=== PATIENT | female | born 1945 | race Caucasian/White ===

== ENCOUNTER → 2017-06-16 09:58 | Outpatient (CLI) | payer MEDICARE, OTHER, SELFPAY ==
--- NOTE | 2017-06-17 13:47 | PFTCOMP ---
COMPLETE PULMONARY FUNCTION TEST INTERPRETATION Brief HPI: Patient is a 71 year old female, currently under the care of myself, who presents to [facility] for complete pulmonary function tests secondary to diagnosis of COPD. Respiratory therapist reports good effort and reproducible results. Interpretation: Forced expiration spirometry shows a mild large airways obstructive ventilatory defect with an FEV1 of 72 % predicted. There is no significant bronchodilator response by ATS criteria. Spirograms are of good quality and plateau slowly, indicating slowly emptying areas of the lungs. The respiratory flow volume loop shows decreased expiratory flow rates at all lung volumes consistent with airway obstruction. Lung volumes by body plethysmography show a normal total lung capacity at 4.93 L, 112 % predicted. All other lung volumes are within normal limits. There is a trend towards air-trapping, but this does not reach clinical significance by ATS criteria. Diffusion capacity by carbon monoxide is decreased at 53 % predicted. The airway resistance is normal. Compared to previous pulmonary function tests from 07/28/2015, there has been no significant change. Impression: Irreversible mild large airways obstructive ventilatory defect with a symmetric reduction diffusing capacity consistent with patient's diagnosis of COPD. No significant change compared to previous study
--- NOTE | 2017-06-17 13:50 | PFTCOMP_ITS ---
COMPLETE PULMONARY FUNCTION TEST INTERPRETATION Brief HPI: Patient is a 71 year old female, currently under the care of myself, who presents to [facility] for complete pulmonary function tests secondary to diagnosis of COPD. Respiratory therapist reports good effort and reproducible results. Interpretation: Forced expiration spirometry shows a mild large airways obstructive ventilatory defect with an FEV1 of 72 % predicted. There is no significant bronchodilator response by ATS criteria. Spirograms are of good quality and plateau slowly, indicating slowly emptying areas of the lungs. The respiratory flow volume loop shows decreased expiratory flow rates at all lung volumes consistent with airway obstruction. Lung volumes by body plethysmography show a normal total lung capacity at 4.93 L , 112 % predicted. All other lung volumes are within normal limits. There is a trend towards air-trapping, but this does not reach clinical significance by ATS criteria. Diffusion capacity by carbon monoxide is decreased at 53 % predicted. The airway resistance is normal. Compared to previous pulmonary function tests from 07/28/2015, there has been no significant change. Impression: Irreversible mild large airways obstructive ventilatory defect with a symmetric reduction diffusing capacity consistent with patient's diagnosis of COPD. No significant change compared to previous study
== END ==
PROVIDERS: Family Provider Family Medicine; PCP Family Medicine; Visit Provider Internal Medicine Critical Care Medicine
DX: J44.9 Chronic obstructive pulmonary disease, unspecified (principal)
CPT/HCPCS: 94060; 94726; 94729

== ENCOUNTER → 2017-06-21 11:15 | Outpatient (CLI) | payer MEDICARE, OTHER, SELFPAY ==
[2017-06-21 11:25] VITALS: PULSE 101; PULSE 106; PULSE 107; PULSE 113; PULSE 114; PULSE 115; PULSE 89; PULSE 90; O2SAT 90; O2SAT 91; O2SAT 92; O2SAT 97; O2SAT 98
--- NOTE | 2017-06-21 13:48 | PCM.PSN.6M ---
PSN 6 Minute Walk Test - 6 Minute Walk Test 6 Minute Walk Test: 6 Minute Walk Test PSN:6-Minute Walk Test Start: 06/21/17 11:38 Freq: Status: Active Protocol: RESP.6MINW Document 06/21/17 11:25 [facility] (Rec: 06/21/17 11:40 [facility] [id number]) 6 Minute Walk Test Date Performed 06/21/17 Time Performed 11:25 Height 5 ft 2.5 in Weight: 240 lb Weight in Pounds 240.[address]: Matthew Haley Assistive device used: Cane Pre-test Oxygen Delivery Method Room Air Pulse Ox (%) 97 Pulse Rate (60-100 beats/min) 90 Dyspnea Cj Scale (0-10) 0.5 Exertion Cj Scale (6-20) 6 1st minute Oxygen Delivery Method Room Air Pulse Ox (%) 98 Pulse Rate (60-100 beats/min) 101 H Number of Rests Taken 0 2nd minute Oxygen Delivery Method Room Air Pulse Ox (%) 92 Pulse Rate (60-100 beats/min) 106 H Number of Rests Taken 0 3rd minute Oxygen Delivery Method Room Air Pulse Ox (%) 90 Pulse Rate (60-100 beats/min) 107 H Number of Rests Taken 0 4th minute Oxygen Delivery Method Room Air Pulse Ox (%) 91 Pulse Rate (60-100 beats/min) 113 H Number of Rests Taken 0 5th minute Oxygen Delivery Method Room Air Pulse Ox (%) 90 Pulse Rate (60-100 beats/min) 115 H Number of Rests Taken 0 6th minute Oxygen Delivery Method Room Air Pulse Ox (%) 91 Pulse Rate (60-100 beats/min) 114 H Number of Rests Taken 0 Post-test Oxygen Delivery Method Room Air Pulse Ox (%) 98 Pulse Rate (60-100 beats/min) 89 Dyspnea Cj Scale (0-10) 1 Exertion Cj Scale (6-20) 12 Number of Rests Taken 0 Full Laps Walked 10 Partial Lap, Number of Tiles Walked 34 Total Distance Walked (ft) 624 - Interpretation Interpretation: The patient ambulated 624 feet over the course of 6 minutes beginning on room air with use of a cane. Pretesting oxygen saturation was noted to be 97% on room air. With ambulation, the yelena oxygen saturation was 90%. The patient did develop physiologic tachycardia with exertion. There was evidence of both impaired walk distance and exertional oxygen desaturation. - Recommendations Recommendations: There is no indication for the use of supplemental oxygen at this time. However, close interval follow-up is recommended given the degree of oxygen desaturation noted during this study.
== END ==
PROVIDERS: Family Provider Family Medicine; PCP Family Medicine; Visit Provider Internal Medicine Critical Care Medicine
DX: J44.9 Chronic obstructive pulmonary disease, unspecified (principal); R91.1 Solitary pulmonary nodule
CPT/HCPCS: 94618

== ENCOUNTER → 2017-08-02 09:43 | Outpatient (CLI) | payer MEDICARE, OTHER, SELFPAY ==
--- NOTE | 2017-08-02 09:44 | ECHOCS_ITS ---
Reason For Study: PHTN Procedure This was a 2D Doppler, Color Flow transthoracic echocardiogram. The exam was of poor technical quality due to body habitus. The study was technically difficult. Exam performed in department. Left Ventricle Normal LV size. Left ventricular systolic function is normal. The estimated ejection fraction is 60 %. No regional wall motion abnormalities noted. Right Ventricle Mildly dilated right ventricle. Normal systolic function. Atria Normal left atrium. The right atrium is mildly enlarged. No doppler evidence for ASD. Mitral Valve There is no mitral annular calcification. Normal mitral valve. Trivial mitral valve insufficiency. Tricuspid Valve Normal tricuspid valve. Mild tricuspid valve insufficiency. Right ventricular systolic pressure estimated to be 31 mmHg. Aortic Valve Trisinus/trileaflet aortic valve. Normal aortic valve. Pulmonic Valve The pulmonic valve is not well visualized. Trivial pulmonic valve insufficiency. Great Vessels Normal sized aortic root. Pericardium/Pleural No pericardial effusion. MMode/2D Measurements & Calculations LVIDd: 5.1 cm IVSd: 1.2 cm Ao root diam: 3.2 cm LVIDs: 3.5 cm LVPWd: 1.2 cm LA dimension: 4.0 cm RVDd: 3.5 cm FS: 31.8 % LAV(MOD-bp): 67.1 ml LA A4 area: 20.5 cm2 RA A4 area: 15.8 cm2 LAV(MOD-bp) Indexed: 32.3 ml/m2 LAV(MOD-sp2): 66.7 ml LAV(MOD-sp4): 63.3 ml Doppler Measurements & Calculations MV E max smith: 84.9 cm/sec Lat Peak E' Smith: 9.2 cm/sec Med Peak E' Smith: 7.5 cm/sec MV A max smith: 101.9 cm/sec E/E' lat: 9.2 E/E' med: 11.3 MV E/A: 0.83 Ao V2 max: 124.0 cm/sec LV V1 max: 113.2 cm/sec PA V2 max: 96.9 cm/sec Ao max P.2 mmHg LV V1 max P.1 mmHg TR max smith: 264.5 cm/sec TR max P.0 mmHg Interpretation Summary The study was technically difficult. Left ventricular systolic function is normal. The estimated ejection fraction is 60 %. Mildly dilated right ventricle. Normal systolic function. The right atrium is mildly enlarged. Trivial mitral valve insufficiency. Mild tricuspid valve insufficiency. Trivial pulmonic valve insufficiency. Right ventricular systolic pressure estimated to be 31 mmHg. Transmitral diastolic flow velocities suggest diastolic dysfunction. Ordering Physician: Matthew Haley Referring Physician: Tigist Pelaez Performed By: Romina Yarbrough, MINNIECS, RVT
== END ==
PROVIDERS: Family Provider Family Medicine; PCP Family Medicine; Visit Provider Internal Medicine Critical Care Medicine
DX: I27.20 Pulmonary hypertension, unspecified (principal)
CPT/HCPCS: 93306

== ENCOUNTER → 2018-03-17 10:49 | Outpatient (CLI) | payer MEDICARE, OTHER, SELFPAY ==
[2018-03-17 11:25] VITALS: PULSE 103; PULSE 104; PULSE 106; PULSE 79; PULSE 83; PULSE 94; PULSE 99; O2SAT 91; O2SAT 92; O2SAT 93; O2SAT 94; O2SAT 98
--- NOTE | 2018-03-18 08:38 | PCM.PSN.6M ---
PSN 6 Minute Walk Test - 6 Minute Walk Test 6 Minute Walk Test: 6 Minute Walk Test PSN:6-Minute Walk Test Start: 03/17/18 11:24 Freq: Status: Active Protocol: RESP.6MINW Document 03/17/18 11:25 [facility] (Rec: 03/17/18 11:31 [facility] [id number]) 6 Minute Walk Test Date Performed 03/17/18 Time Performed 11:03 Height 5 ft 3 in Weight: 230 lb Weight in Pounds 230.[address]: Laura Slaughter Assistive device used: Cane Pre-test Oxygen Delivery Method Room Air Pulse Ox (%) 98 Pulse Rate (60-100 beats/min) 79 Dyspnea Cj Scale (0-10) 0 Exertion Cj Scale (6-20) 11 1st minute Oxygen Delivery Method Room Air Pulse Ox (%) 94 Pulse Rate (60-100 beats/min) 94 2nd minute Oxygen Delivery Method Room Air Pulse Ox (%) 91 Pulse Rate (60-100 beats/min) 99 3rd minute Oxygen Delivery Method Room Air Pulse Ox (%) 93 Pulse Rate (60-100 beats/min) 104 H 4th minute Oxygen Delivery Method Room Air Pulse Ox (%) 93 Pulse Rate (60-100 beats/min) 103 H 5th minute Oxygen Delivery Method Room Air Pulse Ox (%) 92 Pulse Rate (60-100 beats/min) 104 H 6th minute Oxygen Delivery Method Room Air Pulse Ox (%) 93 Pulse Rate (60-100 beats/min) 106 H Post-test Oxygen Delivery Method Nasal Cannula Pulse Ox (%) 98 Pulse Rate (60-100 beats/min) 83 Dyspnea Cj Scale (0-10) 0.5 Exertion Cj Scale (6-20) 12 Full Laps Walked 8 Partial Lap, Number of Tiles Walked 18 Total Distance Walked (ft) 490 - Interpretation Interpretation: The patient ambulated 490 feet over the course of 6 minutes beginning on room air with use of a cane. Pretesting oxygen saturation was noted to be 98% on room air. With ambulation, the yelena oxygen saturation was 91%. This testing indicates the presence of impaired walk distance and significant exertional oxygen desaturation, consistent with pulmonary limitation to exercise tolerance. - Recommendations Recommendations: There is no indication for the use of supplemental oxygen at this time. However, close interval follow-up is recommended, given the degree of oxygen desaturation noted during this study.
== END ==
PROVIDERS: Family Provider Family Medicine; PCP Family Medicine; Referring Provider Nurse Practitioner Acute Care; Visit Provider Nurse Practitioner Acute Care
DX: J44.9 Chronic obstructive pulmonary disease, unspecified (principal)
CPT/HCPCS: 94618

== ENCOUNTER → 2018-03-21 09:40 | Outpatient (CLI) | payer MEDICARE, OTHER, SELFPAY ==
[2017-10-04 10:06] VITALS: BMI 42.1
--- NOTE | 2018-03-21 16:20 | PFTCOMP ---
COMPLETE PULMONARY FUNCTION TEST INTERPRETATION Brief HPI: Patient is a 72 year old female, currently under the care of myself, who presents to [facility] for complete pulmonary function tests secondary to diagnosis of COPD. Respiratory therapist reports good effort and reproducible results. Interpretation: Forced expiration spirometry shows a moderate large airways obstructive ventilatory defect with an FEV1 of 68% predicted. There is no significant bronchodilator response by strict ATS criteria. Spirograms are of good quality and plateau slowly, indicating slowly emptying areas of the lungs. The respiratory flow volume loop shows decreased expiratory flow rates at all lung volumes consistent with airway obstruction. Lung volumes by body plethysmography show a normal total lung capacity at 4.72 L, 102% predicted. All other lung volumes are within normal limits. Diffusion capacity by carbon monoxide is at the lower limit of normal at 67% predicted. The airway resistance is elevated. Compared to previous pulmonary function tests from 06/16/2017, there has been a significant improvement in DLCO by 28%. Impression: Irreversible moderate large airways obstructive ventilatory defect with a symmetric reduction diffusing capacity. There has been improvement compared to previous study.
--- OUTSIDE RECORDS SUMMARY | 2018-05-07 09:03 | XMS RPT_ITS ---
:1945 Author Organization OHIP Support Name Relationship Address Phone July Unavailable [address] + [place] [address] R Unavailable Unavailable July Unavailable [address] + [place] [address] R Unavailable Unavailable July Unavailable [address] + [place] [address] R Unavailable Unavailable July Unavailable [address] + [place] [address] R Unavailable Unavailable July Unavailable [address] + [place] [address] R Unavailable Unavailable July Unavailable [address] + [place] [address] R Unavailable Unavailable July Unavailable [address] [phone] [place] [address] R Unavailable Unavailable July Unavailable [address] [phone] [place] [address] R Unavailable Unavailable July Unavailable [address] [phone] [place] [address] R Unavailable Unavailable July Unavailable [address] [phone] [place] [address] R Unavailable Unavailable July Unavailable [address] [phone] [place] [address] R Unavailable Unavailable July Unavailable [address] [phone] [place] [address] R Unavailable Unavailable July Unavailable [address] [phone] [place] [address] R Unavailable Unavailable Unavailable Care Team Providers Name Role Phone Vitor Gillette D.O. Attending Unavailable Slaughter, Laura Referring Unavailable Tera, Matthew Attending Unavailable Malys, Tigist Referring Unavailable Tera, Matthew Attending Unavailable Tera, Matthew Referring Unavailable Malys, Tigist Primary Care Unavailable Tera, Matthew Attending Unavailable Tera, Matthew Referring Unavailable Malys, Tigist Primary Care Unavailable Tera, Matthew Attending Unavailable Tera, Matthew Referring Unavailable Tera, Matthew Attending Unavailable Slaughter, Laura Referring Unavailable Tera, Matthew Attending Unavailable Malys, Tigist Referring Unavailable Vitor Gillette D.O. Attending Unavailable Tera, Matthew Referring Unavailable Tera, Matthew Attending Unavailable Malys, Tigist Primary Care Unavailable Jung Vaughan Attending Unavailable Tera, Matthew Referring Unavailable Slaughter, Laura Attending Unavailable Malys, Tigist Referring Unavailable Slaughter, Laura Attending Unavailable Slaughter, Laura Referring Unavailable Malys, Tigist Primary Care Unavailable Slaughter, Laura Attending Unavailable Slaughter, Laura Referring Unavailable Malys, Tigist Primary Care Unavailable PROBLEMS PROBLEMS DATE TYPE CONDITION / CODE ATTENDING STATUS SOURCE 03/30/2018 Unknown J44.9 - Chronic Tera, Matthew Active [facility] pulmonary Hospital disease, Repository unspecified / J44.9(ICD-10) 07/06/2017 Unknown I27.20 - Tera, Matthew Active [facility] / Rep[facility] I27.20(ICD-10) PROCEDURES PROCEDURES No Procedure Records FoundRESULTS RESULTS PULMONARY VISIT REPORT Observed: 03/30/2018 Status: F Source: [facility] 12:33 PM [facility] REPOSITORY [facility] Pulmonary Medicine [address] [place] [address] OFFICE VISIT Date of Service: 03/30/18 MR#: [id number] Acct: [id number] Name: ISIDRO CRAWFORD Rep #: [id number] : 1945 Provider: Matthew Haley MD Age/Sex: 72/F [facility] Status: Signed Assessment AND Plan Problems 1. Chronic obstructive pulmonary disease with acute lower respiratory infection J44.0 2. History of pulmonary embolism Z86.711 3. Tobacco user Z72.0 4. DION (obstructive sleep apnea) G47.33 5. Pulmonary hypertension I27.20 Plan Patient currently on triple therapy in addition to nocturnal BiPAP. Recent walking oximetry does show significant desaturation, but oxygen is not required at this time. Did stress to the patient that continued smoking could lead to requirement for supplemental oxygen with ambulation. No indication for repeat titration at this time. Did stressed to the patient that continued smoking does increase risk of other complications such as coronary artery disease, IL and stroke. Continue current therapy. Encourage smoking cessation. Medications Changed: Plan Detail Follow Up 6 Months ([facility]) HPI 6 M FU: Chief Complaint: Review test results Details: Patient is a 72-year-old female, currently under the care of Dr. Pelaez, who presents for evaluation secondary to recent test results. Since last visit, patient denies any ER visits, hospitalizations or prednisone burst. Patient feels subjectively unchanged compared to previous visit. Patient reports she is been compliant with her Advair and Spiriva therapy. Patient denies any complications such as thrush, hoarseness or sore throat. Patient continues to have issues with dyspnea on exertion, but feels these are grossly unchanged compared to previous. Patient has not required any rescue inhaler. Patient reports that she has had some nasal drainage and congestion recently. Cough is productive of white sputum. Patient has been compliant with her BiPAP therapy. Patient feels that this is still effective in improving her daytime hypersomnolence. Patient denies any pain at the interface site, dry mouth or epistaxis. Patient does not take naps during the day. Patient states that she will wear her BiPAP or watching TV at night to prevent falling asleep without the mask in place. Unfortunately, patient does report that she is reinitiated smoking. Patient estimates that she smokes approximately 1 pack/day. Patient states that this helps her with her stress and she also enjoys smoking. I discussed with her at length about the dangers of continued smoking, but patient appears to be pre-contemplative at this time. Testing personally reviewed with the patient Complete PFT (03/21/2018): Irreversible moderate large airways obstructive ventilatory defect with a symmetric reduction diffusing capacity. There will has been improvement since June (FVC 81%, FEV1 68%, TLC 102%, DLCO 67%) Walking oximetry (03/17/2018): Ambulated 490 feet over the course of 6 minutes with an oxygen yelena of 91% Compliance report (February 2018): Compliant with BiPAP 100% of the time for an average of 10 hours 59 minutes on BiPAP 23/15 centimeters of water with a residual of 1.7 and very well controlled leak HPI Comments Details: Intake Vital Signs03/30/18 Height 5 ft 3 in 03/30/18 Weight: 109.769 kg Intake Visit Reasons: 6 M FU Accompanied by: Self Allergies Fish Containing Products Allergy (Verified 03/30/18 10:27) Unknown Medications Citalopram [Celexa] 10 mg PO DAILY 06/27/14 [History Confirmed 03/30/18] Omeprazole [Prilosec] 40 mg PO DAILY 06/27/14 [History Confirmed 03/30/18] traZODone [Desyrel] 200 mg PO QHS 06/27/14 [History Confirmed 03/30/18] Fluticasone/Salmeterol [Advair 250/50 Mcg Diskus] 1 puff INHALATION BID #1 inhaler 07/11/14 [Rx Confirmed 03/30/18] Furosemide [Lasix] 20 mg PO DAILY #30 tab 07/11/14 [Rx Confirmed 03/30/18] Gabapentin 300 mg PO DAILY 07/13/16 [History Confirmed 03/30/18] Gabapentin [Neurontin] 600 mg PO QHS 07/13/16 [History Confirmed 03/30/18] albuterol sulfate HFA 90 mcg/actuation aerosol inhaler 2 puff INHALATION Q4H #1 inh 03/29/17 [Rx Confirmed 03/30/18] tiotropium bromide 18 mcg capsule with inhalation device 1 cap INHALATION DAILY #90 inh 03/30/18 [Rx Confirmed 03/30/18] PFSH Medical History Benign essential hypertension (Chronic) Chronic obstructive lung disease (Chronic) History of DVT of lower extremity (Chronic) GERD (gastroesophageal reflux disease) (Chronic) Hyperlipidemia (Chronic) History of pulmonary embolism (Chronic) Tobacco user (Chronic) Acute respiratory failure with hypoxia and hypercarbia (Acute) Lung nodule (Acute) Social History Smoking Status: Current every day smoker second hand exposure: Yes alcohol intake: never substance use type: does not use Review of Systems Const CONSTITUTIONAL: Positive fatigue and weight gain; negative anorexia, body ache, chills, daytime sleepiness, fever(s), night sweats, oral thrush, stops breathing during sleep, weight loss, sleeping in chair, weight loss, frequent colds, seasonal allergies, other, headache(s) or orthopnea EETM Ear Nose Throat Mouth: Positive hearing normal, nasal congestion and nasal discharge; negative hard of hearing, hoarseness, dry mouth in morning, change in vision, itchy eyes, eye pain, swallowing Difficulty, ear pain, nose bleed, headache(s), mouth pain, post nasal drip, sinus pain, sinus pressure, sore throat or other Cardio Cardiovascular: Negative chest pain, chest pain at rest, chest pain with activity, irregular heart rhythm, edema, shortness of breath when lying down, palpitations, murmur or other Resp Respiratory: Positive as per HPI, shortness of breath shortness of breath: Positive with activity and cough cough: Positive productive color: Positive thick and white; negative pain with cough, wheezing, chest congestion, chest tightness, pain on inspiration, inhalers, increase use of rescue inhalers, snoring, apnea or other Gastro Gastrointestional: Negative bloody stools, change in appetite, difficulty swallowing, reflux, hematemesis, melena stool, loose stool, constipation or other Genitourinary: Negative blood in urine, nocturia, pain with urination or other Musc Musculoskeletal: Negative body pain, back pain, neck pain or other Skin/Breast Skin/Breast: Negative dry skin, itching, rash, unusual bruising, breast lump or other Neuro Neurological: Negative restless legs, confusion, weakness or other Psych Psychocological: Negative abnormal sleep pattern, anxiety, thoughts of hurting self/others, hopelessness or other Lymph Lymphatic: Negative easy bleeding, easy bruising, swollen lymph nodes or other Exam Const Constitutional: Positive conversant, cooperative, in no acute respiratory distress, well developed, appears older than stated age and obese; negative wearing supplemental oxygen or ill appearing Head Head: Positive normocephalic and atraumatic; negative cyanosis of lips/distal nose, frontal sinus tenderness or maxillary sinus tenderness Eyes Eye: Positive clear conjunctiva; negative nystagmus, scleral abnormality or cataract present Ears Ear: Positive hearing normal and external ears normal; negative hard of hearing Nose Nose: Positive external nose normal, septum normal and no nasal discharge; negative epistaxis or nasal polyp Mouth Mouth: Positive oral mucosae normal, no lesions, dentures and crowded posterior oropharynx; negative post nasal drip, malodorous breath or oral thrush present Mallampati Score: IV: Mallampati Score Neck Neck: Positive normal visual inspection, full ROM, trachea midline, thick neck and female neck greater than 37 cm (15 in); negative lymphadenopathy or JVD Chest Wall Chest: Positive symmetric chest movement and increased A/P diameter; negative crepitus or tenderness Resp lung sounds: Positive diminished and prolonged expiratory time; negative wheezes, rhonchi, rales, use of accessory muscles, wheeze present on forced exhalation or dullness to percussion Cardio Cardiac: Positive regular rate, regular rhythm, S1 normal and S2 normal; negative murmur, rub or gallop GI GI: Positive normal to inspection, normal bowel sounds and obese; negative distended, ascites or epigastric tenderness Genitourinary: Positive deferred Musc Musculoskeletal: Positive steady gait; negative using an assistive device for ambulation, kyphosis or scoliosis Skin Pulmonary Skin Exam: Positive intact; negative rash, lesion, ulcers, erythema or dermal atrophy Pulses Pulse: Yes radial pulses present Extremities Extremities: Yes capillary refill normal, No clubbing, No cyanosis, Yes edema (2+) Location: lower extremity Neuro Neurologic: Yes conversant, Yes no focal neuro deficits, Yes normal concentration, Yes understands questions, Yes cooperative, Yes normal cognition, Yes normal coordination Lymph Lymphatic: No lymphadenopathy Psych Appearance: Positive grossly normal Mental Status: Positive mental status grossly normal Mood: Positive congruent mood Affect: Positive normal affect Pulmonary Procedure Smoking Cessation Education: Yes education provided, 3-10 minutes, expresses understanding, continue to encourage smoking cessation and needs reinforcement Coding Level of Care Code Off vis,est,level 4 Diagnoses Chronic obstructive pulmonary disease with acute lower respiratory infection J44.0 COPD type: COPD with acute lower respiratory infection History of pulmonary embolism Z86.711 Tobacco user Z72.0 DION (obstructive sleep apnea) G47.33 Pulmonary hypertension I27.20 03/30/18 1233 <Electronically signed by Matthew Haley MD> Date Matthew Haley MD Cosigner Signature: Date (if applicable) CC: Tigist Pelaez DO PULMONARY FUNCTION Observed: 03/22/2018 Status: F Source: [facility] REPORT COMP 5:52 AM [facility] REPOSITORY [facility] Pulmonary Services/Neurology [address] [place] [address] MR#: [id number] Acct: [id number] Name: ISIDRO CRAWFORD Rep #: [id number] : 1945 72 From: Matthew Haley MD Referring Dr: Laura Slaughter NP Status: REG CLI Ordering Dr: Date: Location: Sex: F C COMPLETE PULMONARY FUNCTION TEST INTERPRETATION Brief HPI: Patient is a 72 year old female, currently under the care of myself, who presents to [facility] for complete pulmonary function tests secondary to diagnosis of COPD. Respiratory therapist reports good effort and reproducible results. Interpretation: Forced expiration spirometry shows a moderate large airways obstructive ventilatory defect with an FEV1 of 68% predicted. There is no significant bronchodilator response by strict ATS criteria. Spirograms are of good quality and plateau slowly, indicating slowly emptying areas of the lungs. The respiratory flow volume loop shows decreased expiratory flow rates at all lung volumes consistent with airway obstruction. Lung volumes by body plethysmography show a normal total lung capacity at 4.72 L, 102% predicted. All other lung volumes are within normal limits. Diffusion capacity by carbon monoxide is at the lower limit of normal at 67% predicted. The airway resistance is elevated. Compared to previous pulmonary function tests from 06/16/2017, there has been a significant improvement in DLCO by 28%. Impression: Irreversible moderate large airways obstructive ventilatory defect with a symmetric reduction diffusing capacity. There has been improvement compared to previous study. 03/22/18 0552 <Electronically signed by Matthew Haley MD> Date Matthew Haley MD CC: Matthew Haley MD; Laura Pelaez DO Date Dictated: 03/21/18 1620 Date Transcribed: 03/21/181619 Vp Software Support: MARSHA Signed 6 MINUTE WALK TEST Observed: 03/18/2018 Status: F Source: [facility] 8:39 AM [facility] REPOSITORY [facility] Pulmonary Services/Neurology [address] [place] [address] MR#: [id number] Acct: [id number] Name: ISIDRO CRAWFORD Rep #: [id number] : 1945 72 From: Vitor Gillette DO Referring Dr: Laura Slaughter MANAGER PLANNING Date: Ordering Dr: Sex: F C Location: PSN PSN 6 Minute Walk Test - 6 Minute Walk Test 6 Minute Walk Test: 6 Minute Walk Test PSN:6-Minute Walk Test Start: 03/17/18 11:24 Freq: Status: Active Protocol: [id number] Document 03/17/18 11:25 SMB (Rec: 03/17/18 11:31 SMB [id number]) 6 Minute Walk Test Date Performed 03/17/18 Time Performed 11:03 Height 5 ft 3 in Weight: 230 lb Weight in Pounds 230.[address]: Laura Slaughter Assistive device used: Cane Pre-test Oxygen Delivery Method Room Air Pulse Ox (%) 98 Pulse Rate (60-100 beats/min) 79 Dyspnea Cj Scale (0-10) 0 Exertion Cj Scale (6-20) 11 1st minute Oxygen Delivery Method Room Air Pulse Ox (%) 94 Pulse Rate (60-100 beats/min) 94 2nd minute Oxygen Delivery Method Room Air Pulse Ox (%) 91 Pulse Rate (60-100 beats/min) 99 3rd minute Oxygen Delivery Method Room Air Pulse Ox (%) 93 Pulse Rate (60-100 beats/min) 104 H 4th minute Oxygen Delivery Method Room Air Pulse Ox (%) 93 Pulse Rate (60-100 beats/min) 103 H 5th minute Oxygen Delivery Method Room Air Pulse Ox (%) 92 Pulse Rate (60-100 beats/min) 104 H 6th minute Oxygen Delivery Method Room Air Pulse Ox (%) 93 Pulse Rate (60-100 beats/min) 106 H Post-test Oxygen Delivery Method Nasal Cannula Pulse Ox (%) 98 Pulse Rate (60-100 beats/min) 83 Dyspnea Cj Scale (0-10) 0.5 Exertion Cj Scale (6-20) 12 Full Laps Walked 8 Partial Lap, Number of Tiles Walked 18 Total Distance Walked (ft) 490 - Interpretation Interpretation: The patient ambulated 490 feet over the course of 6 minutes beginning on room air with use of a cane. Pretesting oxygen saturation was noted to be 98% on room air. With ambulation, the yelena oxygen saturation was 91%. This testing indicates the presence of impaired walk distance and significant exertional oxygen desaturation, consistent with pulmonary limitation to exercise tolerance. - Recommendations Recommendations: There is no indication for the use of supplemental oxygen at this time. However, close interval follow-up is recommended, given the degree of oxygen desaturation noted during this study. 03/18/18838 <Electronically signed by Vitor Gillette DO> Date Vitor Gillette DO CC: Date Dictated: 03/18/18837 Date Transcribed: 03/18/18837 Vp Software Support: Vitor Gillette DO Signed PULMONARY VISIT REPORT Observed: 10/04/2017 Status: F Source: [facility] 4:59 PM [facility] REPOSITORY Pulmonary Medicine of [address] [place] [address] OFFICE VISIT Date of Service: 10/04/17 MR#: [id number] Acct: [id number] Name: ISIDRO CRAWFORD Rep #: [id number] : 1945 Provider: Laura Slaughter Age/Sex: 71/F [facility] Status: Signed Assessment AND Plan 1. Chronic obstructive pulmonary disease with acute lower respiratory infection J44.0 Status Chronic FEV1 71% of predicted Plan Stable. No indication to change medications, continue triple therapy inhaler. Repeat pulmonary function tests and a walking test in 6 months prior to follow-up with Dr. Haley. Patient has been encouraged to contact the office with any signs or symptoms of exacerbation, which have been reviewed. The patient conveys understanding and is agreeable to this plan. Orders Orders: 2. Pulmonary hypertension I27.20 Status Chronic RVSP 31 mmHg Plan Continue supportive measures. Shortness of breath has not worsened. The patient has been encouraged to contact the office if the shortness of breath worsens at which time a pulmonary stress test will be ordered. The patient is agreeable. 3. DION (obstructive sleep apnea) G47.33 Status Chronic BiPAP 21/15 cm of water Plan Stable. The patient is using and benefiting from BiPAP. No indication for titration study at this time. Follow-up with Dr. Haley in 6 months. 4. Tobacco user Z72.0 Status Chronic Plan Deteriorated. The patient would like to try 21 mg nicotine patches. She reports that previously she was successful at quitting for 3 days while wearing a 21 mg patch. 5 minute conversation about smoking cessation. Follow-up with Dr. Haley in 6 months. Plan Detail Other Orders Orders: Other Medications New: Follow Up 6 Months ([facility]) HPI 3 M FU: Chief Complaint: Shortness of breath on exertion HPI Comments Details: This patient reports to the office today to follow- up on her COPD and obstructive sleep apnea. She is ambulatory and currently on room air. She reports that she has not had any exacerbations in the past 6 months. She has not been to the ED/urgent care for any breathing problems. She has not required antibiotics or prednisone. She is compliant with Advair twice daily. She reports rinsing her mouth out after each use. She denies any medication side effects such as sore throat or thrush. She is also compliant with Spiriva daily. She reports that she has not needed to use her rescue inhaler at all. She continues to feel short of breath on exertion only. This has not worsened. She denies any shortness of breath during conversation or at rest. She denies cough, sputum production or hemoptysis. She denies any wheezing, chest tightness or chest pain. She has not experienced any palpitations. She also denies fever, chills or body aches. She reports good compliance with her BiPAP. Current settings are 25/15 cm of water. Compliance report shows 100% compliance with an average use of 8 hours and 47 minutes. AHI is controlled at 2.2 events per hour and leaks are very low. She does report feeling rested in the morning. She has approximately one episode of nocturia nightly. She is not sure if she snores through the mask. She denies any naps or falling asleep easily while watching TV. Echocardiogram completed on August 02, 2013 shows an EF of 60% with an RVSP of 31 mmHg. Also notes a mildly dilated right ventricle. Intake Vital Signs10/04/17 Height 5 ft 3 in 10/04/17 Weight: 238 lb Intake Visit Reasons: 3 M [place] [facility] [place]: [facility]ECH Accompanied by: Self Allergies Fish Containing Products Allergy (Verified 10/04/17 10:07) Unknown Medications Citalopram [Celexa] 10 mg PO DAILY 06/27/14 [History Confirmed 10/04/17] Omeprazole [Prilosec] 40 mg PO DAILY 06/27/14 [History Confirmed 10/04/17] Tiotropium [place] [Spiriva 18 MCG] 1 puff INHALATION DAILY 06/27/14 [History Confirmed 10/04/17] traZODone [Desyrel] 200 mg PO QHS 06/27/14 [History Confirmed 10/04/17] Fluticasone/Salmeterol [Advair 250/50 Mcg Diskus] 1 puff INHALATION BID #1 inhaler 07/11/14 [Rx Confirmed 10/04/17] Furosemide [Lasix] 20 mg PO DAILY #30 tab 07/11/14 [Rx Confirmed 10/04/17] Gabapentin 300 mg PO DAILY 07/13/16 [History Confirmed 10/04/17] Gabapentin [Neurontin] 600 mg PO QHS 07/13/16 [History Confirmed 10/04/17] albuterol sulfate HFA 90 mcg/actuation aerosol inhaler 2 puff INHALATION Q4H #1 inh 03/29/17 [Rx Confirmed 10/04/17] nicotine 14 mg/24 hr daily transdermal patch 14 mg TRANSDERMAL ONCE #20 patch 07/06/17 [Rx Confirmed 10/04/17] nicotine 21 mg/24 hr daily transdermal patch 1 patch TRANSDERMAL Q24H #28 ea 10/04/17 [Rx Confirmed 10/04/17] [facility] Medical History Benign essential hypertension (Chronic) Chronic obstructive lung disease (Chronic) History of DVT of lower extremity (Chronic) GERD (gastroesophageal reflux disease) (Chronic) Hyperlipidemia (Chronic) History of pulmonary embolism (Chronic) Tobacco user (Chronic) Acute respiratory failure with hypoxia and hypercarbia (Acute) Lung nodule (Acute) Social History Smoking Status: Current every day smoker second hand exposure: Yes alcohol intake: never substance use type: does not use FEV1% FEV1%: 71 Review of Systems Const CONSTITUTIONAL: Negative anorexia, body ache, chills, daytime sleepiness, fever(s), night sweats, oral thrush, stops breathing during sleep, weight loss, sleeping in chair, fatigue, weight loss, weight gain, frequent colds, seasonal allergies, other, headache(s) or orthopnea EETM Ear Nose Throat Mouth: Positive hearing normal; negative hard of hearing, hoarseness, dry mouth in morning, change in vision, itchy eyes, eye pain, swallowing Difficulty, ear pain, nose bleed, headache(s), mouth pain, nasal congestion, nasal discharge, post nasal drip, sinus pain, sinus pressure, sore throat or other Cardio Cardiovascular: Negative chest pain, chest pain at rest, chest pain with activity, irregular heart rhythm, edema, shortness of breath when lying down, palpitations, murmur or other Resp Respiratory: Positive as per HPI, shortness of breath shortness of breath: Positive with activity and inhalers; negative pain with cough, wheezing, chest congestion, cough, chest tightness, pain on inspiration, increase use of rescue inhalers, snoring, apnea or other Gastro Gastrointestional: Negative bloody stools, change in appetite, difficulty swallowing, reflux, hematemesis, melena stool, loose stool, constipation or other Genitourinary: Negative blood in urine, nocturia, pain with urination or other Musc Musculoskeletal: Negative body pain, back pain, neck pain or other Skin/Breast Skin/Breast: Negative dry skin, itching, rash, unusual bruising, breast lump or other Neuro Neurological: Negative restless legs, confusion, weakness or other Psych Psychocological: Negative abnormal sleep pattern, anxiety, thoughts of hurting self/others, hopelessness or other Lymph Lymphatic: Negative easy bleeding, easy bruising, swollen lymph nodes or other Exam Const Constitutional: Positive conversant, cooperative, in no acute respiratory distress, healthy appearing, well developed, well nourished, good hygiene, obese and smells of smoke Head Head: Positive normocephalic and atraumatic; negative cyanosis of lips/distal nose Eyes Eye: Positive clear conjunctiva and nystagmus; negative scleral abnormality Ears Ear: Positive hearing normal and external ears normal; negative hard of hearing Nose Nose: Positive external nose normal and no nasal discharge; negative epistaxis Mouth Mouth: Positive crowded posterior oropharynx, dentures, oral mucosae normal and no lesions; negative post nasal drip, oral thrush present or malodorous breath Mallampati Score: III: Mallampati Score Neck Neck: Positive normal visual inspection, full ROM, trachea midline and thick neck; negative lymphadenopathy, JVD or tender Chest Wall Chest: Positive normal inspection of the chest and symmetric chest movement; negative increased A/P diameter Resp lung sounds: Positive clear to auscultation, diminished, normal expiratory time and normal respiratory effort; negative wheezes, rhonchi, rales, dullness to percussion or wheeze present on forced exhalation Cardio Cardiac: Positive regular rate, regular rhythm, S1 normal and S2 normal; negative murmur GI GI: Positive normal to inspection, normal bowel sounds and obese; negative distended Genitourinary: Positive deferred Musc Musculoskeletal: Positive steady gait, ROM normal and using an assistive device for ambulation; negative kyphosis or scoliosis Skin Pulmonary Skin Exam: Positive intact; negative rash, lesion, ulcers, erythema, scaly or dermal atrophy Pulses Pulse: Yes pulses normal x4 extremities Extremities Extremities: No edema, Yes clubbing, Yes capillary refill normal, No cyanosis, No stasis dermatitis Neuro Neurologic: Yes conversant, Yes no focal neuro deficits, Yes cooperative, Yes normal cognition, Yes normal coordination, Yes normal concentration, Yes understands questions, No tremor Lymph Lymphatic: No lymphadenopathy, No tenderness, No cervical adenopathy, No axillary adenopathy Psych Appearance: Positive grossly normal, eye contact and well kempt Mental Status: Positive mental status grossly normal Mood: Positive congruent mood Affect: Positive normal affect Office Procedures Smoking Cessation Time Spent 3-10 minutes: Yes Coding Level of Care Code Off vis,est,level 4 Diagnoses Chronic obstructive pulmonary disease with acute lower respiratory infection J44.0 COPD type: COPD with acute lower respiratory infection Pulmonary hypertension I27.20 DION (obstructive sleep apnea) G47.33 Tobacco user Z72.0 Additional Codes Time Spent - 3-10 minutes: Yes ([id number]) 10/04/17 4353 <Electronically signed by Laura MALONEY> Date Laura Slaughter MANAGER PLANNING-C Cosigner Signature: Date (if applicable) CC: Tigist Pelaez DO ECHO, COMPLETE W/ Observed: 08/02/2017 Status: F Source: [facility] CONTRAST 5:56 PM [facility] REPOSITORY [facility] Cardiovascular Services [address] [place] [address] Echo Complete 08/02/17 1004 MR#: [id number] Acct: [id number] Name: ISIDRO CRAWFORD Rep #: [id number] : 1945 71 From: Jung Vaughan MD Attending Dr: Matthew Haley MD Status: REG CLI Ordering Dr: Matthew Haley MD Date: 08/02/17 Location: [facility] Sex: F C Admitted: Reason For Study: PHTN Procedure This was a 2D Doppler, Color Flow transthoracic echocardiogram. The exam was of poor technical quality due to body habitus. The study was technically difficult. Exam performed in department. Left Ventricle Normal LV size. Left ventricular systolic function is normal. The estimated ejection fraction is 60 %. No regional wall motion abnormalities noted. Right Ventricle Mildly dilated right ventricle. Normal systolic function. Atria Normal left atrium. The right atrium is mildly enlarged. No doppler evidence for ASD. Mitral Valve There is no mitral annular calcification. Normal mitral valve. Trivial mitral valve insufficiency. Tricuspid Valve Normal tricuspid valve. Mild tricuspid valve insufficiency. Right ventricular systolic pressure estimated to be 31 mmHg. Aortic Valve Trisinus/trileaflet aortic valve. Normal aortic valve. Pulmonic Valve The pulmonic valve is not well visualized. Trivial pulmonic valve insufficiency. Great Vessels Normal sized aortic root. Pericardium/Pleural No pericardial effusion. MMode/2D Measurements AND Calculations LVIDd: 5.1 cm IVSd: 1.2 cm Ao root diam: 3.2 cm LVIDs: 3.5 cm LVPWd: 1.2 cm LA dimension: 4.0 cm RVDd: 3.5 cm FS: 31.8 % LAV(MOD-bp): 67.1 ml LA A4 area: 20.5 cm2 RA A4 area: 15.8 cm2 LAV(MOD-bp) Indexed: 32.3 ml/m2 LAV(MOD-sp2): 66.7 ml LAV(MOD-sp4): 63.3 ml Doppler Measurements AND Calculations MV E max smith: 84.9 cm/sec Lat Peak E' Smith: 9.2 cm/sec Med Peak E' Smith: 7.5 cm/sec MV A max smith: 101.9 cm/sec E/E' lat: 9.2 E/E' med: 11.3 MV E/A: 0.83 Ao V2 max: 124.0 cm/sec LV V1 max: 113.2 cm/sec PA V2 max: 96.9 cm/sec Ao max P.2 mmHg LV V1 max P.1 mmHg TR max smith: 264.5 cm/sec TR max P.0 mmHg Interpretation Summary The study was technically difficult. Left ventricular systolic function is normal. The estimated ejection fraction is 60 %. Mildly dilated right ventricle. Normal systolic function. The right atrium is mildly enlarged. Trivial mitral valve insufficiency. Mild tricuspid valve insufficiency. Trivial pulmonic valve insufficiency. Right ventricular systolic pressure estimated to be 31 mmHg. Transmitral diastolic flow velocities suggest diastolic dysfunction. Ordering Physician: Matthew Haley Referring Physician: Tigist Pelaez Performed By: Romina Yarbrough RDCS, RVT 08/02/17 1755 Date Jung Vaughan MD CC: Matthew Haley MD; Tigist Pelaez DO Date Dictated: 08/02/17 1004 Date Transcribed: 08/02/171754 Vp Software Support: Signed PULMONARY VISIT REPORT Observed: 07/06/2017 Status: F Source: [facility] 3:49 PM [facility] REPOSITORY [facility] of [address] [place] [address] OFFICE VISIT Date of Service: 07/06/17 MR#: [id number] Acct: [id number] Name: ISIDRO CRAWFORD Rep #: [id number] : 1945 Provider: Matthew Haley MD Age/Sex: 71/F Location: [facility] [place] Status: Signed Assessment AND Plan 1. Chronic obstructive pulmonary disease with acute lower respiratory infection J44.0 Plan Patient with minimal obstructive lung disease by spirometry standards. However, DLCO is significantly decreased by comparison. This is likely why patient desaturates significantly with ambulation. Patient also likely has an element of pulmonary hypertension secondary to obesity, lung disease and cardiac difficulties. Patient is on appropriate therapy at this time. Stressed to the patient that continued smoking could lead to need for supplemental oxygen on exertion. Continue current therapy. Encourage smoking cessation. 2. DION (obstructive sleep apnea) G47.33 Plan Patient is doing very well on current settings. No signs or symptoms of complications. No indication for repeat titration at this time. Stressed the patient the role of weight loss and the overall disease plan of care. Patient voiced understanding. Encourage weight loss. Continue current settings. 3. Pulmonary hypertension I27.20 Plan Patient with elevated pulmonary artery pressure in the past noted on echocardiogram. Patient has had significant desaturation on walking oximetry. Will obtain a repeat echocardiogram for quantification of right sided pressures. Patient may require a right heart catheterization for quantification and clarification of pulmonary artery pressures. Patient is aware that continued smoking could lead to worsening of disease and need for supplemental oxygen on exertion. Obtain echocardiogram Orders Orders: 4. Tobacco user Z72.0 Plan Bossman discussion with patient for 5 minutes on the importance of complete smoking cessation. Patient appear to be open to the discussion today. After review of the implications, patient has agreed to nicotine patches. Nicotine patch prescription sent. Plan Detail Other Medications New: Follow Up 3 Months ([facility]) HPI 3 M FU: Chief Complaint: Shortness of breath on exertion Details: Patient is a 71-year-old female, currently in the care of Dr. Pelaez, who presents for follow-up secondary shortness of breath on exertion. Since last visit, patient denies any ER visits, hospitalizations or prednisone burst. Patient states she has been compliant with Advair and Spiriva therapy and denies any complications such as thrush, hoarseness or sore throat. Patient denies any need for albuterol rescue. Patient continues to be somewhat limited by shortness of breath on exertion. Patient also reports pain in her hips and knees that she attributes to being overweight. Patient does use a cane to help with her ambulation. Patient continues to smoke approximately 1 pack per day. Patient does state that this can lead to a cough. The cough is productive of clear sputum and is minimal, typically in the morning. Patient reports that she has been compliant with her BiPAP therapy. Patient denies any complications such as pain at the interface site, thrush, dry mouth or hoarseness. Patient states that she wakes rested and does not take naps during the day. Testing personally reviewed with the patient Walking oximetry (06/21/2017): Ambulated only 624 feet over the course of 6 minutes on room air with significant desaturation as low as 90% Complete PFT (06/16/2017): Reversible mild large airways obstructive ventilatory defect with reduction diffusing capacity out of proportion and no significant change compared to previous testing 07/2015. (FVC 87%, FEV1 71%, TLC 112%, RV 141%, DLCO 53%) Compliance report (June 2017): 100% compliance on BiPAP 23/15 cm of water for an average of almost 10 hours per night and a residual AHI of 1.4 Intake Vital Signs07/06/17 Height 5 ft 3 in 07/06/17 Weight: 110.677 kg Intake Visit Reasons: 3 M [place] [facility] [place]endor: [employer] Accompanied by: Self Allergies Fish Containing Products Allergy (Verified 07/06/17 10:58) Unknown Medications Citalopram [Celexa] 10 mg PO DAILY 06/27/14 [History Confirmed 07/06/17] Omeprazole [Prilosec] 40 mg PO DAILY 06/27/14 [History Confirmed 07/06/17] Tiotropium Tryon [Spiriva 18 MCG] 1 puff INHALATION DAILY 06/27/14 [History Confirmed 07/06/17] traZODone [Desyrel] 200 mg PO QHS 06/27/14 [History Confirmed 07/06/17] Fluticasone/Salmeterol [Advair 250/50 Mcg Diskus] 1 puff INHALATION BID #1 inhaler 07/11/14 [Rx Confirmed 07/06/17] Furosemide [Lasix] 20 mg PO DAILY #30 tab 07/11/14 [Rx Confirmed 07/06/17] Gabapentin 300 mg PO DAILY 07/13/16 [History Confirmed 07/06/17] Gabapentin [Neurontin] 600 mg PO QHS 07/13/16 [History Confirmed 07/06/17] albuterol sulfate HFA 90 mcg/actuation aerosol inhaler 2 puff INHALATION Q4H #1 inh 03/29/17 [Rx Confirmed 07/06/17] nicotine 14 mg/24 hr daily transdermal patch 14 mg TRANSDERMAL ONCE #20 patch 07/06/17 [Rx Confirmed 07/06/17] [facility] Medical History Benign essential hypertension (Chronic) Chronic obstructive lung disease (Chronic) History of DVT of lower extremity (Chronic) GERD (gastroesophageal reflux disease) (Chronic) Hyperlipidemia (Chronic) History of pulmonary embolism (Chronic) Tobacco user (Chronic) Acute respiratory failure with hypoxia and hypercarbia (Acute) Lung nodule (Acute) Social History Smoking Status: Current every day smoker second hand exposure: Yes alcohol intake: never substance use type: does not use Review of Systems Const CONSTITUTIONAL: Negative anorexia, body ache, chills, daytime sleepiness, fever(s), night sweats, oral thrush, stops breathing during sleep, weight loss, sleeping in chair, fatigue, weight loss, weight gain, frequent colds, seasonal allergies, other, headache(s) or orthopnea EETM Ear Nose Throat Mouth: Positive dry mouth in morning; negative hard of hearing, hearing normal, hoarseness, change in vision, itchy eyes, eye pain, swallowing Difficulty, ear pain, nose bleed, headache(s), mouth pain, nasal congestion, nasal discharge, post nasal drip, sinus pain, sinus pressure, sore throat or other Cardio Cardiovascular: Negative chest pain, chest pain at rest, chest pain with activity, irregular heart rhythm, edema, shortness of breath when lying down, palpitations, murmur or other Resp Respiratory: Positive as per HPI; negative shortness of breath, pain with cough, wheezing, chest congestion, cough, chest tightness, pain on inspiration, inhalers, increase use of rescue inhalers, snoring, apnea or other Gastro Gastrointestional: Negative bloody stools, change in appetite, difficulty swallowing, reflux, hematemesis, melena stool, loose stool, constipation or other Genitourinary: Negative blood in urine, nocturia, pain with urination or other Musc Musculoskeletal: Negative body pain, back pain, neck pain or other Skin/Breast Skin/Breast: Negative dry skin, itching, rash, unusual bruising, breast lump or other Neuro Neurological: Negative restless legs, confusion, weakness or other Psych Psychocological: Negative abnormal sleep pattern, anxiety, thoughts of hurting self/others, hopelessness or other Lymph Lymphatic: Negative easy bleeding, easy bruising, swollen lymph nodes or other Exam Const Constitutional: Positive conversant, cooperative, in no acute respiratory distress, healthy appearing, well developed, well nourished, good hygiene and obese; negative wearing supplemental oxygen Head Head: Positive normocephalic and atraumatic; negative cyanosis of lips/distal nose, microcephalic or macrocephalic Eyes Eye: Positive clear conjunctiva; negative nystagmus or scleral abnormality Ears Ear: Positive external ears normal; negative hard of hearing or hearing normal Nose Nose: Positive external nose normal, septum normal and no nasal discharge; negative epistaxis or nasal polyp Mouth Mouth: Positive oral mucosae normal, no lesions, dentures and crowded posterior oropharynx; negative post nasal drip or oral thrush present Mallampati Score: III: Mallampati Score Neck Neck: Positive normal visual inspection, thick neck, full ROM, trachea midline and female neck greater than 37 cm (15 in); negative lymphadenopathy or JVD Chest Wall Chest: Positive normal inspection of the chest; negative increased A/P diameter, symmetric chest movement, crepitus or tenderness Resp lung sounds: Positive clear to auscultation, diminished, normal expiratory time, increased work of breathing (Especially with exertion) and dullness to percussion; negative wheezes, rhonchi, rales or use of accessory muscles Cardio Cardiac: Positive regular rate, S1 normal, S2 normal and regular rhythm; negative murmur, rub or gallop GI GI: Positive obese, normal to inspection and normal bowel sounds; negative distended or ascites Genitourinary: Positive deferred Musc Musculoskeletal: Positive using an assistive device for ambulation and ROM normal; negative kyphosis or scoliosis Skin Pulmonary Skin Exam: Positive intact and dermal atrophy; negative rash, lesion, ulcers or erythema Pulses Pulse: Yes radial pulses present Extremities Extremities: Yes capillary refill normal, No clubbing, No cyanosis, Yes edema (2+ lower extremity bilateral) Neuro Neurologic: Yes conversant, Yes no focal neuro deficits, Yes cooperative, Yes normal cognition, Yes normal coordination, Yes normal concentration, Yes understands questions Lymph Lymphatic: No lymphadenopathy, No tenderness Psych Appearance: Positive grossly normal Mental Status: Positive mental status grossly normal Mood: Positive congruent mood Affect: Positive normal affect Pulmonary Procedure Smoking Cessation Education: Yes education provided, 3-10 minutes, continue to encourage smoking cessation, expresses understanding and other (Accepted nicotine patches) Coding Level of Care Code Off vis,est,level 4 Diagnoses Chronic obstructive pulmonary disease with acute lower respiratory infection J44.0 COPD type: COPD with acute lower respiratory infection DION (obstructive sleep apnea) G47.33 Pulmonary hypertension I27.20 Tobacco user Z72.0 07/06/17 1309 <Electronically signed by Matthew Haley MD> Date Matthew Haley MD [facility] Signature: Date (if applicable) CC: Tigist Pelaez DO 6 MINUTE WALK TEST Observed: 06/21/2017 Status: F Source: [facility]IAN[facility] 1:49 PM [facility] REPOSITORY [facility] Pulmonary Services/Neurology [address] [place] [address] MR#: [id number] Acct: [id number] Name: ISIDRO CRAWFORD Rep #: [id number] : 1945 71 From: Vitor Gillette DO Referring Dr: Matthew Haley MD Date: Ordering Dr: Sex: F C Location: PSN PSN 6 Minute Walk Test - 6 Minute Walk Test 6 Minute Walk Test: 6 Minute Walk Test PSN:6-Minute Walk Test Start: 06/21/17 11:38 Freq: Status: Active Protocol: RESP.6MINW Document 06/21/17 11:[address] [facility] (Rec: 06/21/17 11:[address] [facility] [id number]) 6 Minute Walk Test Date Performed 06/21/17 Time Performed 11:25 Height 5 ft 2.5 in Weight: 240 lb Weight in Pounds 240.[address]: Matthew Haley Assistive device used: Cane Pre-test Oxygen Delivery Method Room Air Pulse Ox (%) 97 Pulse Rate (60-100 beats/min) 90 Dyspnea Cj Scale (0-10) 0.5 Exertion Cj Scale (6-20) 6 1st minute Oxygen Delivery Method Room Air Pulse Ox (%) 98 Pulse Rate (60-100 beats/min) 101 H Number of Rests Taken 0 2nd minute Oxygen Delivery Method Room Air Pulse Ox (%) 92 Pulse Rate (60-100 beats/min) 106 H Number of Rests Taken 0 3rd minute Oxygen Delivery Method Room Air Pulse Ox (%) 90 Pulse Rate (60-100 beats/min) 107 H Number of Rests Taken 0 4th minute Oxygen Delivery Method Room Air Pulse Ox (%) 91 Pulse Rate (60-100 beats/min) 113 H Number of Rests Taken 0 5th minute Oxygen Delivery Method Room Air Pulse Ox (%) 90 Pulse Rate (60-100 beats/min) 115 H Number of Rests Taken 0 6th minute Oxygen Delivery Method Room Air Pulse Ox (%) 91 Pulse Rate (60-100 beats/min) 114 H Number of Rests Taken 0 Post-test Oxygen Delivery Method Room Air Pulse Ox (%) 98 Pulse Rate (60-100 beats/min) 89 Dyspnea Cj Scale (0-10) 1 Exertion Cj Scale (6-20) 12 Number of Rests Taken 0 Full Laps Walked 10 Partial Lap, Number of Tiles Walked 34 Total Distance Walked (ft) 624 - Interpretation Interpretation: The patient ambulated 624 feet over the course of 6 minutes beginning on room air with use of a cane. Pretesting oxygen saturation was noted to be 97% on room air. With ambulation, the yelena oxygen saturation was 90%. The patient did develop physiologic tachycardia with exertion. There was evidence of both impaired walk distance and exertional oxygen desaturation. - Recommendations Recommendations: There is no indication for the use of supplemental oxygen at this time. However, close interval follow-up is recommended given the degree of oxygen desaturation noted during this study. 06/21/17 1349 <Electronically signed by Vitor Gillette DO> Date Vitor Gillette DO CC: Date Dictated: 06/21/178 Date Transcribed: 06/21/171347 Vp Software Support: Vitor Gillette DO Signed PULMONARY FUNCTION Observed: 06/17/2017 Status: F Source: [facility] REPORT COMP 1:50 PM [facility] REPOSITORY [facility] Pulmonary Services/Neurology [address] [place] [address] MR#: [id number] Acct: [id number] Name: ISIDRO CRAWFORD Rep #: [id number] : 1945 71 From: Matthew Haley MD Referring Dr: Matthew Haley MD Status: REG CLI Ordering Dr: Date: Location: [facility] Sex: F C COMPLETE PULMONARY FUNCTION TEST INTERPRETATION Brief HPI: Patient is a 71 year old female, currently under the care of [facility], who presents to [facility] for complete pulmonary function tests secondary to diagnosis of COPD. Respiratory therapist reports good effort and reproducible results. Interpretation: Forced expiration spirometry shows a mild large airways obstructive ventilatory defect with an FEV1 of 72 % predicted. There is no significant bronchodilator response by ATS criteria. Spirograms are of good quality and plateau slowly, indicating slowly emptying areas of the lungs. The respiratory flow volume loop shows decreased expiratory flow rates at all lung volumes consistent with airway obstruction. Lung volumes by body plethysmography show a normal total lung capacity at 4.93 L, 112 % predicted. All other lung volumes are within normal limits. There is a trend towards air-trapping, but this does not reach clinical significance by ATS criteria. Diffusion capacity by carbon monoxide is decreased at 53 % predicted. The airway resistance is normal. Compared to previous pulmonary function tests from 07/28/2015, there has been no significant change. Impression: Irreversible mild large airways obstructive ventilatory defect with a symmetric reduction diffusing capacity consistent with patient's diagnosis of COPD. No significant change compared to previous study 06/17/17 1350 <Electronically signed by Matthew Haley MD> Date Matthew Haley MD CC: Matthew Haley MD; Tigist Pelaez DO Date Dictated: 06/17/17 1347 Date Transcribed: 06/17/17 1347 Vp Software Support: MARSHA Signed ALLERGIES ALLERGIES DATE TYPE / CODE NAME / CODE REACTION SEVERITY SOURCE 03/30/2018 Drug Fish Containing Unknown Unknown [place] Allergy/416 Products/[id number] [facility] [id number]([facility] 25(RXNORM) [facility]) Repository ENCOUNTERS ENCOUNTERS ADMIT/DISCHARGE ACCOUNT ADMITTING ENCOUNTER LOCATION SOURCE NUMBER CLASS 03/30/2018/ [id number] Ambulatory BMSBuilding:B Viviane 8 0 MS.PMW [facility] Repository 03/21/2018 [id number] Ambulatory BMSBuilding:W Viviane 8 [facility] Repository 03/21/2018 [id number] Ambulatory [facility] 4 [facility] ing:SL Repository 03/18/2018 [id number] Ambulatory BMSBuilding:W Viviane 9 [facility] Repository 03/17/2018 [id number] Ambulatory Viviane Morrison 5 [facility] ing:PSN Repository 10/04/2017/ [id number] Ambulatory BMSBuilding:B Morrison 8 4 [place].[facility] Repository 08/02/2017 [id number] Ambulatory Morrison Morrison 2 [facility] Hospital ing:[facility] Repository 08/02/2017 [id number] Ambulatory BMSBuilding:W Morrison 4 [facility] Repository 07/06/2017/ [id number] Ambulatory BMSBuilding:B Viviane 8 7 [place] Repository 06/21/2017 [id number] Ambulatory Viviane Morrison 7 [facility] ing:PSN Repository 06/21/2017 [id number] Ambulatory BMSBuilding:W Morrison 2 [facility] Repository 06/17/2017 [id number] Ambulatory BMSBuilding:W Morrison 2 [facility] Repository 06/16/2017 [id number] Ambulatory Viviane Viviane 6 [facility] Hospital ing:PSN Repository PAYERS PAYERS ENCOUNTER GUARANTOR PAYER SUBSCRIBER SOURCE 03/30/2018 ISIDRO [id number] Primary ISIDRO Perez N [place] Insurance:MEDICARE HUFFMANDOB: [id number] [address]jl: Number: Repository [id number] (HP) Date:2017-10-04 03/30/2018 Secondary ISIDRO F Morrison Insurance:AARPPolicy MARTHAFFMANDOB: [facility] Number: [id number] Hospital [id number] Repository Date:[id number], [place] [address]AR: 03/30/2018 Tertiary NOT GIVENUNK Morrison Insurance:SELF PAY [facility] Number: Effective Repository Date:2018-03-23 03/21/2018 ISIDRO [id number] Primary ISIDRO [address] [place] Insurance:MEDICARE HUFFMANDOB: [facility] PART [facility] [id number]-Northern Navajo [facility] Centerb [address]Hln: Number: Repository [id number] (HP) Date:2017-10-04 03/21/2018 Secondary ISIDRO F Viviane Insurance:AARPPolicy MARTHAFFMANDOB: Community Number: [id number] [facility] [id number] Repository Date:9946-89-79GD [address], [place] [address]DD: 03/21/2018 Tertiary NOT GIVENUNK Viviane Insurance:SELF PAY [facility] Number: Effective Repository Date:2018-03-21 03/21/2018 ISIDRO F [id number] Primary ISIDRO F Morrison N [place] Insurance:MEDICARE HUFFMANDOB: [facility], PART A [facility] [id number]-Northern Navajo Medical Centerb [address]Vho: Number: Repository [id number] (HP) Date:2017-10-04 03/21/2018 Secondary ISIDRO F Viviane Insurance:AARPPolicy MARTHAFFMANDOB: Community Number: [id number] Hospital [id number] Repository Date:1938-69-42IY [address], [place] [address]GC: 03/21/2018 Tertiary NOT GIVENUNK Morrison Insurance:SELF PAY [facility] Number: Effective Repository Date:2017-10-04 03/18/2018 ISIDRO F [id number] Primary ISIDRO F Viviane N [place] Insurance:MEDICARE HUFFMANDOB: [facility], PART A [facility] [id number]-Northern Navajo Medical Centerb [address]Rii: Number: Repository [id number] (HP) Date:2017-10-04 03/18/2018 Secondary ISIDRO F Morrison Insurance:AARPPolicy HUFFMANDOB: Community Number: [id number] Hospital [id number] Repository Date:3737-53-14RQ [address], [place] [address]ID: 03/18/2018 Tertiary NOT GIVENUNK Viviane Insurance:SELF PAY [facility] Number: Effective Repository Date:2018-03-18 03/17/2018 ISIDRO CORDOBA1 Primary ISIDRO F Morrison [place] Insurance:MEDICARE HUFFMANDOB: [facility], PART A [facility] [id number]-Northern Navajo Medical Centerb [address]Oav: Number: Repository [id number] (HP) Date:2017-10-04 03/17/2018 Secondary ISIDRO F Morrison Insurance:AARPPolicy HUFFMANDOB: Community Number: [id number] Hospital [id number] Repository Date:5568-06-63QD [facility] [address], [place] [address]TV: 03/17/2018 Tertiary NOT GIVENUNK Morrison Insurance:SELF PAY [facility] Number: Effective Repository Date:2017-10-04 10/04/2017 ISIDRO CORDOBA1 Primary ISIDRO Yamil Morrison [place] Insurance:MEDICARE HUFFMANDOB: [facility], PART A [facility] [id number]-Northern Navajo Medical Centerb [address]Uqs: Number: Repository [id number] (HP) Date:2017-07-06 10/04/2017 Secondary ISIDRO F Morrison Insurance:AARPPolicy HUFFMANDOB: Community Number: [id number] Hospital [id number] Repository Date:0982-12-04DP [facility] [address], [place] [address]AB: 10/04/2017 Tertiary NOT GIVENUNK Viviane Insurance:SELF PAY [facility] Number: Effective Repository Date:2017-09-30 08/02/2017 ISIDRO CORDOBA1 Primary ISIDRO F Viviane N [place] Insurance:MEDICARE HUFFMANDOB: [facility], PART A [facility] [id number]-Northern Navajo Medical Centerb [address]Nqe: Number: Repository [id number] (HP) Date:2017-07-06 08/02/2017 Secondary ISIDRO F Viviane Insurance:AARPPolicy HUFFMANDOB: Community Number: [id number] Hospital [id number] Repository Date:4093-22-57WX [address]QS, [place] [address]DH: 08/02/2017 Tertiary NOT GIVENUNK Morrison Insurance:SELF PAY [facility] Number: Effective Repository Date:2017-07-06 08/02/2017 ISIDRO CORDOBA1 Primary ISIDRO F Viviane N [place] Insurance:MEDICARE HUFFMANDOB: [facility], PART A [facility] [id number]-Northern Navajo Medical Centerb [address]Lqt: Number: Repository [id number] () Date:2017-07-06 08/02/2017 Secondary ISIDRO F Viviane Insurance:AARPPolicy HUFFMANDOB: Community Number: [id number] Hospital [id number] Repository Date:9890-40-23ZY [address], [place] [address]BO: 08/02/2017 Tertiary NOT GIVENUNK Viviane Insurance:SELF PAY [facility] Number: Effective Repository Date:2017-08-02 07/06/2017 ISIDRO [id number] Primary ISIDRO F Viviane N [place] Insurance:MEDICARE HUFFMANDOB: [facility], PART A [facility] [id number]-Northern Navajo Medical Centerb [address]Kgg: Number: Repository [id number] (HP) Date:2017-03-29 07/06/2017 Secondary ISIDRO F Viviane Insurance:AARPPolicy HUFFMANDOB: Community Number: [id number] Hospital [id number] Repository Date:6451-12-48MF [address], [place] [address]YF: 07/06/2017 Tertiary NOT GIVENUNK Viviane Insurance[facility] Number: Effective Repository Date:2017-06-29 06/21/2017 ISIDRO CORDOBA1 Primary ISIDRO F Viviane N [place] Insurance:MEDICARE HUFFMANDOB: [place] [facility] [id number]-Northern Navajo Medical Centerb [address]Qgt: Number: Repository [id number] (HP) Date:2017-03-29 06/21/2017 Secondary ISIDRO F Viviane Insurance:AARPPolicy HUFFMANDOB: Community Number: [id number] Hospital [id number] Repository Date:3904-22-67FI [address]YQX[place], [place] [address]SP: 06/21/2017 Tertiary NOT GIVENUNK Viviane Insurance:SELF PAY [facility] Number: Effective Repository Date:2017-03-29 06/21/2017 ISIDRO [id number] Primary ISIDRO F Morrison [place] Insurance:MEDICARE HUFFMANDOB: [facility], PART A [facility] [id number]-Northern Navajo Medical Centerb [address]Dcw: Number: Repository [id number] (HP) Date:2017-03-29 06/21/2017 Secondary ISIDRO F Viviane Insurance:AARPPolicy HUFFMANDOB: Community Number: [id number] Hospital [id number] Repository Date:6105-20-75CF [address]L, [place] [address]ND: 06/21/2017 Tertiary NOT GIVENUNK Morrison Insurance:SELF PAY [facility] Number: Effective Repository Date:2017-06-21 06/17/2017 ISIDRO [id number] Primary ISIDRO F Viviane N [place] Insurance:MEDICARE HUFFMANDOB: [facility], PART A [facility] [id number]-Northern Navajo Medical Centerb [address]Qxg: Number: Repository [id number] (HP) Date:2017-03-29 06/17/2017 Secondary ISIDRO F Viviane Insurance:AARPPolicy HUFFMANDOB: Community Number: [id number] Hospital [id number] Repository Date:6145-21-09VW [address], [place] [address]BI: 06/17/2017 Tertiary NOT GIVENUNK Morrison Insurance:SELF PAY [facility] Number: Effective Repository Date:2017-06-17 06/16/2017 ISIDRO [id number] Primary ISIDRO Perez N [place] Insurance:MEDICARE HUFFMANDOB: [facility] [id number] [address]Kza: Number: Repository [id number] (HP) Date:2017-03-29 06/16/2017 Secondary ISIDRO Perez Insurance:AARPPolicy [facility] Number: [id number] Hospital [id number] Repository Date:6895-58-83ZV [address]XYTXD, [place] [address]BI: 06/16/2017 Tertiary NOT GIVENUNK Viviane Insurance:SELF PAY [facility] Number: Effective Repository Date:2017-03-29
== END ==
PROVIDERS: Family Provider Family Medicine; PCP Family Medicine; Referring Provider Nurse Practitioner Acute Care; Visit Provider Nurse Practitioner Acute Care
DX: J44.9 Chronic obstructive pulmonary disease, unspecified (principal)
CPT/HCPCS: 94060; 94726; 94729

== ENCOUNTER → 2018-12-12 13:39 | Outpatient (CLI) | payer MEDICARE, OTHER, SELFPAY ==
[2018-09-18 08:15] VITALS: BMI 43.0
--- NOTE | 2018-12-13 10:33 | PFTCOMP ---
COMPLETE PULMONARY FUNCTION TEST INTERPRETATION Brief HPI: Patient is a 73 year old female, currently under the care of myself, who presents to [facility] for complete pulmonary function tests secondary to diagnosis of COPD. Respiratory therapist reports good effort and reproducible results. Interpretation: Forced expiration spirometry shows a moderate large airways obstructive ventilatory defect with an FEV1 of 60% predicted. There is no significant bronchodilator response by strict ATS criteria. Spirograms are of good quality and plateau slowly, indicating slowly emptying areas of the lungs. The respiratory flow volume loop shows decreased expiratory flow rates at all lung volumes consistent with airway obstruction. Lung volumes by body plethysmography show an elevated total lung capacity at 5.34 L, 121% predicted. FRC and RV are elevated out of proportion. Lung volume measurements are consistent with hyperinflation and air-trapping. Diffusion capacity by carbon monoxide is decreased at 51% predicted. The airway resistance is elevated. Compared to previous pulmonary function tests from 03/21/2018, there is been a significant decrease in FVC, FEV1 and DLCO by 16%, 21% and 28% respectively. Impression: Irreversible moderate large airways obstructive ventilatory defect with a symmetric reduction diffusing capacity, resulting in air trapping with hyperinflation. There has been significant decline compared to previous study.
== END ==
PROVIDERS: Family Provider Family Medicine; PCP Family Medicine; Referring Provider Nurse Practitioner Acute Care; Visit Provider Nurse Practitioner Acute Care
DX: J44.9 Chronic obstructive pulmonary disease, unspecified (principal)
CPT/HCPCS: 94060; 94726; 94729

== ENCOUNTER → 2019-02-08 11:05 | Outpatient (CLI) | payer MEDICARE, OTHER, SELFPAY ==
[2018-12-20 06:20] VITALS: BMI 43.0
[2019-02-08 15:38] LABS: Absolute Neutrophil Count 4.6 X10^3/uL (2.0-7.7); Basophil# 0.09 X10^3/uL; Basophil% 1.3 % (0-1); Eosinophil# 0.14 X10^3/uL; Hematocrit 46.5 % (37-47); Hemoglobin 14.7 g/dL (12.0-15.0); Lymphocyte % 24.1 % (19-41); Mean Corp Hgb Conc 31.6 g/dL (32-36); Mean Corpuscular Hgb 31.4 pg (27.0-32.0); Mean Corpuscular Volume 99.4 fL (81-99); Mean Platelet Vol. 11.8 fl (6.2-12.0); Monocyte# 0.53 X10^3/uL; Monocyte% 7.5 % (0-10); NRBC Flagged by Analyzer 0 % (0-5); Neutrophil # 4.56 X10^3/uL (2.7-7.7); Neutrophil % 64.8 % (47-70); Platelet Count 304 K/mm3 (150-450); RBC Distribution Width CV 13.1 % (11.6-14.6); RBC Distribution Width SD 47.8 fl (35.1-43.9); Red Blood Count 4.68 M/mm3 (4.2-5.4)
[2019-02-08 15:54] LABS: AST(SGOT) 13 U/L (15-37); Alanine Aminotransfer ALT/SGPT 20 U/L (13-56); Albumin, Serum 3.7 g/dL (3.2-5.0); Alkaline Phosphatase 70 U/L (45-117); Anion Gap 5 (5-15); BUN 14 mg/dL (7-18); BUN/Creat Ratio 15.7 RATIO (10-20); Calcium,Total 8.9 mg/dL (8.5-10.1); Chloride 103 mmol/L (98-107); Cholesterol 229 mg/dL (200); Creatinine, Serum 0.89 mg/dL (0.55-1.02); EST Glomerular Filtration Rate 66 mL/min (>60); Est Glom Filt Rate - Afr Amer 80 mL/min (>60); Globulin 3.8 g/dL (2.2-4.2); Glucose 111 mg/dL (74-106); High Density Lipoprotein 59 mg/dL; Protein, Total 7.5 g/dL (6.4-8.2); Sodium Level 141 mmol/L (136-145); Triglycerides 105 mg/dL; Very Low Density Lipoprotein 21 mg/dL (5-40)
== END ==
PROVIDERS: Family Provider Family Medicine; PCP Family Medicine; Visit Provider Family Medicine
DX: Z51.81 Encounter for therapeutic drug level monitoring (principal); E78.5 Hyperlipidemia, unspecified; R53.83 Other fatigue
CPT/HCPCS: 36415; 80053; 80061; 85025

== ENCOUNTER → 2019-02-26 15:17 | Outpatient (CLI) | payer MEDICARE, OTHER, SELFPAY ==
[2018-12-20 06:20] VITALS: BMI 43.0
--- NOTE | 2019-02-26 15:21 | BI_ITS ---
MAMMOGRAPHY - BILATERAL SCREENING REASON FOR EXAM: Female, 73 years old. Routine annual screening examination. PERTINENT HISTORY: Sisters with breast cancer. TECHNIQUE: Digital bilateral breast thea (3D mammographic acquisition) in the CC and MLO projections. 2-D mediolateral oblique (MLO) and craniocaudad (CC) views of both breasts were obtained. CAD: Full Field Digital Mammography with Computer Added Detection was performed. COMPARISON: Comparison is made with prior mammogram dated February 24, 2017 and August 13, 2014. FINDINGS: Breast Composition: The breasts are heterogeneously dense, which may obscure small masses. There is a 2.1 cm x 2.9 cm well-defined nodule in the slightly upper lateral portion of the left breast. This has increased in size as compared to prior study. Prior sonogram demonstrated this to be a cyst. Is also evidence of a 2.4 cm x 2.5 cm well-defined nodule in the upper central portion of the right breast. This is new as compared to prior study. Correlation with ultrasound is recommended. No other significant abnormalities are identified. BI/SCREEN MAMM (CAD) W/THEA BILAT IMPRESSION: Increased size in the left breast nodule which was demonstrated to be a cyst on prior sonogram. 2.4 cm x 2.5 cm well-defined nodule in the upper central portion of the right breast. Correlation with ultrasound is recommended. ASSESSMENT CATEGORY: BIRADS Category 0: Incomplete. Need additional imaging evaluation. A letter regarding these results will be sent to the patient by the facility within 30 days. Approximately 10% of breast cancers are not detected by mammography. A normal mammogram should not delay biopsy of a clinically suspicious abnormality. [id number] Electronically Signed: Juanjo Nieves, at 8:16 EST , Service support ,
== END ==
PROVIDERS: Family Provider Family Medicine; PCP Family Medicine; Referring Provider Family Medicine; Visit Provider Family Medicine
DX: Z12.31 Encounter for screening mammogram for malignant neoplasm of breast (principal); N63.10 Unspecified lump in the right breast, unspecified quadrant; N63.20 Unspecified lump in the left breast, unspecified quadrant; Z80.3 Family history of malignant neoplasm of breast
CPT/HCPCS: 77063; 77067

== ENCOUNTER → 2019-03-01 13:52 | Outpatient (CLI) | payer MEDICARE, OTHER, SELFPAY ==
[2018-12-20 06:20] VITALS: BMI 43.0
--- NOTE | 2019-03-01 13:54 | US_ITS ---
STUDY: ULTRASOUND BREAST - RIGHT REASON FOR EXAM: Female, 73 years old. TECHNIQUE: Axial and longitudinal images of the RIGHT breast were performed with a high resolution ultrasound transducer. # OF IMAGES: 43 COMPARISON: None. FINDINGS: RIGHT Breast: There is dumbbell-shaped cyst involving the right breast around 12:00 the total measurement of 2.9 x 1.5 cm. . No evidence of filling defect or debris within the cyst. There are 2 other tiny cysts present on the right side. No obvious masses seen. IMPRESSION Evidence of fibrocystic disease manifested by dumbbell-shaped cyst around 12:00 on the right side with the measurements above. Electronically Signed: Domenic Smith, at 11:22 EST Tel , Service support , STUDY: ULTRASOUND BREAST - LEFT REASON FOR EXAM: Female, 73 years old. TECHNIQUE: Axial and longitudinal images of the LEFT breast were performed with a high resolution ultrasound transducer. # OF IMAGES: 43 COMPARISON: None. FINDINGS: LEFT Breast: There is 2.1 x 1 cm cyst involving the left breast at 3:00 near the nipple there are smaller cysts also seen adjacent to this cyst. No masses identified. US/Breast Limited Unilateral IMPRESSION: Fibrocystic disease Electronically Signed: Domenic Smith, at 11:27 EST Tel , Service support ,
== END ==
PROVIDERS: Family Provider Family Medicine; PCP Family Medicine; Referring Provider Family Medicine; Visit Provider Family Medicine
DX: N60.02 Solitary cyst of left breast (principal); N60.01 Solitary cyst of right breast; N60.12 Diffuse cystic mastopathy of left breast; N60.11 Diffuse cystic mastopathy of right breast
CPT/HCPCS: 76642

== ENCOUNTER → 2019-06-23 10:47 | Outpatient (CLI) | payer MEDICARE, OTHER, SELFPAY ==
[2019-06-20 10:13] VITALS: BMI 40.1
--- NOTE | 2019-06-23 10:48 | CT_ITS ---
ACR Level 3 findings have been noted. An addendum which confirms receipt of the report will follow. STUDY: LOW DOSE CT LUNG CANCER SCREENING REASON FOR EXAM: Female, 73 years old. CURRENT SMOKER, 52 YR SMOKER X 1 PPD, OD=892 RADIATION DOSAGE (If Supplied By Facility): CTDIvol = ( 4.02 ) mGy, DLP = ( 132.9 ) mGycm TECHNIQUE: No contrast was administered. Low dose technique was utilized (average mAS-38 and kVp 120). 1.25 mm axial source images with a slice interval of 1.25-mm were reconstructed in lung windows. 2.5 mm axial source images with a slice interval of 2.5-mm were reconstructed in lung windows. 5.0 mm axial source images with a slice interval of 5.0-mm were reconstructed in soft tissue windows. Nodule measured using lung windows on PACS and/or independent workstation with automated measurement of minimum and maximum diameter. Nodule measurement reported as average diameter rounded to the nearest whole number. Growth is defined as an increase ins size of greater than 1.5 mm. COMPARISON: 08/11/2016 NODULES: Nodule #: 1 Density: Solid Lung location: Right lower lobe: Abutting pleura Location in series: Series Number: 2 Image: 178 Size - D1 x D2 mm: 4 x 5 mm: 5 millimeters average diameter Margin: Smooth Shape: Oval Calcification: None Fat: None Temporal comparison: Stable Nodule #: 2 Density: Solid Lung location: Left lower lobe: Abutting pleura Location in series: Series Number: 2 Image: 157 Size - D1 x D2 mm: 5 x 6 mm: 6 millimeters average diameter Margin: Smooth Shape: Oval Calcification: None Fat: None Temporal comparison: Stable Nodule #: 3 Density: Solid Lung location: Left lower lobe: Abutting pleura Location in series: Series Number: 2 Image: 149 Size - D1 x D2 mm: 3 x 3 mm: 4 mm average diameter Margin: Smooth Shape: Oval Calcification: None Fat: None Temporal comparison: Stable Total lung nodules (excluding granulomas): 3 Emphysema: Not present Endobronchial lesion: None Aorta: Mild scattered atherosclerosis. Coronary arteries: Mild atherosclerosis Heart: Normal size Pulmonary artery: Unremarkable for unenhanced technique Mediastinal nodes: None Other chest and abdominal findings: Small hiatal hernia. There is localized patchy consolidation of the subpleural bilateral upper lobes as seen on image 102 of series 2 in the right upper lobe and images 85, 95 in the left upper lobe. There is adenopathy of the right axilla measuring 2.8 x 4.3 cm is new since 2017. There appears to be asymmetric rounded oval-shaped mass in the superior right breast measuring 1.8 x 2.4 cm (image 51). There is also a nodule in the left breast measuring 1.6 x 1.9 cm (image 83), mildly increased in size since the prior study (image 54 the prior study). CT/Low Dose CT Lung Screening IMPRESSION: 1. RIGHT AXILLARY ADENOPATHY WITH SUSPECTED RIGHT BREAST MASS STRONGLY SUGGESTIVE OF NEOPLASM. DIAGNOSTIC MAMMOGRAPHY/ULTRASOUND RECOMMENDED. 2. Lung-RADS category 2- bilateral lower lobe pulmonary nodules, noncalcified (stable). Continue annual screening with LDCT in 12 months. 3. Localized parenchymal consolidation of the medial bilateral upper lobes, new since 2017. Infectious and inflammatory causes are considered most likely. Nodule of the left breast measuring 1.3 x 1.6 cm is grossly stable. IMPORTANT NOTES FOR USE: ACR Lung-RADS Version 1.0 Assessment Categories Release Date: August 06, 2013 Category: Coded 0-4 bases on nodule(s) with highest degree of suspicion. Negative screen is defined as categories 1 and 2; a positive screen is defined as categories 3 and 4. Category 3 and 4A nodules that are unchanged on interval CT should be coded as category 2, and individuals returned to screening in 12 months. Category 4X: Category 3 or 4 nodules with additional imaging findings that increase the suspicion of lung cancer, such as spiculation, GGN that doubles in size in 1 year, enlarged lymph notes, etc. Category Modifiers: S (significant finding unrelated to lung cancer) and C (prior history of treated lung cancer) may be added to the 0-4 Lung-RADS Electronically Signed: Lobo Granados MD (Brooks) at 16:13 EDT , Service support ,
== END ==
PROVIDERS: PCP Family Medicine; Referring Provider Nurse Practitioner Acute Care; Visit Provider Nurse Practitioner Acute Care
DX: F17.210 Nicotine dependence, cigarettes, uncomplicated (principal)
CPT/HCPCS: G0297

== ENCOUNTER → 2019-06-28 09:17 | Outpatient (CLI) | payer MEDICARE, OTHER, SELFPAY ==
[2019-06-20 10:13] VITALS: BMI 40.1
--- NOTE | 2019-06-28 09:36 | BI_ITS ---
MAMMOGRAPHY - BILATERAL DIAGNOSTIC REASON FOR EXAM: Female, 73 years old. Bilateral breast nodules. Right axillary lymph nodes. PERTINENT HISTORY: Sisters with breast cancer. TECHNIQUE: Digital bilateral breast deni (3D mammographic acquisition) in the CC and MLO projections. 2-D mediolateral oblique (MLO) and craniocaudad (CC) views of both breasts were obtained. CAD: Full Field Digital Mammography with Computer Added Detection was performed. COMPARISON: Comparison is made with prior mammogram dated February 26, 2019. FINDINGS: Breast Composition: The breasts are heterogeneously dense, which may obscure small masses. There is a stable 2.1 cm x 2.8 cm well-defined nodule in the slightly upper lateral portion of the left breast. Prior sonogram demonstrated this to be a cyst. There is a 2.5 cm x 2.5 cm well-defined nodule in the upper the central portion of the right breast. This is unchanged as well. There now is evidence of a 4.2 cm x 3.1 cm lymph node in the right axillary region. Stable appearance of the right axillary lymph nodes as seen on prior study. No other significant abnormalities are identified. BI/DIAG MAMM W/CAD, BILAT IMPRESSION: Stable bilateral breast nodules. Dominant right axillary lymph node. Correlation with ultrasound of both breasts and right axillary region is recommended for further evaluation. ASSESSMENT CATEGORY: BIRADS Category 0: Incomplete. Need additional imaging evaluation. A letter regarding these results will be sent to the patient by the facility within 30 days. Approximately 10% of breast cancers are not detected by mammography. A normal mammogram should not delay biopsy of a clinically suspicious abnormality. Pending Final Proof Editing
--- NOTE | 2019-06-28 10:29 | US_ITS ---
STUDY: ULTRASOUND BREAST - RIGHT REASON FOR EXAM: Female, 73 years old. Right axillary mass. TECHNIQUE: Axial and longitudinal images of the RIGHT breast were performed with a high resolution ultrasound transducer. # OF IMAGES: 74 COMPARISON: Comparison is made with prior mammogram done earlier in the day. FINDINGS: RIGHT Breast: There is a 2.7 cm x 3.2 cm x 2 cm irregular hypoechoic mass in the right axilla. This most likely represents a pathological lymph node. Adjacent to this, there is a similar appearing solid mass measuring 1.8 cm x 1.9 cm x 1.9 cm. Increased vascular flow is seen. There is also evidence of a 1.2 cm x 2.4 cm x 1.3 cm solid hypoechoic nodule at the 12:00 position of the breast at 2 cm from the nipple. Adjacent to this, there is a complex cystic lesion measuring 2.7 cm x 2.8 cm x 1.9 cm. A biopsy of the right axillary lymph nodes as well as the 2 suspicious nodules at the 12:00 position of the breast at 2 cm from nipple is recommended. IMPRESSION: Enlarged right axillary lymph nodes as well as 2 irregular solid nodules at the 12:00 position in the breast at 2 cm from nipple. Biopsy recommended. ASSESSMENT CATEGORY: BIRADS Category 5: Highly Suggestive of Malignancy - Appropriate Action Should Be Taken. A letter regarding these results will be sent to the patient by the facility within 30 days. Electronically Signed: Juanjo Nieves, at 15:21 EDT , Service support , STUDY: ULTRASOUND BREAST - LEFT REASON FOR EXAM: Female, 73 years old. Pain in the left breast. TECHNIQUE: Axial and longitudinal images of the LEFT breast were performed with a high resolution ultrasound transducer. # OF IMAGES: 74 COMPARISON: Comparison is made with prior mammogram and the remaining today as well as prior ultrasound of the left breast dated March 01, 2017. FINDINGS: LEFT Breast: There is a 2.3 cm x 2.7 cm x 1.3 cm cyst at 3:00 position of the breast at 3 cm from the nipple. There is also evidence of a 6 mm x 5 mm x 5 mm well-defined hypoechoic lesion at the 3:00 position breast at 2 cm from the nipple. US/Breast Limited Unilateral IMPRESSION: 2.3 cm x 2.7 cm x 1.3 cm cyst at the 3:00 position of the breast at cm from nipple. There is also evidence of a 6 mm x 5 mm x 5 mm well-defined hypoechoic nodule at the 3:00 position of the breast at 2 cm from nipple. ASSESSMENT CATEGORY: BIRADS Category 2: Benign. A letter regarding these results will be sent to the patient by the facility within 30 days. Electronically Signed: Juanjo Nieves, at 15:31 EDT , Service support ,
== END ==
PROVIDERS: PCP Family Medicine; Referring Provider Family Medicine; Visit Provider Family Medicine
DX: N63.15 Unspecified lump in the right breast, overlapping quadrants (principal); N63.25 Unspecified lump in the left breast, overlapping quadrants; R59.0 Localized enlarged lymph nodes
CPT/HCPCS: 76642; 77062; 77066; G0279

== ENCOUNTER → 2019-07-02 09:45 | Outpatient (CLI) | payer MEDICARE, OTHER, SELFPAY ==
--- NOTE | 2019-07-02 | IMM_PTH ---
PATIENT: ISIDRO CRAWFORD LOC: [facility] U#:[id number] AGE/SX: 79/F ROOM: RE07/02/[address]: Dr. Chioma Vega MD : 1945 BED: DIS: SPEC #: [id number] RECD: 07/03/19 10:23 STATUS: BERNARD REQ #: [id number] YOSELIN: 07/02/19 00:[address]: Chioma Vega DEPT: IMMUNOHISTOCHEMISTRY RECD BY: Mylene Tyson ENTERED: 07/03/19 10:27 SP TYPE: IMMUNO OTHR DR: Dr. Tigist Pelaez DO Tissues: B - Right breast, NOS A - Right breast, NOS C - Axillary lymph node, NOS D - Axillary lymph node, NOS Procedures: CALPONIN-1 (add) CK5-6 (add) CK7 (add) CK8 (add) E-CAD (add) HER2 JC (add) KI-67 (add) P53 (add) TN (add) Pankeratin (initial) P40 (add) ER (initial) PHYSICIAN & [address] [address] SPECIMEN INFORMATION: Tissue Source: A - Right breast cyst at 12 o'clock, 3 cm from nipple, B - Right breast mass at 12 o'clock, 2 cm from nipple, C - Right inferior axilla lymph node, D - Right superior axilla lymph node Clinical Info: Abnormal right breast ultrasound Specimen Number: [id number] A-D CPT code: 38040 x4, 72432 x12, 74227 x3 METHODOLOGY: Deparaffinized sections of prefer/formalin-fixed tissue or PAP/DQ stained slides are incubated with monoclonal/polyclonal antibodies/oligonucleotide probes. Localization is made via biotin free immunoperoxidase method. Appropriate controls are performed and reacted as expected. Results on target cell population are indicated in the following table: RESULTS: ANTIBODY / CLONE RESULT Block A AE1-3 (AE1/AE3/PCK26) positive CK7 (OV-TL12/30) positive CK8 (59kacxM90) positive Block B E-Cad (ECH-6) positive CK8 (53iusmI86) positive, weak Calponin-1 (YB533J) negative CK5-6 (D5 & 1684) positive, focal P40 (BC28) negative P53 (DO-7) positive, high Ki-67 (30-9) positive, high MORPHOMETRIC ANALYSIS ER (clone 6F11) 0% TN (clone 16/1E2) 0% Her-2Neu (clone CB11) 0 Block C AE1-3 (AE1/AE3/PCK26) positive CK7 (OV-TL12/30) positive CK8 (75ldhuP09) positive Block D AE1-3 (AE1/AE3/PCK26) positive CK7 (OV-TL12/30) positive CK8 (67gkswV40) positive The prognostic test for HER2 is performed on formalin-fixed paraffin embedded tissue. A 3+ (positive) staining pattern is defined as intense, homogeneous, complete, circumferential membranous staining in >10% of contiguous tumor cells. A similar weak (2+) staining pattern is interpreted as equivocal. MIRANDA follow-up testing is recommended for all equivocal cases. Positivity/negativity for ER/TN is reported if > or < 1% of the tumor cells are immuno- reactive, respectively. The ASCO/CAP criteria is used for scoring. Reference: Journal of Clinical Oncology, 2013; 31:0814-5353 & 2010; 16:6667-3906. Duration of fixation: 9.5 Hrs; Sample Adequate: Yes. These assays have not been validated on decalcified tissues. Results should be interpreted with caution given the likelihood of false negativity on decalcified specimens. These tests were developed and their performance characteristics determined by [facility]. They may not have been cleared or approved by the U.S. Food and Drug Administration. The FDA has determined that such clearance or approval is not necessary. The above immunohistochemical/dualISH markers are ordered and reviewed by the Pathologist. INTERPRETATION: A. Right breast at 12 o'clock, 3 cm from nipple, ultrasound-guided core biopsy: A few atypical cells suspicious for carcinoma in the background of marked lymphoplasmacytic infiltrates. B. Right breast mass at 12 o'clock, 2 cm from nipple, ultrasound-guided core biopsy: Invasive ductal carcinoma, nuclear grade 3. Negative for estrogen receptors (unfavorable prognostic indicator). Negative for progesterone receptors (unfavorable prognostic indicator). Negative for overexpression of RGS1jgl. C. Right axilla lymph node (inferior/larger), ultrasound-guided core biopsy: Consistent with involvement by metastatic carcinoma. D. Right axilla lymph node (smaller/superior), ultrasound-guided core biopsy: Consistent with involvement by metastatic carcinoma. SJ:shaheed 07/03/19
[2019-07-02 09:20] VITALS: BMI 39.3
--- NOTE | 2019-07-02 09:45 | BRBX_PTH ---
PATIENT: ISIDRO CRAWFORD LOC: [facility] U#:[id number] AGE/SX: 79/F ROOM: RE07/02/[address]: Dr. Chioma Vega MD : 1945 BED: DIS: SPEC #: [id number] RECD: 07/02/19 11:28 STATUS: BERNARD ROMIE #: [id number] YOSELIN: 07/02/19 09:[address]: Chioma Vega DEPT: SURGICAL PATHOLOGY RECD BY: Donovan Gaston ENTERED: 07/02/19 13:36 SP TYPE: BREAST BX OTHR DR: Dr. Tigist Pelaez DO Tissues: A - Right breast, NOS B - Right breast, NOS C - Axillary lymph node, NOS D - Axillary lymph node, NOS Procedures: Surgery Specimen Level IV HEADER OPERATION: Ultrasound-guided needle core biopsy of right breast x2, right axilla x2 PRE-OP DIAGNOSIS: Abnormal right breast ultrasound TISSUE SUBMITTED: A - Right breast cyst at 12 o'clock, 3 cm from nipple, B - Right breast mass at 12 o'clock, 2 cm from nipple, C - Right axilla lymph node (inferior/larger), D - Right axilla lymph node (smaller/superior) ISCHEMIC TIME: 1 minute FIXATION TIME: 9.5 hours MICROSCOPIC DIAGNOSIS A. Right breast at 12 o'clock, 3 cm from nipple, ultrasound-guided core biopsy: A few atypical cells suspicious for carcinoma in the background of marked lymphoplasmacytic infiltrates. See comment. B. Right breast mass at 12 o'clock, 2 cm from nipple, ultrasound-guided core biopsy: Invasive ductal carcinoma, nuclear grade 3 with focal necrosis and marked lymphoplasmacytic infiltrates (largest measuring 0.8 cm in greatest length). See comment. C. Right axilla lymph node (inferior/larger), ultrasound-guided core biopsy: Consistent with involvement by metastatic carcinoma. See comment. D. Right axilla lymph node (smaller/superior), ultrasound-guided core biopsy: Consistent with involvement by metastatic carcinoma. See comment. SJ:shaheed 07/03/19 COMMENT A. Immunohistochemistry ([id number]) supports the above diagnosis. B. Immunohistochemistry ([id number]) supports the above diagnosis. Focal metaplastic changes are also noted. ER/MO/Qoq3kkc studies are being performed on sections of tumor and the results from this study will be reported separately ([id number]). C. About 70% of the specimen is involved by metastatic carcinoma. The tumor measures 0.4 cm in greatest dimension. Immunohistochemistry ([id number]) supports the above diagnosis. D. About 60% of the specimen is involved by metastatic carcinoma. The tumor measures 0.9 cm in greatest dimension. Immunohistochemistry ([id number]) supports the above diagnosis. Tumor in all four specimens shows similar morphologic features. Case has been reviewed in consultation with Dr. Lord who concurs with the above diagnosis. IDC:AM MICROSCOPIC DESCRIPTION Slides are reviewed. GROSS DESCRIPTION A - Received in fixative is one container labeled with the patient's name and designated right breast cyst at 12 o'clock, 3 cm from nipple. The specimen consists of an elongated fragment of pagan soft tissue measuring 1.5 cm in length and 0.1 cm in diameter. The specimen is totally submitted in one cassette. B - Received in fixative is one container labeled with the patient's name and designated right breast biopsy at 12 o'clock, 2 cm from nipple. The specimen consists of multiple irregular fragments of pagan soft tissue that in aggregate measure 1.5 x 0.5 x 0.1 cm. The specimen is totally submitted in one cassette. C - Received in fixative is one container labeled with the patient's name and designated right axilla inferior lymph node. The specimen consists of multiple elongated fragments of pagan-yellow adipose tissue that in aggregate measure 2 x 0.5 x 0.1 cm. The entire specimen is submitted in one cassette. D - Received in fixative is one container labeled with the patient's name and designated right axilla superior lymph node. The specimen consists of two elongated fragments of pagan soft tissue that in aggregate measure 1 x 0.3 x 0.1 cm. The entire specimen is submitted in one cassette. / SJ:rg 07/02/19 TC:0 CPT: 57977 x4
== END ==
PROVIDERS: PCP Family Medicine; Referring Provider Surgery; Visit Provider Surgery
DX: R92.8 Other abnormal and inconclusive findings on diagnostic imaging of breast (principal)
CPT/HCPCS: 88305; 88341; 88342

== ENCOUNTER → 2019-07-05 12:02 | Outpatient (CLI) | payer MEDICARE, OTHER, SELFPAY ==
[2019-07-02 09:20] VITALS: BMI 39.3
--- NOTE | 2019-07-05 12:03 | MRI_ITS ---
STUDY: BILATERAL BREAST MR WITHOUT AND WITH CONTRAST REASON FOR EXAM: Female, 73 years old. R axillary lump, BILAT ABNORMALITIES, BIOPSY RT AXILLA 06/29/19, ABNORMALITY SEEN ON CT CHEST TECHNIQUE: Multi-sequence multi-echo imaging of both breasts was performed with a dedicated breast coil. T1-weighted and T2-weighted images were performed before the administration of contrast. T1-weighted images were also performed after the administration of IV DOTAREM 20ML without complications. COMPARISON: Mammogram dated 06/28/2019 and on 02/26/2019. A breast ultrasound dated 06/28/2019 was also reviewed. FINDINGS: RIGHT BREAST: The breast tissue is scattered fibroglandular densities with minimal background enhancement. There is a lobulated 4.7 cm mass in the superior aspect of the right breast at the 12:00 position located approximately 7 cm from the nipple. This was biopsied and shown to represent a malignancy. It is difficult to determine if this is one lobulated mass or 2 separate masses. There are multiple abnormal lymph nodes. One was biopsied and shown to represent metastatic disease within the lymph node. This lymph node measures approximately 3.5 cm. LEFT BREAST: The breast tissue is scattered fibroglandular densities with minimal background enhancement. There are no abnormal enhancing masses or areas of non-mass enhancement in the left breast. There is a benign-appearing cyst identified in the lateral aspect, near the 3:00 position, measuring approximately 2.7 cm. There are no enlarged or abnormal lymph nodes seen in the left axillary region. There is no abnormality in the visualized regions of the chest or liver. MRI/Breast Bilateral W/O and W IMPRESSION: There is a malignant-appearing lobulated mass in the right breast or 2 separate masses superimposed on one another as described above. The larger mass was biopsied and shown to represent malignancy. The largest lymph node was also biopsied and shown to represent metastatic disease. Surgical consultation is recommended as well as radiation oncology and medical oncology consultation. CATEGORY: BIRADS Category 6: Known Biopsy-Proven Malignancy - Appropriate Action Should Be Taken. A letter regarding these results will be sent to the patient by the facility within 30 days. Electronically Signed: Najma Li DO at 17:04 EDT Tel , Service support ,
[2019-07-05 14:01] LABS: CREATININE FINGERSTICK 0.7 mg/dL (0.55-1.02); EGFR FINGERSTICK > 60.0000 mL/min (>60)
== END ==
PROVIDERS: PCP Family Medicine; Referring Provider Surgery; Visit Provider Surgery
DX: R92.8 Other abnormal and inconclusive findings on diagnostic imaging of breast (principal); R93.89 Abnormal findings on diagnostic imaging of other specified body structures
CPT/HCPCS: 77049; A9575; A4216; C8908

== ENCOUNTER → 2019-07-06 08:58 | Outpatient (CLI) | payer MEDICARE, OTHER, SELFPAY ==
[2019-07-05 14:17] VITALS: BMI 39.6
--- NOTE | 2019-07-06 08:59 | NM_ITS ---
CLINICAL: 73-year-old female with reported history of carcinoma of the breast. WHOLE BODY 99m Tc MDP RADIONUCLIDE BONE SCINTIGRAPHY COMPARISON: None available FINDINGS: Following the intravenous administration of approximately 25.0 mCi of 99m Tc MDP, whole body bone images reveal: 1. Increased radiopharmaceutical concentration is identified in the acromioclavicular compartment of the left shoulder, glenohumeral and sternoclavicular compartments of both shoulders, lower cervical spine posteriorly on the left, bilateral elbow and wrist articulations, third-sixth, eighth thoracic vertebra, fifth lumbar vertebra posteriorly on the right, bilateral ankles, the right forefoot. 2. The remaining skeletal structures are scintigraphically unremarkable with normal-appearing renal images and urinary bladder activity identified. Facilitated tracer distribution is defined in the femoral and tibial components of the presumably asymptomatic bilateral knee prostheses most consistent with normal postsurgical change. NM/Bone Scan Whole Body IMPRESSION: 1. The increased in radiopharmaceutical concentration observed in the bilateral shoulders, cervical, thoracic and lumbar spine, right and left elbows, wrists bilaterally, both ankles and right forefoot is most consistent with degenerative arthritis. 2. There is no definitive typical scintigraphic evidence of skeletal metastatic disease on the current examination. Electronically Signed: Stas Hdz DO at 9:41 EDT Tel , Service support ,
--- NOTE | 2019-07-06 09:18 | ECHODONC_ITS ---
Reason For Study: Pre-chemo Procedure This was a 2D Doppler, Color Flow transthoracic echocardiogram. Myocardial strain analysis was performed in this exam to aid in the assessment of cardiac function. Exam performed in department. Left Ventricle Normal size and thickness. The estimated ejection fraction is 65 %. Stage 1 diastolic dysfunction. No regional wall motion abnormalities noted. Right Ventricle Normal size and thickness. Normal systolic function. Atria Normal left atrium. Normal right atrium. Normal atrial septum. Mitral Valve The mitral valve is structurally normal. No prolapse or stenosis seen. Tricuspid Valve Normal tricuspid valve. Trivial tricuspid valve insufficiency. Right ventricular systolic pressure estimated to be 54 mmHg. Moderate pulmonary hypertension. Aortic Valve Trisinus/trileaflet aortic valve. Mild diffuse aortic valve thickening. Pulmonic Valve Normal pulmonic valve. Great Vessels Normal aortic root. Normal arch. Normal inferior vena cava. Inferior vena cava collapse with sniff. Pericardium/Pleural No pericardial effusion. MMode/2D Measurements & Calculations LVIDd: 4.7 cm IVSd: 0.93 cm Ao root diam: 3.3 cm LVIDs: 2.7 cm LVPWd: 0.98 cm RVDd: 3.2 cm FS: 42.2 % LAV(MOD-bp): 51.8 ml EDV(MOD-sp4): 77.2 ml EDV(MOD-sp2): 83.9 ml LAV(MOD-bp) Indexed: 25.6 ml/m2 ESV(MOD-sp4): 28.4 ml EF(MOD-sp2): 66.6 % LAV(MOD-sp2): 42.6 ml EF(MOD-sp4): 63.2 % LAV(MOD-sp4): 60.8 ml SV(MOD-sp4): 48.8 ml SV(MOD-sp2): 55.9 ml LA A4 area: 20.2 cm2 LA dimension(2D): 3.5 cm RA A4 area: 14.8 cm2 Doppler Measurements & Calculations MV A max smith: 89.9 cm/sec Lat Peak E' Smith: 7.4 cm/sec Med Peak E' Smith: 6.7 cm/sec Ao V2 max: 159.9 cm/sec LV V1 max: 124.0 cm/sec PA V2 max: 122.1 cm/sec Ao max P.2 mmHg LV V1 max P.1 mmHg TR max smith: 345.2 cm/sec TR max P.7 mmHg Interpretation Summary The estimated ejection fraction is 65 %. Stage 1 diastolic dysfunction. Trivial tricuspid valve insufficiency. Right ventricular systolic pressure estimated to be 54 mmHg. Moderate pulmonary hypertension. Compared to echo report dated 08/02/17,LV function has remained the same, and RVSP has increased from 31 to 54mm Hg. Ordering Physician: Tigist Pelaez Referring Physician: Js Pitts Performed By: Terri Blackburn RDCS
== END ==
PROVIDERS: PCP Family Medicine; Referring Provider Internal Medicine Medical Oncology; Visit Provider Internal Medicine Medical Oncology
DX: Z01.818 Encounter for other preprocedural examination (principal); C50.811 Malignant neoplasm of overlapping sites of right female breast; Z79.899 Other long term (current) drug therapy
CPT/HCPCS: 78306; 93306; 93356

== ENCOUNTER → 2019-07-10 09:17 | Outpatient (CLI) | payer MEDICARE, OTHER, SELFPAY ==
[2019-07-05 14:17] VITALS: BMI 39.6
--- NOTE | 2019-07-10 09:18 | MRI_ITS ---
STUDY: MRI BRAIN WITH AND WITHOUT CONTRAST REASON FOR EXAM: Female, 73 years old. New breast CA TECHNIQUE: Standardized multiplanar fat and water weighted pulse sequences were obtained. IV Dotarem 20ml was administered for the contrast portion of the examination. COMPARISON: None. FINDINGS: Normal size of the ventricles and extra-axial spaces for the patient''s age. Normal white matter tracts of the supratentorial brain. There is no evidence for recent intracranial ischemia or other cause of cytotoxic edema on diffusion weighted imaging (DWI). Normal T2* images of the brain without demonstrated susceptibility artifact. There is no demonstrated hemosiderin stain. Normal bilateral basal ganglia. Normal thalami. There is no extra-axial fluid accumulation. Normal flow voids within the major intracranial circulation suggesting patency by spin echo criteria. Normal venous enhancement. There is no enhancing intra-axial or extra-axial abnormality. Normal sella turcica, pituitary gland, infundibular stalk, optic chiasm and hypothalamus. Normal tectal plate and pineal gland. Normal midbrain, rima and medulla. Normal cerebellum. Normal basal cisterns. There is mild chronic otomastoiditis of the bilateral temporal bones. Normal bilateral internal auditory canals. No demonstrated orbital abnormality, within the constraints of a routine brain study. Normal visualized paranasal sinuses. Normal calvarium and skull base. Normal visualized soft tissue structures. Normal visualized upper cervical spine. MRI/Brain W/WO Contrast IMPRESSION: Normal unenhanced and enhanced MRI of the brain. No MR evidence of metastatic disease. Electronically Signed: Stas Garza MD at 13:17 EDT Tel , Service support ,
== END ==
PROVIDERS: PCP Family Medicine; Referring Provider Internal Medicine Medical Oncology; Visit Provider Internal Medicine Medical Oncology
DX: C50.811 Malignant neoplasm of overlapping sites of right female breast (principal)
CPT/HCPCS: 70553; A9575

== ENCOUNTER 2019-07-18 05:46 | Day surgery (SDC) | payer MEDICARE, OTHER, SELFPAY ==
[2019-07-12 10:36] VITALS: BMI 39.6
[2019-07-17 13:28] VITALS: BMI 39.6
[2019-07-18 06:24] VITALS: BP 140/59; PULSE 66; RESP 16; TEMP 36.7; O2SAT 93; BMI 39.8
[2019-07-18] MEDS: Lactated Ringers 1,000 ML 100 ML IV ×2 (06:37→08:30)
--- NOTE | 2019-07-18 07:11 | HP.PCM_ITS ---
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 Past Medical History Past Medical History (Chronic Problems): Chronic Problems COPD with asthma (Chronic) Pulmonary hypertension (Chronic) RVSP 31 mmHg DION (obstructive sleep apnea) (Chronic) BiPAP 21/15 cm of water Benign essential hypertension (Chronic) Chronic obstructive lung disease (Chronic) FEV1 68% of predicted History of DVT of lower extremity (Chronic) GERD (gastroesophageal reflux disease) (Chronic) Hyperlipidemia (Chronic) History of pulmonary embolism (Chronic) Tobacco user (Chronic) Medical History: Medical History (Last Reviewed 07/17/19 @ 16:49 by HAIDER Pearce) Smoking greater than 40 pack years (Acute) F17.210 COPD with asthma (Chronic) J44.9 Candidiasis of mouth (Acute) B37.0 History of pulmonary embolism (Resolved) Z86.711 Pulmonary hypertension (Chronic) I27.20 RVSP 31 mmHg DION (obstructive sleep apnea) (Chronic) G47.33 BiPAP 21/15 cm of water Benign essential hypertension (Chronic) I10 Chronic obstructive lung disease (Chronic) J44.9 FEV1 68% of predicted History of DVT of lower extremity (Chronic) Z86.718 GERD (gastroesophageal reflux disease) (Chronic) K21.9 Hyperlipidemia (Chronic) E78.5 History of pulmonary embolism (Chronic) Z86.711 Tobacco user (Chronic) Z72.0 Acute respiratory failure with hypoxia and hypercarbia (Acute) J96.01, J96.02 Lung nodule (Acute) R91.1 Stroke behind eye 1999 Allergies Fish Containing Products Allergy (Verified 07/18/19 06:18) Abd cramps/diarrhea nausea Home Medications: Ambulatory Orders Medication Instructions Recorded Citalopram [Celexa] 10 mg PO DAILY 06/27/14 Omeprazole [Prilosec] 40 mg PO DAILY 06/27/14 traZODone [Desyrel] 200 mg PO QHS 06/27/14 Furosemide [Lasix] 20 mg PO DAILY #30 tab 07/11/14 Gabapentin 300 mg PO DAILY 07/13/16 Gabapentin [Neurontin] 600 mg PO QHS 07/13/16 tiotropium bromide 18 mcg capsule 1 cap INHALATION DAILY #90 inh 06/20/19 with inhalation device Albuterol Sulfate [Albuterol 2 puff INHALATION Q4H PRN 07/05/19 Sulfate Hfa] Fluticasone Furoate [Flonase 2 spray INTRANASAL DAILY PRN 07/05/19 Sensimist] fluticasone 500 mcg-salmeterol 50 1 inh INHALATION BID #3 ea 07/17/19 mcg/dose blistr powdr for inhalation Fluticasone Propion/Salmeterol 1 ea IH DAILY 07/18/19 [Wixela 500-50 Inhub] Surgical History: Surgical History (Last Reviewed 07/17/19 @ 16:49 by Laura Slaughter NP-Michela) Hx of colonoscopy (Acute) Z98.890 2017 History of bilateral knee replacement (Acute) Z96.653 1995 History of breast biopsy Z98.890 Surgical History: - - bilateral knee Psychiatric History: No pertinent psych hx Smoking Status: Current every day smoker Tobacco Use: Cigarettes - *Family History Maternal Family History: Family History (Last Reviewed 07/17/19 @ 16:49 by Laura Slaughter NP-Michela) Sister Skin cancer Diabetes Breast cancer Lung cancer Mother Diabetes CVA (cerebral vascular accident) Father Heart disease CVA (cerebral vascular accident) Brother Diabetes Sister Breast cancer History Items: No pertinent history VTE Information - Inpt Only VTE Present on Admission: Yes VTE Mechan Device Prophylaxis: SCD's Patient Problems: Active and Suspected Problems (Last Reviewed 07/17/19 @ 16:49 by Laura Slaughter NP-C) Breast cancer, right (Acute) - Physical Exam Vitals/I&O's: Vital Signs Temp Pulse Resp BP Pulse Ox 98.0 F 66 16 140/59 H 93 07/18/19 06:24 07/18/19 06:24 07/18/19 06:24 07/18/19 06:24 07/18/19 06:24 Oxygen Delivery Method Room Air Weight: 224 lb 12.8 oz Body Mass Index (BMI) 39.8 General: Alert, Oriented x3, Cooperative, No apparent distress HEENT: Atraumatic Neck: Supple Lungs: Normal air movement Cardiovascular: Regular rate Abdomen: Soft, Non Tender, Non-Distended Neurological: Cranial nerves II-XII grossly intact Psych/Mental Status: Normal Affect Current Medications Cefazolin Sodium 2 gm/ Sodium (Chloride) 110 mls @ 150 mls/hr IV PREOP ONE Stop: 04/08/20 07:43 Lactated Ringer's () 1,000 mls @ 100 mls/hr IV .Q10H TANIA Last Admin: 07/18/19 06:37 Dose: 100 mls/hr Documented by: Assessment/Plan All Active Problems (Last Reviewed 07/17/19 @ 16:49 by Laura Slaughter NP-C) Breast cancer, right (Acute) Hx of colonoscopy (Acute) History of bilateral knee replacement (Acute) Smoking greater than 40 pack years (Acute) Candidiasis of mouth (Acute) History of pulmonary embolism (Resolved) Acute respiratory failure with hypoxia and hypercarbia (Acute) Lung nodule (Acute) 73-year-old female Z45.2, right triple negative breast cancer with regional node metastasis I have discussed above with the patient- Port-a-Cath placement. Patient has been counseled as to the risks/benefits of the procedure. I have explained the risks of the surgery, including but not limited to: infection, bleeding, injury to any blood vessels/nerves, injury to lungs (such as pneumothorax or hemothorax and need for chest tube), not having any access, nonfunctioning of port due to thrombosis, infection of port, etc. the patient understands and agrees to proceed. I have answered all the patient's questions to the patient?s satisfaction and the patient has no further questions. Chioma Vega M.D. Pager: [phone] [facility] [address] [place] [address], [address] [place] [address] Office: [phone] Essential Procedure Criteria Procedure Essential: Yes Criteria Note: Due to increased risk of metastasis/increased aging for right breast cancer Risk to Patient if Procedure Delayed: Risk of metastasis or progression of staging
[2019-07-18] MEDS: Cefazolin 2 GM in 0.9% Normal Saline 100 ML IV (07:34)
[2019-07-18] MEDS: Bupivacaine Mpf 0.5% 30 ML VIAL (08:20)
--- NOTE | 2019-07-18 08:34 | OP.PCM_ITS ---
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 Placement of left IJ port. 2. Use of fluoroscopy. 3. Use of ultrasound Type of Anesthesia:: Local MAC Anesthesiologist: Myles Redman Special Medications: Ancef 2 g IV x1 Specimen's removed: None Estimated Blood Loss (mL): 10 cc Fluids Replaced: 1200 cc Description of Procedure: After informed consent was given, the patient was brought to the operating room and placed in the supine position. Appropriate time out protocol was followed. He was then given IV conscious sedation for anesthesia. The patient's left upper chest and neck were then prepped with a surgical skin preparation and sterile surgical drapes were placed. After proper landmarks were ascertained, the skin at the upper left chest area was then infiltrated with 1:1 mixture of 1% lidocaine with epinephrine and 0.5% marcaine. A needle trocar was then inserted into the left internal jugular vein with ultrasound guidance-multiple vessels were viewed with u/s and the left IJ was chosen-- and there was good aspiration of venous blood. A wire was then threaded into the needle trocar and this was visualized under fluoroscopy to ensure that the wire was in the superior vena cava. Once this was done, then the needle trocar was removed. A small skin sae was made with an 11 blade knife at the wire entrance site. The dilator with the introducer sheath attached was then placed over the wire into the left internal jugular vein via the Seldinger technique and this was visualized under fluoroscopy. The dilator and sheath were in proper position as visualized by fluoroscopy. A subcutaneous pocket was then created caudad to the catheter insertion site. A transverse skin incision was made after the skin and subcutaneous tissues were infiltrated with local anesthetic. Blunt dissection was then used to create a space large enough for placement of the subcutaneous port. The catheter was then tunneled into the subcutaneous pocket. The wire and dilator were then removed. The catheter was then threaded into the introducer sheath and was positioned with its tip at the junction of the superio r vena cava and the right atrium as visualized under fluoroscopy. The excess catheter was transected. The catheter was then attached to the subcutaneous port using manufacturers guidelines. The catheter was flushed with a heparin saline mixture prior to placement. Hemostasis was carefully controlled with electrocautery. The port was sutured to the subcutaneous fascia using 2-0 Vicryl suture at two sites. The port was then placed in the subcutaneous pocket. The incision were reapproximated with interrupted subdermal 3-0 vicryl sutures. The skin was reapproximated with 3-0 nylon suture in a interrupted fashion. Steristrips were used for reinforcement of the skin closure at IJ insertion site and a sterile opsite dressings were applied. The patient tolerated the procedure well. Implants Used: Bard PowerPort isp M.R.I. 6Fr Lot [id number] ref [id number] Grafts/Implants Used: [employer] PowerPort isp M.R.I. 6Fr Lot [id number] ref [id number] - Complications none
[2019-07-18 08:39] VITALS: BP 123/80; BP 140/59; PULSE 110; RESP 17; TEMP 36.6; O2SAT 95
--- NOTE | 2019-07-18 08:41 | DCINST_ITS ---
Discharge Diet: Light diet - advance as tolerated May shower in (days): 1 - Keep port site dry for 5 days okay to taper off with Ziploc bag and shower or lower shower and upper sponge bath Lifting Restrictions: No lifting greater than 10 pounds with the left arm x1 week Call your doctor if your incision/area has: Continuous Slow Oozing, Sudden Increased Bleeding, Increased Pain/ Swelling, Increased Redness, Foul Smelling Discharge, Swelling at the incision site Call your doctor if you observe: Fever of 101 or Higher Remove Dressing in (days):: 1 - Okay to remove the neck OpSite tomorrow but keep Steri-Strips on for 7 to 10 days, okay to leave the port OpSite on for 2 days Allergies/Adverse Reactions: Allergies Fish Containing Products Allergy (Verified 07/18/19 06:18) Abd cramps/diarrhea nausea Medications to take at Discharge Citalopram [Celexa] 10 mg PO DAILY 06/27/14 Omeprazole [Prilosec] 40 mg PO DAILY 06/27/14 traZODone [Desyrel] 200 mg PO QHS 06/27/14 Furosemide [Lasix] 20 mg PO DAILY #30 tab 07/11/14 Gabapentin 300 mg PO DAILY 07/13/16 Gabapentin [Neurontin] 600 mg PO QHS 07/13/16 tiotropium bromide 18 mcg capsule with inhalation device 1 cap INHALATION DAILY #90 inh 06/20/19 Albuterol Sulfate [Albuterol Sulfate Hfa] 2 puff INHALATION Q4H PRN 07/05/19 Fluticasone Furoate [Flonase Sensimist] 2 spray INTRANASAL DAILY PRN 07/05/19 fluticasone 500 mcg-salmeterol 50 mcg/dose blistr powdr for inhalation 1 inh INHALATION BID #3 ea 07/17/19 Fluticasone Propion/Salmeterol [Wixela 500-50 Inhub] 1 ea IH DAILY 07/18/19 Primary Care Physician: Tigist Pelaez DO [Primary Care Provider] - Test Results: Test results from this visit will be discussed in further detail at your follow- up appointment, if applicable. Please Follow Up With: Chioma Vega MD - After 5-on the weekends call [phone] with any concerns When: Suture removal in 10 days, call office to let us know how you are doing Proposed Discharge Date: 07/18/19
--- NOTE | 2019-07-18 08:44 | RAD_ITS ---
STUDY: X-RAY CHEST REASON FOR EXAM: Female, 73 years old. POST PORT PLACEMENT TECHNIQUE: Single AP portable view of the chest. COMPARISON: Comparison is made with prior study dated July 13, 2016. FINDINGS: A left-sided portacatheter is in place. The tip is in the midportion of the superior vena cava. Hyperinflation. Scattered calcified granulomas. There is no demonstrated pleural abnormality. Normal size heart. Normal mediastinum and angie. Normal visualized pulmonary arteries. Normal visualized aortic arch and descending thoracic aorta. There are diffuse degenerative changes of the visualized thoracic spine. Normal visualized ribs, clavicles, and shoulders. There is no demonstrated abnormality of the visualized soft tissue structures of the upper abdomen. RAD/CXR for Line Placement IMPRESSION: The tip of the left portacatheter is in the midportion of the superior vena cava. Electronically Signed: Juanjo Nieves, at 9:20 EDT , Service support ,
[2019-07-18 08:45] VITALS: BP 140/59; BP 144/58; PULSE 105; RESP 18; O2SAT 99
[2019-07-18 08:50] VITALS: BP 140/59; BP 143/64; PULSE 104; RESP 18; O2SAT 99
[2019-07-18 08:56] VITALS: BP 140/59; BP 152/68; PULSE 99; RESP 17; TEMP 36.6; O2SAT 98
[2019-07-18 09:20] VITALS: BP 140/59
== END 2019-07-18 09:31 | disposition home or self-care (01) ==
LOC: SDC 05:48 → AC 05:49
PROVIDERS: PCP Family Medicine; Referring Provider Surgery; Visit Provider Surgery
PROC: (CPT 36561; principal; 2019-07-18 07:15)
DX: Z45.2 Encounter for adjustment and management of vascular access device (principal); C50.911 Malignant neoplasm of unspecified site of right female breast; Z17.1 Estrogen receptor negative status [ER-]; C77.9 Secondary and unspecified malignant neoplasm of lymph node, unspecified; J44.9 Chronic obstructive pulmonary disease, unspecified; G47.33 Obstructive sleep apnea (adult) (pediatric); K21.9 Gastro-esophageal reflux disease without esophagitis; E78.5 Hyperlipidemia, unspecified; I27.20 Pulmonary hypertension, unspecified; I10 Essential (primary) hypertension; F17.210 Nicotine dependence, cigarettes, uncomplicated; R91.1 Solitary pulmonary nodule; G25.81 Restless legs syndrome; F41.9 Anxiety disorder, unspecified; F32.9 Major depressive disorder, single episode, unspecified; Z79.899 Other long term (current) drug therapy; Z86.718 Personal history of other venous thrombosis and embolism; Z86.711 Personal history of pulmonary embolism; Z79.51 Long term (current) use of inhaled steroids
CPT/HCPCS: 00532; 36561; 71045; 77001; J7120; C1769

== ENCOUNTER → 2019-10-18 12:28 | Outpatient (CLI) | payer MEDICARE, OTHER, SELFPAY ==
[2019-10-11 11:02] VITALS: BMI 40.5
--- NOTE | 2019-10-18 12:28 | MRI_ITS ---
STUDY: BILATERAL BREAST MR WITHOUT AND WITH CONTRAST REASON FOR EXAM: Female, 74 years old. f/u breast ca. Patient had chemotherapy which finished up on 09/27/2019. TECHNIQUE: Multi-sequence multi-echo imaging of both breasts was performed with a dedicated breast coil. T1-weighted and T2-weighted images were performed before the administration of contrast. T1-weighted images were also performed after the administration of IV Yes without complications. COMPARISON: Breast MRI dated 07/05/2019. No additional imaging studies are available for review. FINDINGS: RIGHT BREAST: The breast tissue is scattered fibroglandular densities with minimal background enhancement. The area biopsied in the right breast that was shown to represent a malignancy is significantly smaller on today''s study. The abnormal appearing enhancing right axillary lymph nodes appear smaller on today''s study. There are no other abnormal enhancing masses or areas of non-mass enhancement in the right breast. LEFT BREAST: The breast tissue is scattered fibroglandular densities with minimal background enhancement. There are no abnormal enhancing masses or areas of non-mass enhancement in the left breast. There is a benign-appearing cystic mass seen laterally within the breast near the 3:00 position measuring 2.8 cm. There are no enlarged or abnormal lymph nodes. There is no abnormality in the visualized regions of the chest or liver. MRI/Breast Bilateral W/O and W IMPRESSION: The known malignancy in the right breast and the abnormal lymph nodes appear smaller on today''s study. No new masses are seen. CATEGORY: BIRADS Category 6: Known Biopsy-Proven Malignancy - Appropriate Action Should Be Taken. A letter regarding these results will be sent to the patient by the facility within 30 days. Electronically Signed: Najma Li DO at 9:41 EDT Tel , Service support ,
[2019-10-18] MEDS: 0.9% Saline Lock 10 ML Syringe IV (14:00)
== END ==
PROVIDERS: PCP Family Medicine; Referring Provider Nurse Practitioner Family; Visit Provider Nurse Practitioner Family
DX: C50.911 Malignant neoplasm of unspecified site of right female breast (principal)
CPT/HCPCS: 77049; A9575; A4216; C8908

== ENCOUNTER 2019-10-29 13:08 | Observation (INO) | payer MEDICARE, OTHER, SELFPAY ==
[2019-10-11 11:02] VITALS: BMI 40.5
--- NOTE | 2019-10-22 03:33 | HP_ITS ---
Intake Intake Visit Reasons: F/U MRI 10/17 [facility] Chief Complaint: discuss MRI Systems Manager Required: No Is patient in pain?: No Allergies Fish Containing Products Adverse Reaction (Mild, Verified 10/22/19 14:09) Abd cramps/diarrhea Medications Citalopram [Celexa] 10 mg PO DAILY 06/27/14 [History Confirmed 10/22/19] Omeprazole [Prilosec] 40 mg PO DAILY 06/27/14 [History Confirmed 10/22/19] traZODone [Desyrel] 200 mg PO QHS 06/27/14 [History Confirmed 10/22/19] Furosemide [Lasix] 20 mg PO DAILY #30 tab 07/11/14 [Rx Confirmed 10/22/19] Gabapentin 300 mg PO DAILY 07/13/16 [History Confirmed 10/22/19] Gabapentin [Neurontin] 600 mg PO QHS 07/13/16 [History Confirmed 10/22/19] tiotropium bromide 18 mcg capsule with inhalation device 1 cap INHALATION DAILY #90 inh 06/20/19 [Rx Confirmed 10/22/19] Albuterol Sulfate [Albuterol Sulfate Hfa] 2 puff INHALATION Q4H PRN 07/05/19 [History Confirmed 10/22/19] Fluticasone Furoate [Flonase Sensimist] 2 spray INTRANASAL DAILY PRN 07/05/19 [History Confirmed 10/22/19] fluticasone 500 mcg-salmeterol 50 mcg/dose blistr powdr for inhalation 1 inh INHALATION BID #3 ea 07/17/19 [Rx Confirmed 10/22/19] Fluticasone Propion/Salmeterol [Wixela 500-50 Inhub] 1 ea IH DAILY 07/18/19 [History Confirmed 10/22/19] Dexamethasone [Decadron] 8 mg PO BID 21 Days #12 tab 07/23/19 [Rx Confirmed 10/22/19] Lidocaine/Prilocaine [Lidocaine-Prilocaine Cream] 1 applicatio TP DAILY PRN PRN 30 Days #1 tube 07/23/19 [Rx Confirmed 10/22/19] Ondansetron [Zofran] 8 mg PO Q8H PRN PRN 10 Days #30 tab 07/23/19 [Rx Confirmed 10/22/19] Prochlorperazine Maleate 10 mg PO Q6H PRN PRN 10 Days #30 tab 07/23/19 [Rx Confirmed 10/22/19] Is last menstrual period known: No Post menopausal: Yes Patient : No PFSH Medical History Smoking greater than 40 pack years (Acute) COPD with asthma (Chronic) Candidiasis of mouth (Acute) History of pulmonary embolism (Resolved) Pulmonary hypertension (Chronic) DION (obstructive sleep apnea) (Chronic) Benign essential hypertension (Chronic) Chronic obstructive lung disease (Chronic) History of DVT of lower extremity (Chronic) GERD (gastroesophageal reflux disease) (Chronic) Hyperlipidemia (Chronic) History of pulmonary embolism (Chronic) Tobacco user (Chronic) Acute respiratory failure with hypoxia and hypercarbia (Acute) Lung nodule (Acute) Stroke behind eye (Acute) Surgical History Hx of colonoscopy (Acute) History of bilateral knee replacement (Acute) History of breast biopsy (Acute) Family History Sister Skin cancer Diabetes Breast cancer Lung cancer Mother Diabetes CVA (cerebral vascular accident) Father Heart disease CVA (cerebral vascular accident) Brother Diabetes Sister Breast cancer Social History (Updated 10/22/19 @ 15:[address] Chioma Vega MD) Smoking Status: Current every day smoker tobacco type: cigarettes second hand exposure: Yes alcohol intake: current alcohol intake frequency: holidays/special occasions only substance use type: does not use caffeine: Yes what type of physical activity do you participate in: none frequency: does not exercise HPI HPI HPI: ISIDRO CRAWFORD, is a 74 F who presents to the office today for HPI HPI Surgical H&P: Yes HPI: ISIDRO CRAWFORD, is a 74 F who presents to the office today for follow-up status post neoadjuvant chemotherapy for right breast cancer with regional axillary lymph node metastasis. Patient's follow-up MRI does still show a lesion in the breast and in the axillas with some residual tissue they do appear smaller in size. Patient states her previous pain from underneath her arm has resolved. Patient states she tolerated chemotherapy fairly well. ROS Breast Breast: No nipple discharge Exam Const General: cooperative, comfortable, no acute distress, well developed Chest Breast inspection: normal inspection of the breasts Breast Palpation: Yes abnormal palpation of the breast (2 to 3 cm breast mass appreciated at 12:00 about 3 cm from the nipple, mobile, nontender, no changes to the overlying skin no other masses appreciated in the right breast., No masses appreciated in the left breast.), Yes axillary lymphadenopathy (Right axilla smaller in size than previous., No lymphadenopathy in the right axilla), No nipple discharge, No supraclavicular, No change in skin Assessment & Plan Problems 1. 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 Malignant neoplasm of overlapping sites of right breast in female, estrogen receptor negative C50.811 3. Status post chemotherapy Z92.21 Plan I have given the patient options for initial surgical treatment. Options are the following: lumpectomy followed by radiation therapy vs. mastectomy vs. mastectomy followed by immediate reconstruction. I have described the procedures to the patient. I have described the advantages and disadvantages of the options, but I have told the patient that among the options, the survival rate for breast cancer is the same. I have told the patient that due to residual disease seen on MRI after neoadjuvant chemotherapy she would require a a full axillary lymph node dissection. I have told the patient that adjuvant chemotherapy will be required if there is any residual disease which appears there would be some per MRI. Also discussed full lymph node dissection will increase the risk for lymphedema, with any residual disease in the axilla radiation to the axilla is also required. I have told the patient the risks of surgery, including but not limited to: infection, bleeding, scar tissue, seroma and persistent seroma, lymph leak, injury to any blood vessels, injury to any nerves (particularly the long thoracic, the thoracodorsal, and the second intercostal brachial and the resultant sequelae), lymphedema, cosmetic deformity, dysesthesias, wound infections, further surgery (especially if margins are not clear), complications of anesthesia, etc. the patient understands. The patient has talked with her family decided to go with a right mastectomy, right axillary lymph node dissection. I have answered all the patient?s questions at this point to her satisfaction and she has no further questions. Greater than 50% of direct patient contact was spent in counseling or coordination of care. I spent 25 minutes counseling the patient about options for breast surgery and additional treatment options that will be recommended after surgery And coordinating care. Chioma Vega M.D. Pager: [phone] [facility] [address] [place] [address], [address] [place] [id number] Office: 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 delaying the surgery/procedure. It is not possible to know either the risk of delaying the surgery or procedure or chance of getting an infection with perfect accuracy, but a joint decision was made between the patient and the surgeon/proceduralist ?to proceed at this time with the scheduled surgery/procedure as indicated on the consent form. 10/22/19 1533 <Electronically signed by Chioma Chatterjee am, MD> Date _ Chioma Vega MD I have examined the patient the following changes are noted: Patient did change her mind and did want a lumpectomy instead of mastectomy. Patient is agreeable to radiation. We will proceed with a right ultrasound-guided needle localization lumpectomy, right x-ray lymph node dissection
[2019-10-29] VITALS (15 sets, daily range): BP systolic 112–163; BP diastolic 48–87; PULSE 73–89; RESP 16–82; TEMP 36–37.1; O2SAT 83–100; BMI 40.3; BMI 41.0
--- NOTE | 2019-10-29 | BRBX_PTH ---
PATIENT: ISIDRO CRAWFORD LOC: [facility] U#:[id number] AGE/SX: 74/F ROOM: [facility]313 RE10/29/[address]: Dr. Chioma Vega MD : 1945 BED: 1 DIS: 10/30/2019 SPEC #: [id number] RECD: 10/29/19 08:38 STATUS: BERNARD RELucius #: [id number] YOSELIN: 10/29/19 00:[address]: Chioma Vega DEPT: SURGICAL PATHOLOGY RECD BY: Mylene Tyson ENTERED: 10/29/19 09:37 SP TYPE: BREAST BX OTHR DR: Dr. Tigist Pelaez DO Tissues: A - Right breast, NOS B - Axillary lymph node, NOS C - Axillary lymph node, NOS Procedures: Surgery Specimen Level V HEADER OPERATION: Ultrasound-guided needle localization lumpectomy, axillary lymph node PRE-OP DIAGNOSIS: CA of right breast metastatic to axillary lymph node TISSUE SUBMITTED: A - Right breast mass, short stitch - superior, long stitch - lateral, B - Right axillary lymph nodes, C - Additional right axillary lymph nodes MICROSCOPIC DIAGNOSIS A. Right breast mass, lumpectomy with needle localization: Invasive ductal carcinoma, four foci (<0.1 to 1 cm in greatest dimension). See cancer summary in the comment section. B. Right axillary lymph nodes: Two out of eight lymph nodes positive for metastatic carcinoma. C. Additional right axillary lymph nodes: Three out of three lymph nodes negative for metastatic carcinoma. SJ:shaheed 11/01/19 COMMENT INVASIVE BREAST CANCER SUMMARY Procedure - excision Specimen laterality - right Invasive tumor: Tumor site - 12 o'clock as per clinical information Tumor size - size of largest invasive focal - 1 x 0.4 cm (measured microscopically) Histologic type - invasive ductal carcinoma Histologic grade (Zo grade): Glandular/acinar tubular differentiation score - 3 Nuclear pleomorphism score - 3 Mitotic count score - 2 Overall grade - grade 3 (score of 8) Tumor focality - multifocal Number of foci - four Size of individual foci - <0.1 to 1.0 cm in greatest dimension) Ductal Carcinoma In Situ - not identified Tumor extension: Skin - not present Nipple - not applicable Skeletal muscle - no skeletal muscle present Margins - invasive carcinoma is 0.4 cm away from the closest inferior margin. Regional Lymph Nodes ( specimen B & C): Total number of lymph nodes examined - 11 Number of lymph nodes with macrometastases - 2 Size of largest metastatic deposits - at least 1.5 cm Extranodal extension - not identified Treatment effect: Treatment effect in the breast - probable response to presurgical therapy in the invasive carcinoma. Treatment effect in lymph node - probable response to presurgical therapy in metastatic carcinoma. Lymphvascular invasion - not identified Dermal lymphvascular invasion - not applicable Additional Pathologic Findings - changes consistent with previous biopsy site. - Fibrocystic changes and intraductal hyperplasia without atypia. - Hyalinized fibroadenoma (0.8 x 0.4 cm), measured microscopically. Ancillary Studies: Previously performed on same tumor ([id number] / [id number]) ER: negative (0%) OK: negative (0%) [id number]: negative (0) Microcalcifications - present in non-neoplastic tissue Clinical History - Please make reference to previous specimen ([id number]) right breast at 12 o'clock, 3 cm from nipple, ultrasound-guided core biopsy with diagnosis of a few atypical cells suspicious for carcinoma in the background of marked lymphoplasmacytic infiltrate, right breast at 12 o'clock, 2 cm from nipple, ultrasound-guided core biopsy with diagnosis of invasive ductal carcinoma and right axillary lymph node (inferior/large), ultrasound-guided core biopsy with diagnosis of consistent with involvement by metastatic carcinoma and right axillary lymph node (smaller/superior), ultrasound-guided core biopsy with diagnosis of consistent with involvement by metastatic carcinoma. - Prior presurgical (neoadjuvant) therapy for this diagnosis of invasive carcinoma. Radiologic finding - abnormal right breast ultrasound PATHOLOGIC STAGE: pT1b y,m pN1a pMx The above summary is in compliance with [employer] [place] [employer] (CAP) Cancer Protocols Checklist and [place] [employer] Committee on Cancer (AJCC), Staging Manual, 8th Ed. All four tumor foci show similar morphologic features. Two lymph nodes involved by metastatic carcinoma shows extensive involvement by metastatic carcinoma. The largest lymph node measuring 3.5 cm in greatest dimension and appears to be 90% involved by the metastatic tumor, so focus on metastasis may be larger than measured microscopically. Case has been reviewed in consultation with Dr. Lord who concurs with the above diagnosis. IDC:AM MICROSCOPIC DESCRIPTION Slides are reviewed. GROSS DESCRIPTION A - Received fresh for intraoperative consultation labeled with the patient's name is a specimen designated right breast mass. The specimen consists of a piece of fibroadipose tissue with needle localization measuring 8 x 5.5 x 3 cm. The specimen is oriented as follows: short stitch - superior, long stitch - lateral. The specimen is inked as follows: anterior - yellow, posterior - black, superior - blue, inferior - green, medial - red and lateral - orange. Serial sections reveal a biopsy cavity measuring 2 x 1.5 cm. No mass lesion is identified. The biopsy cavity is 0.2 cm from inferior and posterior margins. This information is conveyed to the surgeon intraoperatively. Sections of the rest of the specimen reveal pagan-yellow fibroadipose cut surfaces mixed with pagan-white fibrous area. Cleaning Porter sections are submitted in 12 cassettes as follows: 1 - perpendicular medial, lateral, inferior and superior margins, 2?&?3 - biopsy cavity with closest inferior and posterior margin, 4-12 - business services representative sections adjacent to and away and from the biopsy cavity. Sections are submitted after additional fixation. / SJ: 10/30/19 B - Received in fixative is one container labeled with the patient's name and designated axillary mass right. The specimen consists of a fragment of yellow adipose tissue measuring 8 x 7 x 3 cm. Sections reveal multiple nodules consistent with lymph nodes. The largest lymph node measures 3.5 cm in greatest dimension. A second largest lymph node measures 2.5 cm in greatest dimension. Sectioning of the larger lymph nodes reveal possible involvement by the metastatic tumor. The lymph nodes are submitted in entirety. Cleaning Porter sections are submitted in 14 cassettes as follows: 1-6 - largest lymph node, 7 & 8 - one lymph node serially sectioned, 9 - two lymph nodes bisected, one lymph node inked black, 10 - three lymph nodes, 11-14 - one lymph node serially sectioned. / SJ: 10/29/19 C - Received in fixative is one container labeled with the patient's name and designated additional right axillary nodes. The specimen consists of two pieces of yellow adipose tissue containing nodule consistent with lymph node measuring in aggregate 4 x 3.5 x 1 cm. Three nodules consistent with lymph nodes are identified each measuring 1 cm in greatest dimension. Each lymph node is bisected. The lymph nodes are submitted entirely in three cassettes with each cassette containing one bisected lymph node. / MELISSA:shaheed 10/30/19 TC:0 CPT: 91499 x3, 50018
--- NOTE | 2019-10-29 06:12 | EKG12_ITS ---
Test Reason : PRE-OP Blood Pressure : / mmHG Vent. Rate : 083 BPM Atrial Rate : 083 BPM P-R Int : 132 ms QRS Dur : 084 ms QT Int : 392 ms P-R-T Axes : 068 049 070 degrees QTc Int : 460 ms Normal sinus rhythm Normal ECG Confirmed by MERLE PATTON, KEVYN ([id number]), book editor TELMA FOLEY ([id number]) on 10/31/2019 8:52:21 AM Referred By: Chioma Vega Confirmed By:KEVYN BLOOM MD
[2019-10-29] MEDS: Lactated Ringers 1,000 ML 100 ML IV ×2 (06:48→17:21)
[2019-10-29] MEDS: Cefazolin 2 GM in 0.9% Normal Saline 100 ML IV (07:29)
--- NOTE | 2019-10-29 08:32 | BI_ITS ---
SURGICAL BREAST SPECIMEN RADIOGRAPH CLINICAL: Document presence of tissue clip marker in biopsy specimen. FINDINGS: Specimen shows presence of tissue clip marker. Pathology is pending and an addendum to the biopsy report will be performed after the final pathologic diagnosis is rendered. Electronically Signed: Ramiro Buckner MD at 8:43 EDT , Service support , BI/Breast Biopsy Specimen
--- NOTE | 2019-10-29 10:44 | PCM.OPRPT ---
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 Right lumpectomy, 2. Right axillary lymph node dissection, 3. Additional right axillary lymph nodes Estimated Blood Loss (mL): 20 cc Fluids Replaced: 1100 cc Description of Procedure: 74-year-old female with right breast cancer triple negative, metastatic to axillary nodes, status post neoadjuvant chemotherapy. Repeat MRI still showed enlarged axillary node and some enhancement at the breast lesion. Right lumpectomy ultrasound-guided needle localization, right axillary lymph node dissection was elected and patient agreed to proceed. Description of procedure:Patient was placed supine on the operating room table the right arm extended on an armboard. A timeout was completed verifying correct patient, procedure, site, positioning, special, prior to beginning procedure. General anesthesia was induced. The right breast and axilla were prepped and draped in usual sterile fashion. Ultrasound-guided for needle localization was done placed in the wire for the posterior aspect of the lesion. Flaps were raised in the location of the wire confirmed. The wire was delivered into the wound. 2 silk oljnug-te-kivlw stay suture was placed around the wire and used for traction. Dissection was then taken down circumferentially, taking care to include the entire localization needle and wide margin of grossly normal tissue. The specimen and entire localizing wire were removed. The specimen was oriented and sent to radiology with the localization studies. Confirmation was received that the entire target lesion had been resected. The wound was irrigated with sterile water. Hemostasis was checked. Next proceed with the right axillary lymph node dissection. Curvilinear incision was made with 15 blade scalpel at the lower hairline of the axilla. This was deepened to the axillary fat plane. The pectoralis muscle was identified, next the axillary vein was identified. There was noted to be enlarge lymph nodes on exam. The long thoracic and thoracodorsal and intercostobrachial nerves were identified and protected throughout the case. The axillary fat/ level I & II axillary lymph nodes were removed From the borders of the axillary vein, latissimus dorsi, serratus anterior and sent to pathology. Specimen was also sent for x-ray , X-ray did show that the clip nodes were removed. Hemostasis was achieved. Wound was irrigated with sterile water. 15 Wallisian PREMA drain was placed in the right axilla. The breast and axillary wounds were closed with interrupted sutures of 3-0 Vicryl and subcuticular sutures of 4-0 Monocryl. space was closed with interrupted 3-0 Vicryl sutures. A dressing of fluff gauze and supportive bra placed. The patient was extubated. She tolerated procedure well was taken to the postanesthesia care in stable condition. - Complications None
[2019-10-29] MEDS: Bupiv/Epi 0.25% 30 ML Vial (10:48)
--- NOTE | 2019-10-29 12:00 | CPS ---
Pt. placed on sleep lab PAP machine. Settings set per home regimen. BiPAP 23/15 with 2L O2 Bled in.
--- NOTE | 2019-10-29 14:23 | NURSING ---
pt ambulatory to br for void, then returned to chair with right arm up on pillow
[2019-10-29] MEDS: Ibuprofen 400 MG Tablet PO (17:21)
[2019-10-29] MEDS: Ipratropium/Albuterol Sulfate 3 ML AMPUL.NEB INHALATION (19:13)
[2019-10-29] MEDS: Budesonide Respules 0.5 MG/2 ML AMPUL.NEB. INHALATION (19:13)
[2019-10-29] MEDS: traZODone 100 MG Tablet 200 MG PO (21:12)
[2019-10-29] MEDS: Gabapentin 600 MG Tablet PO (21:12)
[2019-10-30] VITALS (7 sets, daily range): BP systolic 113–129; BP diastolic 46–63; PULSE 73–83; RESP 16–20; TEMP 36.3–36.8; O2SAT 86–99; BMI 41.0
[2019-10-30] MEDS: Lactated Ringers 1,000 ML 100 ML IV (02:54)
[2019-10-30] MEDS: Ibuprofen 400 MG Tablet PO (05:11)
[2019-10-30 06:07] LABS: Absolute Lymphocyte Count 1.23 X10^3/uL (0.83-4.51); Absolute Neutrophil Count 5.1 X10^3/uL (2.0-7.7); Basophil# 0.07 X10^3/uL; Basophil% 0.9 % (0-1); Eosinophils% 6.6 % (0-5); Hematocrit 35.8 % (37-47); Hemoglobin 11.5 g/dL (12.0-15.0); Lymphocyte # 1.23 X10^3/ul (4.0); Lymphocyte % 16.2 % (19-41); Mean Corp Hgb Conc 32.1 g/dL (32-36); Mean Corpuscular Hgb 33.3 pg (27.0-32.0); Mean Corpuscular Volume 103.8 fL (81-99); Mean Platelet Vol. 10.2 fl (6.2-12.0); Monocyte# 0.72 X10^3/uL; Monocyte% 9.5 % (0-10); NRBC Flagged by Analyzer 0 % (0-5); Neutrophil # 5.07 X10^3/uL (2.7-7.7); Neutrophil % 66.5 % (47-70); Platelet Count 287 K/mm3 (150-450); RBC Distribution Width CV 15.7 % (11.6-14.6); RBC Distribution Width SD 59.3 fl (35.1-43.9); Red Blood Count 3.45 M/mm3 (4.2-5.4); White Blood Count 7.6 K/mm3 (4.4-11.0)
--- NOTE | 2019-10-30 06:29 | CPS ---
home settings with 2lpm
[2019-10-30] MEDS: Ipratropium/Albuterol Sulfate 3 ML AMPUL.NEB INHALATION ×2 (06:59→12:48)
[2019-10-30] MEDS: Budesonide Respules 0.5 MG/2 ML AMPUL.NEB. INHALATION (06:59)
[2019-10-30] MEDS: Gabapentin 300 MG Capsule PO (08:35)
[2019-10-30] MEDS: Pantoprazole Sodium 40 MG Tablet PO (08:35)
[2019-10-30] MEDS: Citalopram 10 MG Tablet PO (08:35)
[2019-10-30] MEDS: Furosemide 20 MG Tablet PO (08:35)
--- NOTE | 2019-10-30 10:03 | PCM.PN.SRG ---
Subjective: Patient is doing well tolerating diet, pain controlled with Motrin, PREMA serosanguineous - Physical Exam Vitals/I&O's: Vital Signs Temp Pulse Resp BP Pulse Ox 98.3 F 74 16 113/46 L 99 10/30/19 08:50 10/30/19 08:50 10/30/19 08:50 10/30/19 08:50 10/30/19 08:50 Oxygen Flow Rate (L/min) 1 Oxygen Delivery Method Nasal Cannula Weight: 231 lb 7.766 oz Body Mass Index (BMI) 41.0 Intake and Output for Last 24 Hours 10/28/19 10/29/19 10/30/19 23:59 23:59 23:59 Intake Total 1410 / 1610 1825 / 1825 Output Total 95 / 110 50 / 50 Balance 1315 / 1500 1775 / 1775 General: Alert, Oriented x3, Cooperative, No apparent distress HEENT: Atraumatic Lungs: Normal air movement Cardiovascular: Regular rate Abdomen: Soft, Non Tender, Non-Distended Skin: - - Breast incision clean dry and intact with OpSite, axillary incision clean dry and intact with Dermabond, PREMA in place serosanguineous Laboratory Results 10/30/19 05:56: WBC 7.6, RBC 3.45 L, Hgb 11.5 L, Hct 35.8 L, MCV 103.8 H, MCH 33.3 H, MCHC 32.1, RDW Std Deviation 59.3 H, RDW Coeff of Jasmin 15.7 H, Plt Count 287, MPV 10.2, Immature Gran % (Auto) 0.300, Neut % (Auto) 66.5, Lymph % (Auto) 16.2 L, [place] % (Auto) 9.5, Eos % (Auto) 6.6 H, Baso % (Auto) 0.9, Absolute Neuts (auto) 5.1, Absolute Lymphs (auto) 1.23, Nucleated RBC % 0 Current Medications Acetaminophen (Tylenol) 650 mg PO Q6H PRN PRN PRN Reason: Pain Score 1-10/10 Albuterol Sulfate (Ventolin Aerosols) 2.5 mg INHALATION Q4H PRN PRN Reason: SOB &/OR WHEEZING Albuterol/Ipratropium (Duoneb) 3 ml INHALATION Q6HWA.RT TANIA Last Admin: 10/30/19 06:59 Dose: 3 ml Documented by: Budesonide (Pulmicort Aerosol) 0.5 mg INHALATION Q12H.RT [facility] Last Admin: 10/30/19 06:59 Dose: 0.5 mg Documented by: Citalopram Hydrobromide (Celexa) 10 mg PO DAILY [facility] Last Admin: 10/30/19 08:35 Dose: 10 mg Documented by: Fluticasone Propionate (Flonase Nasal [place]) 2 spray NASAL DAILY PRN PRN PRN Reason: NASAL CONGESTION Furosemide (Lasix) 20 mg PO DAILY [facility] Last Admin: 10/30/19 08:35 Dose: 20 mg Documented by: Gabapentin (Neurontin) 300 mg PO DAILY [facility] Last Admin: 10/30/19 08:35 Dose: 300 mg Documented by: Gabapentin (Neurontin) 600 mg PO QHS [facility] Last Admin: 10/29/19 21:12 Dose: 600 mg Documented by: Heparin Sodium (Beef Lung) () 50 units IV UD PRN PRN Reason: Port-a-Cath (VAD)Heparin Flush Ibuprofen (Motrin) 400 mg PO Q6H PRN PRN PRN Reason: Pain Score 1-10/10 Last Admin: 10/30/19 05:11 Dose: 400 mg Documented by: Morphine Sulfate () 2 - 4 mg IV Q2H PRN PRN PRN Reason: Pain Score 1-10/10 Ondansetron HCl (Zofran) 4 mg IV Q8H PRN PRN PRN Reason: NAUSEA Oxycodone HCl (Oxyir) 5 - 10 mg PO Q4H PRN PRN PRN Reason: Pain Score 6-10/10 Pantoprazole Sodium (Protonix) 40 mg PO DAILY [facility] Last Admin: 10/30/19 08:35 Dose: 40 mg Documented by: Sodium Chloride () 10 - 40 ml IV UD PRN PRN Reason: Port-a-Cath (VAD) Flush Sodium Chloride (0.9% Nacl (Sterile) Posiflush) 10 - 40 ml IV UD PRN PRN Reason: Port access or dressing change Trazodone HCl (Desyrel) 200 mg PO QHS [facility] Last Admin: 10/29/19 21:12 Dose: 200 mg Documented by: Medical Necessity - Tobacco Use Smoking Status: Current every day smoker Tobacco Use: Cigarettes Assessment/Plan All Active Problems (Last Reviewed 10/22/19 @ 14:09 by Deena Abbasi) Breast cancer, right (Acute) Encounter for education (Acute) Chemotherapy management, encounter for (Acute) Diarrhea due to drug (Acute) CINV (chemotherapy-induced nausea and vomiting) (Acute) Hx of colonoscopy (Acute) History of bilateral knee replacement (Acute) Smoking greater than 40 pack years (Acute) Candidiasis of mouth (Acute) History of pulmonary embolism (Resolved) Acute respiratory failure with hypoxia and hypercarbia (Acute) Lung nodule (Acute) 74-year-old female postop day 1 status post right lumpectomy, right axillary lymph node dissection due to breast cancer 1. Patient is doing well tolerating diet plan to DC home lungs patient is able to remain on room air due to her COPD. Patient will go home with a drain follow-up in the office in about 1 week. Chioma Vega M.D. Pager: [phone] [facility] [address] [place] [address], [facility], [address] [place] [id number] Office: [phone]
--- NOTE | 2019-10-30 10:15 | PCM.DC.GS ---
Discharge Diet: No Restrictions Discharge Activity: May Shower - 24 hours from surgery Lifting Restrictions: No lifting greater than 15 pounds with the right arm Additional Activity Instructions:: No blood pressures or blood draws from the careful with any scratches to this arm as well Call your doctor if your incision/area has: Continuous Slow Oozing, Sudden Increased Bleeding, Increased Pain/ Swelling, Increased Redness, Foul Smelling Discharge, Swelling at the incision site Call your doctor if you observe: Fever of 101 or Higher Remove Dressing in (days):: 1 - Okay to remove breast OpSite tomorrow, Steri-Strips were sent for 7 to 10 days if needed up all off and this time okay to remove Additional Instructions: Plan to remove the PREMA drain when 25 cc a day or less for couple of days-- okay to change f/u appointment to fit this time. Whether that is earlier than a week or little later than a week. Please bring PREMA log to appointment Allergies/Adverse Reactions: Allergies Fish Containing Products Adverse Reaction (Mild, Verified 10/23/19 15:24) Abd cramps/diarrhea nausea Medications to take at Discharge Citalopram [Celexa] 10 mg PO DAILY 06/27/14 Omeprazole [Prilosec] 40 mg PO DAILY 06/27/14 traZODone [Desyrel] 200 mg PO QHS 06/27/14 Furosemide [Lasix] 20 mg PO DAILY #30 tab 07/11/14 Gabapentin 300 mg PO DAILY 07/13/16 Gabapentin [Neurontin] 600 mg PO QHS 07/13/16 tiotropium bromide 18 mcg capsule with inhalation device 1 cap INHALATION DAILY #90 inh 06/20/19 Albuterol Sulfate [Albuterol Sulfate Hfa] 2 puff INHALATION Q4H PRN 07/05/19 Fluticasone Furoate [Flonase Sensimist] 2 spray INTRANASAL DAILY PRN 07/05/19 Fluticasone Propion/Salmeterol [Wixela 500-50 Inhub] 1 ea IH DAILY 07/18/19 Dexamethasone [Decadron] 8 mg PO BID 21 Days #12 tab 07/23/19 Lidocaine/Prilocaine [Lidocaine-Prilocaine Cream] 1 applicatio TP DAILY PRN PRN 30 Days #1 tube 07/23/19 Ondansetron [Zofran] 8 mg PO Q8H PRN PRN 10 Days #30 tab 07/23/19 Prochlorperazine Maleate 10 mg PO Q6H PRN PRN 10 Days #30 tab 07/23/19 Oxycodone HCl/Acetaminophen [Percocet 5/325] 1 tablet PO Q6H PRN PRN 3 Days #7 tablet 10/30/19 The following prescriptions were given: Oxycodone HCl/Acetaminophen [Percocet 5/325] 1 tablet PO Q6H PRN PRN 3 Days #7 tablet PRN Reason: Pain Transmission Status: Sent to [facility] Primary Care Physician: Tigist Pelaez DO [Primary Care Provider] - Test Results: Test results from this visit will be discussed in further detail at your follow-up appointment, if applicable. Please Follow Up With: Chioma Vega MD - After 5 PM and on the weekends call [phone] with any concerns, Or Paige can text me When: Follow-up in about 1 week for drain removal Proposed Discharge Date: 10/30/19
--- NOTE | 2019-10-30 11:06 | CASEMGMT ---
Social Work Note UNIQUE reviewed chart. 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 SW completed Palliative screening tool, pt scored 3, observe, reconsider consult if condition deteriorates. UNIQUE met with pt and introduced self and role at [facility]. Pt is alert and orientated x3. Pt states that she was diagnosed in June 2019 with breast cancer. Pt states she was getting treatment, had this surgery and now will need treatment again. Pt states that she has good family and friend support, states she is doing ok. UNIQUE explained Palliative Care to pt and provided referral. Pt denied referral at this time. SW informed pt she can talk to her oncologist or PCP about Palliative Care at any time to get more information or can call [facility] herself. Pt states understanding, denied additional needs or concerns at this time. Leena Ames CYBER INTELLIGENCE ANALYST, DBA DEVELOPER
--- NOTE | 2019-10-30 11:25 | CASEMGMT ---
RN JUANIS GLASS PROCESSING WORKER CM to room to meet with patient for initial transition planning/care coordination assessment. EDGARD OLIVAREZ introduced self and role at [facility]. Pt voices understanding and consents to assessment at this time. Pt resting in bed in no distress at this time. Pt is A/O at this time and answers all questions appropriately. Care providers, pharmacy, and demographics verified/updated at this time. PCP: Dr Pelaez Specialists: Dr Haley--pulmonology, Dr Pitts--oncology, Dr Vega Preferred Pharmacy: [facility] Retail Insurance: MCR, MMO Prescription Benefit: Yes. [place] LNOK: 2 sons. DIL, July, listed on demographics as NOK/person to notify. Living Arrangements: Lives alone in 2-story home w/3-4 steps to enter. States able to navigate the stays well. Independent w/ADL's and IADL's. Paige has been doing her grocery shopping since COVID pandemic. Transportation: Pt states drives self and states no transportation concerns at this time. Paige will take her home @ d/c. DME: States has the following DME: high-rise toilet seat, quad cane, nebulizer. CPAP w/O2 @ 2 L/M bleed-in thru [employer]. Pt states no need for further DME at this time. HHC/SNF: No history of either. Denies need for HHC or OP therapy. Pt wishes to return home and states has no concerns with going home at time of discharge. CM to follow for home oxygen needs and any further discharge planning/needs. Pt voices no further concerns/needs at this time. Advised pt to ask for CM if any further questions/concerns/needs arise. Voices understanding. PLAN: Home w/family support and discharge plans in place. Stef ZUNIGA RN, CM
--- NOTE | 2019-10-30 13:56 | CASEMGMT ---
EDGARD OLIVAREZ NOTE: Amb pulse ox completed and pt requiring O2 @ 2l/m w/exertion. Pt currently has O2 @ home @ HS only, CPAP bleed-in, through [facility] [place]. Updated script for O2 @ 2 l/m w/exertion signed by Dr Vega and faxed to [facility] [place] at this time. Call placed to Nicol @ [facility] [place] and she was made aware of updated order for O2. She states pt has a portable concentrator. EDGARD OLIVAREZ to room and spoke w/pt. She was made aware she is requiring O2 @ 2l/m w/exertion and that [facility] [place] has been notified of the increase in O2 needs. She confirms she has a concentrator @ home and portability but that her DIL, who will be taking her home today, is unable to brink in the portable tank. Pt made aware that [facility] [place] can deliver a portable tank to her room to go home on, pt pt states she does not need/want it to go home on. Stef ZUNIGA RN CM
== END 2019-10-30 14:40 | disposition home or self-care (01) ==
LOC: SDC 10-30 08:42 → MS3 10-30 08:43
PROVIDERS: Anesthesiology; Admitting Provider Surgery; PCP Family Medicine; Referring Provider Surgery; Visit Provider Surgery
PROC: 0HBV0ZZ Excision of Bilateral Breast, Open Approach (ICD-10-PCS; CPT 19302; principal; 2019-10-29 07:15)
DX: C50.811 Malignant neoplasm of overlapping sites of right female breast (principal); C77.3 Secondary and unspecified malignant neoplasm of axilla and upper limb lymph nodes; Z17.1 Estrogen receptor negative status [ER-]; J44.9 Chronic obstructive pulmonary disease, unspecified; G47.33 Obstructive sleep apnea (adult) (pediatric); K21.9 Gastro-esophageal reflux disease without esophagitis; E78.5 Hyperlipidemia, unspecified; Z86.711 Personal history of pulmonary embolism; I10 Essential (primary) hypertension; I27.20 Pulmonary hypertension, unspecified; Z79.899 Other long term (current) drug therapy; Z79.51 Long term (current) use of inhaled steroids; Z86.718 Personal history of other venous thrombosis and embolism; F17.210 Nicotine dependence, cigarettes, uncomplicated; Z11.59 Encounter for screening for other viral diseases; F41.9 Anxiety disorder, unspecified; K44.9 Diaphragmatic hernia without obstruction or gangrene
CPT/HCPCS: 01610; 19302; 36415; 76098; 85025; 87635; 88305; 88307; 93005; 94002; 94003; 94640; 94799; 96360; 96361; 99218; 99251; 99406; G2023; J7120; A4216; G0378; G0379; G0463; J2405; U0003

== ENCOUNTER 2019-11-01 18:43 | Inpatient (IN) | payer MEDICARE, OTHER, SELFPAY ==
[2019-10-29 12:53] VITALS: BMI 41.0
[2019-11-01 18:45] VITALS: BP 147/56; PULSE 87; RESP 16; TEMP 35.9; O2SAT 92; BMI 40.1
--- NOTE | 2019-11-01 19:51 | ED.DCSUM_ITS ---
- ER Visit Summary Date of Service: 11/01/19 Chief Complaint: Right leg swelling History of Present Illness: The patient is a 74 F presenting with right leg swelling. She states this started after having surgery on Tuesday. She had a lumpectomy and lymph node dissection for breast cancer. She does have a history of previous DVT. She is not on anticoagulants. Her last chemo was September 26. She denies fever. She has a chronic cough which is no worse than usual. She has chronic shortness of breath which is also no worse than usual. She is on home O2 intermittently. She is a smoker. Physical Examination: Vitals are stable. Patient is afebrile. Alert no acute distress. HEENT exam is unremarkable. Neck is supple. Lungs are clear and equal bilaterally. Chest wall incision is clean dry and intact. Heart is regular rate and rhythm. Abdomen is soft nontender nondistended. Extremities right lower extremity swelling. Erythema and warmth right lower extremity. Normal distal pulses Skin is warm and dry. No focal neurologic deficit. Remainder of exam is unremarkable. Emergency Department Course and Treatment: Right lower extremity venous Doppler shows normal venous Doppler ultrasound of the lower extremity. CBC normal except hemoglobin 11.8. Chemistries normal except glucose 108, BUN 22. Blood cultures were sent. She was given Ancef IV. Discussed with the hospitalist for admission. Disposition: Admission Impression: Right lower extremity cellulitis This note was generated with [employer] dictation software. It may contain incorrect words, spelling, and punctuation that were not noted in review of the chart prior to signing ED Disposition - Plan for ED Patient: Referrals: Tigist Pelaez DO [Primary Care Provider] -
--- NOTE | 2019-11-01 19:55 | US_ITS ---
STUDY: VENOUS DOPPLER ULTRASOUND - RIGHT LOWER EXTREMITY REASON FOR EXAM: Female, 74 years old. RT LEG SWELLING ENTIRE LEG- SINCE SURGERY TUESDAY TECHNIQUE: Ultrasound evaluation of the deep vein system to include rangel-scale imaging and compression was performed. Rangel-scale imaging and Doppler sonographic evaluation, including duplex spectral analysis and qualitative color flow sonography, was performed. COMPARISON: None. FINDINGS: Common Femoral Vein: Normal compression, spontaneity and augmentation. Normal color Doppler. Common Femoral Vein/Greater Saphenous Junction: Normal compression Femoral Proximal: Normal compression Femoral Middle: Normal compression, spontaneity and augmentation. Normal color Doppler. Femoral Distal: Normal compression Popliteal Vein: Normal compression, spontaneity and augmentation. Normal color Doppler. Posterior Tibial Vein: Normal compression Peroneal Vein: Normal compression US/Venous Duplex Imag/Limited/Uni IMPRESSION: Normal venous Doppler ultrasound of the lower extremity. Electronically Signed: Haleigh Davis MD at 20:51 EDT , Service support ,
[2019-11-01 21:13] LABS: Absolute Lymphocyte Count 1.44 X10^3/uL (0.83-4.51); Absolute Neutrophil Count 5.7 X10^3/uL (2.0-7.7); Basophil# 0.08 X10^3/uL; Basophil% 0.9 % (0-1); Eosinophils% 9.1 % (0-5); Hematocrit 35.9 % (37-47); Hemoglobin 11.8 g/dL (12.0-15.0); Lymphocyte # 1.44 X10^3/ul (4.0); Lymphocyte % 16.3 % (19-41); Mean Corp Hgb Conc 32.9 g/dL (32-36); Mean Corpuscular Hgb 33.2 pg (27.0-32.0); Mean Corpuscular Volume 101.1 fL (81-99); Mean Platelet Vol. 10.8 fl (6.2-12.0); Monocyte# 0.76 X10^3/uL; Monocyte% 8.6 % (0-10); NRBC Flagged by Analyzer 0 % (0-5); Neutrophil # 5.72 X10^3/uL (2.7-7.7); Platelet Count 318 K/mm3 (150-450); RBC Distribution Width CV 14.8 % (11.6-14.6); RBC Distribution Width SD 56.4 fl (35.1-43.9); Red Blood Count 3.55 M/mm3 (4.2-5.4); White Blood Count 8.8 K/mm3 (4.4-11.0)
[2019-11-01 21:31] LABS: Anion Gap 1 (5-15); BUN 22 mg/dL (7-18); BUN/Creat Ratio 28.2 RATIO (10-20); Calcium,Total 8.4 mg/dL (8.5-10.1); Chloride 107 mmol/L (98-107); Creatinine, Serum 0.78 mg/dL (0.55-1.02); EST Glomerular Filtration Rate 77 mL/min (>60); Est Glom Filt Rate - Afr Amer 93 mL/min (>60); Estimated Creatinine Clearance 42.07 ml/min; Glucose 108 mg/dL (74-106); Sodium Level 142 mmol/L (136-145)
--- NOTE | 2019-11-01 21:47 | PCM.HP.STD ---
Problem List (1) Cellulitis Status: Acute (2) Breast cancer, right Status: Chronic Qualifiers: Breast location: overlapping sites of breast Estrogen receptor status: negative Patient sex: female Qualified Code(s): C50.811 - Malignant neoplasm of overlapping sites of right female breast; Z17.1 - Estrogen receptor negative status [ER-] (3) Hx of colonoscopy Status: Chronic Comment: 2018 (4) History of bilateral knee replacement Status: Chronic Comment: 1995 (5) Smoking greater than 40 pack years Status: Chronic (6) COPD with asthma Status: Chronic (7) Pulmonary hypertension Status: Chronic Comment: RVSP 31 mmHg (8) DION (obstructive sleep apnea) Status: Chronic Comment: BiPAP 21/15 cm of water (9) Benign essential hypertension Status: Chronic (10) Chronic obstructive lung disease Status: Chronic Qualifiers: COPD type: COPD with acute lower respiratory infection Qualified Code(s): J44.0 - Chronic obstructive pulmonary disease with (acute) lower respiratory infection Comment: FEV1 68% of predicted (11) History of DVT of lower extremity Status: Chronic (12) GERD (gastroesophageal reflux disease) Status: Chronic Qualifiers: Esophagitis presence: esophagitis presence not specified Qualified Code(s): K21.9 - Gastro-esophageal reflux disease without esophagitis (13) Hyperlipidemia Status: Chronic Qualifiers: Hyperlipidemia type: pure hypercholesterolemia Qualified Code(s): E78.00 - Pure hypercholesterolemia, unspecified; E78.0 - Pure hypercholesterolemia (14) History of pulmonary embolism Status: Chronic (15) Tobacco user Status: Chronic (16) Lung nodule Status: Chronic History of Present Illness Date of Admission: 11/01/19 Chief Complaint: Redness of right leg. The patient is a 74 year old F with a significant history of obstructive sleep apnea on home BiPAP; breast cancer status post chemotherapy, lumpectomy with axillary lymph node dissection; COPD with asthma; DVT and pulmonary embolism who presents to the emergency department with redness of her right lower leg. Her symptoms started a day before presentation. Although she has chronic swelling of her bilateral lower extremities she now has increased swelling in her right leg above her baseline. She has history of DVT in the same right leg. At emergency department ultrasound was unremarkable for blood clots. Associated with her symptoms is soreness in her right leg. Three-day before presentation patient had lumpectomy with axillary lymph node dissection and has a PREMA drain in place. Emergent department doctor discussed patient's current presentation with Dr. Vega who did the surgery. Per emergency department doctor Dr. Vega will be following patient while inpatient. Past Medical History Past Medical History (Chronic Problems): Chronic Problems (Last Reviewed 10/22/19 @ 14:09 by Deena Abbasi) Breast cancer, right (Chronic) Hx of colonoscopy (Chronic) 2018 History of bilateral knee replacement (Chronic) 1995 Smoking greater than 40 pack years (Chronic) COPD with asthma (Chronic) Pulmonary hypertension (Chronic) RVSP 31 mmHg DION (obstructive sleep apnea) (Chronic) BiPAP 21/15 cm of water Benign essential hypertension (Chronic) Chronic obstructive lung disease (Chronic) FEV1 68% of predicted History of DVT of lower extremity (Chronic) GERD (gastroesophageal reflux disease) (Chronic) Hyperlipidemia (Chronic) History of pulmonary embolism (Chronic) Tobacco user (Chronic) Lung nodule (Chronic) Medical History: Medical History (Last Reviewed 11/02/19 @ 01:[address] Js Shelton MD) Smoking greater than 40 pack years (Chronic) F17.210 COPD with asthma (Chronic) J44.9 Candidiasis of mouth (Inactive) B37.0 History of pulmonary embolism (Resolved) Z86.711 Pulmonary hypertension (Chronic) I27.20 RVSP 31 mmHg DION (obstructive sleep apnea) (Chronic) G47.33 BiPAP 21/15 cm of water Benign essential hypertension (Chronic) I10 Chronic obstructive lung disease (Chronic) J44.9 FEV1 68% of predicted History of DVT of lower extremity (Chronic) Z86.718 GERD (gastroesophageal reflux disease) (Chronic) K21.9 Hyperlipidemia (Chronic) E78.5 History of pulmonary embolism (Chronic) Z86.711 Tobacco user (Chronic) Z72.0 Acute respiratory failure with hypoxia and hypercarbia (Inactive) J96.01, J96.02 Lung nodule (Chronic) R91.1 Stroke behind eye 2000 Allergies Fish Containing Products Adverse Reaction (Mild, Verified 11/01/19 18:45) Abd cramps/diarrhea nausea Home Medications: Ambulatory Orders Medication Instructions Recorded Citalopram [Celexa] 10 mg PO DAILY 06/27/14 Omeprazole [Prilosec] 40 mg PO DAILY 06/27/14 traZODone [Desyrel] 200 mg PO QHS 06/27/14 Furosemide [Lasix] 20 mg PO DAILY #30 tab 07/11/14 Gabapentin 300 mg PO DAILY 07/13/16 Gabapentin [Neurontin] 600 mg PO QHS 07/13/16 tiotropium bromide 18 mcg capsule 1 cap INHALATION DAILY #90 inh 06/20/19 with inhalation device Albuterol Sulfate [Albuterol 2 puff INHALATION Q4H PRN 07/05/19 Sulfate Hfa] Fluticasone Furoate [Flonase 2 spray INTRANASAL DAILY PRN 07/05/19 Sensimist] Fluticasone Propion/Salmeterol 1 ea IH DAILY 07/18/19 [Wixela 500-50 Inhub] Dexamethasone [Decadron] 8 mg PO BID 21 Days #12 tab 07/23/19 Lidocaine/Prilocaine 1 applicatio TP DAILY PRN PRN 30 07/23/19 [Lidocaine-Prilocaine Cream] Days #1 tube Ondansetron [Zofran] 8 mg PO Q8H PRN PRN 10 Days #30 tab 07/23/19 Prochlorperazine Maleate 10 mg PO Q6H PRN PRN 10 Days #30 07/23/19 tab Oxycodone HCl/Acetaminophen 1 tab PO Q6H PRN PRN 3 Days #7 tab 10/30/19 [Percocet 5/325] Surgical History: Surgical History (Last Reviewed 10/22/19 @ 14:09 by Deena Abbasi) Hx of colonoscopy (Chronic) Z98.890 2018 History of bilateral knee replacement (Chronic) Z96.653 1995 History of breast biopsy Z98.890 Surgical History: - - bilateral knee Psychiatric History: No pertinent psych hx Smoking Status: Current every day smoker - *Family History Maternal Family History: Family History (Last Reviewed 11/02/19 @ 01:[address] Js Shelton MD) Sister Skin cancer Diabetes Breast cancer Lung cancer Mother Diabetes CVA (cerebral vascular accident) Father Heart disease CVA (cerebral vascular accident) Brother Diabetes Sister Breast cancer History Items: No pertinent history Review of Systems Constitutional: Denies: Chills, Fever, Weight Change HEENT: Denies: Head Aches, Sinus Congestion, Sinus Drainage Cardiovascular: Reports: Edema. Denies: Chest Pain, Palpitations Respiratory: Denies: Cough, Shortness of breath at rest, Sputum production Gastrointestinal: Denies: Abdominal Pain, Nausea, Vomiting Genitourinary: Denies: Dysuria Musculoskeletal: Denies: Joint Pain, Joint Tenderness Skin: Reports: Skin Changes - Right leg. Denies: Rash, Wounds Neurological: Denies: Numbness, Tingling, Focal weakness Psychiatric: Denies: Anxiety, Depression, Homicidal Ideations, Suicidal Ideations Hematologic/ Lymphatic: Denies: Easy Bruising, Easy Bleeding VTE Information - Inpt Only VTE Present on Admission: No VTE Mechan Device Prophylaxis: None VTE Pharm Prophylaxis ordered?: Yes Patient Problems: Active and Suspected Problems (Last Reviewed 10/22/19 @ 14:09 by Deena Abbasi) Cellulitis (Acute) - Physical Exam Vitals/I&O's: Vital Signs Temp Pulse Resp BP Pulse Ox 96.7 F L 87 16 147/56 H 92 11/01/19 18:45 11/01/19 18:45 11/01/19 18:45 11/01/19 18:45 11/01/19 18:45 Weight: 102.965 kg Body Mass Index (BMI) 40.1 General: Alert, Oriented x3, Cooperative HEENT: Atraumatic, PERRLA, EOMI, Normocephalic Neck: Supple, No JVD, Negative Carotid Bruits Lungs: Clear to auscultation, Normal air movement, No rhonchi, No rales, Wheezes Cardiovascular: Regular rate, Regular Rhythm, Normal S1, Normal S2, No murmurs Abdomen: Bowel Sounds Present, Soft, Non Tender Extremities: Capillary Refill Less than 3 Seconds, Edema - Bilateral legs; right worse than left. Skin: No breakdown, - - Erythema of right lower leg. Musculoskeletal: No Muscle Wasting, Tenderness - Mild tenderness of right lower leg. Neurological: Cranial nerves II-XII grossly intact Psych/Mental Status: Normal Affect, Appropriate Laboratory Results 11/01/19 21:00: WBC 8.8, RBC 3.55 L, Hgb 11.8 L, Hct 35.9 L, MCV 101.1 H, MCH 33.2 H, MCHC 32.9, RDW Std Deviation 56.4 H, RDW Coeff of Jasmin 14.8 H, Plt Count 318, MPV 10.8, Immature Gran % (Auto) 0.100, Neut % (Auto) 65.0, Lymph % (Auto) 16.3 L, [place] % (Auto) 8.6, Eos % (Auto) 9.1 H, Baso % (Auto) 0.9, Absolute Neuts (auto) 5.7, Absolute Lymphs (auto) 1.44, Nucleated RBC % 0 11/01/19 21:00: Sodium 142, Potassium 4.0, Chloride 107, Carbon Dioxide 34.0 H, Anion Gap 1 L, BUN 22 H, Creatinine 0.78, Estim Creat Clear Calc 42.07, Est GFR (MDRD) Af Amer 93, Est GFR (MDRD) Non-Af 77, BUN/Creatinine Ratio 28.2 H, Glucose 108 H, Calcium 8.4 L Assessment/Plan All Active Problems (Last Reviewed 10/22/19 @ 14:09 by Deena Abbasi) Cellulitis (Acute) History of pulmonary embolism (Resolved) The patient is a 74 year old F with a significant history of obstructive sleep apnea on home BiPAP with oxygen bled in; breast cancer status post chemotherapy, lumpectomy with axillary lymph node dissection; COPD with asthma; DVT and pulmonary embolism who presents emergency department with redness of her right lower leg. Cellulitis of right leg Redness and increased swelling of right leg. Normal ultrasound of right leg. Discussed with emergent department doctor to give patient cefazolin. Cefazolin ordered inpatient CBC and BMP. Right breast cancer status post lumpectomy with axillary node dissection. Reportedly he has completed a course of chemotherapy. She follows up with Dr. Pitts, oncologist Patient with PREMA drain from lumpectomy and axillary lymph node dissection. Dr. Vega General Surgery will be following patient. Obstructive sleep apnea On home BiPAP with oxygen bled in. BiPAP with oxygen nightly. COPD Home inhalers continued Tobacco abuse Counseled Nicotine patch prescribed. Bilateral leg edema Lasix continued DVT prophylaxis Subcutaneous Lovenox ordered. Inpatient E&M: 27472 Init Hosp L3
[2019-11-01 22:18] VITALS: BP 123/83; PULSE 99; RESP 16; TEMP 36.3; O2SAT 98
[2019-11-01] MEDS: Cefazolin 1 GM/50 ML BAG IV (22:41)
[2019-11-01 23:20] VITALS: BMI 41.2
[2019-11-01 23:26] VITALS: BMI 41.2
[2019-11-01 23:30] VITALS: BP 113/54; PULSE 66; RESP 16; TEMP 36.4; O2SAT 96
[2019-11-02] VITALS (13 sets, daily range): BP systolic 104–135; BP diastolic 56–75; PULSE 60–80; RESP 16–20; TEMP 36.4–37.2; O2SAT 2–97
[2019-11-02] MEDS: Gabapentin 600 MG Tablet PO ×2 (00:28→22:34)
[2019-11-02] MEDS: traZODone 100 MG Tablet 200 MG PO ×2 (00:28→22:33)
--- NOTE | 2019-11-02 00:37 | CPS ---
Sleep Lab BiPAP machine setup for patient. Settings with 2L O2 Bled in per patient's home routine. Mask placed on with comfort. Call light within reach if patient has any problems with machine. LEARNING COORDINATOR will monitor.
--- NOTE | 2019-11-02 02:06 | NURSING ---
Pt has L chest port that they couldn't access in the ED.
[2019-11-02 05:37] LABS: Absolute Lymphocyte Count 1.44 X10^3/uL (0.83-4.51); Absolute Neutrophil Count 3.7 X10^3/uL (2.0-7.7); Basophil# 0.07 X10^3/uL; Basophil% 1.1 % (0-1); Eosinophils% 13.5 % (0-5); Hemoglobin 11.2 g/dL (12.0-15.0); Lymphocyte # 1.44 X10^3/ul (4.0); Lymphocyte % 21.6 % (19-41); Mean Corpuscular Hgb 32.5 pg (27.0-32.0); Mean Corpuscular Volume 101.4 fL (81-99); Mean Platelet Vol. 10.7 fl (6.2-12.0); Monocyte# 0.58 X10^3/uL; Monocyte% 8.7 % (0-10); NRBC Flagged by Analyzer 0 % (0-5); Neutrophil # 3.65 X10^3/uL (2.7-7.7); Neutrophil % 54.8 % (47-70); Platelet Count 301 K/mm3 (150-450); RBC Distribution Width CV 14.9 % (11.6-14.6); RBC Distribution Width SD 56.4 fl (35.1-43.9); Red Blood Count 3.45 M/mm3 (4.2-5.4); White Blood Count 6.7 K/mm3 (4.4-11.0)
[2019-11-02] MEDS: Cefazolin 1 GM/50 ML BAG IV ×3 (05:48→22:28)
[2019-11-02 05:57] LABS: Anion Gap 1 (5-15); BUN 17 mg/dL (7-18); BUN/Creat Ratio 30.2 RATIO (10-20); Calcium,Total 8.2 mg/dL (8.5-10.1); Chloride 107 mmol/L (98-107); Creatinine, Serum 0.56 mg/dL (0.55-1.02); EST Glomerular Filtration Rate 112 mL/min (>60); Est Glom Filt Rate - Afr Amer 136 mL/min (>60); Estimated Creatinine Clearance 42.07 ml/min; Glucose 97 mg/dL (74-106); Potassium 3.4 mmol/L (3.5-5.1); Sodium Level 142 mmol/L (136-145)
[2019-11-02] MEDS: Ipratropium/Albuterol Sulfate 3 ML AMPUL.NEB INHALATION ×3 (07:03→19:05)
[2019-11-02] MEDS: Budesonide Respules 0.5 MG/2 ML AMPUL.NEB. INHALATION ×2 (07:04→19:05)
--- NOTE | 2019-11-02 07:34 | PCM.PN.HOSP ---
Patient Problems: Active and Suspected Problems (Last Reviewed 11/02/19 @ 01:[address] Js Shelton MD) Cellulitis (Acute) Vitals/I&O's: Vital Signs Temp Pulse Resp BP Pulse Ox 97.6 F L 60 18 128/75 H 2 11/02/19 05:50 11/02/19 05:50 11/02/19 06:00 11/02/19 05:50 11/02/19 06:00 Oxygen Flow Rate (L/min) 97 Oxygen Delivery Method Bi-pap Weight: 105.5 kg Body Mass Index (BMI) 41.2 Intake and Output for Last 24 Hours 10/31/19 11/01/19 11/02/19 23:59 23:59 23:59 Intake Total 50 / 50 250 / 250 Output Total 50 / 50 Balance 50 / 50 200 / 200 Laboratory Results 11/01/19 21:00: WBC 8.8, RBC 3.55 L, Hgb 11.8 L, Hct 35.9 L, MCV 101.1 H, MCH 33.2 H, MCHC 32.9, RDW Std Deviation 56.4 H, RDW Coeff of Jasmin 14.8 H, Plt Count 318, MPV 10.8, Immature Gran % (Auto) 0.100, Neut % (Auto) 65.0, Lymph % (Auto) 16.3 L, [place] % (Auto) 8.6, Eos % (Auto) 9.1 H, Baso % (Auto) 0.9, Absolute Neuts (auto) 5.7, Absolute Lymphs (auto) 1.44, Nucleated RBC % 0 11/01/19 21:00: Sodium 142, Potassium 4.0, Chloride 107, Carbon Dioxide 34.0 H, Anion Gap 1 L, BUN 22 H, Creatinine 0.78, Estim Creat Clear Calc 42.07, Est GFR (MDRD) Af Amer 93, Est GFR (MDRD) Non-Af 77, BUN/Creatinine Ratio 28.2 H, Glucose 108 H, Calcium 8.4 L 11/02/19 05:05: WBC 6.7, RBC 3.45 L, Hgb 11.2 L, Hct 35.0 L, MCV 101.4 H, MCH 32.5 H, MCHC 32.0, RDW Std Deviation 56.4 H, RDW Coeff of Jasmin 14.9 H, Plt Count 301, MPV 10.7, Immature Gran % (Auto) 0.300, Neut % (Auto) 54.8, Lymph % (Auto) 21.6, [place] % (Auto) 8.7, Eos % (Auto) 13.5 H, Baso % (Auto) 1.1 H, Absolute Neuts (auto) 3.7, Absolute Lymphs (auto) 1.44, Nucleated RBC % 0 11/02/19 05:05: Sodium 142, Potassium 3.4 L, Chloride 107, Carbon Dioxide 34.0 H, Anion Gap 1 L, BUN 17, Creatinine 0.56, Estim Creat Clear Calc 42.07, Est GFR (MDRD) Af Amer 136, Est GFR (MDRD) Non-Af 112, BUN/Creatinine Ratio 30.2 H, Glucose 97, Calcium 8.2 L Current Medications Acetaminophen (Tylenol) 650 mg PO Q6H PRN PRN PRN Reason: Pain Score 1-10/Temp > 100.7 F Al Hydroxide/Mg Hydroxide (Mylanta Ii) 30 ml PO Q6H PRN PRN PRN Reason: Gastric Burning Albuterol Sulfate (Ventolin Aerosols) 2.5 mg INHALATION Q2H PRN PRN PRN Reason: Shortness of Breath/Wheezing Albuterol/Ipratropium (Duoneb) 3 ml INHALATION Q6HWA.RT [facility] Last Admin: 11/02/19 07:03 Dose: 3 ml Documented by: Budesonide (Pulmicort Aerosol) 0.5 mg INHALATION Q12H.RT [facility] Last Admin: 11/02/19 07:04 Dose: 0.5 mg Documented by: Citalopram Hydrobromide (Celexa) 10 mg PO DAILY [facility] Dextrose (D50w Syringe) 0 gm IV X1 PRN; Protocol PRN Reason: Hypoglycemia Enoxaparin Sodium (Lovenox) 40 mg SC DAILY [facility] Fluticasone Propionate (Flonase Nasal [place]) 2 spray NASAL DAILY PRN PRN PRN Reason: NASAL CONGESTION Furosemide (Lasix) 20 mg PO DAILY [facility] Gabapentin (Neurontin) 300 mg PO DAILY [facility] Gabapentin (Neurontin) 600 mg PO QHS [facility] Last Admin: 11/02/19 00:28 Dose: 600 mg Documented by: Glucagon () 1 mg IM .X1 PRN PRN Reason: Hypoglycemia Cefazolin Sodium () 1 gm in 50 mls @ 100 mls/hr IV X1 ONE Stop: 11/02/19 22:23 Last Infusion: 11/01/19 23:11 Dose: Infused Documented by: Sodium Chloride () 250 mls @ 15 mls/hr IV .[id number] PRN PRN Reason: Saline Flush Cefazolin Sodium () 1 gm in 50 mls @ 100 mls/hr IV Q8 [facility] Last Infusion: 11/02/19 06:18 Dose: Infused Documented by: Lidocaine/Prilocaine (Emla Cream W/Tegaderm) 1 gm TOPICAL DAILY PRN PRN; Protocol PRN Reason: with port access procedure Nicotine (Nicoderm Cq (Pbkc)) 21 mg TRANSDERM. DAILY [facility] Last Admin: 11/02/19 02:11 Dose: 21 mg Documented by: Ondansetron HCl (Zofran) 4 mg IV Q8H PRN PRN PRN Reason: NAUSEA/VOMITING Oxycodone HCl (Oxyir) 5 mg PO Q6H PRN PRN PRN Reason: PAIN 1-10/10 Pantoprazole Sodium (Protonix) 40 mg PO DAILY [facility] Potassium Chloride (K-Dur) 40 meq PO X1 ONE Stop: 11/02/19 07:26 Prochlorperazine Maleate (Compazine Tablet) 10 mg PO Q6H PRN PRN PRN Reason: NAUSEA Sodium Chloride () 10 - 40 ml IV UD PRN PRN Reason: SALINE FLUSH Trazodone HCl (Desyrel) 200 mg PO QHS [facility] Last Admin: 11/02/19 00:28 Dose: 200 mg Documented by: STROKE Vital Signs/Narrative: Vital Signs Temp Pulse Resp BP Pulse Ox 11/02/19 06:00 18 2 11/02/19 05:50 97.6 F L 60 18 128/75 H 97 Medical Necessity - Tobacco Use Smoking Status: Current every day smoker Tobacco Use: Cigarettes Assessment/Plan All Active Problems (Last Reviewed 11/02/19 @ 01:[address] Js Shelton MD) Cellulitis (Acute) History of pulmonary embolism (Resolved) Inpatient E&M: 16821 Subs Hosp L2
[2019-11-02 08:15] LABS: AST(SGOT) 10 U/L (15-37); Alanine Aminotransfer ALT/SGPT 13 U/L (13-56); Albumin, Serum 2.9 g/dL (3.2-5.0); Alkaline Phosphatase 48 U/L (45-117); Bilirubin, Direct 0.14 mg/dL (0.00-0.30); Globulin 2.9 g/dL (2.2-4.2); Protein, Total 5.8 g/dL (6.4-8.2)
[2019-11-02] MEDS: Citalopram 10 MG Tablet PO (09:11)
[2019-11-02] MEDS: Furosemide 20 MG Tablet PO (09:11)
[2019-11-02] MEDS: Gabapentin 300 MG Capsule PO (09:11)
[2019-11-02] MEDS: Enoxaparin 40 MG/0.4 ML Syringe SC (09:11)
[2019-11-02] MEDS: Pantoprazole Sodium 40 MG Tablet PO (09:12)
--- NOTE | 2019-11-02 09:18 | PCM.PN.SRG ---
Patient Problems: Active and Suspected Problems (Last Reviewed 11/02/19 @ 01:[address] Js Shelton MD) Cellulitis (Acute) Subjective: Patient admitted due to Right lower extremity cellulitis, ultrasound negative for DVT, patient status post lumpectomy and axillary lymph node dissection on Tuesday for right breast cancer.PREMA is serous - Physical Exam Vitals/I&O's: Vital Signs Temp Pulse Resp BP Pulse Ox 97.6 F L 64 16 128/75 H 94 11/02/19 05:50 11/02/19 07:03 11/02/19 07:03 11/02/19 05:50 11/02/19 07:03 Oxygen Flow Rate (L/min) 2 Oxygen Delivery Method Nasal Cannula Weight: 232 lb 9.403 oz Body Mass Index (BMI) 41.2 Intake and Output for Last 24 Hours 10/31/19 11/01/19 11/02/19 23:59 23:59 23:59 Intake Total 50 / 50 250 / 250 Output Total 50 / 50 Balance 50 / 50 200 / 200 General: Alert, Oriented x3, Cooperative, No apparent distress HEENT: Atraumatic Lungs: Normal air movement Extremities: - - Decreased erythema in the left lower extremity still some swellingBut improved Skin: - - Right breast incision clean dry intact with Steri's, right axillary incision clean dry and intact with Dermabond, PREMA serous Laboratory Results 11/01/19 21:00: WBC 8.8, RBC 3.55 L, Hgb 11.8 L, Hct 35.9 L, MCV 101.1 H, MCH 33.2 H, MCHC 32.9, RDW Std Deviation 56.4 H, RDW Coeff of Jasmin 14.8 H, Plt Count 318, MPV 10.8, Immature Gran % (Auto) 0.100, Neut % (Auto) 65.0, Lymph % (Auto) 16.3 L, [place] % (Auto) 8.6, Eos % (Auto) 9.1 H, Baso % (Auto) 0.9, Absolute Neuts (auto) 5.7, Absolute Lymphs (auto) 1.44, Nucleated RBC % 0 11/01/19 21:00: Sodium 142, Potassium 4.0, Chloride 107, Carbon Dioxide 34.0 H, Anion Gap 1 L, BUN 22 H, Creatinine 0.78, Estim Creat Clear Calc 42.07, Est GFR (MDRD) Af Amer 93, Est GFR (MDRD) Non-Af 77, BUN/Creatinine Ratio 28.2 H, Glucose 108 H, Calcium 8.4 L 11/02/19 05:05: WBC 6.7, RBC 3.45 L, Hgb 11.2 L, Hct 35.0 L, MCV 101.4 H, MCH 32.5 H, MCHC 32.0, RDW Std Deviation 56.4 H, RDW Coeff of Jasmin 14.9 H, Plt Count 301, MPV 10.7, Immature Gran % (Auto) 0.300, Neut % (Auto) 54.8, Lymph % (Auto) 21.6, [place] % (Auto) 8.7, Eos % (Auto) 13.5 H, Baso % (Auto) 1.1 H, Absolute Neuts (auto) 3.7, Absolute Lymphs (auto) 1.44, Nucleated RBC % 0 11/02/19 05:05: Sodium 142, Potassium 3.4 L, Chloride 107, Carbon Dioxide 34.0 H, Anion Gap 1 L, BUN 17, Creatinine 0.56, Estim Creat Clear Calc 42.07, Est GFR (MDRD) Af Amer 136, Est GFR (MDRD) Non-Af 112, BUN/Creatinine Ratio 30.2 H, Glucose 97, Calcium 8.2 L 11/02/19 05:05: Total Bilirubin 0.30, Direct Bilirubin 0.14, AST 10 L, ALT 13, Alkaline Phosphatase 48, Total Protein 5.8 L, Albumin 2.9 L, Globulin 2.9 Current Medications Acetaminophen (Tylenol) 650 mg PO Q6H PRN PRN PRN Reason: Pain Score 1-10/Temp > 100.7 F Al Hydroxide/Mg Hydroxide (Mylanta Ii) 30 ml PO Q6H PRN PRN PRN Reason: Gastric Burning Albuterol Sulfate (Ventolin Aerosols) 2.5 mg INHALATION Q2H PRN PRN PRN Reason: Shortness of Breath/Wheezing Albuterol/Ipratropium (Duoneb) 3 ml INHALATION Q6HWA.RT [facility] Last Admin: 11/02/19 07:03 Dose: 3 ml Documented by: Budesonide (Pulmicort Aerosol) 0.5 mg INHALATION Q12H.RT [facility] Last Admin: 11/02/19 07:04 Dose: 0.5 mg Documented by: Citalopram Hydrobromide (Celexa) 10 mg PO DAILY [facility] Last Admin: 11/02/19 09:11 Dose: 10 mg Documented by: Dextrose (D50w Syringe) 0 gm IV X1 PRN; Protocol PRN Reason: Hypoglycemia Enoxaparin Sodium (Lovenox) 40 mg SC DAILY [facility] Last Admin: 11/02/19 09:11 Dose: 40 mg Documented by: Fluticasone Propionate (Flonase Nasal [place]) 2 spray NASAL DAILY PRN PRN PRN Reason: NASAL CONGESTION Furosemide (Lasix) 20 mg PO DAILY [facility] Last Admin: 11/02/19 09:11 Dose: 20 mg Documented by: Gabapentin (Neurontin) 300 mg PO DAILY [facility] Last Admin: 11/02/19 09:11 Dose: 300 mg Documented by: Gabapentin (Neurontin) 600 mg PO QHS [facility] Last Admin: 11/02/19 00:28 Dose: 600 mg Documented by: Glucagon () 1 mg IM .X1 PRN PRN Reason: Hypoglycemia Cefazolin Sodium () 1 gm in 50 mls @ 100 mls/hr IV X1 ONE Stop: 11/02/19 22:23 Last Infusion: 11/01/19 23:11 Dose: Infused Documented by: Sodium Chloride () 250 mls @ 15 mls/hr IV .[id number] PRN PRN Reason: Saline Flush Cefazolin Sodium () 1 gm in 50 mls @ 100 mls/hr IV Q8 [facility] Last Infusion: 11/02/19 06:18 Dose: Infused Documented by: Lidocaine/Prilocaine (Emla Cream W/Tegaderm) 1 gm TOPICAL DAILY PRN PRN; Protocol PRN Reason: with port access procedure Nicotine (Nicoderm Cq (Pbkc)) 21 mg TRANSDERM. DAILY [facility] Last Admin: 11/02/19 02:11 Dose: 21 mg Documented by: Ondansetron HCl (Zofran) 4 mg IV Q8H PRN PRN PRN Reason: NAUSEA/VOMITING Oxycodone HCl (Oxyir) 5 mg PO Q6H PRN PRN PRN Reason: PAIN 1-10/10 Pantoprazole Sodium (Protonix) 40 mg PO DAILY [facility] Last Admin: 11/02/19 09:12 Dose: 40 mg Documented by: Prochlorperazine Maleate (Compazine Tablet) 10 mg PO Q6H PRN PRN PRN Reason: NAUSEA Sodium Chloride () 10 - 40 ml IV UD PRN PRN Reason: SALINE FLUSH Trazodone HCl (Desyrel) 200 mg PO QHS [facility] Last Admin: 11/02/19 00:28 Dose: 200 mg Documented by: Medical Necessity - Tobacco Use Smoking Status: Current every day smoker Tobacco Use: Cigarettes Assessment/Plan All Active Problems (Last Reviewed 11/02/19 @ 01:[address] Js Shelton MD) Cellulitis (Acute) History of pulmonary embolism (Resolved) 74-year-old female status post right lumpectomy/right axillary lymph node dissection with PREMA drain, admitted for cellulitis of Right lower extremity 1. Continue to monitor drain output, breast and axillary incisions healing well no further intervention per surgery.Patient will follow-up in the office as previously scheduled for drain removal once is less than 25 cc for a few days 2. Cellulitis antibiotics per primary. Chioma Vega M.D. Pager: [phone] [facility] [address] [place] [address], [facility], [address] [place] [address] Office: [phone]
--- NOTE | 2019-11-02 11:25 | CASEMGMT ---
RN CM Face to Face with patient for initial transition planning/care coordination assessment. RN CM introduced self and role at [facility]. Patient lying in bed, alert and oriented. Patient willing to participate in assessment and is able to answer all questions appropriately. Care providers, pharmacy, and demographics verified. Patient wishes to discharge home, denies need for home health at this time. Patient states she has no further needs or concerns at this time. CM to follow for discharge planning needs that may arise. PCP: Benigno Specialists: Gary, surgeon; Tera, pulmonology; Pramendy, oncology Preferred Pharmacy: [facility] retail Insurance: [employer] Prescription Benefit: yes Living Will/HPOA: none LNOK: DIL Living Arrangements: Patient lives only in 1 story home with 3 steps and railing to enter the home. Patient states she is independent at home. Transportation: self/DIL DME/HHC: Patient states she has cane, nebulizer, bipap, and oxygen at home at . Patient denies previous HHC. Disposition Plan: Patient to discharge home with family support and follow-up plans in place. Leena ZUNIGA, RN, CM
--- NOTE | 2019-11-02 13:24 | PCM.PN.HOSP ---
<Lanre Castorena - Last Filed: 11/02/19 13:24> Patient Problems: Active and Suspected Problems (Last Reviewed 11/02/19 @ 01:[address] Js Shelton MD) Cellulitis (Acute) Cellulitis of right leg (Acute) Tinea unguium (Suspected) Xerosis cutis (Suspected) Reason for Visit: RLE cellulitis Subjective: No acute issues. No fever/chills. No nausea/vomiting/diarrhea. No SOB/cough. Pt has been on o2 since surgery but no SOB. Pt has improvement in LE edema. Still very hot but erythema also improved. No open wounds, sores, drainage. Pt with fungal changes in feet no prior podiatry. Vitals/I&O's: Vital Signs Temp Pulse Resp BP Pulse Ox 97.6 F L 72 18 128/75 H 95 11/02/19 05:50 11/02/19 09:24 11/02/19 09:24 11/02/19 05:50 11/02/19 09:24 Oxygen Flow Rate (L/min) 2 Oxygen Delivery Method Nasal Cannula Weight: 232 lb 9.403 oz Body Mass Index (BMI) 41.2 Intake and Output for Last 24 Hours 10/31/19 11/01/19 11/02/19 23:59 23:59 23:59 Intake Total 50 / 50 250 / 250 Output Total 50 / 50 Balance 50 / 50 200 / 200 General: Alert, Oriented x3, Cooperative HEENT: Atraumatic, PERRLA, EOMI, Normocephalic Neck: Supple, No JVD, Negative Carotid Bruits Lungs: Clear to auscultation, Normal air movement Cardiovascular: Regular rate, No murmurs Abdomen: Bowel Sounds Present, Soft, Non Tender Extremities: No edema, Capillary Refill Less than 3 Seconds Skin: - - RLE cellulitis improved swelling, improved erythema. Still hot to touch. No open wounds. Evidence of tinea pedis and onychomycosis BL feet Musculoskeletal: No Tenderness to Palpation of Joints or Extremities Neurological: Cranial nerves II-XII grossly intact Psych/Mental Status: Normal Affect, Appropriate, Alert and oriented to time, place, person, mood and affect Laboratory Results 11/01/19 21:00: WBC 8.8, RBC 3.55 L, Hgb 11.8 L, Hct 35.9 L, MCV 101.1 H, MCH 33.2 H, MCHC 32.9, RDW Std Deviation 56.4 H, RDW Coeff of Jasmin 14.8 H, Plt Count 318, MPV 10.8, Immature Gran % (Auto) 0.100, Neut % (Auto) 65.0, Lymph % (Auto) 16.3 L, [place] % (Auto) 8.6, Eos % (Auto) 9.1 H, Baso % (Auto) 0.9, Absolute Neuts (auto) 5.7, Absolute Lymphs (auto) 1.44, Nucleated RBC % 0 11/01/19 21:00: Sodium 142, Potassium 4.0, Chloride 107, Carbon Dioxide 34.0 H, Anion Gap 1 L, BUN 22 H, Creatinine 0.78, Estim Creat Clear Calc 42.07, Est GFR (MDRD) Af Amer 93, Est GFR (MDRD) Non-Af 77, BUN/Creatinine Ratio 28.2 H, Glucose 108 H, Calcium 8.4 L 11/02/19 05:05: WBC 6.7, RBC 3.45 L, Hgb 11.2 L, Hct 35.0 L, MCV 101.4 H, MCH 32.5 H, MCHC 32.0, RDW Std Deviation 56.4 H, RDW Coeff of Jasmin 14.9 H, Plt Count 301, MPV 10.7, Immature Gran % (Auto) 0.300, Neut % (Auto) 54.8, Lymph % (Auto) 21.6, [place] % (Auto) 8.7, Eos % (Auto) 13.5 H, Baso % (Auto) 1.1 H, Absolute Neuts (auto) 3.7, Absolute Lymphs (auto) 1.44, Nucleated RBC % 0 11/02/19 05:05: Sodium 142, Potassium 3.4 L, Chloride 107, Carbon Dioxide 34.0 H, Anion Gap 1 L, BUN 17, Creatinine 0.56, Estim Creat Clear Calc 42.07, Est GFR (MDRD) Af Amer 136, Est GFR (MDRD) Non-Af 112, BUN/Creatinine Ratio 30.2 H, Glucose 97, Calcium 8.2 L 11/02/19 05:05: Total Bilirubin 0.30, Direct Bilirubin 0.14, AST 10 L, ALT 13, Alkaline Phosphatase 48, Total Protein 5.8 L, Albumin 2.9 L, Globulin 2.9 Current Medications Acetaminophen (Tylenol) 650 mg PO Q6H PRN PRN PRN Reason: Pain Score 1-10/Temp > 100.7 F Al Hydroxide/Mg Hydroxide (Mylanta Ii) 30 ml PO Q6H PRN PRN PRN Reason: Gastric Burning Albuterol Sulfate (Ventolin Aerosols) 2.5 mg INHALATION Q2H PRN PRN PRN Reason: Shortness of Breath/Wheezing Albuterol/Ipratropium (Duoneb) 3 ml INHALATION Q6HWA.RT [facility] Last Admin: 11/02/19 13:22 Dose: 3 ml Documented by: Budesonide (Pulmicort Aerosol) 0.5 mg INHALATION Q12H.RT [facility] Last Admin: 11/02/19 07:04 Dose: 0.5 mg Documented by: Citalopram Hydrobromide (Celexa) 10 mg PO DAILY [facility] Last Admin: 11/02/19 09:11 Dose: 10 mg Documented by: Dextrose (D50w Syringe) 0 gm IV X1 PRN; Protocol PRN Reason: Hypoglycemia Enoxaparin Sodium (Lovenox) 40 mg SC DAILY [facility] Last Admin: 11/02/19 09:11 Dose: 40 mg Documented by: Fluticasone Propionate (Flonase Nasal [place]) 2 spray NASAL DAILY PRN PRN PRN Reason: NASAL CONGESTION Furosemide (Lasix) 20 mg PO DAILY [facility] Last Admin: 11/02/19 09:11 Dose: 20 mg Documented by: Gabapentin (Neurontin) 300 mg PO DAILY [facility] Last Admin: 11/02/19 09:11 Dose: 300 mg Documented by: Gabapentin (Neurontin) 600 mg PO QHS [facility] Last Admin: 11/02/19 00:28 Dose: 600 mg Documented by: Glucagon () 1 mg IM .X1 PRN PRN Reason: Hypoglycemia Cefazolin Sodium () 1 gm in 50 mls @ 100 mls/hr IV X1 ONE Stop: 11/02/19 22:23 Last Infusion: 11/01/19 23:11 Dose: Infused Documented by: Sodium Chloride () 250 mls @ 15 mls/hr IV .[id number] PRN PRN Reason: Saline Flush Cefazolin Sodium () 1 gm in 50 mls @ 100 mls/hr IV Q8 [facility] Last Infusion: 11/02/19 06:18 Dose: Infused Documented by: Lidocaine/Prilocaine (Emla Cream W/Tegaderm) 1 gm TOPICAL DAILY PRN PRN; Protocol PRN Reason: with port access procedure Nicotine (Nicoderm Cq (Pbkc)) 21 mg TRANSDERM. DAILY [facility] Last Admin: 11/02/19 02:11 Dose: 21 mg Documented by: Ondansetron HCl (Zofran) 4 mg IV Q8H PRN PRN PRN Reason: NAUSEA/VOMITING Oxycodone HCl (Oxyir) 5 mg PO Q6H PRN PRN PRN Reason: PAIN 1-01/18 Pantoprazole Sodium (Protonix) 40 mg PO DAILY [facility] Last Admin: 11/02/19 09:12 Dose: 40 mg Documented by: Prochlorperazine Maleate (Compazine Tablet) 10 mg PO Q6H PRN PRN PRN Reason: NAUSEA Sodium Chloride () 10 - 40 ml IV UD PRN PRN Reason: SALINE FLUSH Trazodone HCl (Desyrel) 200 mg PO QHS [facility] Last Admin: 11/02/19 00:28 Dose: 200 mg Documented by: Medical Necessity - Tobacco Use Smoking Status: Current every day smoker Tobacco Use: Cigarettes Assessment/Plan All Active Problems (Last Reviewed 11/02/19 @ 01:[address] Js Shelton MD) Cellulitis (Acute) Cellulitis of right leg (Acute) History of pulmonary embolism (Resolved) 1. Acute cellulitis RLE - continue ancef. no fever/leukoctyosis. improved. podiatry consult as i am concerned fungal feet changes are point of bacterial ingress. Negative venous duplex. CTA chest pending. Pt immunocompromised 2/2 chemo, decadron use 2. Breast cancer in remission s/p chemo and lumpectomy per Dr. Vega with PREMA drain placement. Dr. Vega following, maintain drain until <25 cc drainage per day. 3. COPD, asthma, pulmonary htn - no exacerbation. prn aerosols, incentive spirometer 4. Hx DVT/PE - again, venous US neg. Not on oral anticoag 5. DION - compliant with CPAP qhs 6. Anx/Dep - trazodone, citalopram 7. Nicotine abuse - patch DVT ppx: lovenox This patient was seen by Lanre Castorena PA-C under the supervision of Doctor Kamila. <Donna Treviño - Last Filed: 11/02/19 15:37> Vitals/I&O's: Vital Signs Temp Pulse Resp BP Pulse Ox 97.6 F L 72 16 128/75 H 95 11/02/19 05:50 11/02/19 13:22 11/02/19 13:22 11/02/19 05:50 11/02/19 09:24 Oxygen Flow Rate (L/min) 2 Oxygen Delivery Method Nasal Cannula Weight: 105.5 kg Body Mass Index (BMI) 41.2 Intake and Output for Last 24 Hours 10/31/19 11/01/19 11/02/19 23:59 23:59 23:59 Intake Total 50 / 50 250 / 250 Output Total 50 / 50 Balance 50 / 50 200 / 200 Laboratory Results 11/01/19 21:00: WBC 8.8, RBC 3.55 L, Hgb 11.8 L, Hct 35.9 L, MCV 101.1 H, MCH 33.2 H, MCHC 32.9, RDW Std Deviation 56.4 H, RDW Coeff of Jasmin 14.8 H, Plt Count 318, MPV 10.8, Immature Gran % (Auto) 0.100, Neut % (Auto) 65.0, Lymph % (Auto) 16.3 L, [place] % (Auto) 8.6, Eos % (Auto) 9.1 H, Baso % (Auto) 0.9, Absolute Neuts (auto) 5.7, Absolute Lymphs (auto) 1.44, Nucleated RBC % 0 11/01/19 21:00: Sodium 142, Potassium 4.0, Chloride 107, Carbon Dioxide 34.0 H, Anion Gap 1 L, BUN 22 H, Creatinine 0.78, Estim Creat Clear Calc 42.07, Est GFR (MDRD) Af Amer 93, Est GFR (MDRD) Non-Af 77, BUN/Creatinine Ratio 28.2 H, Glucose 108 H, Calcium 8.4 L 11/02/19 05:05: WBC 6.7, RBC 3.45 L, Hgb 11.2 L, Hct 35.0 L, MCV 101.4 H, MCH 32.5 H, MCHC 32.0, RDW Std Deviation 56.4 H, RDW Coeff of Jasmin 14.9 H, Plt Count 301, MPV 10.7, Immature Gran % (Auto) 0.300, Neut % (Auto) 54.8, Lymph % (Auto) 21.6, [place] % (Auto) 8.7, Eos % (Auto) 13.5 H, Baso % (Auto) 1.1 H, Absolute Neuts (auto) 3.7, Absolute Lymphs (auto) 1.44, Nucleated RBC % 0 11/02/19 05:05: Sodium 142, Potassium 3.4 L, Chloride 107, Carbon Dioxide 34.0 H, Anion Gap 1 L, BUN 17, Creatinine 0.56, Estim Creat Clear Calc 42.07, Est GFR (MDRD) Af Amer 136, Est GFR (MDRD) Non-Af 112, BUN/Creatinine Ratio 30.2 H, Glucose 97, Calcium 8.2 L 11/02/19 05:05: Total Bilirubin 0.30, Direct Bilirubin 0.14, AST 10 L, ALT 13, Alkaline Phosphatase 48, Total Protein 5.8 L, Albumin 2.9 L, Globulin 2.9 Current Medications Acetaminophen (Tylenol) 650 mg PO Q6H PRN PRN PRN Reason: Pain Score 1-10/Temp > 100.7 F Al Hydroxide/Mg Hydroxide (Mylanta Ii) 30 ml PO Q6H PRN PRN PRN Reason: Gastric Burning Albuterol Sulfate (Ventolin Aerosols) 2.5 mg INHALATION Q2H PRN PRN PRN Reason: Shortness of Breath/Wheezing Albuterol/Ipratropium (Duoneb) 3 ml INHALATION Q6HWA.RT [facility] Last Admin: 11/02/19 13:22 Dose: 3 ml Documented by: Budesonide (Pulmicort Aerosol) 0.5 mg INHALATION Q12H.RT [facility] Last Admin: 11/02/19 07:04 Dose: 0.5 mg Documented by: Citalopram Hydrobromide (Celexa) 10 mg PO DAILY [facility] Last Admin: 11/02/19 09:11 Dose: 10 mg Documented by: Dextrose (D50w Syringe) 0 gm IV X1 PRN; Protocol PRN Reason: Hypoglycemia Enoxaparin Sodium (Lovenox) 100 mg SC Q12 [facility] Fluticasone Propionate (Flonase Nasal [place]) 2 spray NASAL DAILY PRN PRN PRN Reason: NASAL CONGESTION Furosemide (Lasix) 20 mg PO DAILY [facility] Last Admin: 11/02/19 09:11 Dose: 20 mg Documented by: Gabapentin (Neurontin) 300 mg PO DAILY [facility] Last Admin: 11/02/19 09:11 Dose: 300 mg Documented by: Gabapentin (Neurontin) 600 mg PO QHS [facility] Last Admin: 11/02/19 00:28 Dose: 600 mg Documented by: Glucagon () 1 mg IM .X1 PRN PRN Reason: Hypoglycemia Heparin Sodium (Beef Lung) () 50 units IV UD PRN PRN Reason: Port-a-Cath (VAD)Heparin Flush Cefazolin Sodium () 1 gm in 50 mls @ 100 mls/hr IV X1 ONE Stop: 11/02/19 22:23 Last Infusion: 11/01/19 23:11 Dose: Infused Documented by: Sodium Chloride () 250 mls @ 15 mls/hr IV .[id number] PRN PRN Reason: Saline Flush Cefazolin Sodium () 1 gm in 50 mls @ 100 mls/hr IV Q8 [facility] Last Admin: 11/02/19 15:17 Dose: 100 mls/hr Documented by: Lactic Acid (Lac-Hydrin, Amlactin) 1 applic TOPICAL BID TANIA; Protocol Lidocaine/Prilocaine (Emla Cream W/Tegaderm) 1 gm TOPICAL DAILY PRN PRN; Protocol PRN Reason: with port access procedure Nicotine (Nicoderm Cq (Pbkc)) 21 mg TRANSDERM. DAILY [facility] Last Admin: 11/02/19 02:11 Dose: 21 mg Documented by: Ondansetron HCl (Zofran) 4 mg IV Q8H PRN PRN PRN Reason: NAUSEA/VOMITING Oxycodone HCl (Oxyir) 5 mg PO Q6H PRN PRN PRN Reason: PAIN 1-10 Pantoprazole Sodium (Protonix) 40 mg PO DAILY [facility] Last Admin: 11/02/19 09:12 Dose: 40 mg Documented by: Prochlorperazine Maleate (Compazine Tablet) 10 mg PO Q6H PRN PRN PRN Reason: NAUSEA Sodium Chloride () 10 - 40 ml IV UD PRN PRN Reason: SALINE FLUSH Sodium Chloride () 10 - 40 ml IV UD PRN PRN Reason: Port-a-Cath (VAD) Flush Sodium Chloride (0.9% Nacl (Sterile) Posiflush) 10 - 40 ml IV UD PRN PRN Reason: Port access or dressing change Trazodone HCl (Desyrel) 200 mg PO QHS [facility] Last Admin: 11/02/19 00:28 Dose: 200 mg Documented by: STROKE Vital Signs/Narrative: Vital Signs Pulse Resp 11/02/19 13:22 72 16 Assessment/Plan This patient was seen in conjunction with NAOMI Melton. I have independently interviewed and examined the patient and reviewed pertinent historical, laboratory, and other data. Please refer to NAOMI Melton note for his patient's presentation, findings, and recommendations. I have reviewed and his note and concur with his documentation Patient was seen and examined. Denied any new complaint. Leg swellings are better. Discussed patient's care with Dr. Jackson who had gotten more history from the daughter, there is concern for possible PE. Physical Exam: Gen: Comfortable, obese, not pale, not jaundiced CVS:HS I +II, regular, no murmurs RESP: Diminished at lung bases GI: BS present and normal, soft, nontender, no palpable organs EXT: Pedal edema +2, erythema of the right lower extremity, proving ASSESSMENT: 1. Acute cellulitis of the right lower extremity 2. Acute left lower lobe PE 3. Breast cancer, status post chemotherapy and lumpectomy 4. COPD/asthma/pulmonary hypertension 5. DION on CPAP 6. Anxiety/depression 7. Nicotine Dependence 8. Onychomycosis Plan: We will start patient on Lovenox 1 mg/kg twice daily Podiatry consult for onychomycosis Continue with nicotine patch Continue with rest of her medications Leave PREMA drain in. Outpatient surgery follow-up plan Inpatient E&M: [id number] [facility] Hosp L2
--- NOTE | 2019-11-02 13:43 | CT_ITS ---
STUDY: CTA CHEST REASON FOR EXAM: Female, 74 years old. CHRONIC COUGH AND SOB, LEG REDNESS AND SWELLING, RECENT SX RADIATION DOSAGE (If Supplied By Facility): CTDIvol = ( 11.21 ) mGy, DLP = ( 546.96 ) mGycm TECHNIQUE: The examination was performed with the intravenous administration of IV 100mL [id number]. Post-processing of the angiographic images was performed, with multiplanar reformation and 3D reconstruction. Individualized dose optimization techniques were used for this CT. COMPARISON: 2017 FINDINGS: Evidence of low-density thrombus within branches leading to left lower lobe consistent with PE. There is limited enhancement of the bilateral peripheral pulmonary arteries. Normal thoracic aorta and visualized great vessels. There is no demonstrated aortic dissection. Normal heart and pericardium. There are calcifications of the coronary arteries. Normal mediastinum. Normal hilar regions. There is peribronchial thickening. The lungs are well expanded. Chronic interstitial changes noted in both lung astorga without a superimposed infiltrate, or groundglass opacifications. There is a 5 mm noncalcified pleural-based nodule in the right lower lobe unchanged from 2017. Normal pleura. Normal chest wall structures. There are degenerative changes of thoracic spine. Limited cuts through the upper abdomen show a retrocardiac hiatal hernia. CT/CTA Chest W/WO Contrast IMPRESSION: Evidence of low-density filling defect within branches leading to the left lower lobe consistent with PE. Findings called to patient''s nurse. No superimposed infiltrate or effusion, chronic interstitial changes noted in both lung astorga with evidence of chronic bronchitis and dependent atelectasis. 5 mm noncalcified pleural-based nodule in the right lower lobe unchanged from 2017. No specific follow-up needed Degenerative bony changes Calcified coronary vessels Hiatal hernia Electronically Signed: Ramiro Buckner MD at 14:53 EDT , Service support ,
--- NOTE | 2019-11-02 13:43 | CON.PCM_ITS ---
Problem List (1) Cellulitis of right leg Status: Acute (2) Tinea unguium Status: Suspected (3) Xerosis cutis Status: Suspected Reason for Consult Date of Consultation: 11/02/19 Reason for Consultation: Right leg cellulitis with concern of toenail or skin infection History of Present Illness: The patient is a 74 year old F status post lumpectomy and axillary lymph node dissection performed on 10-29-2019. Since that time she has developed right leg redness and swelling with an onset of 2 days ago. She was admitted for management of cellulitis including IV antibiotics. Her ultrasound was negative for DVT. She reports he does have a history of deep venous thrombosis of the leg. I have been asked to review other potential lower extremity sources of infection. She denies injury. Lower extremity swelling that is new. She denies lower extremity drainage. She relates she has a history of athlete's foot many years ago however she denies blister formation. She denies itching. Past Medical History Past Medical History (Chronic Problems): Chronic Problems (Last Reviewed 11/02/19 @ 01:[address] Js Shelton MD) Breast cancer, right (Chronic) Hx of colonoscopy (Chronic) 2018 History of bilateral knee replacement (Chronic) 1995 Smoking greater than 40 pack years (Chronic) COPD with asthma (Chronic) Pulmonary hypertension (Chronic) RVSP 31 mmHg DION (obstructive sleep apnea) (Chronic) BiPAP 21/15 cm of water Benign essential hypertension (Chronic) Chronic obstructive lung disease (Chronic) FEV1 68% of predicted History of DVT of lower extremity (Chronic) GERD (gastroesophageal reflux disease) (Chronic) Hyperlipidemia (Chronic) History of pulmonary embolism (Chronic) Tobacco user (Chronic) Lung nodule (Chronic) Medical History: Medical History (Last Reviewed 11/02/19 @ 01:[address] Js Shelton MD) Smoking greater than 40 pack years (Chronic) F17.210 COPD with asthma (Chronic) J44.9 Candidiasis of mouth (Inactive) B37.0 History of pulmonary embolism (Resolved) Z86.711 Pulmonary hypertension (Chronic) I27.20 RVSP 31 mmHg DION (obstructive sleep apnea) (Chronic) G47.33 BiPAP 21/15 cm of water Benign essential hypertension (Chronic) I10 Chronic obstructive lung disease (Chronic) J44.9 FEV1 68% of predicted History of DVT of lower extremity (Chronic) Z86.718 GERD (gastroesophageal reflux disease) (Chronic) K21.9 Hyperlipidemia (Chronic) E78.5 History of pulmonary embolism (Chronic) Z86.711 Tobacco user (Chronic) Z72.0 Acute respiratory failure with hypoxia and hypercarbia (Inactive) J96.01, J96.02 Lung nodule (Chronic) R91.1 Stroke behind eye 2000 Allergies Fish Containing Products Adverse Reaction (Mild, Verified 11/01/19 18:45) Abd cramps/diarrhea nausea Home Medications: Ambulatory Orders Medication Instructions Recorded Citalopram [Celexa] 10 mg PO DAILY 06/27/14 Omeprazole [Prilosec] 40 mg PO DAILY 06/27/14 traZODone [Desyrel] 200 mg PO QHS 06/27/14 Furosemide [Lasix] 20 mg PO DAILY #30 tab 07/11/14 Gabapentin 300 mg PO DAILY 07/13/16 Gabapentin [Neurontin] 600 mg PO QHS 07/13/16 tiotropium bromide 18 mcg capsule 1 cap INHALATION DAILY #90 inh 06/20/19 with inhalation device Albuterol Sulfate [Albuterol 2 puff INHALATION Q4H PRN 07/05/19 Sulfate Hfa] Fluticasone Furoate [Flonase 2 spray INTRANASAL DAILY PRN 07/05/19 Sensimist] Fluticasone Propion/Salmeterol 1 ea IH DAILY 07/18/19 [Wixela 500-50 Inhub] Dexamethasone [Decadron] 8 mg PO BID 21 Days #12 tab 07/23/19 Lidocaine/Prilocaine 1 applicatio TP DAILY PRN PRN 30 07/23/19 [Lidocaine-Prilocaine Cream] Days #1 tube Ondansetron [Zofran] 8 mg PO Q8H PRN PRN 10 Days #30 tab 07/23/19 Prochlorperazine Maleate 10 mg PO Q6H PRN PRN 10 Days #30 07/23/19 tab Oxycodone HCl/Acetaminophen 1 tab PO Q6H PRN PRN 3 Days #7 tab 10/30/19 [Percocet 5/325] Surgical History: Surgical History (Last Reviewed 10/22/19 @ 14:09 by Deena Abbasi) Hx of colonoscopy (Chronic) Z98.890 2018 History of bilateral knee replacement (Chronic) Z96.653 1995 History of breast biopsy Z98.890 Surgical History: - - bilateral knee Psychiatric History: No pertinent psych hx Smoking Status: Current every day smoker Tobacco Use: Cigarettes - *Family History Maternal Family History: Family History (Last Reviewed 11/02/19 @ 01:[address] Js Shelton MD) Sister Skin cancer Diabetes Breast cancer Lung cancer Mother Diabetes CVA (cerebral vascular accident) Father Heart disease CVA (cerebral vascular accident) Brother Diabetes Sister Breast cancer History Items: No pertinent history Review of Systems Constitutional: Denies: Chills, Fever, Fatigue Cardiovascular: Denies: Chest Pain, Claudication, Orthopnea Respiratory: Denies: Shortness of Breath Gastrointestinal: Denies: Nausea, Vomiting Musculoskeletal: Reports: Leg Pain. Denies: Foot Pain Skin: Reports: Dryness, Skin Changes. Denies: Pruritis, Wounds Neurological: Denies: Incoordination, Numbness, Tingling Hematologic/ Lymphatic: Reports: Hx of blood clot Patient Problems: Active and Suspected Problems (Last Reviewed 11/02/19 @ 01:[address] Js Shelton MD) Cellulitis (Acute) Cellulitis of right leg (Acute) Tinea unguium (Suspected) Xerosis cutis (Suspected) - Physical Exam Vitals/I&O's: Vital Signs Temp Pulse Resp BP Pulse Ox 97.6 F L 72 18 128/75 H 95 11/02/19 05:50 11/02/19 09:24 11/02/19 09:24 11/02/19 05:50 11/02/19 09:24 Oxygen Flow Rate (L/min) 2 Oxygen Delivery Method Nasal Cannula Weight: 105.5 kg Body Mass Index (BMI) 41.2 Intake and Output for Last 24 Hours 10/31/19 11/01/19 11/02/19 23:59 23:59 23:59 Intake Total 50 / 50 250 / 250 Output Total 50 / 50 Balance 50 / 50 200 / 200 General: Alert, Oriented x3, Cooperative HEENT: Atraumatic Extremities: No cyanosis, Capillary Refill Less than 3 Seconds - All digits bilateral, No Calf Tenderness - Negative Geena strength times left. Positive right lower extremity. Compartments remain soft to palpate bilateral lower extremities, Edema - Right hand and left lower extremity, Peripheral Pulses Normal - 2/4 PT DP pulses bilateral Skin: - - There is, drainage, odor, necrosis maceration. Skin has lack of hair and is fairly atrophic. Her skin is also dry plantar flaking. There is no blisters. There is no streaking. She does have some erythema to the right lower extremity that is marked the proximal leg with a pen. The toenails are long, thick, dystrophic with subungual debris right 1, 2, 3, 4, 5 and left 1, 2, 3, 4. Musculoskeletal: - - Active range of motion digits and ankles bilateral. Neurological: Sensory exam intact to light touch and pain Psych/Mental Status: Normal Affect, Appropriate Laboratory Results 11/01/19 21:00: WBC 8.8, RBC 3.55 L, Hgb 11.8 L, Hct 35.9 L, MCV 101.1 H, MCH 33.2 H, MCHC 32.9, RDW Std Deviation 56.4 H, RDW Coeff of Jasmin 14.8 H, Plt Count 318, MPV 10.8, Immature Gran % (Auto) 0.100, Neut % (Auto) 65.0, Lymph % (Auto) 16.3 L, Rich % (Auto) 8.6, Eos % (Auto) 9.1 H, Baso % (Auto) 0.9, Absolute Neuts (auto) 5.7, Absolute Lymphs (auto) 1.44, Nucleated RBC % 0 11/01/19 21:00: Sodium 142, Potassium 4.0, Chloride 107, Carbon Dioxide 34.0 H, Anion Gap 1 L, BUN 22 H, Creatinine 0.78, Estim Creat Clear Calc 42.07, Est GFR (MDRD) Af Amer 93, Est GFR (MDRD) Non-Af 77, BUN/Creatinine Ratio 28.2 H, Glucose 108 H, Calcium 8.4 L 11/02/19 05:05: WBC 6.7, RBC 3.45 L, Hgb 11.2 L, Hct 35.0 L, MCV 101.4 H, MCH 32.5 H, MCHC 32.0, RDW Std Deviation 56.4 H, RDW Coeff of Jasmin 14.9 H, Plt Count 301, MPV 10.7, Immature Gran % (Auto) 0.300, Neut % (Auto) 54.8, Lymph % (Auto) 21.6, Rich % (Auto) 8.7, Eos % (Auto) 13.5 H, Baso % (Auto) 1.1 H, Absolute Neuts (auto) 3.7, Absolute Lymphs (auto) 1.44, Nucleated RBC % 0 11/02/19 05:05: Sodium 142, Potassium 3.4 L, Chloride 107, Carbon Dioxide 34.0 H , Anion Gap 1 L, BUN 17, Creatinine 0.56, Estim Creat Clear Calc 42.07, Est GFR (MDRD) Af Amer 136, Est GFR (MDRD) Non-Af 112, BUN/Creatinine Ratio 30.2 H, Glucose 97, Calcium 8.2 L 11/02/19 05:05: Total Bilirubin 0.30, Direct Bilirubin 0.14, AST 10 L, ALT 13, Alkaline Phosphatase 48, Total Protein 5.8 L, Albumin 2.9 L, Globulin 2.9 Current Medications Acetaminophen (Tylenol) 650 mg PO Q6H PRN PRN PRN Reason: Pain Score 1-10/Temp > 100.7 F Al Hydroxide/Mg Hydroxide (Mylanta Ii) 30 ml PO Q6H PRN PRN PRN Reason: Gastric Burning Albuterol Sulfate (Ventolin Aerosols) 2.5 mg INHALATION Q2H PRN PRN PRN Reason: Shortness of Breath/Wheezing Albuterol/Ipratropium (Duoneb) 3 ml INHALATION Q6HWA.RT [facility] Last Admin: 11/02/19 13:22 Dose: 3 ml Documented by: Budesonide (Pulmicort Aerosol) 0.5 mg INHALATION Q12H.RT [facility] Last Admin: 11/02/19 07:04 Dose: 0.5 mg Documented by: Citalopram Hydrobromide (Celexa) 10 mg PO DAILY [facility] Last Admin: 11/02/19 09:11 Dose: 10 mg Documented by: Dextrose (D50w Syringe) 0 gm IV X1 PRN; Protocol PRN Reason: Hypoglycemia Enoxaparin Sodium (Lovenox) 40 mg SC DAILY [facility] Last Admin: 11/02/19 09:11 Dose: 40 mg Documented by: Fluticasone Propionate (Flonase Nasal [place]) 2 spray NASAL DAILY PRN PRN PRN Reason: NASAL CONGESTION Furosemide (Lasix) 20 mg PO DAILY [facility] Last Admin: 11/02/19 09:11 Dose: 20 mg Documented by: Gabapentin (Neurontin) 300 mg PO DAILY [facility] Last Admin: 11/02/19 09:11 Dose: 300 mg Documented by: Gabapentin (Neurontin) 600 mg PO QHS [facility] Last Admin: 11/02/19 00:28 Dose: 600 mg Documented by: Glucagon () 1 mg IM .X1 PRN PRN Reason: Hypoglycemia Cefazolin Sodium () 1 gm in 50 mls @ 100 mls/hr IV X1 ONE Stop: 11/02/19 22:23 Last Infusion: 11/01/19 23:11 Dose: Infused Documented by: Sodium Chloride () 250 mls @ 15 mls/hr IV .[id number] PRN PRN Reason: Saline Flush Cefazolin Sodium () 1 gm in 50 mls @ 100 mls/hr IV Q8 [facility] Last Infusion: 11/02/19 06:18 Dose: Infused Documented by: Lidocaine/Prilocaine (Emla Cream W/Tegaderm) 1 gm TOPICAL DAILY PRN PRN; Protocol PRN Reason: with port access procedure Nicotine (Nicoderm Cq (Pbkc)) 21 mg TRANSDERM. DAILY [facility] Last Admin: 11/02/19 02:11 Dose: 21 mg Documented by: Ondansetron HCl (Zofran) 4 mg IV Q8H PRN PRN PRN Reason: NAUSEA/VOMITING Oxycodone HCl (Oxyir) 5 mg PO Q6H PRN PRN PRN Reason: PAIN 1-10/10 Pantoprazole Sodium (Protonix) 40 mg PO DAILY [facility] Last Admin: 11/02/19 09:12 Dose: 40 mg Documented by: Prochlorperazine Maleate (Compazine Tablet) 10 mg PO Q6H PRN PRN PRN Reason: NAUSEA Sodium Chloride () 10 - 40 ml IV UD PRN PRN Reason: SALINE FLUSH Trazodone HCl (Desyrel) 200 mg PO QHS [facility] Last Admin: 11/02/19 00:28 Dose: 200 mg Documented by: Assessment/Plan All Active Problems (Last Reviewed 11/02/19 @ 01:[address] Js Shelton MD) Cellulitis (Acute) Cellulitis of right leg (Acute) History of pulmonary embolism (Resolved) Cellulitis right leg DVT is been ruled out right leg Right lower extremity edema Xerosis bilateral foot (differential diagnosis include tenia pedis) Tinea unguium I reviewed and discussed her case. She is afebrile and her vital signs are stable. She does not have leukocytosis. She continues on IV cefazolin and reports she is starting to feel a little better. I recommend additional management for her lower extremity edema. Orders will be placed for elevation and compression wrap (Rehan wrap). She was reassured that she does not have any lower extremity ulcers, bogginess, fluctuance suggesting an abscess. This will be monitored this weekend for formation. I recommend Lac-Hydrin for dry skin. She relates she has not been moisturizing. Differential diagnosis for her xerosis includes tinea pedis. If the topical moisturization does not improve her skin integrity, topical antifungal or punch biopsy will be considered. We discussed causes of thick dystrophic nails including nail fungus versus repetitive microtrauma. Her nails were debrided after verbal consent and thickness and length of the nail nipper (bilateral 1, 2, 3, 4, and right 5). She was reassured that there is no skin discontinuity, maceration, or infection to the toes after the nail debridement was performed. She tolerated this very well. She would like to proceed forward with palliative care of the nails at this time. Thank you for the consultation. I will continue to follow her close while in house. Please call if you have any questions. Ruby De Jesus DPM, [facility] [phone]
[2019-11-02] MEDS: Enoxaparin 100 MG/ML Syringe SC ×2 (17:36→22:34)
[2019-11-02] MEDS: Ammonium Lactate 225 gm Bottle 1 APPLIC TOPICAL (22:35)
[2019-11-03 02:33] VITALS: BP 108/62; PULSE 64; RESP 20; TEMP 36.6; O2SAT 95
[2019-11-03 04:28] VITALS: RESP 18
[2019-11-03] MEDS: Cefazolin 1 GM/50 ML BAG IV (06:18)
[2019-11-03] MEDS: Budesonide Respules 0.5 MG/2 ML AMPUL.NEB. INHALATION (07:20)
[2019-11-03] MEDS: Ipratropium/Albuterol Sulfate 3 ML AMPUL.NEB INHALATION (07:20)
[2019-11-03 07:21] VITALS: PULSE 61; RESP 16; O2SAT 95
[2019-11-03 07:29] LABS: AST(SGOT) 8 U/L (15-37); Alanine Aminotransfer ALT/SGPT 13 U/L (13-56); Alkaline Phosphatase 52 U/L (45-117); Anion Gap 3 (5-15); BUN 14 mg/dL (7-18); BUN/Creat Ratio 24.6 RATIO (10-20); Calcium,Total 8.3 mg/dL (8.5-10.1); Chloride 108 mmol/L (98-107); Creatinine, Serum 0.57 mg/dL (0.55-1.02); EST Glomerular Filtration Rate 111 mL/min (>60); Est Glom Filt Rate - Afr Amer 135 mL/min (>60); Estimated Creatinine Clearance 42.07 ml/min; Glucose 85 mg/dL (74-106); Potassium 3.5 mmol/L (3.5-5.1); Sodium Level 141 mmol/L (136-145)
--- NOTE | 2019-11-03 07:57 | PCM.PROGNOTE ---
Patient Problems: Active and Suspected Problems (Last Reviewed 11/02/19 @ 01:[address] Js Shelton MD) Cellulitis (Acute) Cellulitis of right leg (Acute) Tinea unguium (Suspected) Xerosis cutis (Suspected) Subjective: This 74-year-old female was seen bedside this morning for follow-up of right lower extremity cellulitis. She relates improvement and rates her discomfort as a 1 out of 10. She denies deep calf pain, fever, chills, nausea, vomiting. - Physical Exam Vitals/I&O's: Vital Signs Temp Pulse Resp BP Pulse Ox 97.9 F 64 18 108/62 95 11/03/19 02:33 11/03/19 02:33 11/03/19 04:28 11/03/19 02:33 11/03/19 02:33 Oxygen Flow Rate (L/min) 2 Oxygen Delivery Method CPAP Weight: 105.5 kg Body Mass Index (BMI) 41.2 Intake and Output for Last 24 Hours 11/01/19 11/02/19 11/03/19 23:59 23:59 23:59 Intake Total 50 / 50 1400 / 1400 450 / 450 Output Total 72 / 72 40 / 40 Balance 50 / 50 1328 / 1328 410 / 410 General: Alert, Oriented x3, Cooperative HEENT: Atraumatic Extremities: No cyanosis, Capillary Refill Less than 3 Seconds, No Calf Tenderness - Negative Geena and Michele sign bilateral, Edema - Decreased right lower extremity, Peripheral Pulses Normal Skin: - - No wound, streaking, odor, maceration, necrosis. She has dry skin in general bilateral lower extremities. The previously marked erythema has completely resolved. There is no bogginess or fluctuance on palpation to bilateral lower extremity. Musculoskeletal: Muscle Wasting, - - Decreased tenderness to palpate the right leg and foot. There is a remaining central tender area to the posterior myotendinous junction of the Achilles. No pain to medial or lateral malleoli, fifth metatarsal base, navicular tuberosity or heel. No pain on palpation of the peroneal, distal Achilles, posterior tibialis tendon or extensor tendons. No pain with passive manipulation of the ankle, subtalar joint, or foot joints. Compartments are soft to palpate bilateral lower extremities Neurological: Sensory exam intact to light touch and pain Psych/Mental Status: Normal Affect, Appropriate Laboratory Results 11/02/19 05:05: Total Bilirubin 0.30, Direct Bilirubin 0.14, AST 10 L, ALT 13, Alkaline Phosphatase 48, Total Protein 5.8 L, Albumin 2.9 L, Globulin 2.9 11/03/19 06:22: Sodium 141, Potassium 3.5, Chloride 108 H, Carbon Dioxide 30.0, Anion Gap 3 L, BUN 14, Creatinine 0.57, Estim Creat Clear Calc 42.07, Est GFR (MDRD) Af Amer 135, Est GFR (MDRD) Non-Af 111, BUN/Creatinine Ratio 24.6 H, Glucose 85, Calcium 8.3 L, Total Bilirubin 0.40, AST 8 L, ALT 13, Alkaline Phosphatase 52, Total Protein 6.0 L, Albumin 3.0 L, Globulin 3.0, Albumin/Globulin Ratio 1.0 Current Medications Acetaminophen (Tylenol) 650 mg PO Q6H PRN PRN PRN Reason: Pain Score 1-10/Temp > 100.7 F Al Hydroxide/Mg Hydroxide (Mylanta Ii) 30 ml PO Q6H PRN PRN PRN Reason: Gastric Burning Albuterol Sulfate (Ventolin Aerosols) 2.5 mg INHALATION Q2H PRN PRN PRN Reason: Shortness of Breath/Wheezing Albuterol/Ipratropium (Duoneb) 3 ml INHALATION Q6HWA.RT [facility] Last Admin: 11/03/19 07:20 Dose: 3 ml Documented by: Budesonide (Pulmicort Aerosol) 0.5 mg INHALATION Q12H.RT [facility] Last Admin: 11/03/19 07:20 Dose: 0.5 mg Documented by: Citalopram Hydrobromide (Celexa) 10 mg PO DAILY [facility] Last Admin: 11/02/19 09:11 Dose: 10 mg Documented by: Dextrose (D50w Syringe) 0 gm IV X1 PRN; Protocol PRN Reason: Hypoglycemia Enoxaparin Sodium (Lovenox) 100 mg SC Q12 [facility] Last Admin: 11/02/19 22:34 Dose: 100 mg Documented by: Fluticasone Propionate (Flonase Nasal [place]) 2 spray NASAL DAILY PRN PRN PRN Reason: NASAL CONGESTION Furosemide (Lasix) 20 mg PO DAILY [facility] Last Admin: 11/02/19 09:11 Dose: 20 mg Documented by: Gabapentin (Neurontin) 300 mg PO DAILY [facility] Last Admin: 11/02/19 09:11 Dose: 300 mg Documented by: Gabapentin (Neurontin) 600 mg PO QHS [facility] Last Admin: 11/02/19 22:34 Dose: 600 mg Documented by: Glucagon () 1 mg IM .X1 PRN PRN Reason: Hypoglycemia Heparin Sodium (Beef Lung) () 50 units IV UD PRN PRN Reason: Port-a-Cath (VAD)Heparin Flush Sodium Chloride () 250 mls @ 15 mls/hr IV .[id number] PRN PRN Reason: Saline Flush Cefazolin Sodium () 1 gm in 50 mls @ 100 mls/hr IV Q8 [facility] Last Admin: 11/03/19 06:18 Dose: 100 mls/hr Documented by: Lactic Acid (Lac-Hydrin, Amlactin) 1 applic TOPICAL BID [facility]; Protocol Last Admin: 11/02/19 22:35 Dose: 1 applicatio Documented by: Lidocaine/Prilocaine (Emla Cream W/Tegaderm) 1 gm TOPICAL DAILY PRN PRN; Protocol PRN Reason: with port access procedure Nicotine (Nicoderm Cq (Pbkc)) 21 mg TRANSDERM. DAILY [facility] Last Admin: 11/02/19 02:11 Dose: 21 mg Documented by: Ondansetron HCl (Zofran) 4 mg IV Q8H PRN PRN PRN Reason: NAUSEA/VOMITING Oxycodone HCl (Oxyir) 5 mg PO Q6H PRN PRN PRN Reason: PAIN 1-1010 Pantoprazole Sodium (Protonix) 40 mg PO DAILY [facility] Last Admin: 11/02/19 09:12 Dose: 40 mg Documented by: Prochlorperazine Maleate (Compazine Tablet) 10 mg PO Q6H PRN PRN PRN Reason: NAUSEA Sodium Chloride () 10 - 40 ml IV UD PRN PRN Reason: SALINE FLUSH Sodium Chloride () 10 - 40 ml IV UD PRN PRN Reason: Port-a-Cath (VAD) Flush Sodium Chloride (0.9% Nacl (Sterile) Posiflush) 10 - 40 ml IV UD PRN PRN Reason: Port access or dressing change Trazodone HCl (Desyrel) 200 mg PO QHS [facility] Last Admin: 07/24/20 22:33 Dose: 200 mg Documented by: Medical Necessity - Tobacco Use Smoking Status: Current every day smoker Tobacco Use: Cigarettes Assessment/Plan All Active Problems (Last Reviewed 11/02/19 @ 01:[address] Js Shelton MD) Cellulitis (Acute) Cellulitis of right leg (Acute) History of pulmonary embolism (Resolved) Cellulitis right leg with significant improvement DVT is been ruled out right leg Right lower extremity edema I reviewed and discussed her case. She is afebrile and her vital signs are stable. She does not have leukocytosis. She continues on IV cefazolin and reports she is doing much better. Clinically she demonstrates improvement. To continue Lac-Hydrin for dry skin daily. She has not started compression therapy yet and I recommend starting this. A multilayer compression dressing including an outer Rehan wrap was applied. She was advised to elevate her limb a little bit each hour and to avoid idle standing or sitting. It is okay to discharge from a podiatry standpoint due to her improvement. Continued course of oral antibiotics may be considered. To follow-up with the [facility] as needed. Please call if you have any questions. Ruby De Jesus DPM, [facility] [phone]
--- NOTE | 2019-11-03 08:20 | DCINST_ITS ---
Weight Bearing Status: Full weight bearing Keep extremity elevated above heart level: Right Leg Call your doctor if your incision/area has: Increased Pain/ Swelling, Increased Redness, Foul Smelling Discharge Call your doctor if you observe: Fever of 101 or Higher, Calf discomfort, Unco ntrolled pain Cleanse incision/area with: - - reapply compression ryan wrap daily Allergies/Adverse Reactions: Allergies Fish Containing Products Adverse Reaction (Mild, Verified 11/01/19 18:45) Abd cramps/diarrhea nausea Medications to take at Discharge Citalopram [Celexa] 10 mg PO DAILY 06/27/14 Omeprazole [Prilosec] 40 mg PO DAILY 06/27/14 traZODone [Desyrel] 200 mg PO QHS 06/27/14 Furosemide [Lasix] 20 mg PO DAILY #30 tab 07/11/14 Gabapentin 300 mg PO DAILY 07/13/16 Gabapentin [Neurontin] 600 mg PO QHS 07/13/16 tiotropium bromide 18 mcg capsule with inhalation device 1 cap INHALATION DAILY #90 inh 06/20/19 Albuterol Sulfate [Albuterol Sulfate Hfa] 2 puff INHALATION Q4H PRN 07/05/19 Fluticasone Furoate [Flonase Sensimist] 2 spray INTRANASAL DAILY PRN 07/05/19 Fluticasone Propion/Salmeterol [Wixela 500-50 Inhub] 1 ea IH DAILY 07/18/19 Dexamethasone [Decadron] 8 mg PO BID 21 Days #12 tab 07/23/19 Lidocaine/Prilocaine [Lidocaine-Prilocaine Cream] 1 applicatio TP DAILY PRN PRN 30 Days #1 tube 07/23/19 Ondansetron [Zofran] 8 mg PO Q8H PRN PRN 10 Days #30 tab 07/23/19 Prochlorperazine Maleate 10 mg PO Q6H PRN PRN 10 Days #30 tab 07/23/19 Oxycodone HCl/Acetaminophen [Percocet 5/325] 1 tab PO Q6H PRN PRN 3 Days #7 tab 10/30/19 Enoxaparin [Lovenox] 150 mg SUBCUT DAILY 30 Days #30 syringe 11/02/19 The following prescriptions were given: Enoxaparin [Lovenox] 150 mg SUBCUT DAILY 30 Days #30 syringe Transmission Status: Received by [facility]mobile Primary Care Physician: Tigist Pelaez DO [Primary Care Provider] - Test Results: Test results from this visit will be discussed in further detail at your follow-up appointment, if applicable. Please Follow Up With: Ruby De Jesus DPM When: [facility] w/in 2 weeks. Call [phone]. Proposed Discharge Date: 11/03/19
[2019-11-03 10:07] VITALS: BP 130/52; PULSE 73; RESP 18; TEMP 37; O2SAT 96
[2019-11-03] MEDS: Pantoprazole Sodium 40 MG Tablet PO (10:11)
[2019-11-03] MEDS: Citalopram 10 MG Tablet PO (10:12)
[2019-11-03] MEDS: Furosemide 20 MG Tablet PO (10:12)
[2019-11-03] MEDS: Gabapentin 300 MG Capsule PO (10:12)
[2019-11-03] MEDS: Ammonium Lactate 225 gm Bottle 1 APPLIC TOPICAL (10:12)
[2019-11-03] MEDS: Enoxaparin 100 MG/ML Syringe SC (10:13)
--- NOTE | 2019-11-03 10:33 | PCM.DC ---
- Discharge Diagnoses Current Active Problems: Current Active and Chronic Problems (Last Reviewed 11/02/19 @ 01:[address] Js Shelton MD) Cellulitis (Acute) Cellulitis of right leg (Acute) You will use the following diet at home:: Cardiac Your food should be the consistency of: Regular Your liquids should be the consistency of: Regular/Thin Discharge Activity: Return to Normal Activity Weight Bearing Status: Full weight bearing Keep extremity elevated above heart level: Right Leg Call your doctor if your incision/area has: Increased Pain/ Swelling, Increased Redness, Foul Smelling Discharge Call your doctor if you observe: Fever of 101 or Higher, Calf discomfort, Uncontrolled pain Cleanse incision/area with: - - reapply compression ryan wrap daily Allergies/Adverse Reactions: Allergies Fish Containing Products Adverse Reaction (Mild, Verified 11/01/19 18:45) Abd cramps/diarrhea nausea Medications to take at Discharge Citalopram [Celexa] 10 mg PO DAILY 06/27/14 Omeprazole [Prilosec] 40 mg PO DAILY 06/27/14 traZODone [Desyrel] 200 mg PO QHS 06/27/14 Furosemide [Lasix] 20 mg PO DAILY #30 tab 07/11/14 Gabapentin 300 mg PO DAILY 07/13/16 Gabapentin [Neurontin] 600 mg PO QHS 07/13/16 tiotropium bromide 18 mcg capsule with inhalation device 1 cap INHALATION DAILY #90 inh 06/20/19 Albuterol Sulfate [Albuterol Sulfate Hfa] 2 puff INHALATION Q4H PRN 07/05/19 Fluticasone Furoate [Flonase Sensimist] 2 spray INTRANASAL DAILY PRN 07/05/19 Fluticasone Propion/Salmeterol [Wixela 500-50 Inhub] 1 ea IH DAILY 07/18/19 Dexamethasone [Decadron] 8 mg PO BID 21 Days #12 tab 07/23/19 Lidocaine/Prilocaine [Lidocaine-Prilocaine Cream] 1 applicatio TP DAILY PRN PRN 30 Days #1 tube 07/23/19 Ondansetron [Zofran] 8 mg PO Q8H PRN PRN 10 Days #30 tab 07/23/19 Prochlorperazine Maleate 10 mg PO Q6H PRN PRN 10 Days #30 tab 07/23/19 Oxycodone HCl/Acetaminophen [Percocet 5-325] 1 tab PO Q6H PRN PRN 3 Days #7 tab 10/30/19 Enoxaparin [Lovenox] 150 mg SUBCUT DAILY 30 Days #30 syringe 11/02/19 Acetaminophen [Tylenol Tablet] 650 mg PO Q6H PRN PRN tab 11/03/19 Cephalexin [Keflex] 500 mg PO TID #17 cap 11/03/19 The following prescriptions were given: Cephalexin [Keflex] 500 mg PO TID #17 cap Transmission Status: Pending to [facility] Enoxaparin [Lovenox] 150 mg SUBCUT DAILY 30 Days #30 syringe Transmission Status: Received by [facility] [employer] Primary Care Physician: Tigist Pelaez DO [Primary Care Provider] - Please follow up with your Primary Care Physician in: 1-2 weeks Test Results: Test results from this visit will be discussed in further detail at your follow-up appointment, if applicable. Please Follow Up With: Ruby De Jesus DPM When: [facility] w/in 2 weeks. Call [phone]. Please Follow Up With: Chioma Vega MD When: as directed Please Follow Up With: Js Pitts MD When: as directed Proposed Discharge Date: 11/03/19
[2019-11-03] MEDS: 0.9% Saline Lock 10 ML Syringe IV (11:24)
[2019-11-03 12:41] VITALS: BP 139/64; PULSE 70; RESP 18; TEMP 36.7; O2SAT 96
--- NOTE | 2019-11-03 12:48 | DS.PCM_ITS ---
<Lanre Castorena - Last Filed: 11/03/19 12:48> Discharge Date and Diagnosis Date of Admission: 11/01/19 Date of Discharge: 11/03/19 - Primary Discharge Diagnosis Acute Problems: Active Problems (Last Reviewed 11/02/19 @ 01:[address] Js Shelton MD) Acute RLE cellulitis Acute PE Breast cancer recent lumpectomy COPD, asthma, pulmonary HTN DION Ongoing nicotine abuse Suspected Problems: Suspected Problems (Last Reviewed 11/02/19 @ 01:[address] Js Shelton MD) Tinea unguium (Suspected) Xerosis cutis (Suspected) - Secondary Discharge Diagnosis Chronic Problems: Chronic Problems (Last Reviewed 11/02/19 @ 01:[address] Js Shelton MD) Breast cancer, right (Chronic) Hx of colonoscopy (Chronic) 2018 History of bilateral knee replacement (Chronic) 1995 Smoking greater than 40 pack years (Chronic) COPD with asthma (Chronic) Pulmonary hypertension (Chronic) RVSP 31 mmHg DION (obstructive sleep apnea) (Chronic) BiPAP 21/15 cm of water Benign essential hypertension (Chronic) Chronic obstructive lung disease (Chronic) FEV1 68% of predicted History of DVT of lower extremity (Chronic) GERD (gastroesophageal reflux disease) (Chronic) Hyperlipidemia (Chronic) History of pulmonary embolism (Chronic) Tobacco user (Chronic) Lung nodule (Chronic) Hospital Course and Treatment Imaging Results: US/Venous Duplex Imag/Limited/Uni IMPRESSION: Normal venous Doppler ultrasound of the lower extremity. CT/CTA Chest W/WO Contrast IMPRESSION: Evidence of low-density filling defect within branches leading to the left lower lobe consistent with PE. Findings called to patient''s nurse. No superimposed infiltrate or effusion, chronic interstitial changes noted in both lung astorga with evidence of chronic bronchitis and dependent atelectasis. 5 mm noncalcified pleural-based nodule in the right lower lobe unchanged from 2017. No specific follow-up needed Degenerative bony changes Calcified coronary vessels Hiatal hernia Consults: Gen Surgery - [facility] - Fascione Operations: None Procedures: None Summary of Care Provided: Hospital course: The patient is a 74 year old F with past medical history notable for history of DVT, history of breast cancer reportedly in remission after undergoing chemotherapy in September of this year, recent lumpectomy with axillary lymph node dissection with Dr. Vega earlier this week, ongoing nicotine abuse, who presented to the emergency room with complaints of redness of the right leg. She had inflammation of the right leg distally not including the foot, marked erythema, marked warmth. She does not have significant fever or leukocytosis. Venous ultrasound was negative for DVT. The patient was felt to have had acute cellulitis and was placed on Ancef intravenous and admitted to the general medical floor. The following day her cellulitis had already started to improve significantly. Her surgeon was consulted to take a look at her PREMA drain from her lumpectomy. The patient had been on oxygen since surgery and there was concern for underlying pulmonary issue. CTA of the chest was obtained and did demonstrate that she had left lower lobe pulmonary embolus. She was started on therapeutic Lovenox. Area of cellulitis resolved. She was transitioned to oral Keflex. Therapeutic Lovenox injections were sent for her, 1.5 mg/kg per day. She has done this before at home when she has had prior clots. She was discharged home in stable condition and will need follow-up with general surgery as directed, her PCP in 1 to 2 weeks, oncology as directed. She had some chronic bilateral feet changes possible fungal changes, possibly contributing to development of cellulitis, so referral was made to podiatry who evaluated the patient while she was here and recommended compression, Lac-Hydrin, and follow- up as an outpatient. This patient was seen by Lanre Castorena PA-C under the supervision of Doctor Treviño. [] - Physical Exam Vitals/I&O's: Vital Signs Temp Pulse Resp BP Pulse Ox 98.0 F 70 18 139/64 H 96 11/03/19 12:41 11/03/19 12:41 11/03/19 12:41 11/03/19 12:41 11/03/19 12:41 Oxygen Flow Rate (L/min) 2 Oxygen Delivery Method Nasal Cannula Weight: 232 lb 9.403 oz Body Mass Index (BMI) 41.2 Intake and Output for Last 24 Hours 11/01/19 11/02/19 11/03/19 23:59 23:59 23:59 Intake Total 50 / 50 1400 / 1400 950 / 950 Output Total 72 / 72 40 / 40 Balance 50 / 50 1328 / 1328 910 / 910 General: Alert, Oriented x3, Cooperative HEENT: Atraumatic, PERRLA, EOMI, Normocephalic Neck: Supple, No JVD, Negative Carotid Bruits Lungs: Clear to auscultation, Normal air movement Cardiovascular: Regular rate, No murmurs Abdomen: Bowel Sounds Present, Soft, Non Tender Extremities: No edema, Capillary Refill Less than 3 Seconds Skin: No rashes, No breakdown Musculoskeletal: No Tenderness to Palpation of Joints or Extremities Neurological: Cranial nerves II-XII grossly intact Psych/Mental Status: Normal Affect, Appropriate, Alert and oriented to time, place, person, mood and affect Laboratory Results 11/03/19 06:22: Sodium 141, Potassium 3.5, Chloride 108 H, Carbon Dioxide 30.0, Anion Gap 3 L, BUN 14, Creatinine 0.57, Estim Creat Clear Calc 42.07, Est GFR (MDRD) Af Amer 135, Est GFR (MDRD) Non-Af 111, BUN/Creatinine Ratio 24.6 H, Glucose 85, Calcium 8.3 L, Total Bilirubin 0.40, AST 8 L, ALT 13, Alkaline Phosphatase 52, Total Protein 6.0 L, Albumin 3.0 L, Globulin 3.0, Albumin/Globulin Ratio 1.0 Current Medications Acetaminophen (Tylenol) 650 mg PO Q6H PRN PRN PRN Reason: Pain Score 1-10/Temp > 100.7 F Al Hydroxide/Mg Hydroxide (Mylanta Ii) 30 ml PO Q6H PRN PRN PRN Reason: Gastric Burning Albuterol Sulfate (Ventolin Aerosols) 2.5 mg INHALATION Q2H PRN PRN PRN Reason: Shortness of Breath/Wheezing Albuterol/Ipratropium (Duoneb) 3 ml INHALATION Q6HWA.RT [facility] Last Admin: 11/03/19 07:20 Dose: 3 ml Documented by: Budesonide (Pulmicort Aerosol) 0.5 mg INHALATION Q12H.RT [facility] Last Admin: 11/03/19 07:20 Dose: 0.5 mg Documented by: Citalopram Hydrobromide (Celexa) 10 mg PO DAILY [facility] Last Admin: 11/03/19 10:12 Dose: 10 mg Documented by: Dextrose (D50w Syringe) 0 gm IV X1 PRN; Protocol PRN Reason: Hypoglycemia Enoxaparin Sodium (Lovenox) 100 mg SC Q12 [facility] Last Admin: 11/03/19 10:13 Dose: 100 mg Documented by: Fluticasone Propionate (Flonase Nasal [place]) 2 spray NASAL DAILY PRN PRN PRN Reason: NASAL CONGESTION Furosemide (Lasix) 20 mg PO DAILY [facility] Last Admin: 11/03/19 10:12 Dose: 20 mg Documented by: Gabapentin (Neurontin) 300 mg PO DAILY [facility] Last Admin: 11/03/19 10:12 Dose: 300 mg Documented by: Gabapentin (Neurontin) 600 mg PO QHS [facility] Last Admin: 11/02/19 22:34 Dose: 600 mg Documented by: Glucagon () 1 mg IM .X1 PRN PRN Reason: Hypoglycemia Heparin Sodium (Beef Lung) () 50 units IV UD PRN PRN Reason: Port-a-Cath (VAD)Heparin Flush Last Admin: 11/03/19 11:23 Dose: 50 units Documented by: Sodium Chloride () 250 mls @ 15 mls/hr IV .[id number] PRN PRN Reason: Saline Flush Cefazolin Sodium () 1 gm in 50 mls @ 100 mls/hr IV Q8 [facility] Last Infusion: 11/03/19 06:48 Dose: Infused Documented by: Lactic Acid (Lac-Hydrin, Amlactin) 1 applic TOPICAL BID [facility]; Protocol Last Admin: 11/03/19 10:12 Dose: 1 applicatio Documented by: Lidocaine/Prilocaine (Emla Cream W/Tegaderm) 1 gm TOPICAL DAILY PRN PRN; Protocol PRN Reason: with port access procedure Nicotine (Nicoderm Cq (Pbkc)) 21 mg TRANSDERM. DAILY [facility] Last Admin: 11/03/19 10:14 Dose: 21 mg Documented by: Ondansetron HCl (Zofran) 4 mg IV Q8H PRN PRN PRN Reason: NAUSEA/VOMITING Oxycodone HCl (Oxyir) 5 mg PO Q6H PRN PRN PRN Reason: PAIN 1-10/10 Pantoprazole Sodium (Protonix) 40 mg PO DAILY [facility] Last Admin: 11/03/19 10:11 Dose: 40 mg Documented by: Prochlorperazine Maleate (Compazine Tablet) 10 mg PO Q6H PRN PRN PRN Reason: NAUSEA Sodium Chloride () 10 - 40 ml IV UD PRN PRN Reason: SALINE FLUSH Sodium Chloride () 10 - 40 ml IV UD PRN PRN Reason: Port-a-Cath (VAD) Flush Last Admin: 11/03/19 11:24 Dose: 10 ml Documented by: Sodium Chloride (0.9% Nacl (Sterile) Posiflush) 10 - 40 ml IV UD PRN PRN Reason: Port access or dressing change Trazodone HCl (Desyrel) 200 mg PO QHS [facility] Last Admin: 11/02/19 22:33 Dose: 200 mg Documented by: Discharge Diet: Low fat/ Low Cholesterol, 2000 mg Sodium Diet Discharge Activity: Return to Normal Activity Weight Bearing Status: Full weight bearing Keep extremity elevated above heart level: Right Leg Call your doctor if your incision/area has: Increased Pain/ Swelling, Increased Redness, Foul Smelling Discharge Call your doctor if you observe: Fever of 101 or Higher, Calf discomfort, Uncontrolled pain Cleanse incision/area with: - - reapply compression ryan wrap daily Home Medications: Medications to take at Discharge Citalopram [Celexa] 10 mg PO DAILY 06/27/14 Omeprazole [Prilosec] 40 mg PO DAILY 06/27/14 traZODone [Desyrel] 200 mg PO QHS 06/27/14 Furosemide [Lasix] 20 mg PO DAILY #30 tab 07/11/14 Gabapentin 300 mg PO DAILY 07/13/16 Gabapentin [Neurontin] 600 mg PO QHS 07/13/16 tiotropium bromide 18 mcg capsule with inhalation device 1 cap INHALATION DAILY #90 inh 06/20/19 Albuterol Sulfate [Albuterol Sulfate Hfa] 2 puff INHALATION Q4H PRN 07/05/19 Fluticasone Furoate [Flonase Sensimist] 2 spray INTRANASAL DAILY PRN 07/05/19 Fluticasone Propion/Salmeterol [Wixela 500-50 Inhub] 1 ea IH DAILY 07/18/19 Dexamethasone [Decadron] 8 mg PO BID 21 Days #12 tab 07/23/19 Lidocaine/Prilocaine [Lidocaine-Prilocaine Cream] 1 applicatio TP DAILY PRN PRN 30 Days #1 tube 07/23/19 Ondansetron [Zofran] 8 mg PO Q8H PRN PRN 10 Days #30 tab 07/23/19 Prochlorperazine Maleate 10 mg PO Q6H PRN PRN 10 Days #30 tab 07/23/19 Oxycodone HCl/Acetaminophen [Percocet 5-325] 1 tab PO Q6H PRN PRN 3 Days #7 tab 10/30/19 Enoxaparin [Lovenox] 150 mg SUBCUT DAILY 30 Days #30 syringe 11/02/19 Acetaminophen [Tylenol Tablet] 650 mg PO Q6H PRN PRN tab 11/03/19 Cephalexin [Keflex] 500 mg PO TID #17 cap 11/03/19 Following Prescrptions Were Given to Patient: Cephalexin [Keflex] 500 mg PO TID #17 cap Transmission Status: Received by [facility] Enoxaparin [Lovenox] 150 mg SUBCUT DAILY 30 Days #30 syringe Transmission Status: Received by [employer] Primary Care Physician: Tigist Pelaez DO [Primary Care Provider] - Please follow up with your Primary Care Physician in: 1-2 weeks Please Follow Up With: Ruby De Jesus DPM When: [facility] w/in 2 weeks. Call [phone]. Please Follow Up With: Chioma Vega MD When: as directed Please Follow Up With: Js Pitts MD When: as directed Disposition: Home Minutes spent on discharge:: 35 Patient Condition:: Stable Medical Necessity - Tobacco Use Smoking Status: Current every day smoker Tobacco Use: Cigarettes Meaningful Use Info Meaningful Use Diagnoses (Choose all that apply): VTE - VTE Anticoag overlap given w/in hospital stay or rx'd at mt?: No Pt receive overlap for 5 days?: No Reason overlap not ordered, prescribed, or given for 5 days: Procedure Not Indicated <[place] - Last Filed: 11/03/19 15:43> Discharge Date and Diagnosis - Secondary Discharge Diagnosis Chronic Problems: Chronic Problems (Last Reviewed 11/02/19 @ 01:[address] Js Shelton MD) Breast cancer, right (Chronic) Hx of colonoscopy (Chronic) 2018 History of bilateral knee replacement (Chronic) 1995 Smoking greater than 40 pack years (Chronic) COPD with asthma (Chronic) Pulmonary hypertension (Chronic) RVSP 31 mmHg DION (obstructive sleep apnea) (Chronic) BiPAP 21/15 cm of water Benign essential hypertension (Chronic) Chronic obstructive lung disease (Chronic) FEV1 68% of predicted History of DVT of lower extremity (Chronic) GERD (gastroesophageal reflux disease) (Chronic) Hyperlipidemia (Chronic) History of pulmonary embolism (Chronic) Tobacco user (Chronic) Lung nodule (Chronic) Hospital Course and Treatment Summary of Care Provided: This patient was seen in conjunction with NAOMI Melton. I have independently interviewed and examined the patient and reviewed pertinent historical, laboratory, and other data. Please refer to NAOMI Melton note for his patient's presentation, findings, and recommendations. I have reviewed and his note and concur with his documentation 74-year-old female with past medical history of DVT/PE, history of breast cancer status post chemotherapy in September this year, status post recent lumpectomy with axillary lymph node dissection, nicotine dependence who presented with redness swelling of her right lower leg. Flow ultrasound of the lower extremity in the ED was negative for acute DVT. Patient was felt to have clinical cellulitis and was started on IV cefazolin. Her cellulitis appears to have improved the next day. Neurosurgery were consulted on her PREMA drain. Extra history from patient's [id number] showed the patient had been on oxygen since surgery and was concerning for possible PE. CT of the chest showed acute PE. Patient was started on therapeutic Lovenox. This was continued. Patient follows up with oncology and would possibly be transitioned to Eliquis by oncology in the outpatient. She was also seen by podiatry for chronic bilateral onychomycosis and c ompression as well as Lac-Hydrin to the skin recommended. She will follow-up with a general surgeon in the outpatient for possible drain removal. On the day of discharge, patient was seen and examined. She denied any pain. She will be followed by the oncology team in the outpatient Physical Exam: Gen: Comfortable, obese, not pale, not jaundiced CVS:HS I +II, regular, no murmurs RESP: Diminished at lung bases, PREMA drain had serous fluid GI: BS present and normal, soft, nontender, no palpable organs EXT: Pedal edema +2, erythema of the right lower extremity, improved - Physical Exam Vitals/I&O's: Vital Signs Temp Pulse Resp BP Pulse Ox 98.0 F 70 18 139/64 H 96 11/03/19 12:41 11/03/19 12:41 11/03/19 12:41 11/03/19 12:41 11/03/19 12:41 Oxygen Flow Rate (L/min) 2 Oxygen Delivery Method Nasal Cannula Weight: 105.5 kg Body Mass Index (BMI) 41.2 Intake and Output for Last 24 Hours 11/01/19 11/02/19 11/03/19 23:59 23:59 23:59 Intake Total 50 / 50 1400 / 1400 950 / 950 Output Total 72 / 72 40 / 40 Balance 50 / 50 1328 / 1328 910 / 910 Laboratory Results 11/03/19 06:22: Sodium 141, Potassium 3.5, Chloride 108 H, Carbon Dioxide 30.0, Anion Gap 3 L, BUN 14, Creatinine 0.57, Estim Creat Clear Calc 42.07, Est GFR (MDRD) Af Amer 135, Est GFR (MDRD) Non-Af 111, BUN/Creatinine Ratio 24.6 H, Glucose 85, Calcium 8.3 L, Total Bilirubin 0.40, AST 8 L, ALT 13, Alkaline Phosphatase 52, Total Protein 6.0 L, Albumin 3.0 L, Globulin 3.0, Albumin/Globulin Ratio 1.0 Inpatient E&M: [id number] Disch Hosp
--- NOTE | 2019-11-05 13:37 | CASEMGMT ---
EDGARD OLIVAREZ DC PHONE CALL DC DATE: 11/03/2019 DC DISPOSITION: Home DC DIAGNOSIS: DVT/PE LACE/STRATA: 01/11 F/U APPTS MADE PRIOR TO DC: no, weekend discharge PRESCRIPTIONS ACQUIRED BY PT: yes Intro role of CM to patient via phone. Patient states she has no questions re: instructions, medications or f/u. Patient will make appointments for f/up. Patient states she was able fill Lovenox prescriptions and no questions. No care improvement suggestions were given. Sydni ZUNIGA RN ACM
== END 2019-11-03 12:30 | disposition home or self-care (01) | DRG 579 ==
LOC: ED 19:20 → MS3 11-02 03:17
PROVIDERS: Admitting Provider Hospitalist; Emergency Provider Emergency Medicine; PCP Family Medicine; Visit Provider Internal Medicine
DX: C50.811 Malignant neoplasm of overlapping sites of right female breast (principal); I26.99 Other pulmonary embolism without acute cor pulmonale; L03.115 Cellulitis of right lower limb; C77.3 Secondary and unspecified malignant neoplasm of axilla and upper limb lymph nodes; G47.33 Obstructive sleep apnea (adult) (pediatric); J44.9 Chronic obstructive pulmonary disease, unspecified; F17.210 Nicotine dependence, cigarettes, uncomplicated; Z99.81 Dependence on supplemental oxygen; Z17.1 Estrogen receptor negative status [ER-]; I27.20 Pulmonary hypertension, unspecified; I10 Essential (primary) hypertension; K21.9 Gastro-esophageal reflux disease without esophagitis; E78.5 Hyperlipidemia, unspecified; Z86.711 Personal history of pulmonary embolism; Z86.718 Personal history of other venous thrombosis and embolism; Z79.51 Long term (current) use of inhaled steroids; Z79.899 Other long term (current) drug therapy; K44.9 Diaphragmatic hernia without obstruction or gangrene; Z11.59 Encounter for screening for other viral diseases; F41.9 Anxiety disorder, unspecified; F32.9 Major depressive disorder, single episode, unspecified; B35.1 Tinea unguium; L85.3 Xerosis cutis
CPT/HCPCS: 36415; 71275; 76098; 80048; 80053; 80076; 85025; 87040; 87635; 88305; 88307; 93005; 93971; 94002; 94003; 94640; 94799; 96360; 96361; 99218; 99251; 99284; 99406; J7040; J7120; Q9967; A4216; G0378; G0379; G0463; U0003

== ENCOUNTER → 2019-11-13 13:03 | Outpatient (CLI) | payer MEDICARE, OTHER, SELFPAY ==
[2019-06-20 10:13] VITALS: BMI 40.1
[2019-11-01 23:20] VITALS: BMI 41.2
--- NOTE | 2019-11-13 14:57 | PFTCOMP ---
COMPLETE PULMONARY FUNCTION TEST INTERPRETATION Brief HPI: Patient is a 74 year old female, currently under the care of myself, who presents to [facility] for complete pulmonary function tests secondary to diagnosis of COPD. Respiratory therapist reports good effort and reproducible results. Interpretation: Forced expiration spirometry shows a severe large airways obstructive ventilatory defect with an FEV1 of 49% predicted. There is no significant bronchodilator response by strict ATS criteria. Spirograms are of good quality and plateau slowly, indicating slowly emptying areas of the lungs. The respiratory flow volume loop shows decreased expiratory flow rates at all lung volumes consistent with airway obstruction. Lung volumes by body plethysmography show an elevated total lung capacity at 5.38 L, 117% predicted. FRC and RV are elevated out of proportion. Lung volume measurements are consistent with hyperinflation and air-trapping. Diffusion capacity by carbon monoxide is decreased at 35% predicted. The airway resistance is elevated. Compared to previous pulmonary function tests from 12/12/2018, there is been a significant reduction in FVC, FEV1 and DLCO by 16%, 17% and 32% respectively. Impression: Irreversible severe large airways obstructive ventilatory defect with a symmetric reduction diffusing capacity, resulting in air trapping with hyperinflation, and worsening compared to 2019.
== END ==
PROVIDERS: PCP Family Medicine; Referring Provider Nurse Practitioner Acute Care; Visit Provider Nurse Practitioner Acute Care
DX: J44.9 Chronic obstructive pulmonary disease, unspecified (principal)
CPT/HCPCS: 94060; 94726; 94729

== ENCOUNTER → 2019-11-19 11:04 | Outpatient (CLI) | payer MEDICARE, OTHER, SELFPAY ==
[2019-06-20 10:13] VITALS: BMI 40.1
[2019-11-01 23:20] VITALS: BMI 41.2
[2019-11-19 11:44] VITALS: PULSE 70; PULSE 75; PULSE 78; PULSE 84; PULSE 85; PULSE 87; PULSE 89; O2SAT 87; O2SAT 93; O2SAT 94; O2SAT 95
--- NOTE | 2019-11-19 11:47 | CPS ---
PATIENT HAS OXYGEN AT HOME THROUGH [facility] ALREADY. SHE WAS ON ROOM AIR 10 MINUTES PRIOR TO ASSESSMENT. AT REST PRIOR TO TESTING, SPO2 87% RA, WALK BEGAN ON 2LPM WITH SPO2 MAINTAINING ABOVE 88% FOR DURATION OF TESTING. PT PUSHED WHEELCHAIR FOR STABILITY SHE USUALLY WALKS WITH A CANE.
--- NOTE | 2019-11-20 14:52 | WT_ITS ---
PSN 6 Minute Walk Test - 6 Minute Walk Test 6 Minute Walk Test: 6 Minute Walk Test PSN:6-Minute Walk Test Start: 11/19/19 11:44 Freq: Status: Active Protocol: [id number].6MINW Document 11/19/19 11:44 [facility] (Rec: 11/19/19 11:51 [facility] [id number]) 6 Minute Walk Test Date Performed 11/19/19 Time Performed 11:00 Height 5 ft 3 in Weight: 224 lb Weight in Pounds 224.[address]: Laura Slaughter Pre-test Oxygen Delivery Method Room Air Pulse Ox (%) 87 Pulse Rate (60-100 beats/min) 70 Dyspnea Cj Scale (0-10) 3 Reported Symptoms Increased Work of Breathing 1st minute Oxygen Flow Rate (L/min) (L/min) 2 Oxygen Delivery Method Nasal Cannula Pulse Ox (%) 94 Pulse Rate (60-100 beats/min) 78 Dyspnea Cj Scale (0-10) 3 Number of Rests Taken 0 Reported Symptoms Increased Work of Breathing 2nd minute Oxygen Flow Rate (L/min) (L/min) 2 Oxygen Delivery Method Nasal Cannula Pulse Ox (%) 93 Pulse Rate (60-100 beats/min) 84 Dyspnea Cj Scale (0-10) 3 Number of Rests Taken 0 Reported Symptoms Increased Work of Breathing 3rd minute Oxygen Flow Rate (L/min) (L/min) 2 Oxygen Delivery Method Nasal Cannula Pulse Ox (%) 94 Pulse Rate (60-100 beats/min) 84 Dyspnea Cj Scale (0-10) 3 Number of Rests Taken 0 Reported Symptoms Increased Work of Breathing 4th minute Oxygen Flow Rate (L/min) (L/min) 2 Oxygen Delivery Method Nasal Cannula Pulse Ox (%) 93 Pulse Rate (60-100 beats/min) 87 Dyspnea Cj Scale (0-10) 3 Number of Rests Taken 0 Reported Symptoms Increased Work of Breathing 5th minute Oxygen Flow Rate (L/min) (L/min) 2 Oxygen Delivery Method Nasal Cannula Pulse Ox (%) 94 Pulse Rate (60-100 beats/min) 85 Dyspnea Cj Scale (0-10) 4 Number of Rests Taken 0 Reported Symptoms Increased Work of Breathing 6th minute Oxygen Flow Rate (L/min) (L/min) 2 Oxygen Delivery Method Nasal Cannula Pulse Ox (%) 94 Pulse Rate (60-100 beats/min) 89 Dyspnea Cj Scale (0-10) 4 Number of Rests Taken 0 Reported Symptoms Increased Work of Breathing Post-test Oxygen Flow Rate (L/min) (L/min) 2 Oxygen Delivery Method Nasal Cannula Pulse Ox (%) 95 Pulse Rate (60-100 beats/min) 75 Dyspnea Cj Scale (0-10) 3 Reported Symptoms Increased Work of Breathing Full Laps Walked 7 Partial Lap, Number of Tiles Walked 35 Total Distance Walked (ft) 448 11/19/19 11:47 Cardiopulmonary Services by Paige Olivas PATIENT HAS OXYGEN AT HOME THROUGH [employer] ALREADY. SHE WAS ON ROOM AIR 10 MINUTES PRIOR TO ASSESSMENT. AT REST PRIOR TO TESTING, SPO2 87% RA, WALK BEGAN ON 2LPM WITH SPO2 MAINTAINING ABOVE 88% FOR DURATION OF TESTING. PT PUSHED WHEELCHAIR FOR STABILITY SHE USUALLY WALKS WITH A CANE. Initialized on 11/19/19 11:47 - END OF NOTE - Interpretation Interpretation: The patient ambulated 448 feet over the course of 6 minutes with the use of a push wheelchair. Pretesting oxygen saturation was noted to be 87% on room air. Therefore, the walk was completed on 2 L/min. With ambulation, the yelena oxygen saturation was 93% with exertion. - Recommendations Recommendations: 2 L/min of supplemental oxygen should be utilized both at rest and with exertion.
== END ==
PROVIDERS: PCP Family Medicine; Referring Provider Nurse Practitioner Acute Care; Visit Provider Nurse Practitioner Acute Care
DX: J44.9 Chronic obstructive pulmonary disease, unspecified (principal)
CPT/HCPCS: 94618

== ENCOUNTER → 2020-07-31 09:25 | Outpatient (CLI) | payer MEDICARE, OTHER, SELFPAY ==
[2020-04-24 11:49] VITALS: BMI 41.2
[2020-07-02 09:48] VITALS: BMI 41.7
--- NOTE | 2020-07-31 09:54 | BI_ITS ---
MAMMOGRAPHY - BILATERAL DIAGNOSTIC REASON FOR EXAM: Female, 74 years old. Prior right lumpectomy with chemotherapy and radiation therapy. PERTINENT HISTORY: Personal history of breast cancer. Sisters with breast cancer. TECHNIQUE: Digital bilateral breast deni (3D mammographic acquisition) in the CC and MLO projections. 2-D mediolateral oblique (MLO) and craniocaudad (CC) views of both breasts were obtained. CAD: Full Field Digital Mammography with Computer Added Detection was performed. COMPARISON: Comparison is made with prior study dated 06/28/2019 and 02/24/2017. FINDINGS: Breast Composition: The breasts are heterogeneously dense, which may obscure small masses. Since prior study, the patient underwent right lumpectomy with resection of the nodular density in the upper central portion of the right breast. Surgical clips are also seen in the right axillary region with resection of the right axillary lymph nodes. The previously seen nodular density in the slightly upper lateral portion of the left breast as decrease in size. It presently measures 1.8 cm x 1.5 cm. This was demonstrated to be a cyst on multiple prior examinations. A port is seen in the left axillary region. No other significant abnormalities are identified. BI/DIAG MAMM W/CAD, BILAT IMPRESSION: Prior right lumpectomy and right axillary node resection. Postoperative changes are seen. Interval decrease in size of the left breast nodule. One year follow-up recommended. (A) ASSESSMENT CATEGORY: BIRADS Category 2: Benign. A letter regarding these results will be sent to the patient by the facility within 30 days. Approximately 10% of breast cancers are not detected by mammography. A normal mammogram should not delay biopsy of a clinically suspicious abnormality. Electronically Signed: Juanjo Nieves MD at 11:03 EDT , Service support ,
== END ==
PROVIDERS: PCP Family Medicine; Referring Provider Student in an Organized Health Care Education/Training Program; Visit Provider Student in an Organized Health Care Education/Training Program
DX: Z85.3 Personal history of malignant neoplasm of breast (principal)
CPT/HCPCS: 77062; 77066; G0279

== ENCOUNTER → 2020-08-27 13:05 | Outpatient (CLI) | payer MEDICARE, OTHER, SELFPAY ==
[2020-08-14 10:20] VITALS: BMI 41.1
== END ==
PROVIDERS: PCP Family Medicine; Visit Provider Nurse Practitioner Acute Care
DX: Z46.89 Encounter for fitting and adjustment of other specified devices (principal)

== ENCOUNTER → 2020-10-01 09:49 | Outpatient (CLI) | payer MEDICARE, OTHER, SELFPAY ==
[2020-10-01 07:35] VITALS: BMI 41.3
[2020-10-01 10:14] LABS: Hemoglobin 14.3 g/dL (12.0-15.0); Mean Corp Hgb Conc 32.5 g/dL (32-36); Mean Corpuscular Hgb 34.3 pg (27.0-32.0); Mean Corpuscular Volume 105.5 fL (81-99); Mean Platelet Vol. 10.7 fl (6.2-12.0); Platelet Count 277 K/mm3 (150-450); RBC Distribution Width CV 12.2 % (11.6-14.6); Red Blood Count 4.17 M/mm3 (4.2-5.4); White Blood Count 6.1 K/mm3 (4.4-11.0)
[2020-10-01 10:31] LABS: Ferritin 45 ng/mL (8-252); Iron 101 ug/dL (50-170); Iron Binding Capacity,Total 338 ug/dL (250-450); PERCENT IRON SATURATION 29.9 % (15.0-55.0)
== END ==
PROVIDERS: PCP Family Medicine; Referring Provider Nurse Practitioner Acute Care; Visit Provider Nurse Practitioner Acute Care
DX: G25.81 Restless legs syndrome (principal); J44.0 Chronic obstructive pulmonary disease with (acute) lower respiratory infection; Z98.890 Other specified postprocedural states
CPT/HCPCS: 36415; 82728; 83540; 83550; 85027

== ENCOUNTER → 2020-12-01 12:39 | Outpatient (CLI) | payer MEDICARE, OTHER, SELFPAY ==
[2020-10-01 07:35] VITALS: BMI 41.3
--- NOTE | 2020-12-02 11:41 | PFT ---
INTRODUCTION: The patient is a 75-year-old female that presents for pulmonary function studies secondary to a diagnosis of COPD. Respiratory therapy reported good patient effort. Bronchodilators were used during testing. INTERPRETATION: Forced expiration spirometry demonstrates the presence of a severe large airways obstructive ventilatory defect. There was no significant response to aerosolized bronchodilators. Spirograms are of good quality but do not plateau indicating slow emptying of the lungs. Body plethysmography was performed and revealed an elevated RV to 172% of predicted, indicative of underlying air trapping. Diffusing capacity by single breath CO is reduced at 42% of predicted. IMPRESSION: Irreversible severe large airways obstructive ventilatory defect with associated air trapping and symmetric reduction in diffusing capacity.
== END ==
PROVIDERS: PCP Family Medicine; Referring Provider Nurse Practitioner Acute Care; Visit Provider Nurse Practitioner Acute Care
DX: J44.0 Chronic obstructive pulmonary disease with (acute) lower respiratory infection (principal)
CPT/HCPCS: 94060; 94726; 94729

== ENCOUNTER 2020-12-07 10:54 | Emergency (ER) | payer MEDICARE, OTHER, SELFPAY ==
[2020-12-07 11:03] VITALS: BP 150/54; PULSE 92; RESP 24; TEMP 37.3; O2SAT 95; BMI 40.6
[2020-12-07 11:07] VITALS: O2SAT 95
--- NOTE | 2020-12-07 11:24 | RAD_ITS ---
STUDY: X-RAY CHEST REASON FOR EXAM: Female, 75 years old. chest pain TECHNIQUE: Single AP portable view of the chest. COMPARISON: CTA chest 11/02/2019 FINDINGS: Cardiac monitoring leads are present. Left-sided Port-A-Cath is present with its tip in the region of the superior aspect of the superior vena cava. The lungs are clear and expanded. There is no demonstrated pleural abnormality. Top normal heart size. Normal mediastinum and angie. Normal visualized pulmonary arteries. Normal visualized aortic arch and descending thoracic aorta. There are diffuse degenerative changes of the visualized thoracic spine. Normal visualized ribs, clavicles, and shoulders. Surgical clips in the right axilla noted. There is no demonstrated abnormality of the visualized soft tissue structures of the upper abdomen. RAD/Chest 1 View (Portable) IMPRESSION: Normal x-ray examination of the chest. Electronically Signed: Lashell Leon MD at 12:07 EDT , Service support ,
--- NOTE | 2020-12-07 11:24 | EKG12_ITS ---
Test Reason : SOB Blood Pressure : / mmHG Vent. Rate : 083 BPM Atrial Rate : 083 BPM P-R Int : 122 ms QRS Dur : 084 ms QT Int : 360 ms P-R-T Axes : 065 050 051 degrees QTc Int : 423 ms Normal sinus rhythm Normal ECG Confirmed by SOULEYMANE PATTON, LYNN ([id number]), publications editor TELMA FOLEY ([id number]) on 12/09/2020 8:34:45 AM Referred By: FIFI Confirmed By:LYNN COMER MD
--- NOTE | 2020-12-07 11:25 | EDS_ITS ---
HPI History of Present Illness Chief Complaint: Shortness of Breath Narrative Narrative: 75-year-old female presenting with worsening dyspnea. She states that she does have some chronic dyspnea that has worsened over the last couple of days. She reports productive cough with sputum. Her highest temperature is 99 at home. She denies any chest pain. Breath even with deep inspiration. She states that she is walking shorter distances and estimates this to be about 5 feet. Patient states she is normally active and able to go outside and walk the dog. She states she wears 2 L of oxygen at night normally and is requiring 4 L currently during the day. Patient does state that she supposed to be on Lasix but forgets to take this. She states she cannot recall when she last took this. Patient also states she has no history of heart failure. Patient does have a history of provoked DVT secondary to knee scope which she states was at 96. She states she also had a repeat DVT and he was most more recently. She denies history of pulmonary embolism started. She is currently not on any anticoagulation. Patient states she has a history of breast cancer which is in remission. She is not currently on chemotherapy or radiation therapy. Carotid patient states about a month ago she was treated for COPD exacerbation with prednisone and she believes doxycycline. She is continued to have a cough throughout the month which again has worsened over the last 2 days. PFSH PFSH Medical History Acute respiratory failure with hypoxia and hypercarbia Benign essential hypertension Candidiasis of mouth Chronic obstructive lung disease COPD with asthma DVT (deep venous thrombosis) GERD (gastroesophageal reflux disease) History of DVT of lower extremity History of pulmonary embolism History of pulmonary embolism Hyperlipidemia Lung nodule DION (obstructive sleep apnea) Pulmonary hypertension Smoking greater than 40 pack years Stroke behind eye Tobacco user Home Medications citalopram 10 mg PO DAILY 06/27/14 [History Last Taken 07/13/16] omeprazole 40 mg PO DAILY 06/27/14 [History Last Taken 10/29/19 04:30] trazodone 200 mg PO QHS 06/27/14 [History Last Taken 07/12/16] furosemide 20 mg PO DAILY #30 tab 07/11/14 [Rx Last Taken 07/13/16] gabapentin 600 mg PO QHS 07/13/16 [History Last Taken 07/12/16] albuterol sulfate 2 puff INHALATION Q4H PRN 07/05/19 [History Last Taken Unknown] fluticasone furoate 2 spray INTRANASAL DAILY PRN 07/05/19 [History Last Taken Unknown] lidocaine-prilocaine 1 applicatio TP DAILY PRN PRN 30 Days #1 tube 07/23/19 [Rx Last Taken Unknown] acetaminophen 650 mg PO Q6H PRN PRN tab 11/03/19 [Rx Last Taken Unknown] gabapentin 300 mg PO DAILY 02/20/20 [History Last Taken Unknown] tiotropium bromide 18 mcg capsule with inhalation device 1 cap INHALATION DAILY #90 inh 07/02/20 [Rx Last Taken Unknown] fluticasone 500 mcg-salmeterol 50 mcg/dose blistr powdr for inhalation 1 inh INHALATION DAILY #60 ea 10/09/20 [Rx Last Taken Unknown] doxycycline hyclate 100 mg tablet 100 mg PO BID #20 tab 10/22/20 [Rx Last Taken Unknown] prednisone 10 mg tablet 10 mg PO QDAY #30 tab 10/22/20 [Rx Last Taken Unknown] Allergy/AdvReac Type Severity Reaction Status Date / Time Fish Containing Products AdvReac Mild Abd Verified 12/07/20 11:11 cramps/diarrhea Family History Sister Skin cancer Diabetes Breast cancer Lung cancer Mother Diabetes CVA (cerebral vascular accident) Father Heart disease CVA (cerebral vascular accident) Brother Diabetes Sister Breast cancer Surgical History History of bilateral knee replacement History of breast biopsy Hx of colonoscopy Status post right breast lumpectomy Social History Smoking Status: Current every day smoker tobacco type: cigarettes second hand exposure: Yes alcohol intake: current alcohol intake frequency: holidays/special occasions only substance use type: does not use caffeine: Yes what type of physical activity do you participate in: none frequency: does not exercise ROS ROS ED Constitutional Constitutional ED: Denies chills, fever(s) or sweats Eyes Eyes: Denies blurry vision or diplopia ENT ENT ED: Denies rhinorrhea or sore throat Cardiovascular Cardiovascular: Denies chest pain or palpitations Respiratory/Chest Respiratory/Chest: Reports cough, dyspnea and dyspnea on exertion Gastrointestinal Gastrointestinal: Denies abdominal pain, nausea or vomiting Genitourinary Genitourinary ED: Denies dysuria or hematuria Musculoskeletal Musculoskeletal: Denies arthralgias or myalgias Integumentary Denies Abrasions or rash Neurologic Neurologic: Denies headache(s) or paresthesias Psychiatric Psychiatric: Denies anxiety or depression EXAM Physical Exam Const Vital Signs: 12/07/20 11:03 12/07/20 11:07 12/07/20 11:27 Temperature 99.2 F H 99.2 F H Temperature Source Oral Oral Pulse Rate 92 92 Respiratory Rate 24 H 24 H Respiratory Effort Short of Breath Blood Pressure 150/54 H 150/54 H Blood Pressure Mean 86 86 Pulse Ox 95 95 95 Oxygen Delivery Method Nasal Cannula Nasal Cannula Nasal Cannula Oxygen Flow Rate (L/min) 3 3 3 12/07/20 12:19 12/07/20 13:00 Temperature 98.9 F 99 F Temperature Source Oral Temporal Pulse Rate 77 77 Respiratory Rate 27 H 20 H Respiratory Effort Blood Pressure 130/63 H 147/47 H Blood Pressure Mean 85 80 Pulse Ox 95 97 Oxygen Delivery Method Room Air Room Air Oxygen Flow Rate (L/min) 3 Positive well nourished General Appearance ED: NAD; Negative for pallor HEENT Reports moist mucous membranes atraumatic Eyes PERRL and EOMs intact bilaterally Resp normal respiratory effort and clear to auscultation bilaterally Cardio regular rate and regular rhythm Extremity normal to inspection General Extremety ED: Negative for edema or tenderness General Extremity: Negative for edema Neuro oriented x3 and CN's II-XII intact bilaterally Sensorium / Orientation: alert Motor Exam: strength 5/5 throughout Psych mental status grossly normal Thought Process: normal thought process Skin General Skin Exam: Negative for jaundice or pallor Lesions: no lesions Rashes: no rashes MDM MDM MDM Narrative Medical decision making narrative: 75-year-old female with history of COPD, DVT/PE, pulmonary hypertension, DION presenting with shortness of breath which has been present for about a month. She states she was recently treated for pneumonia with doxycycline and prednisone and over the last 2 days is felt worse as far as dyspnea. Patient is supposed to wear 2 L of oxygen all the time as well as CPAP at night however she and her family report that she does not wear her oxygen during the day. She also supposed to take Lasix which she is not taking and cannot tell me how long it has not been taken. Patient is currently having to wear 4 L of oxygen but has maintained normal O2 saturations. Patient does currently live with 2 children which are both respiratory therapist and monitor her closely. I did obtain an EKG on arrival which of my interpretation is a sinus rhythm at 83 bpm without signs of ischemic changes. Chest x-ray on my interpretation shows no acute cardiopulmonary process. Patient has no leukocytosis on her lab work. Her H&H are stable. Renal function and electrolytes are normal. BNP is normal at 53.8. Troponin is 8. D-dimer was elevated and I did obtain a CTA of the chest due to her history. There are no identified pulmonary emboli and there is no obvious dissection. The radiologist does mention mucous plugging and possible new infiltrate however the patient has not had a fever, nor does she have a white blood cell count. She is currently stable on 4 L of oxygen. I discussed the case with Dr. Gillette who recommended close follow-up. He stated that she can get in acute care visit tomorrow if she calls the office. Currently did not recommend antibiotics felt this is probably a chronic issue. There is also some issues with noncompliance with medication and patient continues to smoke. I did discuss this at length with her she and her daughter who is respiratory therapist. I did auto club travel counselor them that if anything changes or becomes worse overnight that she should return. Patient's daughter did request a sputum culture which was obtained prior to discharge. Impression: 1. Dyspnea 2. Medical noncompliance Lab Data Attestation: I reviewed the patient's lab results. Labs: Laboratory Results - last 24 hr 12/07/20 12/07/20 12/07/20 11:02 11:02 11:02 WBC 8.8 RBC 3.70 L Hgb 11.9 L Hct 37.0 MCV 100.0 H MCH 32.2 H MCHC 32.2 RDW Std Deviation 45.5 H RDW Coeff of Jasmin 12.3 Plt Count 339 MPV 10.5 Immature Gran % (Auto) 0.900 Neut % (Auto) 79.0 H Lymph % (Auto) 8.1 L Chambers % (Auto) 10.3 H Eos % (Auto) 1.0 Baso % (Auto) 0.7 Absolute Neuts (auto) 7.0 Absolute Lymphs (auto) 0.71 L Nucleated RBC % 0 D-Dimer Quant (PE/DVT) Sodium 140 Potassium 3.6 Chloride 105 Carbon Dioxide 29.0 Anion Gap 6 BUN 8 Creatinine 0.67 Estim Creat Clear Calc 41.45 Est GFR (MDRD) Af Amer 111 Est GFR (MDRD) Non-Af 92 BUN/Creatinine Ratio 11.9 Glucose 110 H Calcium 8.7 Troponin I High Sens 8 B-Natriuretic Peptide 53.8 12/07/20 12/07/20 11:40 12:00 WBC RBC Hgb Hct MCV MCH MCHC RDW Std Deviation RDW Coeff of Jasmin Plt Count MPV Immature Gran % (Auto) Neut % (Auto) Lymph % (Auto) Chambers % (Auto) Eos % (Auto) Baso % (Auto) Absolute Neuts (auto) Absolute Lymphs (auto) Nucleated RBC % D-Dimer Quant (PE/DVT) Cancelled 2.13 H* Sodium Potassium Chloride Carbon Dioxide Anion Gap BUN Creatinine Estim Creat Clear Calc Est GFR (MDRD) Af Amer Est GFR (MDRD) Non-Af BUN/Creatinine Ratio Glucose Calcium Troponin I High Sens B-Natriuretic Peptide Radiography Diagnostic Testing: Radiology Impression Chest X-Ray 12/07/20 11:24 IMPRESSION: Normal x-ray examination of the chest. Electronically Signed: Lashell Leon MD at 12:07 EDT , Service support , Chest CTA 12/07/20 12:33 IMPRESSION: * I do not see evidence of pulmonary embolus on this exam, previous finding is not seen. * There are areas of bronchial mucus plugging and there are new patchy pulmonary parenchymal alveolar areas of infiltration concerning for potential underlying infectious infiltrate * There is skin thickening associated with the right breast presumably associated with therapy for right breast cancer. Electronically Signed: Lashell Leon MD at 13:30 EDT , Service support , Discharge Plan Triage Chief Complaint: Shortness of Breath ED Provider: Jasmeet Cook Dx/Rx/DC Orders Instructions: ED Bronchitis, No Antibiotic (Adult) Prescriptions: No Action tiotropium bromide 18 mcg capsule, w/inhalation device 1 cap INHALATION DAILY Qty: 90 RF: 11 citalopram 10 MG tablet 10 mg PO DAILY RF: 0 omeprazole 40 MG capsule 40 mg PO DAILY RF: 0 trazodone 100 MG tablet 200 mg PO QHS RF: 0 furosemide 20 MG tablet 20 mg PO DAILY Qty: 30 RF: 0 gabapentin 600 MG tablet 600 mg PO QHS RF: 0 albuterol sulfate 8.5 GM HFA aerosol inhaler 2 puff INHALATION Q4H PRN (Reason: Sob &/Or Wheezing) RF: 0 fluticasone furoate 5.9 ML spray,suspension 2 spray INTRANASAL DAILY PRN (Reason: Nasal Congestion) RF: 0 lidocaine-prilocaine 30 GM cream 1 applicatio TP DAILY PRN PRN (Reason: Not Specified) 30 Days Qty: 1 RF: 2 gabapentin 300 MG capsule 300 mg PO DAILY RF: 0 acetaminophen 325 MG tablet 650 mg PO Q6H PRN PRN (Reason: Pain Score 1-10/Temp > 100.7 F) RF: 0 fluticasone propion-salmeterol 500-50 mcg/dose blister with device 1 inh inhalation DAILY Qty: 60 RF: 6 prednisone 10 mg tablet 10 mg PO QDAY Qty: 30 RF: 0 doxycycline hyclate 100 mg tablet 100 mg PO BID Qty: 20 RF: 0 Primary Care Provider: Tigist Pelaez Referrals: Tigist Pelaez DO [Primary Care Provider] - Disposition Disposition: Home, Self Care
[2020-12-07 11:27] VITALS: BP 150/54; PULSE 92; RESP 24; TEMP 37.3; O2SAT 95
[2020-12-07 11:36] LABS: Absolute Lymphocyte Count 0.71 X10^3/uL (0.83-4.51); Basophil# 0.06 X10^3/uL; Basophil% 0.7 % (0-1); Eosinophil# 0.09 X10^3/uL; Hemoglobin 11.9 g/dL (12.0-15.0); Lymphocyte # 0.71 X10^3/ul (0.83-4.51); Lymphocyte % 8.1 % (19-41); Mean Corp Hgb Conc 32.2 g/dL (32-36); Mean Corpuscular Hgb 32.2 pg (27.0-32.0); Mean Platelet Vol. 10.5 fl (6.2-12.0); Monocyte# 0.91 X10^3/uL; Monocyte% 10.3 % (0-10); NRBC Flagged by Analyzer 0 % (0-5); Neutrophil # 6.95 X10^3/uL (2.7-7.7); Platelet Count 339 K/mm3 (150-450); RBC Distribution Width CV 12.3 % (11.6-14.6); RBC Distribution Width SD 45.5 fl (35.1-43.9); White Blood Count 8.8 K/mm3 (4.4-11.0)
[2020-12-07 11:45] LABS: Anion Gap 6 (5-15); BUN 8 mg/dL (7-18); BUN/Creat Ratio 11.9 RATIO (10-20); Calcium,Total 8.7 mg/dL (8.5-10.1); Chloride 105 mmol/L (98-107); Creatinine, Serum 0.67 mg/dL (0.55-1.02); EST Glomerular Filtration Rate 92 mL/min (>60); Est Glom Filt Rate - Afr Amer 111 mL/min (>60); Estimated Creatinine Clearance 41.45 ml/min; Glucose 110 mg/dL (74-106); Potassium 3.6 mmol/L (3.5-5.1); Sodium Level 140 mmol/L (136-145); Troponin-I HS 8 pg/mL (3.0-54.0)
[2020-12-07 11:55] LABS: BNP,B-Type NATRIURETIC PEPTIDE 53.8 pg/mL (0-100)
[2020-12-07 12:19] VITALS: BP 130/63; PULSE 77; RESP 27; TEMP 37.2; O2SAT 95
[2020-12-07 12:33] LABS: D-Dimer Quantitative (DVT/PE) 2.13 FEU/ug/m (0.27-0.49)
--- NOTE | 2020-12-07 12:33 | CT_ITS ---
STUDY: CTA CHEST REASON FOR EXAM: Female, 75 years old. dyspnea RADIATION DOSAGE (If Supplied By Facility): CTDIvol = ( 9.87 ) mGy, DLP = ( 495.52 ) mGycm TECHNIQUE: The examination was performed with the intravenous administration of IV 100mL Isovue-370. Post-processing of the angiographic images was performed, with multiplanar reformation and 3D reconstruction. Individualized dose optimization techniques were used for this CT. COMPARISON: 11/02/2019 FINDINGS: Normal enhancement of the main pulmonary artery and right and left pulmonary arteries. Normal enhancement of the bilateral peripheral pulmonary arteries. There is no demonstrated pulmonary embolism. Previously seen thrombi no longer identified. Normal thoracic aorta and visualized great vessels. There is no demonstrated aortic dissection. Normal heart and pericardium. Normal mediastinum. Normal hilar regions. Normal visualized trachea. There are scattered areas of bronchial mucus plugging most evident in association with the lower lobes posteriorly and inferiorly. For instance refer to image #90 series 2 on the left and image #80 series 2 on the right. This is more evident than can be seen on retrospective review of the prior exam there is a new area of pulmonary parenchymal opacity in association with the right upper lobe posteriorly, for instance image #91 series 602 and also seen in the upper lobes within the periphery of the lungs bilaterally. There is also mild hypoventilatory/atelectatic change in the costophrenic angles. Normal pleura. Normal chest wall structures. There is skin thickening associated with the right breast presumably associated with therapy for right breast cancer. Normal osseous structures. Normal visualized upper abdomen. CT/CTA Chest W/WO Contrast IMPRESSION: * I do not see evidence of pulmonary embolus on this exam, previous finding is not seen. * There are areas of bronchial mucus plugging and there are new patchy pulmonary parenchymal alveolar areas of infiltration concerning for potential underlying infectious infiltrate * There is skin thickening associated with the right breast presumably associated with therapy for right breast cancer. Electronically Signed: Lashell Leon MD at 13:30 EDT , Service support ,
[2020-12-07 13:00] VITALS: BP 147/47; PULSE 77; RESP 20; RESP 22; TEMP 37.2; O2SAT 97
[2020-12-07 15:03] VITALS: BP 114/75; PULSE 76; RESP 20; O2SAT 98
== END 2020-12-07 15:09 | disposition home or self-care (01) ==
PROVIDERS: Emergency Provider Student in an Organized Health Care Education/Training Program; PCP Family Medicine
DX: R06.00 Dyspnea, unspecified (principal); F17.210 Nicotine dependence, cigarettes, uncomplicated; J44.9 Chronic obstructive pulmonary disease, unspecified; I10 Essential (primary) hypertension; K21.9 Gastro-esophageal reflux disease without esophagitis; Z86.73 Personal history of transient ischemic attack (TIA), and cerebral infarction without residual deficits; Z86.718 Personal history of other venous thrombosis and embolism; Z86.711 Personal history of pulmonary embolism; Z85.3 Personal history of malignant neoplasm of breast; Z79.52 Long term (current) use of systemic steroids; Z79.51 Long term (current) use of inhaled steroids; Z91.19 Patient's noncompliance with other medical treatment and regimen; Z91.14 Patient's other noncompliance with medication regimen; Z79.899 Other long term (current) drug therapy
CPT/HCPCS: 36591; 71045; 71275; 80048; 83880; 84484; 85025; 85379; 87070; 87205; 87426; 93005; 99283; Q9967; A4216

== ENCOUNTER → 2020-12-08 12:07 | Outpatient (CLI) | payer MEDICARE, OTHER, SELFPAY | PROVIDERS: PCP Family Medicine; Visit Provider Nurse Practitioner Acute Care | DX: J44.9 Chronic obstructive pulmonary disease, unspecified (principal) | CPT/HCPCS: 87070; 87205 ==

== ENCOUNTER 2020-12-09 08:58 | Outpatient (RCR) | payer MEDICARE, OTHER, SELFPAY ==
--- NOTE | 2020-12-09 12:14 | HP.OTEVAL_ITS ---
Patient's Visit Information ISIDRO CRAWFORD is a 75 year old F, referred to Occupational Therapy by Dr. Donny Burch DO, with a diagnosis of right UE lymphedema. 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 From 12/24/2019 - 01/21/2020 she received 4256 cGy in 16 fractions to the right breast and regional lymph nodes followed by a sequential boost consisting of 1000 cGy in 5 fractions was delivered to the lumpectomy cavity and initially PET avid unresected infraclavicular LN (which was PET negative following neoadjuvant chemotherapy). She completed adjuvant Xeloda in July 2020. pt arrives today with concerns of her right UE edema and what she can do to help mtg her arm swelling. - Lymphedema (Circumferential Measure) MCP: right 19cm left 20cm Wrist: right 16.5cm left 16cm Lower forearm: right 21cm left 18.5cm Largest forearm: right 27cm left 25cm Elbow: right 28cm left 26cm Largest humerus: right 33cm left 33cm Axcillary: right 35cm left 35cm - Quick DASH-Disab of Arm,Shoulder& Hand Quick DASH Score: 0 - Goals Demonstrate adequate knowledge of self-massage by 2nd week: Yes Demonstrate adequate knowledge skin care/prec by 2nd week: Yes Demonstrate adequate knowledge therapeutic exercises by d/c: Yes Select approp compression garment w/donning/care/wear by d/c: Yes Voice need to replace compression garment every 4-6mo by dc: Yes - Rehabilitation General Assessment: Pt demo with stage I right UE lymphedema- pt demo need of skilled OT services 2-3 visits to ed. pt on life long mtg of lymphedema to prevent limb from expanding and risk of infection. Today therapist ed. pt on dx, skin care, lymph stim exercise and self manual lymph drainage. Pt was given handouts and agree to POC. Therapist sent order for compression sleeve 20-30mmHg and glove with finger tips open to for insurance purposes. will fax signed order to [employer] per pts request. Rehabilitation Potential: Good - Anticipated Interventions Education re Diagnosis, Manual Lymph Drainage, Education re Life-long lymphedema Management, Education re Skin Care and Precautions, Education re Self Massage Techniques, Education re Correct Donning Tech,Care&Wearing Sched Comp Garments, Home Program - Visit Plan TEXT: Thank you for the opportunity to evaluate your patient. For Medicare and Medicare HMO plans, please review the plan of care and approve it. It will need to be FAXED BACK to us at [phone] for Medicare purposes. Please let me know if there are questions or concerns regarding this plan of care. Physician Signature: Date:
--- NOTE | 2021-04-21 09:56 | HP.OT.NRP ---
ISIDRO CRAWFORD was seen in my office for initial evaluation on 12/09/20. The following Plan of Care was established for this patient: Anticipated Interventions: Education re Diagnosis, Manual Lymph Drainage, Education re Life-long lymphedema Management, Education re Skin Care and Precautions, Education re Self Massage Techniques, Education re Correct Donning Tech,Care&Wearing Sched Comp Garments, Home Program This patient was last seen in our office 12/09/20. Pertinent comments regarding their Occupational therapy will appear below: pt seen for eval only- due to time lapse in services pt d/c At this point I will be discontinuing this patient from occupational therapy. I would be happy to see this patient again in the future if found appropriate by the physician. Thank you! Sandra Casillas, OTR/L, CHT
== END 2020-12-09 19:00 | disposition home or self-care (01) ==
LOC: OT 08:58
PROVIDERS: PCP Family Medicine; Referring Provider Student in an Organized Health Care Education/Training Program; Visit Provider Student in an Organized Health Care Education/Training Program
DX: I89.0 Lymphedema, not elsewhere classified (principal)
CPT/HCPCS: 97166

== ENCOUNTER 2020-12-10 15:08 | Inpatient (IN) | payer MEDICARE, OTHER, SELFPAY ==
[2020-12-10] VITALS (10 sets, daily range): BP systolic 127–161; BP diastolic 65–89; PULSE 56–84; RESP 20–28; TEMP 36.3–36.9; O2SAT 79–99; BMI 40.5; BMI 39.6
--- NOTE | 2020-12-10 15:56 | RAD_ITS ---
STUDY: X-RAY CHEST REASON FOR EXAM: Female, 75 years old. sob TECHNIQUE: Single AP portable view of the chest. COMPARISON: 12/07/2020 FINDINGS: Left internal jugular chest port which is unchanged. Status post right axillary lymph node dissection The lungs are clear and expanded. There is no demonstrated pleural abnormality. There is moderate cardiac enlargement. Normal mediastinum and angie. Normal visualized pulmonary arteries. Normal visualized aortic arch and descending thoracic aorta. Normal visualized thoracic spine. Normal visualized ribs, clavicles, and shoulders. There is no demonstrated abnormality of the visualized soft tissue structures of the upper abdomen. RAD/Chest 1 View (Portable) IMPRESSION: No active disease. Electronically Signed: Stas Garza MD at 17:03 EDT Tel , Service support ,
--- NOTE | 2020-12-10 15:56 | EKG12_ITS ---
Test Reason : SOB Blood Pressure : / mmHG Vent. Rate : 054 BPM Atrial Rate : 054 BPM P-R Int : 132 ms QRS Dur : 076 ms QT Int : 428 ms P-R-T Axes : 055 040 057 degrees QTc Int : 405 ms Sinus bradycardia Otherwise normal ECG Confirmed by AMADO PATTON, PATSY ([id number]), video tape editor TELMA FOLEY ([id number]) on 12/11/2020 12:54:21 PM Referred By: JANINE Confirmed By:MARA FISCHER MD
--- NOTE | 2020-12-10 15:58 | EDS_ITS ---
HPI History of Present Illness Chief Complaint: Shortness of Breath Informant: patient and family Onset/Context/Timing Onset: Month(s) Current Severity: Moderate Maximum Severity: Severe Narrative Narrative: Patient presents secondary to shortness of breath and cough. She has been fighting the symptoms since mid October. She had previously completed steroids and doxycycline. Patient was seen in the ER 3 days ago secondary to increasing shortness of breath and requiring more oxygen than normal. Work-up was unremarkable and CTA showed evidence of mucous plugging. She was discussed with thread drawer who recommended close outpatient follow-up. Patient was seen in the pulmonary office on Tuesday. At that time she had significant wheezing throughout. She was given a Kenalog injection and discharged with Augmentin and prednisone. Family states last evening she seemed to be doing well but today much more short of breath especially with any exertion. Patient denies chest pain. She has had no fever or chills. PFSH PFSH Medical History Acute respiratory failure with hypoxia and hypercarbia Benign essential hypertension Candidiasis of mouth Chronic obstructive lung disease COPD with asthma DVT (deep venous thrombosis) GERD (gastroesophageal reflux disease) History of DVT of lower extremity History of pulmonary embolism History of pulmonary embolism Hyperlipidemia Lung nodule DION (obstructive sleep apnea) Pulmonary hypertension Smoking greater than 40 pack years Stroke behind eye Tobacco user Home Medications omeprazole 40 mg PO DAILY 06/27/14 [History Last Taken 12/10/20] trazodone 200 mg PO QHS 06/27/14 [History Last Taken 12/09/20] gabapentin 600 mg PO QHS 07/13/16 [History Last Taken 12/09/20] albuterol sulfate 2 puff INHALATION Q4H PRN 07/05/19 [History Last Taken Unknown] lidocaine-prilocaine 1 applicatio TP DAILY PRN PRN 30 Days #1 tube 07/23/19 [Rx Last Taken Unknown] gabapentin 300 mg PO DAILY 02/20/20 [History Last Taken 12/10/20] tiotropium bromide 18 mcg capsule with inhalation device 1 cap INHALATION DAILY #90 inh 07/02/20 [Rx Last Taken 12/10/20] amoxicillin 875 mg-potassium clavulanate 125 mg tablet 1 tab PO BID #20 tab 12/08/20 [Rx Last Taken 12/10/20] fluticasone propion-salmeterol [Wixela Inhub] 1 inh INHALATION DAILY 12/10/20 [History Last Taken 12/10/20] fluticasone propionate [Flonase] 2 spray INTRANASAL DAILY 12/10/20 [History Last Taken 12/10/20] prednisone See Taper PO DAILY 12/10/20 [History Last Taken 12/10/20] Allergy/AdvReac Type Severity Reaction Status Date / Time Fish Containing Products AdvReac Mild Abd Verified 12/10/20 15:12 cramps/diarrhea Family History Sister Skin cancer Diabetes Breast cancer Lung cancer Mother Diabetes CVA (cerebral vascular accident) Father Heart disease CVA (cerebral vascular accident) Brother Diabetes Sister Breast cancer Surgical History History of bilateral knee replacement History of breast biopsy Hx of colonoscopy Status post right breast lumpectomy Social History Smoking Status: Current every day smoker tobacco type: cigarettes second hand exposure: Yes alcohol intake: current alcohol intake frequency: holidays/special occasions only substance use type: does not use caffeine: Yes what type of physical activity do you participate in: none frequency: does not exercise ROS ROS ED Constitutional Constitutional ED: Denies chills or fever(s) Eyes Eyes: Denies change in vision ENT ENT ED: Denies sore throat Cardiovascular Cardiovascular: Denies chest pain Respiratory/Chest Respiratory/Chest: Reports cough, dyspnea and sputum Gastrointestinal Gastrointestinal: Denies abdominal pain, diarrhea, nausea or vomiting Genitourinary Genitourinary ED: Denies dysuria Musculoskeletal Musculoskeletal: Denies back pain Allergic/Immunologic Allergic/Immunologic ED: Denies urticaria EXAM Physical Exam Const Vital Signs: 12/10/20 15:09 12/10/20 15:58 12/10/20 16:55 Temperature 97.4 F L 98.4 F Temperature Source Temporal Oral Pulse Rate 60 58 L 56 L Respiratory Rate 20 H 20 H 24 H Respiratory Effort Short of Breath Labored Respiratory Depth Shallow Respiratory Pattern Tachypnea Tachypnea Blood Pressure 150/65 H 150/65 H Blood Pressure Mean 93 93 Pulse Ox 99 96 Oxygen Delivery Method Nasal Cannula Nasal Cannula Oxygen Flow Rate (L/min) 2 2 Positive well nourished and well developed General Appearance ED: well developed HEENT Reports normocephalic and head/scalp atraumatic Eyes PERRL and EOMs intact bilaterally Neck supple Chest Wall inspection of chest normal and palpation of chest normal Resp Resp Narrative: Diminished lung sounds with tight wheezes. Auscultation: diminished lung sounds Cardio regular rate and regular rhythm GI normal to inspection, nondistended, normoactive bowel sounds Palpation: soft Extremity normal to inspection Neuro oriented x3 and no sensory deficits noted Sensorium / Orientation: alert Motor Exam: strength 5/5 throughout Psych mental status grossly normal Skin no rashes or lesions noted MDM MDM MDM Narrative Medical decision making narrative: Patient is already on steroids and Augmentin. EKG, chest x-ray, lab work obtained. I do suspect she will require admission as this is her third medical visit this week with no significant improvement in her symptoms. In light of this Covid test is obtained again. Lab Data Attestation: I reviewed the patient's lab results. Labs: Laboratory Results - last 24 hr 12/10/20 12/10/20 16:06 16:06 WBC 10.7 RBC 4.14 L Hgb 13.1 Hct 40.8 MCV 98.6 MCH 31.6 MCHC 32.1 RDW Std Deviation 43.6 RDW Coeff of Jasmin 11.9 Plt Count 455 H MPV 10.2 Immature Gran % (Auto) 0.700 Neut % (Auto) 93.1 H Lymph % (Auto) 4.9 L Elliott % (Auto) 1.1 Eos % (Auto) 0.0 Baso % (Auto) 0.2 Absolute Neuts (auto) 10.0 H Absolute Lymphs (auto) 0.52 L Nucleated RBC % 0 Differential Comment SCANNED Sodium 139 Potassium 4.0 Chloride 104 Carbon Dioxide 32.0 Anion Gap 3 L BUN 14 Creatinine 0.67 Estim Creat Clear Calc 41.45 Est GFR (MDRD) Af Amer 112 Est GFR (MDRD) Non-Af 92 BUN/Creatinine Ratio 21.0 H Glucose 125 H Calcium 9.1 Radiography Chest X-Ray - ED: 1 View, Read by ED Physician and Chronic Changes Diagnostic Testing: Radiology Impression Chest X-Ray 12/10/20 15:56 IMPRESSION: No active disease. Electronically Signed: Stas Garza MD at 17:03 EDT Tel , Service support , EKG Initial EKG: Attestation: I personally reviewed and interpreted this EKG as follows: Interpretation: Sinus Bradycardia (Sinus bradycardia 54 bpm. No acute ischemia.) Treatment and Re-Evaluation Comments:: On repeat evaluation patient still with diminished lung sounds and wheezes posteriorly. This is her third visit to medical professional this week with no significant improvement in her symptoms. I do feel she will require admission. I spoke with the hospitalist who will see the patient. Discharge Plan Triage Chief Complaint: Shortness of Breath ED Provider: Christine Berry Dx/Rx/DC Orders Clinical Impression: COPD exacerbation Prescriptions: No Action tiotropium bromide 18 mcg capsule, w/inhalation device 1 cap INHALATION DAILY Qty: 90 RF: 11 amoxicillin-pot clavulanate [Augmentin] 875-125 mg tablet 1 tab PO BID Qty: 20 RF: 0 omeprazole 40 MG capsule 40 mg PO DAILY RF: 0 trazodone 100 MG tablet 200 mg PO QHS RF: 0 gabapentin 600 MG tablet 600 mg PO QHS RF: 0 albuterol sulfate 8.5 GM HFA aerosol inhaler 2 puff INHALATION Q4H PRN (Reason: Sob &/Or Wheezing) RF: 0 lidocaine-prilocaine 30 GM cream 1 applicatio TP DAILY PRN PRN (Reason: Not Specified) 30 Days Qty: 1 RF: 2 gabapentin 300 MG capsule 300 mg PO DAILY RF: 0 fluticasone propionate [Flonase] 50 mcg/actuation Goodwin,Suspension 2 spray INTRANASAL DAILY RF: 0 prednisone 10 mg tablet See Taper mg PO DAILY RF: 0 fluticasone propion-salmeterol [Wixela Inhub] 500-50 mcg/dose blister with device 1 inh inhalation DAILY RF: 0 Primary Care Provider: Tigist Pelaez Referrals: Tigist Pelaez DO [Primary Care Provider] - Disposition Disposition: Acute Care Hospital [facility]
[2020-12-10] MEDS: Ipratropium/Albuterol Sulfate 3 ML AMPUL.NEB INHALATION ×2 (16:07→20:40)
[2020-12-10 16:19] LABS: Absolute Lymphocyte Count 0.52 X10^3/uL (0.83-4.51); Basophil# 0.02 X10^3/uL; Basophil% 0.2 % (0-1); Hematocrit 40.8 % (37-47); Hemoglobin 13.1 g/dL (12.0-15.0); Lymphocyte # 0.52 X10^3/ul (0.83-4.51); Lymphocyte % 4.9 % (19-41); Mean Corp Hgb Conc 32.1 g/dL (32-36); Mean Corpuscular Hgb 31.6 pg (27.0-32.0); Mean Corpuscular Volume 98.6 fL (81-99); Mean Platelet Vol. 10.2 fl (6.2-12.0); Monocyte# 0.12 X10^3/uL; Monocyte% 1.1 % (0-10); NRBC Flagged by Analyzer 0 % (0-5); Neutrophil # 9.95 X10^3/uL (2.7-7.7); Neutrophil % 93.1 % (47-70); POSITIVE DIFFERENTIAL YES; Platelet Count 455 K/mm3 (150-450); RBC Distribution Width CV 11.9 % (11.6-14.6); RBC Distribution Width SD 43.6 fl (35.1-43.9); Red Blood Count 4.14 M/mm3 (4.2-5.4); White Blood Count 10.7 K/mm3 (4.4-11.0)
[2020-12-10 16:24] LABS: Differential Indicated SCAN CRITERIA MET
[2020-12-10 16:34] LABS: Anion Gap 3 (5-15); BUN 14 mg/dL (7-18); Calcium,Total 9.1 mg/dL (8.5-10.1); Chloride 104 mmol/L (98-107); Creatinine, Serum 0.67 mg/dL (0.55-1.02); EST Glomerular Filtration Rate 92 mL/min (>60); Est Glom Filt Rate - Afr Amer 112 mL/min (>60); Estimated Creatinine Clearance 41.45 ml/min; Glucose 125 mg/dL (74-106); Sodium Level 139 mmol/L (136-145)
[2020-12-10 16:53] LABS: Differential Comment SCANNED
[2020-12-10] MEDS: Albuterol 2.5 MG/3 ML VIAL.NEB. INHALATION ×2 (17:15)
--- NOTE | 2020-12-10 17:42 | NURSING ---
MED SURG DR VALENTIN COPD EXAC
--- NOTE | 2020-12-10 18:10 | PCM.HP.STD ---
Documented by User: HAIDER Smith 12/10/20 18:27 HPI - General General Date of Admission: 12/10/20 Date of Service: 12/10/20 Chief Complaint: Shortness of breath HPI Narrative ISIDRO CRAWFORD, is a 75 F who presents with complaints of shortness of breath. Patient states that she has been having issues since the middle of October and has been on multiple courses of outpatient antibiotics with no relief in symptoms. Patient states that she was seen Tuesday in the outpatient pulmonology office where she was started on Augmentin and prednisone. Patient states that she continues to feel unwell and has not improved. Patient also reports that she has had a large increase in sputum production. Patient denies fever, chills, chest pain, nausea, vomiting. PFSH Medical History Acute respiratory failure with hypoxia and hypercarbia Benign essential hypertension Candidiasis of mouth Chronic obstructive lung disease COPD with asthma DVT (deep venous thrombosis) GERD (gastroesophageal reflux disease) History of DVT of lower extremity History of pulmonary embolism History of pulmonary embolism Hyperlipidemia Lung nodule DION (obstructive sleep apnea) Pulmonary hypertension Smoking greater than 40 pack years Stroke behind eye Tobacco user Home Medications omeprazole 40 mg PO DAILY 06/27/14 [History Last Taken 12/10/20] trazodone 200 mg PO QHS 06/27/14 [History Last Taken 12/09/20] gabapentin 600 mg PO QHS 07/13/16 [History Last Taken 12/09/20] albuterol sulfate 2 puff INHALATION Q4H PRN 07/05/19 [History Last Taken Unknown] lidocaine-prilocaine 1 applicatio TP DAILY PRN PRN 30 Days #1 tube 07/23/19 [Rx Last Taken Unknown] gabapentin 300 mg PO DAILY 02/20/20 [History Last Taken 12/10/20] tiotropium bromide 18 mcg capsule with inhalation device 1 cap INHALATION DAILY #90 inh 07/02/20 [Rx Last Taken 12/10/20] amoxicillin 875 mg-potassium clavulanate 125 mg tablet 1 tab PO BID #20 tab 12/08/20 [Rx Last Taken 12/10/20] fluticasone propion-salmeterol [Wixela Inhub] 1 inh INHALATION DAILY 12/10/20 [History Last Taken 12/10/20] fluticasone propionate [Flonase] 2 spray INTRANASAL DAILY 12/10/20 [History Last Taken 12/10/20] prednisone See Taper PO DAILY 12/10/20 [History Last Taken 12/10/20] Allergy/AdvReac Type Severity Reaction Status Date / Time Fish Containing Products AdvReac Mild Abd Verified 12/10/20 15:12 cramps/diarrhea Family History Sister Skin cancer Diabetes Breast cancer Lung cancer Mother Diabetes CVA (cerebral vascular accident) Father Heart disease CVA (cerebral vascular accident) Brother Diabetes Sister Breast cancer Surgical History History of bilateral knee replacement History of breast biopsy Hx of colonoscopy Status post right breast lumpectomy Social History Smoking Status: Current every day smoker tobacco type: cigarettes second hand exposure: Yes alcohol intake: current alcohol intake frequency: holidays/special occasions only substance use type: does not use caffeine: Yes what type of physical activity do you participate in: none frequency: does not exercise ROS Constitutional Constitutional: Reports fatigue and weakness; Denies anorexia, chills, fever(s) or malaise Cardiovascular Cardiovascular: Denies chest pain, edema or palpitations Respiratory/Chest Respiratory/Chest: Reports cough, dyspnea, excessive phlegm production, tachypnea and wheezing Gastrointestinal Gastrointestinal: Denies abdominal pain, constipation, diarrhea, nausea or vomiting Genitourinary Genitourinary: Denies dysuria Musculoskeletal Musculoskeletal: Denies back pain, extremity pain, joint pain or joint stiffness Integumentary Integumentary: Denies dry skin Neurologic Neurologic: Denies abnormal gait, abnormal speech, confusion, dizziness or focal weakness Psychiatric Psychiatric: Denies anxiety or depression Endocrine Endocrinology: Denies change in body appearance Hematologic/Lymphatic Hematologic/Lymphatic: Denies easy bleeding or easy bruising Vital Signs Vital Signs Vital Signs: 12/10/20 15:09 12/10/20 15:58 12/10/20 16:55 Temperature 97.4 F L 98.4 F Temperature Source Temporal Oral Pulse Rate 60 58 L 56 L Respiratory Rate 20 H 20 H 24 H Respiratory Effort Short of Breath Labored Respiratory Depth Shallow Respiratory Pattern Tachypnea Tachypnea Blood Pressure 150/65 H 150/65 H Blood Pressure Mean 93 93 Pulse Ox 99 96 Oxygen Delivery Method Nasal Cannula Nasal Cannula Oxygen Flow Rate (L/min) 2 2 12/10/20 17:30 12/10/20 17:34 12/10/20 17:48 Temperature 98.4 F Temperature Source Temporal Pulse Rate 60 74 75 Respiratory Rate 24 H 20 H 24 H Respiratory Effort Respiratory Depth Respiratory Pattern Blood Pressure 155/73 H 161/89 H Blood Pressure Mean 100 113 Pulse Ox 94 95 Oxygen Delivery Method Nasal Cannula Room Air Oxygen Flow Rate (L/min) 2 Weight Weight: 229 lb Body Mass Index (BMI) 40.5 Physical Exam Const alert, oriented x3 and no apparent distress General Appearance: cooperative HEENT normocephalic and head/scalp atraumatic Eyes conjunctivae normal and no scleral icterus Neck supple and no JVD General: trachea midline Resp Effort and Inspection: tachypneic and labored Auscultation: wheezes upper bilaterally and diminished lung sounds bilateral lower Cardio regular rate, regular rhythm, S1 normal heart sound and S2 normal heart sound Rate: bradycardia GI normal to inspection, nondistended, normoactive bowel sounds, soft to palpation and non-tender Extremity normal capillary refill and no clubbing, cyanosis or edema General Extremity: no tenderness to palpation of joints or extremities Skin General Skin Exam: no breakdown and turgor normal Lesions: no lesions Rashes: no rashes Neuro no focal motor deficits and no sensory deficits noted Speech: speech normal Motor Exam: general weakness Psych thought process normal, cooperative and affect normal Appearance: appropriate Results Lab / Micro Data Result Diagrams: 12/10/20 16:06 12/10/20 16:06 Labs: Laboratory Results - last 24 hr 12/10/20 16:06: WBC 10.7, RBC 4.14 L, Hgb 13.1, Hct 40.8, MCV 98.6, MCH 31.6, MCHC 32.1, RDW Std Deviation 43.6, RDW Coeff of Jasmin 11.9, Plt Count 455 H, MPV 10.2, Immature Gran % (Auto) 0.700, Neut % (Auto) 93.1 H, Lymph % (Auto) 4.9 L, [place] % (Auto) 1.1, Eos % (Auto) 0.0, Baso % (Auto) 0.2, Absolute Neuts (auto) 10.0 H, Absolute Lymphs (auto) 0.52 L, Nucleated RBC % 0, Differential Comment SCANNED 12/10/20 16:06: Sodium 139, Potassium 4.0, Chloride 104, Carbon Dioxide 32.0, Anion Gap 3 L, BUN 14, Creatinine 0.67, Estim Creat Clear Calc 41.45, Est GFR (MDRD) Af Amer 112, Est GFR (MDRD) Non-Af 92, BUN/Creatinine Ratio 21.0 H, Glucose 125 H, Calcium 9.1 Micro: Microbiology 12/10/20 15:55 Nasal Secretion SARS-CoV-2 Antigen (Rapid) - Final Radiology Impression Chest X-Ray 12/10/20 15:56 IMPRESSION: No active disease. Electronically Signed: Stas Garza MD at 17:03 EDT Tel , Service support , Assessment & Plan Assessment/Plan (1) COPD exacerbation: PLAN: 1. COPD exacerbation -Admit to [facility] with telemetry as patient will be started on Levaquin and has multiple medications that can cause prolonged QT -Scheduled duo nebs with as needed albuterol nebulizer treatments ordered -Encourage incentive spirometry, Pep therapy -We will initiate IV Levaquin as patient has failed multiple outpatient treatments including doxycycline and Augmentin. -IV methylprednisone ordered -CBC and BMP daily, mag ordered for a.m. -Continue home medication treatment including tiotropium, fluticasone. 2. DION -We will continue patient's home BiPAP therapy -BiPAP settings with 2 L oxygen bled in with a full facemask. 3. History of breast cancer -Patient got last chemotherapy treatment August 2020 -Patient has a left chest port which is accessed -As needed lidocaine/prilocaine ordered for patient access 4. Restless leg syndrome -Continue gabapentin DVT prophylaxis-subcu Lovenox This patient was seen by HAIDER Smith under the supervision of Dr. oden. Documented by User: Dr. Nia Oden DO 12/10/20 18:45 HPI - General General Date of Admission: 12/10/20 Date of Service: 12/10/20 Chief Complaint: Shortness of breath HPI Narrative This patient was seen in conjunction with Madiha Najera NP. The following is representation my independent history and further examination. Please see below for any addendum to the above. Mrs. Lomas is a 75-year-old white female who presented to the emergency department at [place] with a chief complaint of shortness of breath. She is been having symptoms that have been ongoing since mid October. She previously completed doxycycline and steroids prescribed by her PCP. She was seen in the emergency department 3 days ago secondary to increasing shortness of breath and requiring more oxygen than her 2 L baseline. Her work-up at that time was unremarkable other than a CTA that showed evidence of mucous plugging. The case was discussed with her primary chiropractic practice manager who recommended close outpatient follow-up. She was seen yesterday in the chiropractic practice manager office and per their documentation had significant wheezing. She was given Kenalog and discharged with Augmentin and prednisone. Appears that they debated whether or not sending her on Levaquin but given medications interactions they elected to utilize Augmentin at that time. She denies any fever or chills although endorses increased sputum production with a change in color and increased cough. She also states that she becomes much more short of breath with exertion than she typically does at baseline. In the emergency department she was hemodynamically stable and afebrile. She was on nasal cannula at 2 L with oxygen saturations anywhere from 94 to 99%. Her CBC was unremarkable other than a mild thrombocytosis. Her BMP was unremarkable. Her chest x-ray showed no acute processes. Her EKG showed no ST-T wave changes consistent with ischemia. Her COVID-19 rapid was negative today and yesterday. She has had 2 sputum cultures done both appear to be saliva. She was treated with aerosols alone in the emergency department. PENDING SALE TO [facility] Medical History Acute respiratory failure with hypoxia and hypercarbia Benign essential hypertension Candidiasis of mouth Chronic obstructive lung disease COPD with asthma DVT (deep venous thrombosis) GERD (gastroesophageal reflux disease) History of DVT of lower extremity History of pulmonary embolism History of pulmonary embolism Hyperlipidemia Lung nodule DION (obstructive sleep apnea) Pulmonary hypertension Smoking greater than 40 pack years Stroke behind eye Tobacco user Home Medications omeprazole 40 mg PO DAILY 06/27/14 [History Last Taken 12/10/20] trazodone 200 mg PO QHS 06/27/14 [History Last Taken 12/09/20] gabapentin 600 mg PO QHS 07/13/16 [History Last Taken 12/09/20] albuterol sulfate 2 puff INHALATION Q4H PRN 07/05/19 [History Last Taken Unknown] lidocaine-prilocaine 1 applicatio TP DAILY PRN PRN 30 Days #1 tube 07/23/19 [Rx Last Taken Unknown] gabapentin 300 mg PO DAILY 02/20/20 [History Last Taken 12/10/20] tiotropium bromide 18 mcg capsule with inhalation device 1 cap INHALATION DAILY #90 inh 07/02/20 [Rx Last Taken 12/10/20] amoxicillin 875 mg-potassium clavulanate 125 mg tablet 1 tab PO BID #20 tab 12/08/20 [Rx Last Taken 12/10/20] fluticasone propion-salmeterol [Wixela Inhub] 1 inh INHALATION DAILY 12/10/20 [History Last Taken 12/10/20] fluticasone propionate [Flonase] 2 spray INTRANASAL DAILY 12/10/20 [History Last Taken 12/10/20] prednisone See Taper PO DAILY 12/10/20 [History Last Taken 12/10/20] Allergy/AdvReac Type Severity Reaction Status Date / Time Fish Containing Products AdvReac Mild Abd Verified 12/10/20 15:12 cramps/diarrhea Family History Sister Skin cancer Diabetes Breast cancer Lung cancer Mother Diabetes CVA (cerebral vascular accident) Father Heart disease CVA (cerebral vascular accident) Brother Diabetes Sister Breast cancer Surgical History History of bilateral knee replacement History of breast biopsy Hx of colonoscopy Status post right breast lumpectomy Social History Smoking Status: Current every day smoker tobacco type: cigarettes second hand exposure: Yes alcohol intake: current alcohol intake frequency: holidays/special occasions only substance use type: does not use caffeine: Yes what type of physical activity do you participate in: none frequency: does not exercise ROS Constitutional Constitutional: Reports fatigue, malaise and weakness; Denies anorexia, change in weight, chills, fever(s), night sweats, weight gain or weight loss Eyes Eyes: Denies blurry vision, change in vision, discharge from eye(s), double vision, erythema, eye pain, irritation or itchy eyes ENT HEENT: Denies abnormal hearing, dysphagia, ear pain, epistaxis, headache(s), hearing loss, loss taste/smell, nasal congestion, nasal discharge, post nasal drip, sinus pain, sinus pressure, sore throat or throat swelling Cardiovascular Cardiovascular: Denies chest pain, claudication, edema, orthopnea, palpitations, paroxysmal nocturnal dyspnea or syncope Respiratory/Chest Respiratory/Chest: Reports change in phlegm color, chest congestion, chest tightness, cough, shortness of breath at rest, shortness of breath with exertion and wheezing Gastrointestinal Gastrointestinal: Denies abdominal pain, constipation, diarrhea, dyspepsia, hematemesis, hematochezia, melena, nausea or vomiting Genitourinary Genitourinary: Denies dysuria, hematuria, nocturia, oliguria, polyuria, urinary frequency, urinary hesitancy, urinary incontinence or urinary urgency Musculoskeletal Musculoskeletal: Denies back pain, extremity pain, joint pain, joint stiffness, joint swelling, limited range of motion, muscle weakness, neck pain or stiffness Integumentary Integumentary: Denies dry skin, jaundice, lesions, pruritus, rash or wounds Neurologic Neurologic: Denies abnormal gait, abnormal speech, confusion, dizziness, focal weakness, headache(s), lack of coordination, numbness, seizures, sensory deficit, tingling, tremor(s) or weakness Psychiatric Psychiatric: Denies anxiety, depression, homicidal ideation or suicidal ideation Endocrine Endocrinology: Denies change in body appearance, cold intolerance, heat intolerance, polydipsia or polyuria Hematologic/Lymphatic Hematologic/Lymphatic: Denies anemia, easy bleeding, easy bruising or lymphadenopathy Physical Exam Const alert, oriented x3 and well nourished Constitutional Narrative: Morbidly obese white female sitting up in bed on nasal cannula, mild dyspnea with conversation, nontoxic appearing General Appearance: cooperative and well developed HEENT normocephalic, head/scalp atraumatic and moist oral mucous membranes HEENT Narrative: Dentures in place, Mallampati 2-3, no thrush Eyes PERRL and EOMs intact bilaterally Neck No nuchal rigidity, no lymphadenopathy, supple, no JVD, thyroid normal, nodes and no carotid bruits General: trachea midline Resp Resp Narrative: Markedly diminished lung sounds bilaterally with very few scattered wheezes, conversationally dyspneic Effort and Inspection: Negative for respiratory distress or uses accessory muscles Auscultation: wheezes and diminished lung sounds; Negative for rales or rhonchi Cardio regular rate, regular rhythm, S1 normal heart sound, S2 normal heart sound, no murmurs, no rub, no gallops and peripheral pulses 2+ throughout Heart Sounds: Negative for gallop, murmur or rub GI normal to inspection, nondistended, normoactive bowel sounds, soft to palpation, non-tender and non-distended Palpation: no hepatosplenomegaly Extremity no clubbing, cyanosis or edema General Extremity: no tenderness to palpation of joints or extremities Skin General Skin Exam: no breakdown and turgor normal Lesions: no lesions Rashes: no rashes Neuro CN's II-XII intact bilaterally, no focal motor deficits, no sensory deficits noted and deep tendon reflexes 2+ bilaterally Speech: speech normal Motor Exam: general weakness Psych thought process normal, cooperative and affect normal Appearance: appropriate Results Lab / Micro Data Result Diagrams: 12/10/20 16:06 12/10/20 16:06 Assessment & Plan Assessment/Plan (1) Acute exacerbation of COPD with asthma: PLAN: Assessment: Acute exacerbation of COPD Chronic respiratory failure on 2 L nasal cannula DION GERD Neuropathy Insomnia Morbid obesity Plan: -Start Levaquin given change in increased production and sputum -Strep pneumo and Legionella antigens -Viral PCR -Scheduled and as needed nebulizers -Pep with Acapella -I-S -Supplemental oxygen -Patient is on 2 L at baseline -IV steroids with Solu-Medrol 40 mg every 8 -Patient has had 2 - sputum cultures--> upon review appear more consistent with saliva -Continue home baseline medications -Patient does follow with Dr. Haley as an outpatient
[2020-12-10] MEDS: Furosemide 20 MG/2 ML VIAL IV (20:03)
--- NOTE | 2020-12-10 20:16 | NURSING ---
gabapentin not down from pharm and patient going to floor -- will keep an eye out and tube to floor when arrives -- patient is aware
[2020-12-10 22:06] LABS: Bedside Glucose 134 mg/dL (70-110)
[2020-12-10] MEDS: traZODone 100 MG Tablet 200 MG PO (22:25)
[2020-12-10] MEDS: guaiFENesin 600 MG Tablet PO (22:26)
[2020-12-10] MEDS: 0.9% Saline Lock 10 ML Syringe IV (22:26)
[2020-12-10] MEDS: Gabapentin 600 MG Tablet PO (22:26)
[2020-12-11] VITALS (19 sets, daily range): BP systolic 136–159; BP diastolic 62–75; PULSE 64–85; RESP 18–22; TEMP 36.5–36.6; O2SAT 93–96
[2020-12-11] MEDS: Ipratropium/Albuterol Sulfate 3 ML AMPUL.NEB INHALATION ×7 (00:30→22:15)
--- NOTE | 2020-12-11 00:31 | CPS ---
pt has own bipap with o2 bled in at 2L
[2020-12-11 05:50] LABS: Absolute Lymphocyte Count 0.62 X10^3/uL (0.83-4.51); Absolute Neutrophil Count 9.6 X10^3/uL (2.0-7.7); Basophil# 0.01 X10^3/uL; Basophil% 0.1 % (0-1); Hematocrit 39.2 % (37-47); Hemoglobin 12.5 g/dL (12.0-15.0); Lymphocyte # 0.62 X10^3/ul (0.83-4.51); Lymphocyte % 5.9 % (19-41); Mean Corp Hgb Conc 31.9 g/dL (32-36); Mean Corpuscular Hgb 31.5 pg (27.0-32.0); Mean Corpuscular Volume 98.7 fL (81-99); Mean Platelet Vol. 10.2 fl (6.2-12.0); Monocyte# 0.21 X10^3/uL; NRBC Flagged by Analyzer 0 % (0-5); Neutrophil # 9.62 X10^3/uL (2.7-7.7); Neutrophil % 91.2 % (47-70); Platelet Count 457 K/mm3 (150-450); RBC Distribution Width SD 44.2 fl (35.1-43.9); Red Blood Count 3.97 M/mm3 (4.2-5.4); White Blood Count 10.5 K/mm3 (4.4-11.0)
[2020-12-11 06:17] LABS: Anion Gap 8 (5-15); BUN 15 mg/dL (7-18); BUN/Creat Ratio 20.5 RATIO (10-20); Calcium,Total 9.2 mg/dL (8.5-10.1); Chloride 101 mmol/L (98-107); Creatinine, Serum 0.73 mg/dL (0.55-1.02); EST Glomerular Filtration Rate 83 mL/min (>60); Est Glom Filt Rate - Afr Amer 100 mL/min (>60); Estimated Creatinine Clearance 41.45 ml/min; Glucose 149 mg/dL (74-106); Magnesium 2.4 mg/dL (1.6-2.6); Potassium 3.7 mmol/L (3.5-5.1); Sodium Level 139 mmol/L (136-145)
[2020-12-11] MEDS: 0.9% Saline Lock 10 ML Syringe IV ×3 (06:30→20:36)
[2020-12-11 06:51] LABS: Bedside Glucose 153 mg/dL (70-110)
[2020-12-11] MEDS: Gabapentin 300 MG Capsule PO (07:57)
[2020-12-11] MEDS: Glucerna Shake 120 ML LIQUID PO (07:57)
[2020-12-11] MEDS: guaiFENesin 600 MG Tablet PO ×2 (09:38→20:33)
[2020-12-11] MEDS: Pantoprazole Sodium 40 MG Tablet PO (09:38)
[2020-12-11] MEDS: Fluticasone 0.05% 1 SPRAY NASAL.SRY 2 SPRAY NASAL (09:39)
[2020-12-11] MEDS: Enoxaparin 40 MG/0.4 ML Syringe SC (09:39)
--- NOTE | 2020-12-11 10:55 | PCM.PN.HOSP ---
Documented by User: Edu SALGADO 12/11/20 11:13 Subjective Subjective Patient is a 75-year-old female comfortably resting in a chair, alert and orient x3. Patient still endorses ongoing shortness of breath and green sputum production, however reports that this is improved from admission. Denies chest pain, palpitations, hemoptysis, fever, chills, N/V/D. Objective Data Objective Data Vital Signs: Vital Signs Temp Pulse Resp BP Pulse Ox 97.8 F 68 20 H 144/62 H 94 12/11/20 08:00 12/11/20 08:08 12/11/20 08:08 12/11/20 08:00 12/11/20 08:00 Oxygen Flow Rate (L/min) 2 Oxygen Delivery Method Nasal Cannula Weight: 223 lb 12.307 oz Body Mass Index (BMI) 39.6 Intake & Output: Intake and Output for Last 24 Hours 12/09/20 12/10/20 12/11/20 23:59 23:59 23:59 Output Total 1000 / 1000 Balance -1000 / -1000 Lab / Micro Data Result Diagrams: 12/11/20 05:02 12/11/20 05:02 Labs: Laboratory Results - last 24 hr 12/10/20 16:06: WBC 10.7, RBC 4.14 L, Hgb 13.1, Hct 40.8, MCV 98.6, MCH 31.6, MCHC 32.1, RDW Std Deviation 43.6, RDW Coeff of Jasmin 11.9, Plt Count 455 H, MPV 10.2, Immature Gran % (Auto) 0.700, Neut % (Auto) 93.1 H, Lymph % (Auto) 4.9 L, [place] % (Auto) 1.1, Eos % (Auto) 0.0, Baso % (Auto) 0.2, Absolute Neuts (auto) 10.0 H, Absolute Lymphs (auto) 0.52 L, Nucleated RBC % 0, Differential Comment SCANNED 12/10/20 16:06: Sodium 139, Potassium 4.0, Chloride 104, Carbon Dioxide 32.0, Anion Gap 3 L, BUN 14, Creatinine 0.67, Estim Creat Clear Calc 41.45, Est GFR (MDRD) Af Amer 112, Est GFR (MDRD) Non-Af 92, BUN/Creatinine Ratio 21.0 H, Glucose 125 H, Calcium 9.1 12/10/20 21:59: POC Glucose 134 H 12/11/20 05:02: WBC 10.5, RBC 3.97 L, Hgb 12.5, Hct 39.2, MCV 98.7, MCH 31.5, MCHC 31.9 L, RDW Std Deviation 44.2 H, RDW Coeff of Jasmin 12.0, Plt Count 457 H, MPV 10.2, Immature Gran % (Auto) 0.800, Neut % (Auto) 91.2 H, Lymph % (Auto) 5.9 L, [place] % (Auto) 2.0, Eos % (Auto) 0.0, Baso % (Auto) 0.1, Absolute Neuts (auto) 9.6 H, Absolute Lymphs (auto) 0.62 L, Nucleated RBC % 0 12/11/20 05:02: Sodium 139, Potassium 3.7, Chloride 101, Carbon Dioxide 30.0, Anion Gap 8, BUN 15, Creatinine 0.73, Estim Creat Clear Calc 41.45, Est GFR (MDRD) Af Amer 100, Est GFR (MDRD) Non-Af 83, BUN/Creatinine Ratio 20.5 H, Glucose 149 H, Calcium 9.2, Magnesium 2.4 12/11/20 06:29: POC Glucose 153 H Micro: Microbiology 12/10/20 20:35 Mucosa - Nose Respiratory Panel (PCR) - Final Rhinovirus 12/10/20 20:35 Urine, Clean Catch Legionella Antigen - Final 12/10/20 20:35 Urine, Clean Catch Streptococcus pneumoniae Antigen (M - Final 12/10/20 15:55 Nasal Secretion SARS-CoV-2 Antigen (Rapid) - Final Radiography Diagnostic Testing: Radiology Impression Chest X-Ray 12/10/20 15:56 IMPRESSION: No active disease. Electronically Signed: Stas Garza MD at 17:03 EDT Tel , Service support , Physical Exam Const alert, oriented x3 and no apparent distress HEENT head/scalp atraumatic and moist oral mucous membranes Head and Scalp: normocephalic Eyes PERRL, EOMs intact bilaterally and conjunctivae normal Neck no lymphadenopathy, supple and no JVD Resp Effort and Inspection: tachypneic and respiratory distress Auscultation: crackles, rhonchi and diminished lung sounds Cardio regular rate, regular rhythm, no murmurs and no JVD GI normal to inspection, nondistended, normoactive bowel sounds, soft to palpation and non-tender Extremity normal to inspection, full ROM and no clubbing, cyanosis or edema Skin no rashes or lesions noted, no wounds, skin turgor normal and no jaundice Neuro CN's II-XII intact bilaterally Psych affect normal Assessment & Plan Assessment/Plan (1) Acute exacerbation of COPD with asthma: PLAN: Day 2 Discharge planning: Anticipate discharge home, no home health care needs or additional therapies identified. 1) acute on chronic COPD exacerbation Patient still endorses shortness of breath and green sputum production, although improved from admission. Given patient presentation, anticipate patient remaining admitted for 2 more midnights. Patient is currently satting at 94% on 2 L via nasal cannula. Viral respiratory panel positive for rhinovirus. Legionella and strep pneumo antigens negative. Rapid Covid negative. Plan; remain admitted to [facility], continue scheduled duo nebs, continue Levaquin, albuterol as needed, continue Solu-Medrol, continue guaifenesin. 2) DION Continue home BiPAP at home settings. 3) RLS Continue gabapentin. DVT prophylaxis - Lovenox Patient seen by Edu Grant PA-C, under the supervision of Dr. Olguin. Documented by User: Dr. Jayson Olguin MD 12/11/20 13:22 Objective Data Lab / Micro Data Result Diagrams: 12/11/20 05:02 12/11/20 05:02 Charges/Coding Addendum Addendum: Dr. Olguin: I personally reviewed the chart and examined the patient, and agree with the above findings.75-year-old female presents to the hospital with acute on chronic COPD exacerbation likely initiated by rhinovirus infection. She has been on and off having difficulty breathing since October however over the last 7 to 10 days it has gotten worse. She had a CTA recently secondary to an elevated D-dimer which was negative for PE. BNP was unremarkable and she does not have any signs of heart failure. Family was concerned if there is something else going on besides respiratory therefore a troponin is pending though I do not anticipate it being of any significant secondary to the fact that on the she also had a normal troponin. No signs of hypoxia and she is on her baseline 2 L nasal cannula. She did had some early infiltrates and minor mucous plugging on the CTA obtained on the therefore we will also attempt a percussion vest. Continue with Levaquin at this time as well as steroids and breathing treatments. Visit Charges Inpatient E&M: 72321 Subs Hosp L2
[2020-12-11 11:46] LABS: Bedside Glucose 186 mg/dL (70-110)
[2020-12-11 13:39] LABS: Troponin-I HS 5 pg/mL (3.0-54.0)
--- NOTE | 2020-12-11 14:04 | CASEMGMT ---
RN JUANIS DATA CAPTURE CLERK CM to room to meet with patient for initial transition planning/care coordination assessment. EDGARD OLIVAREZ introduced self and role at [facility]. Pt voices understanding and consents to assessment at this time. Pt resting in bed in no distress at this time. Pt is A/O at this time and answers all questions appropriately. Care providers, pharmacy, and demographics verified/updated at this time. PCP: Dr Pelaez Specialists: Dr Haley--pulmonology, Dr Pitts--oncology Preferred Pharmacy: [facility] Retail Insurance: [facility], MMO Prescription Benefit: Yes. [employer] LNOK: 2 sons. KAELYN's, Margret and July, listed on demographics as NOK/persons to notify. Living Arrangements: Pt lives in a 2-story home w/son, Royal, KAELYN, Margret, and grandson. FFSU. 2-3 steps to enter w/rails on one side. Independent w/ADL's and IADL's except Margret does the cooking. Pt manages own medications and appts. July assists w/grocery shopping on occasion. Transportation: Pt states drives self and states no transportation concerns at this time. Family will take her home @ d/c. DME: States has the following DME: high-rise toilet seat, quad cane, nebulizer. BIPAP w/O2 @ 2 L/M bleed-in thru [employer] and 2 L/M continuously during the day, although pt states she usually takes it off @ rest. Pt states no need for further DME at this time. HHC/SNF: No history of either. Denies need for HHC. Pt wishes to return home and states has no concerns with going home at time of discharge. CM to follow for increase in home oxygen needs and any further discharge planning/needs. Pt voices no concerns/needs at this time. Advised pt to ask for CM if any questions/concerns/needs arise. Voices understanding. PLAN: Home w/family support and discharge plans in place. Stef ZUNIGA RN, CM
[2020-12-11 16:57] LABS: Bedside Glucose 129 mg/dL (70-110)
[2020-12-11] MEDS: Calcium Carbonate 500 MG Tablet PO (16:59)
[2020-12-11] MEDS: traZODone 100 MG Tablet 200 MG PO (20:32)
[2020-12-11] MEDS: Gabapentin 600 MG Tablet PO (20:33)
[2020-12-11] MEDS: levoFLOXacin 750 MG Tablet PO (20:34)
[2020-12-11 22:05] LABS: Bedside Glucose 139 mg/dL (70-110)
[2020-12-12] VITALS (20 sets, daily range): BP systolic 109–165; BP diastolic 61–88; PULSE 65–88; RESP 18–24; TEMP 36.4–36.7; O2SAT 0–95
[2020-12-12] MEDS: Ipratropium/Albuterol Sulfate 3 ML AMPUL.NEB INHALATION ×5 (03:01→23:22)
[2020-12-12 04:45] LABS: Absolute Lymphocyte Count 0.63 X10^3/uL (0.83-4.51); Absolute Neutrophil Count 10.9 X10^3/uL (2.0-7.7); Basophil# 0.02 X10^3/uL; Basophil% 0.2 % (0-1); Hematocrit 40.4 % (37-47); Lymphocyte # 0.63 X10^3/ul (0.83-4.51); Lymphocyte % 5.2 % (19-41); Mean Corp Hgb Conc 32.2 g/dL (32-36); Mean Corpuscular Hgb 31.8 pg (27.0-32.0); Mean Corpuscular Volume 98.8 fL (81-99); Mean Platelet Vol. 10.2 fl (6.2-12.0); Monocyte# 0.37 X10^3/uL; Monocyte% 3.1 % (0-10); NRBC Flagged by Analyzer 0 % (0-5); Neutrophil # 10.86 X10^3/uL (2.7-7.7); Neutrophil % 89.8 % (47-70); Platelet Count 479 K/mm3 (150-450); RBC Distribution Width CV 12.1 % (11.6-14.6); RBC Distribution Width SD 43.8 fl (35.1-43.9); Red Blood Count 4.09 M/mm3 (4.2-5.4); White Blood Count 12.1 K/mm3 (4.4-11.0)
[2020-12-12 05:48] LABS: Anion Gap 4 (5-15); BUN 13 mg/dL (7-18); BUN/Creat Ratio 21.8 RATIO (10-20); Calcium,Total 9.1 mg/dL (8.5-10.1); Chloride 101 mmol/L (98-107); EST Glomerular Filtration Rate 105 mL/min (>60); Est Glom Filt Rate - Afr Amer 127 mL/min (>60); Estimated Creatinine Clearance 41.45 ml/min; Glucose 154 mg/dL (74-106); Potassium 3.9 mmol/L (3.5-5.1); Sodium Level 138 mmol/L (136-145)
[2020-12-12] MEDS: 0.9% Saline Lock 10 ML Syringe IV ×3 (06:36→21:16)
[2020-12-12 06:46] LABS: Bedside Glucose 130 mg/dL (70-110)
[2020-12-12] MEDS: Enoxaparin 40 MG/0.4 ML Syringe SC (10:08)
[2020-12-12] MEDS: Gabapentin 300 MG Capsule PO (10:08)
[2020-12-12] MEDS: Pantoprazole Sodium 40 MG Tablet PO (10:08)
[2020-12-12] MEDS: guaiFENesin 600 MG Tablet PO ×2 (10:08→21:16)
[2020-12-12] MEDS: Fluticasone 0.05% 1 SPRAY NASAL.SRY 2 SPRAY NASAL (10:08)
--- NOTE | 2020-12-12 11:44 | PN.HOSP_ITS ---
Documented by User: Edu SALGADO 12/12/20 11:52 Subjective Subjective Patient is a 75-year-old female comfortably resting in a chair, alert and orient x3. Patient reports feeling improved from yesterday in regards to her shortness of breath and cough. Denies development of any new symptoms. Denies chest pain, palpitations, hemoptysis, fever, chills, N/V/D. Objective Data Objective Data Vital Signs: Vital Signs Temp Pulse Resp BP Pulse Ox 97.6 F L 70 23 H 162/74 H 95 12/12/20 10:11 12/12/20 10:11 12/12/20 10:11 12/12/20 10:11 12/12/20 10:11 Oxygen Flow Rate (L/min) 3 Oxygen Delivery Method Nasal Cannula Weight: 196 lb 6.91 oz Body Mass Index (BMI) 39.6 Intake & Output: Intake and Output for Last 24 Hours 12/10/20 12/11/20 12/12/20 23:59 23:59 23:59 Intake Total 1150 / 1150 Output Total 2400 / 2400 250 / 250 Balance -1250 / -1250 -250 / -250 Lab / Micro Data Result Diagrams: 12/12/20 04:08 12/12/20 04:08 Labs: Laboratory Results - last 24 hr 12/11/20 11:32: POC Glucose 186 H 12/11/20 12:15: Troponin I High Sens Cancelled 12/11/20 13:15: Troponin I High Sens 5 12/11/20 16:46: POC Glucose 129 H 12/11/20 21:58: POC Glucose 139 H 12/12/20 04:08: WBC 12.1 H, RBC 4.09 L, Hgb 13.0, Hct 40.4, MCV 98.8, MCH 31.8, MCHC 32.2, RDW Std Deviation 43.8, RDW Coeff of Jasmin 12.1, Plt Count 479 H, MPV 10.2, Immature Gran % (Auto) 1.700 H, Neut % (Auto) 89.8 H, Lymph % (Auto) 5.2 L , [place] % (Auto) 3.1, Eos % (Auto) 0.0, Baso % (Auto) 0.2, Absolute Neuts (auto) 10.9 H, Absolute Lymphs (auto) 0.63 L, Nucleated RBC % 0 12/12/20 04:08: Sodium 138, Potassium 3.9, Chloride 101, Carbon Dioxide 33.0 H, Anion Gap 4 L, BUN 13, Creatinine 0.60, Estim Creat Clear Calc 41.45, Est GFR (MDRD) Af Amer 127, Est GFR (MDRD) Non-Af 105, BUN/Creatinine Ratio 21.8 H, Glucose 154 H, Calcium 9.1 12/12/20 06:37: POC Glucose 130 H Micro: Microbiology 12/10/20 20:35 Mucosa - Nose Respiratory Panel (PCR) - Final Rhinovirus 12/10/20 20:35 Urine, Clean Catch Legionella Antigen - Final 12/10/20 20:35 Urine, Clean Catch Streptococcus pneumoniae Antigen (M - Final 12/10/20 15:55 Nasal Secretion SARS-CoV-2 Antigen (Rapid) - Final Physical Exam Const alert, oriented x3 and no apparent distress HEENT head/scalp atraumatic, moist oral mucous membranes and oropharynx normal Head and Scalp: normocephalic Eyes EOMs intact bilaterally and conjunctivae normal Neck no lymphadenopathy, supple and no JVD Resp Effort and Inspection: tachypneic and labored Auscultation: diminished lung sounds Cardio regular rate, regular rhythm, no murmurs and no JVD GI normal to inspection, nondistended, normoactive bowel sounds, soft to palpation and non-tender Extremity normal to inspection, full ROM and no clubbing, cyanosis or edema Skin no rashes or lesions noted, no wounds, skin turgor normal and no jaundice Neuro CN's II-XII intact bilaterally Psych affect normal Assessment & Plan Assessment/Plan (1) Acute exacerbation of COPD with asthma: PLAN: Day 3 Discharge planning: Anticipate discharge home, no home health care needs or additional therapies identified. 1) acute on chronic COPD exacerbation Patient still endorses shortness of breath and green sputum production, although improved from admission. Possible discharge on 12/13 pending patient presentation. Patient is currently satting at 95% on 3 L via nasal cannula. Viral respiratory panel positive for rhinovirus. Legionella and strep pneumo antigens negative. Rapid Covid negative. Plan; remain admitted to [facility], continue scheduled duo nebs, continue Levaquin, albuterol as needed, continue Solu-Medrol, continue guaifenesin. 2) DION Continue home BiPAP at home settings. 3) RLS Continue gabapentin. DVT prophylaxis - Lovenox Patient seen by Edu Grant PA-C, under the supervision of Dr. Olguin. Documented by User: Dr. Jayson Olguin MD 12/12/20 12:55 Objective Data Lab / Micro Data Result Diagrams: 12/12/20 04:08 12/12/20 04:08 Charges/Coding Addendum Addendum: Dr. Olguin: I personally reviewed the chart and examined the patient, and agree with the above findings.75-year-old female presents to the hospital with acute on chronic COPD exacerbation likely initiated by rhinovirus infection. She has been on and off having difficulty breathing since October however over the last 7 to 10 days it has gotten worse. She had a CTA recently secondary to an elevated D-dimer which was negative for PE. BNP was unremarkable and she does not have any signs of heart failure. Family was concerned if there is something else going on besides respiratory therefore a troponin is pending though I do not anticipate it being of any significant secondary to the fact that on the she also had a normal troponin. No signs of hypoxia and she is on her baseline 2 L nasal cannula. She did had some early infiltrates and minor mucous plugging on the CTA obtained on the therefore we will also attempt a percussion vest. Continue with Levaquin at this time as well as steroids and breathing treatments. 12/12/2020: Doing well today, feels little bit better. The percussion vest has helped significantly as well as the other breathing interventions. I advised her to continue with the pulmonary toileting as well as the breathing treatments. Will continue with Levaquin for another dose and continue with steroids as well for rhinovirus. We will decrease her steroids to prednisone hopefully in the next day or 2. Visit Charges Inpatient E&M: 69789 Subs Hosp L2
[2020-12-12 13:20] LABS: Bedside Glucose 126 mg/dL (70-110)
--- NOTE | 2020-12-12 15:45 | NURSING ---
Pt sitting in chair. 02 maintained at 2L NC/. This nurse is aware of Vital Signs that were taken around noon by Anna Gaxiola of [employer] and that next vitas due at 1800.
[2020-12-12 18:31] LABS: Bedside Glucose 148 mg/dL (70-110)
[2020-12-12] MEDS: Gabapentin 600 MG Tablet PO (21:10)
[2020-12-12] MEDS: traZODone 100 MG Tablet 200 MG PO (21:16)
[2020-12-12 22:00] LABS: Bedside Glucose 141 mg/dL (70-110)
--- NOTE | 2020-12-12 23:23 | CPS ---
pt on own bipap with o2 bled in
[2020-12-13] VITALS (20 sets, daily range): BP systolic 130–175; BP diastolic 61–83; PULSE 59–90; RESP 18–20; TEMP 36.5–36.7; O2SAT 85–98
[2020-12-13] MEDS: Ipratropium/Albuterol Sulfate 3 ML AMPUL.NEB INHALATION ×6 (03:39→23:19)
[2020-12-13] MEDS: 0.9% Saline Lock 10 ML Syringe IV ×4 (05:59→21:34)
[2020-12-13 06:11] LABS: Bedside Glucose 151 mg/dL (70-110)
[2020-12-13 06:25] LABS: Absolute Lymphocyte Count 0.69 X10^3/uL (0.83-4.51); Absolute Neutrophil Count 12.2 X10^3/uL (2.0-7.7); Basophil# 0.03 X10^3/uL; Basophil% 0.2 % (0-1); Hematocrit 40.4 % (37-47); Hemoglobin 13.2 g/dL (12.0-15.0); Lymphocyte # 0.69 X10^3/ul (0.83-4.51); Lymphocyte % 5.1 % (19-41); Mean Corp Hgb Conc 32.7 g/dL (32-36); Mean Corpuscular Volume 97.8 fL (81-99); Mean Platelet Vol. 9.9 fl (6.2-12.0); Monocyte# 0.47 X10^3/uL; Monocyte% 3.5 % (0-10); NRBC Flagged by Analyzer 0 % (0-5); Neutrophil # 12.21 X10^3/uL (2.7-7.7); Neutrophil % 89.6 % (47-70); Platelet Count 488 K/mm3 (150-450); RBC Distribution Width CV 12.2 % (11.6-14.6); RBC Distribution Width SD 44.1 fl (35.1-43.9); Red Blood Count 4.13 M/mm3 (4.2-5.4); White Blood Count 13.6 K/mm3 (4.4-11.0)
[2020-12-13 07:03] LABS: Anion Gap 4 (5-15); BUN 20 mg/dL (7-18); BUN/Creat Ratio 25.1 RATIO (10-20); Calcium,Total 9.1 mg/dL (8.5-10.1); Chloride 101 mmol/L (98-107); EST Glomerular Filtration Rate 75 mL/min (>60); Est Glom Filt Rate - Afr Amer 91 mL/min (>60); Estimated Creatinine Clearance 51.81 ml/min; Glucose 154 mg/dL (74-106); Potassium 4.2 mmol/L (3.5-5.1); Sodium Level 139 mmol/L (136-145)
[2020-12-13] MEDS: Fluticasone 0.05% 1 SPRAY NASAL.SRY 2 SPRAY NASAL (08:54)
[2020-12-13] MEDS: Enoxaparin 40 MG/0.4 ML Syringe SC (08:56)
[2020-12-13] MEDS: Gabapentin 300 MG Capsule PO (08:57)
[2020-12-13] MEDS: Pantoprazole Sodium 40 MG Tablet PO (08:57)
[2020-12-13] MEDS: guaiFENesin 600 MG Tablet PO ×2 (08:57→21:34)
[2020-12-13 11:11] LABS: Bedside Glucose 164 mg/dL (70-110)
--- NOTE | 2020-12-13 11:27 | NURSING ---
O2 on ra is 87, ambulated pt on 2l nc, her home setting, it dropped to 77, increased it to 6 l nc, she walked back to her room it was 92 with a min of rest. Edu SALGADO notified. O2 maintained at 4 l prior to ambulation and it was 97% when nurse left room.
--- NOTE | 2020-12-13 11:28 | PN.HOSP_ITS ---
Documented by User: Edu SALGADO 12/13/20 11:33 Subjective Subjective Patient is a 75-year-old female comfortably resting in bed, alert and orient x3. Patient reports continued improvement in shortness of breath and cough from admission. Denies chest pain, shortness of breath, palpitations, hemoptysis, sputum production, fever, chills, N/V/D. Objective Data Objective Data Vital Signs: Vital Signs Temp Pulse Resp BP Pulse Ox 97.7 F L 66 20 H 149/76 H 85 12/13/20 11:10 12/13/20 11:10 12/13/20 11:10 12/13/20 11:10 12/13/20 11:10 Oxygen Flow Rate (L/min) [ 3 AMBULATING with Oxygen #2] Oxygen Flow Rate (L/min) [ 2 AMBULATING with Oxygen #1] Oxygen Flow Rate (L/min) [At 2 REST with Oxygen] Oxygen Flow Rate (L/min) 4 Oxygen Delivery Method Room Air Weight: 201 lb 11.567 oz Body Mass Index (BMI) 39.6 Intake & Output: Intake and Output for Last 24 Hours 12/11/20 12/12/20 12/13/20 23:59 23:59 23:59 Intake Total 1150 / 1150 300 / 300 Output Total 2400 / 2400 250 / 250 Balance -1250 / -1250 50 / 50 Lab / Micro Data Result Diagrams: 12/13/20 06:05 12/13/20 06:05 Labs: Laboratory Results - last 24 hr 12/12/20 12:47: POC Glucose 126 H 12/12/20 17:28: POC Glucose 148 H 12/12/20 21:05: POC Glucose 141 H 12/13/20 05:58: POC Glucose 151 H 12/13/20 06:05: WBC 13.6 H, RBC 4.13 L, Hgb 13.2, Hct 40.4, MCV 97.8, MCH 32.0, MCHC 32.7, RDW Std Deviation 44.1 H, RDW Coeff of Jasmin 12.2, Plt Count 488 H, MPV 9.9, Immature Gran % (Auto) 1.600 H, Neut % (Auto) 89.6 H, Lymph % (Auto) 5.1 L, [place] % (Auto) 3.5, Eos % (Auto) 0.0, Baso % (Auto) 0.2, Absolute Neuts (auto) 12.2 H, Absolute Lymphs (auto) 0.69 L, Nucleated RBC % 0 12/13/20 06:05: Sodium 139, Potassium 4.2, Chloride 101, Carbon Dioxide 34.0 H, Anion Gap 4 L, BUN 20 H, Creatinine 0.80, Estim Creat Clear Calc 51.81, Est GFR (MDRD) Af Amer 91, Est GFR (MDRD) Non-Af 75, BUN/Creatinine Ratio 25.1 H, Glucose 154 H, Calcium 9.1 12/13/20 11:04: POC Glucose 164 H Micro: Microbiology 12/10/20 20:35 Mucosa - Nose Respiratory Panel (PCR) - Final Rhinovirus 12/10/20 20:35 Urine, Clean Catch Legionella Antigen - Final 12/10/20 20:35 Urine, Clean Catch Streptococcus pneumoniae Antigen (M - Final 12/10/20 15:55 Nasal Secretion SARS-CoV-2 Antigen (Rapid) - Final Physical Exam Const alert, oriented x3 and no apparent distress HEENT head/scalp atraumatic, moist oral mucous membranes and oropharynx normal Head and Scalp: normocephalic Eyes PERRL, EOMs intact bilaterally and conjunctivae normal Neck no lymphadenopathy, supple and no JVD Resp Effort and Inspection: labored Auscultation: diminished lung sounds Cardio regular rate, regular rhythm, no murmurs and no JVD GI normal to inspection, nondistended, normoactive bowel sounds, soft to palpation and non-tender Extremity normal to inspection, full ROM and no clubbing, cyanosis or edema Skin no rashes or lesions noted, no wounds, skin turgor normal and no jaundice Neuro CN's II-XII intact bilaterally Psych affect normal Assessment & Plan Assessment/Plan (1) COPD exacerbation: PLAN: Day 4 Discharge planning: Anticipate discharge home, no home health care needs or additional therapies identified. 1) acute on chronic COPD exacerbation Patient satting 77% on 2 liters via NC with ambulation, which is home oxygen Rx. Patient not stable for discharge. Viral respiratory panel positive for rhinovirus. Legionella and strep pneumo antigens negative. Rapid Covid negative. Plan; remain admitted to [facility], amb pulse ox in a.m., continue scheduled duo nebs, continue Levaquin, albuterol as needed, continue Solu- Medrol, continue guaifenesin. 2) DION Continue home BiPAP at home settings. 3) RLS Continue gabapentin. DVT prophylaxis - Lovenox Patient seen by Edu Grant PA-C, under the supervision of Dr. Olguin. Documented by User: Dr. Jayson Olguin MD 12/13/20 15:06 Objective Data Lab / Micro Data Result Diagrams: 12/13/20 06:05 12/13/20 06:05 Charges/Coding Addendum Addendum: Dr. Olguin: I personally reviewed the chart and examined the patient, and agree with the above findings.75-year-old female presents to the hospital with acute on chronic COPD exacerbation likely initiated by rhinovirus infection. She has been on and off having difficulty breathing since October however over the last 7 to 10 days it has gotten worse. She had a CTA recently secondary to an elevated D-dimer which was negative for PE. BNP was unremarkable and she does not have any signs of heart failure. Family was concerned if there is something else going on besides respiratory therefore a troponin is pending though I do not anticipate it being of any significant secondary to the fact that on the she also had a normal troponin. No signs of hypoxia and she is on her baseline 2 L nasal cannula. She did had some early infiltrates and minor mucous plugging on the CTA obtained on the therefore we will also attempt a percussion vest. Continue with Levaquin at this time as well as steroids and breathing treatments. 12/12/2020: Doing well today, feels little bit better. The percussion vest has helped significantly as well as the other breathing interventions. I advised her to continue with the pulmonary toileting as well as the breathing treatments. Will continue with Levaquin for another dose and continue with steroids as well for rhinovirus. We will decrease her steroids to prednisone hopefully in the next day or 2. 12/13/2020: Doing well, thinks that her breathing is much better than what it was last week however still not back to baseline. She did test positive for rhinovirus. We will continue with current therapies, will add a nicotine patch as she is continue to be a smoker of about half a pack a day. Continue with percussion vest another pulmonary toileting devices.He continues to have waxing and waning alertness. This morning he did not answer any of my questions however this afternoon he told the nurse that he knows he is in the hospital also continue with Levaquin at every 48 dosing secondary to her creatinine clearance. Visit Charges Inpatient E&M: 41193 Subs Hosp L2
[2020-12-13] MEDS: levoFLOXacin 750 MG Tablet PO (13:18)
[2020-12-13 16:40] LABS: Bedside Glucose 93 mg/dL (70-110)
[2020-12-13] MEDS: traZODone 100 MG Tablet 200 MG PO (21:34)
[2020-12-13] MEDS: Gabapentin 600 MG Tablet PO (21:34)
[2020-12-13 21:40] LABS: Bedside Glucose 151 mg/dL (70-110)
[2020-12-14] VITALS (20 sets, daily range): BP systolic 146–167; BP diastolic 68–93; PULSE 60–90; RESP 18–21; TEMP 36.6–36.7; O2SAT 80–98
[2020-12-14] MEDS: Ipratropium/Albuterol Sulfate 3 ML AMPUL.NEB INHALATION ×6 (02:27→22:55)
[2020-12-14 06:04] LABS: Absolute Lymphocyte Count 0.73 X10^3/uL (0.83-4.51); Absolute Neutrophil Count 12.5 X10^3/uL (2.0-7.7); Basophil# 0.04 X10^3/uL; Basophil% 0.3 % (0-1); Hemoglobin 13.2 g/dL (12.0-15.0); Lymphocyte # 0.73 X10^3/ul (0.83-4.51); Lymphocyte % 5.2 % (19-41); Mean Corp Hgb Conc 32.2 g/dL (32-36); Mean Corpuscular Hgb 31.7 pg (27.0-32.0); Mean Corpuscular Volume 98.3 fL (81-99); Mean Platelet Vol. 10.3 fl (6.2-12.0); Monocyte# 0.51 X10^3/uL; Monocyte% 3.6 % (0-10); NRBC Flagged by Analyzer 0 % (0-5); Neutrophil # 12.45 X10^3/uL (2.7-7.7); Neutrophil % 88.6 % (47-70); Platelet Count 507 K/mm3 (150-450); RBC Distribution Width CV 12.2 % (11.6-14.6); RBC Distribution Width SD 44.3 fl (35.1-43.9); Red Blood Count 4.17 M/mm3 (4.2-5.4); White Blood Count 14.1 K/mm3 (4.4-11.0)
[2020-12-14] MEDS: 0.9% Saline Lock 10 ML Syringe IV ×3 (06:12→21:30)
[2020-12-14 06:34] LABS: Anion Gap 5 (5-15); BUN 22 mg/dL (7-18); BUN/Creat Ratio 30.7 RATIO (10-20); Chloride 100 mmol/L (98-107); Creatinine, Serum 0.72 mg/dL (0.55-1.02); EST Glomerular Filtration Rate 85 mL/min (>60); Est Glom Filt Rate - Afr Amer 103 mL/min (>60); Estimated Creatinine Clearance 41.45 ml/min; Glucose 147 mg/dL (74-106); Potassium 4.6 mmol/L (3.5-5.1); Sodium Level 138 mmol/L (136-145)
[2020-12-14 06:41] LABS: Bedside Glucose 146 mg/dL (70-110)
[2020-12-14] MEDS: Fluticasone 0.05% 1 SPRAY NASAL.SRY 2 SPRAY NASAL (08:49)
[2020-12-14] MEDS: levoFLOXacin 750 MG Tablet PO (08:49)
[2020-12-14] MEDS: Enoxaparin 40 MG/0.4 ML Syringe SC (08:51)
[2020-12-14] MEDS: Gabapentin 300 MG Capsule PO (08:51)
[2020-12-14] MEDS: Pantoprazole Sodium 40 MG Tablet PO (08:52)
[2020-12-14] MEDS: guaiFENesin 600 MG Tablet PO ×2 (08:52→21:30)
--- NOTE | 2020-12-14 09:14 | NURSING ---
resting pox on 3l was 93% heart rate 88 resp 22, ambulatory pox was 80 with heart rate @ 111, resp rate @ 26 and o2 increased to 4l-it took pt about 7-8 min. to recover and o2 returned to 3l, 2/ pox of 92%, HR of87, resp of 22
--- NOTE | 2020-12-14 11:37 | PN.HOSP_ITS ---
Documented by User: Edu SALGADO 12/14/20 11:47 Subjective Subjective Patient is a 75-year-old female comfortably resting in a chair, alert and orient x3. Patient reports significant improvement of her shortness of breath and cough from admission. Denies development of any new symptoms overnight. Denies chest pain, palpitations, hemoptysis, fever, chills, N/V/D. Objective Data Objective Data Vital Signs: Vital Signs Temp Pulse Resp BP Pulse Ox 97.8 F 88 20 H 146/93 H 95 12/14/20 09:18 12/14/20 09:19 12/14/20 09:19 12/14/20 09:18 12/14/20 09:19 Oxygen Flow Rate (L/min) [ 3 AMBULATING with Oxygen #2] Oxygen Flow Rate (L/min) [ 2 AMBULATING with Oxygen #1] Oxygen Flow Rate (L/min) [At 2 REST with Oxygen] Oxygen Flow Rate (L/min) 3 Oxygen Delivery Method Nasal Cannula Weight: 202 lb 1.6 oz Body Mass Index (BMI) 39.6 Intake & Output: Intake and Output for Last 24 Hours 12/12/20 12/13/20 12/14/20 23:59 23:59 23:59 Intake Total 300 / 300 Output Total 250 / 250 1400 / 1999 1600 / 1600 Balance 50 / 50 -1400 / -1999 -1599 / -1600 Lab / Micro Data Result Diagrams: 12/14/20 04:47 12/14/20 04:47 Labs: Laboratory Results - last 24 hr 12/13/20 16:35: POC Glucose 93 12/13/20 21:33: POC Glucose 151 H 12/14/20 04:47: WBC 14.1 H, RBC 4.17 L, Hgb 13.2, Hct 41.0, MCV 98.3, MCH 31.7, MCHC 32.2, RDW Std Deviation 44.3 H, RDW Coeff of Jasmin 12.2, Plt Count 507 H, MPV 10.3, Immature Gran % (Auto) 2.300 H, Neut % (Auto) 88.6 H, Lymph % (Auto) 5.2 L , [place] % (Auto) 3.6, Eos % (Auto) 0.0, Baso % (Auto) 0.3, Absolute Neuts (auto) 12.5 H, Absolute Lymphs (auto) 0.73 L, Nucleated RBC % 0 12/14/20 04:47: Sodium 138, Potassium 4.6, Chloride 100, Carbon Dioxide 33.0 H, Anion Gap 5, BUN 22 H, Creatinine 0.72, Estim Creat Clear Calc 41.45, Est GFR (MDRD) Af Amer 103, Est GFR (MDRD) Non-Af 85, BUN/Creatinine Ratio 30.7 H, Glucose 147 H, Calcium 9.0 12/14/20 06:11: POC Glucose 146 H Micro: Microbiology 12/10/20 20:35 Mucosa - Nose Respiratory Panel (PCR) - Final Rhinovirus 12/10/20 20:35 Urine, Clean Catch Legionella Antigen - Final 12/10/20 20:35 Urine, Clean Catch Streptococcus pneumoniae Antigen (M - Final 12/10/20 15:55 Nasal Secretion SARS-CoV-2 Antigen (Rapid) - Final Physical Exam Const alert, oriented x3 and no apparent distress HEENT head/scalp atraumatic, moist oral mucous membranes and oropharynx normal Head and Scalp: normocephalic Eyes PERRL, EOMs intact bilaterally and conjunctivae normal Neck no lymphadenopathy, supple and no JVD Resp normal respiratory effort and normal air movement Auscultation: rhonchi and diminished lung sounds Cardio regular rate, regular rhythm, no murmurs and no JVD GI normal to inspection, nondistended, normoactive bowel sounds, soft to palpation and non-tender Extremity normal to inspection, full ROM and no clubbing, cyanosis or edema Skin no rashes or lesions noted, no wounds, skin turgor normal and no jaundice Neuro CN's II-XII intact bilaterally Psych affect normal Assessment & Plan Assessment/Plan (1) COPD exacerbation: PLAN: Discharge planning: Anticipate discharge home, no home health care needs or additional therapies identified. 1) acute on chronic COPD exacerbation Patient satting 82% on 2 liters via NC with ambulation, which is home oxygen Rx. Patient not stable for discharge. Viral respiratory panel positive for rhinovirus. Legionella and strep pneumo antigens negative. Rapid Covid negative. Plan; remain admitted to [facility], amb pulse ox in a.m., continue scheduled duo nebs, continue Levaquin, albuterol as needed, continue Solu- Medrol, continue guaifenesin. 2) DION Continue home BiPAP at home settings. 3) RLS Continue gabapentin. DVT prophylaxis - Lovenox Patient seen by Edu Grant PA-C, under the supervision of Dr. Olguin. Documented by User: Dr. Jayson Olguin MD 12/14/20 13:47 Objective Data Lab / Micro Data Result Diagrams: 12/14/20 04:47 12/14/20 04:47 Charges/Coding Addendum Addendum: Dr. Olguin: I personally reviewed the chart and examined the patient, and agree with the above findings.75-year-old female presents to the hospital with acute on chronic COPD exacerbation likely initiated by rhinovirus infection. She has been on and off having difficulty breathing since October however over the last 7 to 10 days it has gotten worse. She had a CTA recently secondary to an elevated D-dimer which was negative for PE. BNP was unremarkable and she does not have any signs of heart failure. Family was concerned if there is something else going on besides respiratory therefore a troponin is pending though I do not anticipate it being of any significant secondary to the fact that on the she also had a normal troponin. No signs of hypoxia and she is on her baseline 2 L nasal cannula. She did had some early infiltrates and minor mucous plugging on the CTA obtained on the therefore we will also attempt a percussion vest. Continue with Levaquin at this time as well as steroids and breathing treatments. 12/12/2020: Doing well today, feels little bit better. The percussion vest has helped significantly as well as the other breathing interventions. I advised her to continue with the pulmonary toileting as well as the breathing treatments. Will continue with Levaquin for another dose and continue with steroids as well for rhinovirus. We will decrease her steroids to prednisone hopefully in the next day or 2. 12/13/2020: Doing well, thinks that her breathing is much better than what it was last week however still not back to baseline. She did test positive for rhinovirus. We will continue with current therapies, will add a nicotine patch as she is continue to be a smoker of about half a pack a day. Continue with percussion vest another pulmonary toileting devices.He continues to have waxing and waning alertness. This morning he did not answer any of my questions however this afternoon he told the nurse that he knows he is in the hospital also continue with Levaquin at every 48 dosing secondary to her creatinine clearance. 12/14/2020: Doing well, feels much improved compared to admission and states that she thinks that she is almost back to baseline. She still desaturated with ambulation on room air however while at rest she was maintaining 88% on room air and she did recover quickly with the reinstitution of oxygen. We will continue with Levaquin for 1 more dose tomorrow as well as steroids. She does feel that the percussion vest and the other efforts and pulmonary toileting have significantly helped her. She will need to follow-up with pulmonology again on discharge. And given her recent issues, she will likely need to be on an extend ed steroid taper. Visit Charges Inpatient E&M: 69818 Subs Hosp L2
[2020-12-14 12:01] LABS: Bedside Glucose 122 mg/dL (70-110)
[2020-12-14] MEDS: traZODone 100 MG Tablet 200 MG PO (21:30)
[2020-12-14] MEDS: Gabapentin 600 MG Tablet PO (21:30)
[2020-12-14 21:41] LABS: Bedside Glucose 178 mg/dL (70-110)
[2020-12-15] VITALS (18 sets, daily range): BP systolic 147–151; BP diastolic 61–95; PULSE 57–94; RESP 16–24; TEMP 36.4–37; O2SAT 84–987
[2020-12-15] MEDS: Ipratropium/Albuterol Sulfate 3 ML AMPUL.NEB INHALATION ×6 (03:10→23:33)
[2020-12-15] MEDS: 0.9% Saline Lock 10 ML Syringe IV ×3 (06:24→21:03)
[2020-12-15 06:27] LABS: Absolute Lymphocyte Count 0.64 X10^3/uL (0.83-4.51); Basophil# 0.03 X10^3/uL; Basophil% 0.3 % (0-1); Hematocrit 40.8 % (37-47); Hemoglobin 13.5 g/dL (12.0-15.0); Lymphocyte # 0.64 X10^3/ul (0.83-4.51); Lymphocyte % 5.5 % (19-41); Mean Corp Hgb Conc 33.1 g/dL (32-36); Mean Corpuscular Hgb 32.3 pg (27.0-32.0); Mean Corpuscular Volume 97.6 fL (81-99); Mean Platelet Vol. 10.1 fl (6.2-12.0); Monocyte# 0.51 X10^3/uL; Monocyte% 4.4 % (0-10); NRBC Flagged by Analyzer 0 % (0-5); Neutrophil % 86.2 % (47-70); Platelet Count 515 K/mm3 (150-450); RBC Distribution Width CV 12.4 % (11.6-14.6); RBC Distribution Width SD 44.3 fl (35.1-43.9); Red Blood Count 4.18 M/mm3 (4.2-5.4); White Blood Count 11.6 K/mm3 (4.4-11.0)
[2020-12-15 06:31] LABS: Bedside Glucose 141 mg/dL (70-110)
[2020-12-15 06:49] LABS: Anion Gap 6 (5-15); BUN 27 mg/dL (7-18); BUN/Creat Ratio 36.2 RATIO (10-20); Calcium,Total 9.1 mg/dL (8.5-10.1); Chloride 99 mmol/L (98-107); Creatinine, Serum 0.75 mg/dL (0.55-1.02); EST Glomerular Filtration Rate 81 mL/min (>60); Est Glom Filt Rate - Afr Amer 98 mL/min (>60); Estimated Creatinine Clearance 41.45 ml/min; Glucose 155 mg/dL (74-106); Potassium 4.2 mmol/L (3.5-5.1); Sodium Level 139 mmol/L (136-145)
[2020-12-15] MEDS: guaiFENesin 600 MG Tablet PO ×2 (09:15→20:36)
[2020-12-15] MEDS: Gabapentin 300 MG Capsule PO (09:15)
[2020-12-15] MEDS: levoFLOXacin 750 MG Tablet PO (09:15)
[2020-12-15] MEDS: Enoxaparin 40 MG/0.4 ML Syringe SC (09:15)
[2020-12-15] MEDS: Pantoprazole Sodium 40 MG Tablet PO (09:15)
[2020-12-15] MEDS: Fluticasone 0.05% 1 SPRAY NASAL.SRY 2 SPRAY NASAL (09:16)
--- NOTE | 2020-12-15 10:28 | PN.HOSP_ITS ---
Subjective Subjective Patient seen and examined. SHe had no complaints and denied any shortness of breath, cough, chest pain, nausea, vomiting or diarrhea. Review of systems is otherwise negative. Plan was for likely DC today, but she had walking pulse ox and she ended up needing 6L of oxygen to maintain sats >90%. Objective Data Objective Data Vital Signs: Vital Signs Temp Pulse Resp BP Pulse Ox 97.6 F L 79 20 H 151/61 H 98 12/15/20 09:12 12/15/20 09:12 12/15/20 09:12 12/15/20 09:12 12/15/20 09:36 Oxygen Flow Rate (L/min) [ 6 AMBULATING with Oxygen #2] Oxygen Flow Rate (L/min) [ 2 AMBULATING with Oxygen #1] Oxygen Flow Rate (L/min) [At 3 REST with Oxygen] Oxygen Flow Rate (L/min) 33 Oxygen Delivery Method Nasal Cannula Weight: 195 lb Body Mass Index (BMI) 39.6 Intake & Output: Intake and Output for Last 24 Hours 12/13/20 12/14/20 12/15/20 23:59 23:59 23:59 Intake Total 400 / 400 Output Total 1400 / 1999 2600 / 2900 800 / 800 Balance -1400 / -2000 -2200 / -2500 -800 / -800 Lab / Micro Data Result Diagrams: 12/15/20 04:25 12/15/20 04:25 Labs: Laboratory Results - last 24 hr 12/14/20 11:56: POC Glucose 122 H 12/14/20 21:29: POC Glucose 178 H 12/15/20 04:25: WBC 11.6 H, RBC 4.18 L, Hgb 13.5, Hct 40.8, MCV 97.6, MCH 32.3 H , MCHC 33.1, RDW Std Deviation 44.3 H, RDW Coeff of Jasmin 12.4, Plt Count 515 H, MPV 10.1, Immature Gran % (Auto) 3.600 H, Neut % (Auto) 86.2 H, Lymph % (Auto) 5.5 L, [place] % (Auto) 4.4, Eos % (Auto) 0.0, Baso % (Auto) 0.3, Absolute Neuts (auto) 10.0 H, Absolute Lymphs (auto) 0.64 L, Nucleated RBC % 0 12/15/20 04:25: Sodium 139, Potassium 4.2, Chloride 99, Carbon Dioxide 34.0 H, Anion Gap 6, BUN 27 H, Creatinine 0.75, Estim Creat Clear Calc 41.45, Est GFR (MDRD) Af Amer 98, Est GFR (MDRD) Non-Af 81, BUN/Creatinine Ratio 36.2 H, Glucose 155 H, Calcium 9.1 12/15/20 06:23: POC Glucose 141 H Micro: Microbiology 12/10/20 20:35 Mucosa - Nose Respiratory Panel (PCR) - Final Rhinovirus 12/10/20 20:35 Urine, Clean Catch Legionella Antigen - Final 12/10/20 20:35 Urine, Clean Catch Streptococcus pneumoniae Antigen (M - Final 12/10/20 15:55 Nasal Secretion SARS-CoV-2 Antigen (Rapid) - Final Physical Exam Const alert, oriented x3 and no apparent distress Exam Limitations: no limitations HEENT head/scalp atraumatic and moist oral mucous membranes Head and Scalp: normocephalic Eyes PERRL, EOMs intact bilaterally and conjunctivae normal Neck no lymphadenopathy Resp Resp Narrative: diminished breath sounds bibasally, no wheezes or crackles. On 3L of oxygen at time of review. Cardio regular rate, regular rhythm, S1 normal heart sound, S2 normal heart sound and no murmurs GI normal to inspection, nondistended, normoactive bowel sounds, soft to palpation, non-tender, non-distended and hepatosplenomegaly Extremity normal to inspection, full ROM and no clubbing, cyanosis or edema Peripheral Pulses: Yes pulses 2+ throughout Skin no rashes or lesions noted Neuro oriented x3, CN's II-XII intact bilaterally and moves all extremities Sensorium / Orientation: awake and alert Psych affect normal Assessment & Plan Assessment/Plan (1) Acute exacerbation of COPD with asthma: PLAN: #Acute on chronic hypoxic respiratory failure due to COPD exacerbation * patient on 3L of oxygen. Needed 6L of oxygen with ambulation, and was also tachypneic * continue breathing treatment with bronchodilators. * on levofloxacin. * on IV solumedrol * titrate oxygen to maintain sats> 90% * #COPD exacerbation: as above. DVT prophylaxis: lovenox Disposition: for likely DC tomorrow. Got SOB with ambulation today and oxygen requirements also trended up. Charges/Coding Visit Charges Inpatient E&M: 65382 Subs Hosp L3
[2020-12-15 12:01] LABS: Bedside Glucose 139 mg/dL (70-110)
--- NOTE | 2020-12-15 12:45 | NURSING ---
LOOKING BACK THROUGH PT DAILY WEIGHTS SINCE ADMIT, PT HAD A 28.8LB WEIGHT LOSS. DR WALTERS NOTIFIED. REQUESTED PT BE WEIGHED ANOTHER WAY RATHER THAN BUILT IN BED SCALE. PT WEIGHT ON STANDING SCALE 222.8. THIS IS MORE LIKE PT'S USUAL WEIGHT. FEEL PREVIOUS WEIGHTS DOCUMENTED ON BED SCALE INACCURATE.
[2020-12-15 18:46] LABS: Bedside Glucose 272 mg/dL (70-110)
[2020-12-15] MEDS: traZODone 100 MG Tablet 200 MG PO (20:35)
[2020-12-15] MEDS: Gabapentin 600 MG Tablet PO (20:36)
[2020-12-15 21:10] LABS: Bedside Glucose 159 mg/dL (70-110)
[2020-12-16] VITALS (11 sets, daily range): BP systolic 143–147; BP diastolic 63–75; PULSE 58–87; RESP 18–20; TEMP 36.4–36.5; O2SAT 79–97
[2020-12-16] MEDS: Ipratropium/Albuterol Sulfate 3 ML AMPUL.NEB INHALATION ×4 (03:33→14:45)
[2020-12-16] MEDS: 0.9% Saline Lock 10 ML Syringe IV ×2 (06:20→12:40)
[2020-12-16 06:30] LABS: Bedside Glucose 145 mg/dL (70-110)
[2020-12-16 06:33] LABS: Absolute Lymphocyte Count 0.59 X10^3/uL (0.83-4.51); Absolute Neutrophil Count 9.8 X10^3/uL (2.0-7.7); Basophil# 0.02 X10^3/uL; Basophil% 0.2 % (0-1); Hematocrit 39.2 % (37-47); Hemoglobin 12.9 g/dL (12.0-15.0); Lymphocyte # 0.59 X10^3/ul (0.83-4.51); Lymphocyte % 5.2 % (19-41); Mean Corp Hgb Conc 32.9 g/dL (32-36); Mean Corpuscular Hgb 31.9 pg (27.0-32.0); Mean Platelet Vol. 10.2 fl (6.2-12.0); Monocyte# 0.58 X10^3/uL; Monocyte% 5.1 % (0-10); NRBC Flagged by Analyzer 0 % (0-5); Neutrophil # 9.84 X10^3/uL (2.7-7.7); Neutrophil % 86.7 % (47-70); POSITIVE DIFFERENTIAL YES; Platelet Count 486 K/mm3 (150-450); RBC Distribution Width CV 12.6 % (11.6-14.6); RBC Distribution Width SD 45.1 fl (35.1-43.9); Red Blood Count 4.04 M/mm3 (4.2-5.4); White Blood Count 11.4 K/mm3 (4.4-11.0)
[2020-12-16 07:00] LABS: Differential Indicated SCAN CRITERIA MET
[2020-12-16 07:04] LABS: Anion Gap 4 (5-15); BUN 25 mg/dL (7-18); BUN/Creat Ratio 38.3 RATIO (10-20); Calcium,Total 9.1 mg/dL (8.5-10.1); Chloride 101 mmol/L (98-107); Creatinine, Serum 0.65 mg/dL (0.55-1.02); EST Glomerular Filtration Rate 94 mL/min (>60); Est Glom Filt Rate - Afr Amer 114 mL/min (>60); Estimated Creatinine Clearance 41.45 ml/min; Glucose 156 mg/dL (74-106); Potassium 4.3 mmol/L (3.5-5.1); Sodium Level 137 mmol/L (136-145)
[2020-12-16 07:18] LABS: Differential Comment SCANNED
[2020-12-16] MEDS: Fluticasone 0.05% 1 SPRAY NASAL.SRY 2 SPRAY NASAL (09:13)
[2020-12-16] MEDS: Gabapentin 300 MG Capsule PO (09:13)
[2020-12-16] MEDS: Enoxaparin 40 MG/0.4 ML Syringe SC (09:13)
[2020-12-16] MEDS: guaiFENesin 600 MG Tablet PO (09:13)
[2020-12-16] MEDS: Pantoprazole Sodium 40 MG Tablet PO (09:14)
--- NOTE | 2020-12-16 10:03 | CASEMGMT ---
Addendum entered by Elizabeth León 12/16/20 14:17: Faxed [employer] updated O2 orders at this time. Original Note: EDGARD CM in to pt room. Pt sitting up in chair in no distress with O2 on. Pt glad to be discharging today. Pt is aware that her O2 needs changed with activity. She denies the need for HHC SN as she states that her dil is a respiratory therapist. Pt states she has portable O2 to go home on. Denies any further needs.
[2020-12-16 11:55] LABS: Bedside Glucose 167 mg/dL (70-110)
--- NOTE | 2020-12-16 13:17 | PCM.DC.SUM ---
Providers Date of Admission: 12/11/20 Primary Care Physician: Dr. Tigist Pelaez DO Reason For Visit: COPD EXACERBATION Diagnosis Discharge Diagnosis (1) Acute exacerbation of COPD with asthma: Status: Chronic Code(s): J44.1 - Chronic obstructive pulmonary disease with (acute) exacerbation; J45.901 - Unspecified asthma with (acute) exacerbation Medications at Discharge Home Medications omeprazole 40 mg PO DAILY 06/27/14 trazodone 200 mg PO QHS 06/27/14 gabapentin 600 mg PO QHS 07/13/16 albuterol sulfate 2 puff INHALATION Q4H PRN 07/05/19 lidocaine-prilocaine 1 applicatio TP DAILY PRN PRN 30 Days #1 tube 07/23/19 gabapentin 300 mg PO DAILY 02/20/20 tiotropium bromide 18 mcg capsule with inhalation device 1 cap INHALATION DAILY #90 inh 07/02/20 fluticasone propion-salmeterol [Wixela Inhub] 1 inh INHALATION DAILY 12/10/20 fluticasone propionate 2 spray INTRANASAL DAILY 12/10/20 levofloxacin 500 mg PO DAILY #7 tab 12/16/20 methylprednisolone [Medrol (Adam)] 4 mg PO UD #21 tab 12/16/20 Hospital Course Operations None Procedures None Summary of Care Provided Minutes Spent on Discharge: 45 Hospital Course: Patient is a 75 y/o female with was admitted via the ED on 12/10/2020 with a complaint of shortness of breath. She had had episodic shortness of breath since October 2020 and had been on multiple courses of antibiotics with no relief. She had been seen in her medication coordinator's office and started on oral augmentin and prednisone. She however was not improving, so she decided to come in to the ED. She had associated increased sputum production. She was admitted and managed for acute COPD exacerbation. SHe was started on steroids and levaquin. COVID test done was negative. Patient was also placed on her supplemental home oxygen which was titrated for shortness of breath to maintain oxygen saturation >90%. Shortness of breath gradually improved and she felt much better. She remained stable and was discharged home on 12/16/2020 on a couse of prednisone,a nd also levaquin. She was discharged home on 12/16/2020, and is to follow up with her PCP and medication coordinator in 1-2 weeks. Patient seen and examined prior to discharge. She felt well and had no complaints. She felt much better and was ready to be disharged. Review of systems is otherwise negative. Labs and vitals reviewed. Home meds reviewed and reconciled. Physical Exam Const alert, oriented x3 and no apparent distress General Appearance: cooperative and comfortable Orientation / Consciousness: awake Exam Limitations: no limitations HEENT normocephalic, head/scalp atraumatic, hearing grossly normal bilaterally and moist oral mucous membranes Eyes PERRL, EOMs intact bilaterally and conjunctivae normal Neck no lymphadenopathy Resp Resp Narrative: diminished breath sounds bibasally, no wheezes or crackles. On 2L of oxygen. Cardio regular rate, regular rhythm, S1 normal heart sound, S2 normal heart sound and no murmurs GI normal to inspection, nondistended, normoactive bowel sounds, soft to palpation, non-tender and non-distended Extremity normal to inspection, full ROM and no clubbing, cyanosis or edema Skin no rashes or lesions noted Neuro oriented x3, CN's II-XII intact bilaterally and moves all extremities Sensorium / Orientation: awake and alert Psych affect normal Weight / BMI Weight Weight: 199 lb 1.239 oz Body Mass Index (BMI) 39.6 ABG / Lab / Microbiology Data Result Diagrams: 12/16/20 05:30 12/16/20 05:30 Laboratory: Laboratory Results - last 24 hr 12/15/20 18:41: POC Glucose 272 H 12/15/20 21:02: POC Glucose 159 H 12/16/20 05:30: WBC 11.4 H, RBC 4.04 L, Hgb 12.9, Hct 39.2, MCV 97.0, MCH 31.9, MCHC 32.9, RDW Std Deviation 45.1 H, RDW Coeff of Jasmin 12.6, Plt Count 486 H, MPV 10.2, Immature Gran % (Auto) 2.800 H, Neut % (Auto) 86.7 H, Lymph % (Auto) 5.2 L, [place] % (Auto) 5.1, Eos % (Auto) 0.0, Baso % (Auto) 0.2, Absolute Neuts (auto) 9.8 H, Absolute Lymphs (auto) 0.59 L, Nucleated RBC % 0, Differential Comment SCANNED 12/16/20 05:30: Sodium 137, Potassium 4.3, Chloride 101, Carbon Dioxide 32.0, Anion Gap 4 L, BUN 25 H, Creatinine 0.65, Estim Creat Clear Calc 41.45, Est GFR (MDRD) Af Amer 114, Est GFR (MDRD) Non-Af 94, BUN/Creatinine Ratio 38.3 H, Glucose 156 H, Calcium 9.1 12/16/20 06:21: POC Glucose 145 H 12/16/20 11:28: POC Glucose 167 H Microbiology: Microbiology 12/10/20 20:35 Mucosa - Nose Respiratory Panel (PCR) - Final Rhinovirus 12/10/20 20:35 Urine, Clean Catch Legionella Antigen - Final 12/10/20 20:35 Urine, Clean Catch Streptococcus pneumoniae Antigen (M - Final 12/10/20 15:55 Nasal Secretion SARS-CoV-2 Antigen (Rapid) - Final D/C Instructions Discharge Diet: Low fat / Low cholesterol Weight Bearing Status: Weight bearing as tolerated Call your doctor if you observe: Fever of 101 or Higher, Shortness of breath, Swelling in the ankles and Increased palpitations (irregular heartbeat) Meaningful Use Info Meaningful Use Diagnoses (Choose all that apply): None applicable Discharge Plan Admission Admit Date/Time: 12/11/20 12:49 Primary Reason for Your Visit: acute COPD exacerbation Attending Provider: Tania Hi Primary Care Provider: Tigist Pelaez Instructions Patient Instructions: COPD: Wheezing and Chest Tightness, COPD Diabetes, Chronic Lung Disease ..., COPD: Lung Surgery Options Discharge Orders/Prescriptions Prescriptions: New levofloxacin 500 mg tablet 500 mg PO DAILY Qty: 7 RF: 0 methylprednisolone [Medrol (Adam)] 4 mg tablets,dose pack 4 mg PO UD Qty: 21 RF: 0 Continued omeprazole 40 MG capsule 40 mg PO DAILY RF: 0 trazodone 100 MG tablet 200 mg PO QHS RF: 0 gabapentin 600 MG tablet 600 mg PO QHS RF: 0 albuterol sulfate 8.5 GM HFA aerosol inhaler 2 puff INHALATION Q4H PRN (Reason: Sob &/Or Wheezing) RF: 0 lidocaine-prilocaine 30 GM cream 1 applicatio TP DAILY PRN PRN (Reason: Not Specified) 30 Days Qty: 1 RF: 2 gabapentin 300 MG capsule 300 mg PO DAILY RF: 0 fluticasone propionate 50 mcg/actuation [place],Suspension 2 spray INTRANASAL DAILY RF: 0 fluticasone propion-salmeterol [Wixela Inhub] 500-50 mcg/dose blister with device 1 inh inhalation DAILY RF: 0 Discontinued amoxicillin-pot clavulanate [Augmentin] 875-125 mg tablet 1 tab PO BID Qty: 20 RF: 0 prednisone 10 mg tablet See Taper mg PO DAILY RF: 0 No Action tiotropium bromide 18 mcg capsule, w/inhalation device 1 cap INHALATION DAILY Qty: 90 RF: 11 Referrals / Follow Up: Tigist Pelaez DO [Primary Care Provider] - Within 2 Weeks Disposition Disposition (needs filled in before D/C Order can be placed): Home, Self Care Charges/Coding Visit Charges Inpatient E&M: 82295 Disch Hosp
--- NOTE | 2020-12-17 14:08 | CASEMGMT ---
EDGARD OLIVAREZ Discharge Follow Up Phone Call: FBAI: Cam Strata:3 Call Date: 12/17/20 Discharge Date: 12/16/20 Time of Call:1407 Duration:2 min Admitting Dx: COPD exac EDGARD OLIVAREZ completed follow up phone call after recent hospitalization. Pt states she is doing good. She states she was able to obtain her medications. Her dil will make her follow up appt with Dr. Pelaez. Pt is increasing her O2 when she is exerting herself. Pt denies any questions regarding her medications or dc instructions.
== END 2020-12-16 15:04 | disposition home or self-care (01) | DRG 190 ==
LOC: ED 17:37 → MS3 18:59
PROVIDERS: Family Medicine; Nurse Practitioner Family; Physician Assistant; Admitting Provider Internal Medicine; Emergency Provider Emergency Medicine; PCP Family Medicine; Visit Provider Student in an Organized Health Care Education/Training Program
DX: J44.1 Chronic obstructive pulmonary disease with (acute) exacerbation (principal); J96.21 Acute and chronic respiratory failure with hypoxia; Z68.41 Body mass index [BMI] 40.0-44.9, adult; J45.901 Unspecified asthma with (acute) exacerbation; I10 Essential (primary) hypertension; K21.9 Gastro-esophageal reflux disease without esophagitis; E78.5 Hyperlipidemia, unspecified; I27.20 Pulmonary hypertension, unspecified; G47.33 Obstructive sleep apnea (adult) (pediatric); F17.210 Nicotine dependence, cigarettes, uncomplicated; G25.81 Restless legs syndrome; E66.01 Morbid (severe) obesity due to excess calories; G62.9 Polyneuropathy, unspecified; B97.89 Other viral agents as the cause of diseases classified elsewhere; Z86.718 Personal history of other venous thrombosis and embolism; Z86.711 Personal history of pulmonary embolism; Z79.899 Other long term (current) drug therapy; Z79.51 Long term (current) use of inhaled steroids; Z79.52 Long term (current) use of systemic steroids
CPT/HCPCS: 36415; 71045; 80048; 82962; 83735; 84484; 85025; 87070; 87205; 87426; 87449; 87633; 93005; 94640; 94667; 94668; 97110; 97162; 97166; 97530; 97535; 97802; 99251; 99285; 99406; A4216; G0463; J1940

== ENCOUNTER 2021-05-25 07:55 | Emergency (ER) | payer MEDICARE, OTHER, SELFPAY ==
[2021-05-25 07:56] VITALS: BP 173/85; PULSE 76; RESP 18; TEMP 36.2; O2SAT 100; BMI 42.5
--- NOTE | 2021-05-25 08:45 | EX.ED.UPPERE ---
HPI History of Present Illness Chief Complaint: Upper Extremity Injury Informant: patient Occured/Mechanism Mechanism/Context: Yes injury and Yes blunt trauma Onset/Context/Timing Onset: Today Context: Sudden Onset Timing: Continuous Quality of Pain: Sharp Current Severity: Moderate Maximum Severity: Moderate Associated Symptoms Associated Symptoms: Negative for Parasthesia, Weakness and Loss of Funtion Narrative Narrative: 75-year-old female [id number]. She has a history of getting dizzy spells. Today she had a dizzy spell and fell injuring her right upper arm. This occurred around 6 AM. She denies hitting her head. She is on no blood thinners. And she is a history of chronic lymphedema in the right arm from an axillary lymph node dissection due to breast cancer. She has a history of COPD, DVT and PE lymphedema and prior breast cancer. She denies any other injuries today. Prior similar symptoms: No Recent Illness/Hospitalization: No PFSH PFSH Medical History Acute respiratory failure with hypoxia and hypercarbia Benign essential hypertension Candidiasis of mouth Chronic obstructive lung disease COPD with asthma DVT (deep venous thrombosis) GERD (gastroesophageal reflux disease) History of DVT of lower extremity History of pulmonary embolism History of pulmonary embolism Hyperlipidemia Lung nodule DION (obstructive sleep apnea) Pulmonary hypertension Smoking greater than 40 pack years Stroke behind eye Tobacco user Home Medications omeprazole 40 mg PO DAILY 06/27/14 [History Last Taken 12/10/20] trazodone 200 mg PO QHS 06/27/14 [History Last Taken 12/09/20] gabapentin 600 mg PO QHS 07/13/16 [History Last Taken 12/09/20] albuterol sulfate 2 puff INHALATION Q4H PRN 07/05/19 [History Last Taken Unknown] lidocaine-prilocaine 1 applicatio TP DAILY PRN PRN 30 Days #1 tube 07/23/19 [Rx Last Taken Unknown] gabapentin 300 mg PO DAILY 02/20/20 [History Last Taken 12/10/20] fluticasone propion-salmeterol [Wixela Inhub] 1 inh INHALATION DAILY 12/10/20 [History Last Taken 12/10/20] fluticasone propionate 2 spray INTRANASAL DAILY 12/10/20 [History Last Taken 12/10/20] ipratropium 0.5 mg-albuterol 3 mg (2.5 mg base)/3 mL nebulization soln 3 ml INHALATION Q4H PRN #180 ml 12/20/20 [Rx Last Taken Unknown] citalopram 10 mg tablet 10 mg PO DAILY tab 05/13/21 [History Last Taken Unknown] lift chair #1 ea 05/13/21 [Rx Last Taken Unknown] tiotropium bromide 18 mcg capsule with inhalation device 1 cap INHALATION DAILY #90 inh 05/13/21 [Rx Last Taken Unknown] hydrocodone-acetaminophen 1 tab PO Q4H PRN 5 Days #20 tab 05/25/21 [Rx Last Taken Unknown] Allergy/AdvReac Type Severity Reaction Status Date / Time Fish Containing Products AdvReac Mild Abd Verified 05/13/21 10:17 cramps/diarrhea Family History Sister Skin cancer Diabetes Breast cancer Lung cancer Mother Diabetes CVA (cerebral vascular accident) Father Heart disease CVA (cerebral vascular accident) Brother Diabetes Sister Breast cancer Surgical History History of bilateral knee replacement History of breast biopsy Hx of colonoscopy Status post right breast lumpectomy Social History Smoking Status: Current some day smoker tobacco type: cigarettes second hand exposure: Yes alcohol intake: current alcohol intake frequency: holidays/special occasions only substance use type: does not use caffeine: Yes what type of physical activity do you participate in: none frequency: does not exercise ROS ROS ED ROS Narrative Denies recent illness. Review of Systems ROS Unobtainable: Denies due to encephalopathy Constitutional Constitutional ED: Denies fever(s) Eyes Eyes: Denies change in vision ENT ENT ED: Denies ear pain Cardiovascular Cardiovascular: Denies chest pain Respiratory/Chest Respiratory/Chest: Denies cough or dyspnea Gastrointestinal Gastrointestinal: Denies abdominal pain, diarrhea, nausea or vomiting Genitourinary Genitourinary ED: Denies dysuria Musculoskeletal Musculoskeletal: Denies myalgias Integumentary Denies rash Neurologic Neurologic: Denies headache(s) Psychiatric Psychiatric: Denies depression Endocrine Endocrinology: Denies polyuria Hematologic/Lymphatic Hematologic/Lymphatic: Denies easy bruising Allergic/Immunologic Allergic/Immunologic ED: Denies urticaria EXAM Physical Exam Narrative Exam Narrative: 75-year-old female sitting upright in a chair. Holding her left arm. Vital signs are stable and afebrile. H EENT exam unremarkable atraumatic pupils round reactive light. Nontender. C-spine nontender trachea midline. No lymphadenopathy. Lungs clear to auscultation bilaterally. Heart regular rhythm rate about 75 no murmur. Chest were nontender. Ribs nontender. Abdomen soft nontender. Pelvic girdle intact. Both lower extremities left upper extremity nontender full range of motion. No deformity. She has tenderness to the right proximal humerus. And decreased range of motion of the shoulder due to pain. The right elbow, forearm, wrist and hand are nontender. 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 Normal sensation. No deformity. Back nontender. Neurologically she is awake and alert with no focal motor deficits. Const Vital Signs: 05/25/21 07:56 Temperature 97.1 F L Temperature Source Temporal Pulse Rate 76 Respiratory Rate 18 Blood Pressure 173/85 H Blood Pressure Mean 114 Pulse Ox 100 Oxygen Delivery Method Room Air Positive well nourished, well developed and obese; Negative for cachectic, contractures or unkempt General Appearance ED: well developed and NAD; Negative for unkempt, cachectic, contractures, cyanotic or diaphoretic Nutritional Appearance: obese; Negative for cachectic HEENT Reports moist mucous membranes normocephalic and atraumatic; Negative for trauma or tenderness Eyes PERRL and EOMs intact bilaterally Neck full ROM and supple General: Negative for tenderness Chest Wall inspection of chest normal and palpation of chest normal Resp normal respiratory effort and clear to auscultation bilaterally Effort and Inspection: Negative for pain with movement Auscultation: Negative for rales, rhonchi or wheezes Cardio regular rate, regular rhythm, S1 normal heart sound, S2 normal heart sound and no murmurs GI non-tender, non-distended and no masses Auscultation: normoactive bowel sounds Palpation: soft; Negative for tender, guarding or rebound tenderness present Back/Spine no CVA tenderness General Back: Negative for CVA tenderness Cervical Spine: Negative for cervical spine tenderness Thoracic Spine / Upper Back: Negative for thoracic spinal tenderness Lumbar Spine / Lower Back: Negative for lumbar spinal tenderness Extremity normal to inspection and full ROM Extremity Narrative: Except proximal right humerus tenderness. Decreased range of motion of the right shoulder due to pain in the upper arm. Chronic lymphedema. 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 Normal sensation. Normal radial pulse. Right elbow, forearm, wrist and hand are nontender. General Extremety ED: Negative for edema General Extremity: Negative for edema Neuro oriented x3 and moves all extremities Sensorium / Orientation: alert, oriented to person, oriented to place and oriented to time; Negative for orientation impaired, lethargic or stuporous Motor Exam: strength 5/5 throughout Psych mental status grossly normal Appearance: Negative for unkempt Mood & Affect: Negative for depressed or tearful Skin General Skin Exam: Negative for petechiae Lesions: no lesions Rashes: no rashes Trauma: no lacerations or abrasions; Negative for abrasion, laceration or puncture MDM MDM MDM Narrative Medical decision making narrative: For pain.75-year-old female fall concern for a fracture of the right humerus. X-ray being obtained. Repeat exam patient is resting comfortably after Dixon. She is in a sling. She will be discharged home with close outpatient follow-up with Dr. Donny Rincon of orthopedics. Radiography Diagnostic Testing: Right humerus x-ray, 2 views, interpreted by myself shows apartment proximal humerus fracture. Discharge Plan Triage Chief Complaint: Upper Extremity Injury ED Provider: Chaka Stuart Dx/Rx/DC Orders Clinical Impression: Fracture, humerus, Chronic obstructive lung disease Instructions: ED Fracture, Upper Extremity Prescriptions: New hydrocodone-acetaminophen 5-325 mg tablet 1 tab PO Q4H PRN (Reason: pain) 5 Days Qty: 20 RF: 0 No Action citalopram 10 mg tablet 10 mg PO DAILY RF: 0 tiotropium bromide 18 mcg capsule, w/inhalation device 1 cap INHALATION DAILY Qty: 90 RF: 11 (DME) lift chair See Rx Instructions .Route .MEDSUPPLY Qty: 1 RF: 0 omeprazole 40 MG capsule 40 mg PO DAILY RF: 0 trazodone 100 MG tablet 200 mg PO QHS RF: 0 gabapentin 600 MG tablet 600 mg PO QHS RF: 0 albuterol sulfate 8.5 GM HFA aerosol inhaler 2 puff INHALATION Q4H PRN (Reason: Sob &/Or Wheezing) RF: 0 lidocaine-prilocaine 30 GM cream 1 applicatio TP DAILY PRN PRN (Reason: Not Specified) 30 Days Qty: 1 RF: 2 gabapentin 300 MG capsule 300 mg PO DAILY RF: 0 fluticasone propionate 50 mcg/actuation [place],Suspension 2 spray INTRANASAL DAILY RF: 0 fluticasone propion-salmeterol [Wixela Inhub] 500-50 mcg/dose blister with device 1 inh inhalation DAILY RF: 0 ipratropium-albuterol 0.5 mg-3 mg(2.5 mg base)/3 mL solution for nebulization 3 ml inhalation Q4H PRN (Reason: shortness of breath or wheezing) Qty: 180 RF: 3 Primary Care Provider: Tigist Pelaez Referrals: Tigist Pelaez DO [Primary Care Provider] - James Rincon MD [STAFF PHYSICIAN] - As soon as possible Activity Restrictions/Additional Instructions: Ice to the left upper arm. Dixon for pain 1-2 every 4-6 hours as needed. Plenty of fluids and fiber to prevent constipation. Stool softener as needed. Do not drink or drive a vehicle while you are on the pain medication. Call and follow-up with the orthopedic doctor soon as possible. Disposition Disposition: Home, Self Care
[2021-05-25] MEDS: HYDROcodone Bitartrate/Apap 5/325 Tablet PO (08:53)
--- NOTE | 2021-05-25 09:00 | RAD_ITS ---
STUDY: X-RAY - RIGHT HUMERUS REASON FOR EXAM: Female, 75 years old. Fall TECHNIQUE: 3 view(s) of the humerus. COMPARISON: None. FINDINGS: Comminuted impacted fracture of the proximal metaphysis of the right humerus with extension to the proximal diaphysis.. Soft tissue swelling. Surgical clips are seen in the right axillary region. RAD/Humerus min 2 Views IMPRESSION: Comminuted impacted fracture of the proximal metaphysis of the right humerus with extension to the proximal diaphysis. Electronically Signed: Juanjo Nieves MD at 9:20 EST ,
[2021-05-25 10:41] VITALS: PULSE 80; RESP 18
== END 2021-05-25 10:42 | disposition home or self-care (01) ==
PROVIDERS: Emergency Provider Emergency Medicine; PCP Family Medicine; Visit Provider Emergency Medicine
DX: S42.301A Unspecified fracture of shaft of humerus, right arm, initial encounter for closed fracture (principal); J44.9 Chronic obstructive pulmonary disease, unspecified; F17.210 Nicotine dependence, cigarettes, uncomplicated; G47.33 Obstructive sleep apnea (adult) (pediatric); E66.9 Obesity, unspecified; Z86.718 Personal history of other venous thrombosis and embolism; W19.XXXA Unspecified fall, initial encounter
CPT/HCPCS: 71271; 73060; 99283

== ENCOUNTER 2021-05-25 10:47 | Outpatient (CLI) | payer MEDICARE, OTHER, SELFPAY ==
--- NOTE | 2021-05-25 10:53 | CT_ITS ---
STUDY: LOW DOSE CT LUNG CANCER SCREENING REASON FOR EXAM: Female, 75 years old. quit 03/2021. Patient smoked 1 pack per day for 55 years. RADIATION DOSAGE (If Supplied By Facility): CTDIvol = ( 5.73 ) mGy, DLP = ( 215.88 ) mGycm TECHNIQUE: No contrast was administered. Low dose technique was utilized (average mAS-38 and kVp 120). 1.25 mm axial source images with a slice interval of 1.25-mm were reconstructed in lung windows. 2.5 mm axial source images with a slice interval of 2.5-mm were reconstructed in lung windows. 5.0 mm axial source images with a slice interval of 5.0-mm were reconstructed in soft tissue windows. Nodule measured using lung windows on PACS and/or independent workstation with automated measurement of minimum and maximum diameter. Nodule measurement reported as average diameter rounded to the nearest whole number. Growth is defined as an increase ins size of greater than 1.5 mm. COMPARISON: Comparison is made with prior examination dated 12/07/2020. NODULES: No suspicious nodules are seen. Emphysema: Mild degree of increased linear markings in the anterior aspect of the right upper lobe as well as right middle lobe and lingula segment of the left upper lobe. Mild increased markings in the anterior aspect of the left lower lobe. Endobronchial lesion: None Aorta: Atherosclerotic plaque formation of the aortic arch. Coronary arteries: Coronary artery calcification. Heart: Unremarkable. Pulmonary artery: Unremarkable. Mediastinal nodes: Small mediastinal lymph nodes. Other chest and abdominal findings: CT/Low Dose CT Lung Screening IMPRESSION: Lung-RADS category 2 - Continue annual screening with LDCT in 12 months. IMPORTANT NOTES FOR USE: ACR Lung-RADS Version 1.1 Assessment Categories Release Date: 2018 Category: Coded 0-4 bases on nodule(s) with highest degree of suspicion. Negative screen is defined as categories 1 and 2; a positive screen is defined as categories 3 and 4. Category 3 and 4A nodules that are unchanged on interval CT should be coded as category 2, and individuals returned to screening in 12 months. Category 4X: Category 3 or 4 nodules with additional imaging findings that increase the suspicion of lung cancer, such as spiculation, GGN that doubles in size in 1 year, enlarged lymph notes, etc. Category Modifiers: S (significant finding unrelated to lung cancer) Electronically Signed: Juanjo Nieves MD at 14:27 EST ,
== END 2021-05-25 23:59 | disposition home or self-care (01) ==
LOC: CT 10:49
PROVIDERS: PCP Family Medicine; Referring Provider Nurse Practitioner Acute Care; Visit Provider Nurse Practitioner Acute Care
DX: F17.210 Nicotine dependence, cigarettes, uncomplicated (principal)
CPT/HCPCS: 71271

== ENCOUNTER → 2021-08-03 | Outpatient (CLI) | payer MEDICARE, OTHER, SELFPAY ==
--- NOTE | 2021-08-03 13:54 | BI_ITS ---
MAMMOGRAPHY - BILATERAL SCREENING 3-D TOMOSYNTHESIS REASON FOR EXAM: Female, 75 years old. screening PERTINENT HISTORY: No significant family history. TECHNIQUE: 2-D mammograms and 3-D Tomosynthesis of the breast (s) were performed. CAD was performed. COMPARISON: 07/31/2020 FINDINGS: The breast composition is heterogeneously dense that can obscure small breast masses. Scattered benign calcifications are seen. No dominant mass the right breast. 2 cm oval obscured equal density mass in the lower outer quadrant of the left breast at mid depth and focal compression views recommended for further evaluation. No suspicious calcifications.. No architectural distortion is identified. There is no skin thickening or retraction. BI/SCRN MAMM (CAD)W/THEA BILAT IMPRESSION: 2 cm oval obscured equal density mass in the lower outer quadrant left breast at mid depth and focal compression views are recommended for further evaluation. Routine yearly mammograms recommended. ASSESSMENT CATEGORY: BIRADS Category 0: Incomplete. Need additional imaging evaluation as above. A letter regarding these results will be sent to the patient by the facility within 30 days. FOLLOW UP RECOMMENDATION: Additional imaging recommended as above. (E) Approximately 10% of breast cancers are not detected by mammography. A normal mammogram should not delay biopsy of a clinically suspicious abnormality. Electronically Signed: Stas Garza MD at 15:18 EDT ,
== END | disposition home or self-care (01) ==
LOC: OPBI 13:52
PROVIDERS: PCP Family Medicine; Visit Provider Student in an Organized Health Care Education/Training Program
DX: Z12.31 Encounter for screening mammogram for malignant neoplasm of breast (principal)
CPT/HCPCS: 77063; 77067

== ENCOUNTER → 2021-08-06 | Outpatient (CLI) | payer MEDICARE, OTHER, SELFPAY ==
--- NOTE | 2021-08-06 08:53 | BI_ITS ---
MAMMOGRAPHY - UNILATERAL DIAGNOSTIC: LEFT BREAST REASON FOR EXAM: Female, 75 years old. Abnormal screening mammogram. PERTINENT HISTORY: Non-contributory. TECHNIQUE: Compression spot views in the mediolateral oblique and craniocaudad projections were obtained. CAD: Full Field Digital Mammography with Computer Added Detection was performed. COMPARISON: Comparison is made with prior examination dated 08/03/2021. FINDINGS: Breast Composition: The breasts are heterogeneously dense, which may obscure small masses. Persistent 1.7 cm x 1.3 cm well-defined nodule in the central retroareolar region of the left breast. Correlation with ultrasound is recommended. No other significant abnormalities are identified. BI/DIAG MAMM W/CAD, UNILAT IMPRESSION: Persistent 1.7 cm x 1.3 cm well-defined nodule in the central retroareolar region of the left breast. Correlation with ultrasound recommended. ASSESSMENT CATEGORY: BIRADS Category 0: Incomplete. Need additional imaging evaluation. A letter regarding these results will be sent to the patient by the facility within 30 days. Approximately 10% of breast cancers are not detected by mammography. A normal mammogram should not delay biopsy of a clinically suspicious abnormality. Electronically Signed: Juanjo Nieves MD at 9:34 EDT ,
--- NOTE | 2021-08-06 09:14 | US_ITS ---
STUDY: ULTRASOUND BREAST - LEFT REASON FOR EXAM: Female, 75 years old. Abnormal screening mammogram. TECHNIQUE: Axial and longitudinal images of the LEFT breast were performed with a high resolution ultrasound transducer. # OF IMAGES: 25 COMPARISON: Comparison is made with prior mammogram done earlier in the day as well as prior sonogram of the left breast dated 06/28/2019. FINDINGS: LEFT Breast: There is a 1.6 cm x 1.7 cm x 0.9 cm predominantly cystic nodule with low-level echoes within it. This is at the 3 to 4 o''clock position of the breast at 2 cm from nipple. This may represent an hemorrhagic cyst. Drainage is recommended. US/Breast Limited Unilateral IMPRESSION: 1.6 cm x 1.7 cm x 0.9 cm probably cystic nodule with low level echoes within it at the 3-4 o''clock position breast at 2 cm from nipple. Percutaneous drainage is recommended. ASSESSMENT CATEGORY: BIRADS Category 4: Suspicious - Biopsy Should Be Considered. A letter regarding these results will be sent to the patient by the facility within 30 days. Electronically Signed: Juanjo Nieves MD at 9:46 EDT ,
== END | disposition home or self-care (01) ==
LOC: OPBI 08:51
PROVIDERS: PCP Family Medicine; Visit Provider Student in an Organized Health Care Education/Training Program
DX: R92.8 Other abnormal and inconclusive findings on diagnostic imaging of breast (principal)
CPT/HCPCS: 76642; 77065

== ENCOUNTER → 2021-08-20 | Outpatient (CLI) | payer MEDICARE, OTHER, SELFPAY ==
--- NOTE | 2021-08-20 15:57 | VDLE_ITS ---
Reason For Study: swelling RIGHT GSV is normal. CFV is compressible, spontaneous, phasic, competent and demonstrates normal augmentation. FV is compressible, spontaneous, phasic, competent and demonstrates normal augmentation. T/P Trunk is compressible. PTV is compressible. RT PerV is compressible. POP V is partially compressible with decreased flow. DVT is hypoechoic consistent with acute DVT. Procedure Exam performed in department. The exam was abbreviated due to the COVID 19 protocol. This is a venous duplex using B-mode, color flow and spectral Doppler. The exam was diagnostic. A preliminary report was called and/or faxed to Katelin REEN. VL/Venous Duplex US, Unilateral Interpretation Summary Deep venous thrombosis right popliteal vein. Patent and compressible right great saphenous vein. Abbreviated COVID-19 protocol utilized Ordering Physician: Madelin Mcknight Performed By: Denis Sethi RVT
== END | disposition home or self-care (01) ==
LOC: CVS 15:55
PROVIDERS: PCP Family Medicine; Visit Provider Family Medicine
DX: R60.0 Localized edema (principal); C50.911 Malignant neoplasm of unspecified site of right female breast
CPT/HCPCS: 93971

== ENCOUNTER 2021-09-24 13:30 | Outpatient (RCR) | payer MEDICARE, OTHER, SELFPAY ==
--- NOTE | 2021-08-19 08:19 | HP.OTEVAL_ITS ---
Patient's Visit Information ISIDRO CRAWFORD is a 75 year old F, referred to Occupational Therapy by Dr. Js Pitts MD, with a diagnosis of Lymphedema. Date of Evaluation: 08/11/21 Occupational Therapist: Sandra Casillas, WHITNEY/Yonatan, CHT - Subjective This 75 year old female was seen for OT eval with dx of right arm swelling- hx of malignant neoplasm of breast and lymphedema- Pt had fall on 05/25/21 with right Humerus fx- pt will start her therapy closer to home- pt has been on O2 since 2 liters. pt states she will initiate her therapy for her UE but needed help with her swelling- - Pain right arm 3 Pain Intensity Range: 4 - Lymphedema (Circumferential Measure) MCP: right 21cm increase from 19cm in Wrist: right 19.5cm increase from 16.5cm in 2020 Lower forearm: right 24cm increase from 21cm in 2020 Largest forearm: right 31cm increase from 31cm in 2020 Largest humerus: right 40.5cm increase from 33cm in 2020 Axcillary: right 44cm increase from 45cm in 2020 Upper Exremity Comments: pt demo with increase in right UE circumferential nissa surements from 2020 - Rehabilitation General Assessment: pt demo a significate increase in her right UE edema- due to limited shoulder ROM and inability to use her arm she has had increase in swelling- pt is elevating, performing her lymph ex. and attempted use of her compression sleeve but it does not fit at this time. Pt would benefit from change in lymph HEP to include sequential gradient compression. Therapy will provided skilled OT services 3-4 visits to ensure establishment of new HEP. Therapist ed. pt on need of compression sleeve size 6 vs size 3 that she had- therapist ed. pt in performing her self massage 4-6x a day along with AROM of UE to her comfort limits due to healing fx. pt demo understanding and agree to POC. Rehabilitation Potential: Good - Anticipated Interventions Education re Diagnosis, Manual Lymph Drainage, Education re Life-long lymphedema Management, Education re Skin Care and Precautions, Education re Self Massage Techniques, Education re Correct Donning Tech,Care&Wearing Sched Comp Garments, Caregiver Training, Home Program - Visit Plan TEXT: Thank you for the opportunity to evaluate your patient. For Medicare and Medicare HMO plans, please review the plan of care and approve it. It will need to be FAXED BACK to us at [phone] for Medicare purposes. Please let me know if there are questions or concerns regarding this plan of care. Physician Signature: Date:
--- NOTE | 2021-09-14 15:21 | OTREVAL_ITS ---
Dr. Js Pitts MD, It has been my pleasure to treat ISIDRO CRAWFORD over the last 2 visits for Lymphedema. Please see the progress note below for an update on the occupational therapy p mya of care! Subjective: pt arrives states she is doing ok- she received her compression sleeve and glove - cost about $90 belen dollars- pt states she struggle getting sleeve up in the back of her arm above her elbow- Objective/Function: MCP right 21cm. wrist 20 cm. lower forearm 25cm. upper forearm 30cm. elbow 32. pt continues to have difficulty with mtg her edema and would benefit from a active compression system to assist in mtg pts right are lymphedema stage 3. lower hum. 40cm. axillary 42 Plan Visits in this POC: 3-4 days Goals - Goals Patient Goals: Regain Mobility, Learn to Manage Lymphedema, Resume Former Household Responsibilities (Cooking,Cleaning,Yard, etc.), Learn how to Manage Lymphedema, Learn how to Apply Compression Stockings Anticipated Interventions Anticipated Interventions: Education re Diagnosis, Manual Lymph Drainage, Education re Life-long lymphedema Management, Education re Skin Care and Precautions, Education re Self Massage Techniques, Education re Correct Donning Tech,Care&Wearing Sched Comp Garments, Caregiver Training, Home Program Please do not hesitate to contact me at [phone] by phone or if you have questions or concerns regarding this new plan of care! Sincerely, Sandra Casillas, OTR/L, CHT
--- NOTE | 2021-09-14 15:24 | OTREVAL_ITS ---
Dr. Js Pitts MD, It has been my pleasure to treat ISIDRO CRAWFORD over the last 2 visits for Lymphedema. Please see the progress note below for an update on the occupational therapy p mya of care! Subjective: pt arrives states she is doing ok- she received her compression sleeve and glove - cost about $90 belen dollars- pt states she struggle getting sleeve up in the back of her arm above her elbow- Objective/Function: MCP right 21cm. wrist 20 cm. lower forearm 25cm. upper forearm 30cm. elbow 32. lower axillary 40cm. axillary 42. pt continues to have difficulty with mtg her edema and would benefit from a active compression system to assist in mtg pts right are lymphedema stage 3. Plan Visits in this POC: 3-4 days Goals - Goals Patient Goals: Regain Mobility, Learn to Manage Lymphedema, Resume Former Household Responsibilities (Cooking,Cleaning,Yard, etc.), Learn how to Manage Lymphedema, Learn how to Apply Compression Stockings Anticipated Interventions Anticipated Interventions: Education re Diagnosis, Manual Lymph Drainage, Education re Life-long lymphedema Management, Education re Skin Care and Precautions, Education re Self Massage Techniques, Education re Correct Donning Tech,Care&Wearing Sched Comp Garments, Caregiver Training, Home Program Please do not hesitate to contact me at [phone] by phone or if you have questions or concerns regarding this new plan of care! Sincerely, Sandra Casillas, OTR/L, CHT
== END 2021-09-24 19:00 | disposition home or self-care (01) ==
LOC: OT 13:30
PROVIDERS: PCP Family Medicine; Referring Provider Internal Medicine Medical Oncology; Visit Provider Internal Medicine Medical Oncology
DX: I89.0 Lymphedema, not elsewhere classified (principal); Z85.3 Personal history of malignant neoplasm of breast
CPT/HCPCS: 97140; 97166; 97530

== ENCOUNTER → 2021-12-24 | Outpatient (CLI) | payer MEDICARE, OTHER, SELFPAY ==
--- NOTE | 2021-12-24 08:05 | VDLE_ITS ---
Reason For Study: DVT RIGHT GSV is normal. CFV is compressible, spontaneous, phasic, competent and demonstrates normal augmentation. FV is compressible, spontaneous, phasic, competent and demonstrates normal augmentation. T/P Trunk is compressible. PTV is compressible. RT PerV is compressible. POP V is partially compressible with decreased flow. No significant change from previous study done 08/20/21. Procedure This is a venous duplex using B-mode, color flow and spectral Doppler. Exam performed in department. The exam was abbreviated due to the COVID 19 protocol. The exam was diagnostic. A preliminary report was called and/or faxed to Dr. Pelaez's nurse. VL/Venous Duplex US, Unilateral Interpretation Summary Deep venous thrombosis right popliteal vein with visible thrombus. Findings rachel ear similar to the previous study of August 20, 2021. Patent and compressible right great saphenous vein Abbreviated COVID-19 protocol utilized Ordering Physician: Tigist Pelaez Performed By: Denis Sethi RVVance
== END | disposition home or self-care (01) ==
LOC: CVS 08:04
PROVIDERS: PCP Family Medicine; Referring Provider Family Medicine; Visit Provider Family Medicine
DX: I82.4Y1 Acute embolism and thrombosis of unspecified deep veins of right proximal lower extremity (principal)
CPT/HCPCS: 93971

== ENCOUNTER 2022-03-15 09:54 | Outpatient (RCR) | payer MEDICARE, OTHER, SELFPAY ==
--- NOTE | 2022-03-17 11:23 | HP.OTEVAL_ITS ---
Patient's Visit Information ISIDRO CRAWFORD is a 76 year old F, referred to Occupational Therapy by Dr. Js Pitts MD, with a diagnosis of right UE Lymphedema. Date of Evaluation: 03/15/22 Occupational Therapist: Sandra Casillas, OTR/Yonatan, CHT - Subjective This 76year old female was seen for OT eval with dx of right arm swelling- hx of malignant neoplasm of breast and lymphedema- Pt had fall on 05/25/21 with right Humerus fx- pt will start her therapy closer to home- pt has been on O2 since 2 liters. pt states she will initiate her therapy for her UE but needed help with her swelling- pt states she just got cleared to initiate PT for her shoulder from her Humerus fx 05/25/21 pt states she was attempting to use a resistive wt. that she was trying to push together and she did hurt her arm- this happened a while ago (nov) and she feels soreness in right UE with shoulder movement due to fx. pt states she is unable to put her compression sleeve on due to the deformity of her Humerus - she lives with dtr and her dtr will help her put her compression sleeve on in the evening. - Pain right UE 3 Pain Intensity Range: 1, 4 - ROM Shoulder: right shoulder flex limited due to fx of humous - Lymphedema (Circumferential Measure) MCP: right 18cm left 18cm Wrist: right 17.5cm left 15cm Lower forearm: right 23cm left 17cm Largest forearm: right 27cm left 25cm Elbow: right 29cm left 26.5cm Largest humerus: right 41cm left 33.5 Axcillary: right 43cm left 38cm Upper Exremity Comments: MCP:July 2021 right 21cm increase from 19cm in . Wrist: July 2021 right 19.5cm increase from 16.5cm in 2020. Lower July 2021 forearm: right 24cm increase from 21cm in 2020. Largest July 2021 forearm: right 31cm increase from 31cm in 2020. Largest July 2021 Humerus: right 40.5cm increase from 33cm in 2020. Axillary: July 2021 right 44cm increase from 45cm in 2020. Upper Exremity Comments: pt demo with increase in right UE circumferential measurements from 2020 - Sensation Sensation Comments: denies - Quick DASH-Disab of Arm,Shoulder& Hand Quick DASH Score: 31.8175 - Goals Demonstrate a 20% reduction in edema by d/c: Yes Demonstrate adequate knowledge skin care/prec by 2nd week: Yes Demonstrate adequate knowledge therapeutic exercises by d/c: Yes Select approp compression garment w/donning/care/wear by d/c: Yes Voice need to replace compression garment every 4-6mo by dc: Yes Goal:: pt will initiate use of [employer] compression device - Rehabilitation General Assessment: due to fx of right humerus pt reports difficulty in donning her compression sleeve- pt also limited with strength and ROM due to fx ( pt will initiate physical therapy for this injury) this may help pt with lymph fluid circulation. Today pt demo with a reduction in edema from last visit please see notes- due to limited ability to get her compression sleeve on pt would benefit from compression alternative as [employer] devices to assist in life long mtg of pts lymphedema. pt will continue with her self lymph massage as able until she receives the device. pt did hear from company and insurance has approved the device- this therapist contacted [employer] and they states once they have all the paperwork she will get her device. pt demo understanding Rehabilitation Potential: Questionable - Anticipated Interventions Education re assistive Equipment, Education re Diagnosis, Education re Life-long lymphedema Management, Education re Skin Care and Precautions, Education re Self Massage Techniques, Education re Correct Donning Tech,Care&Wearing Sched Comp Garments, Home Program - Visit Plan TEXT: Thank you for the opportunity to evaluate your patient. For Medicare and Medicare HMO plans, please review the plan of care and approve it. It will need to be FAXED BACK to us at [phone] for Medicare purposes. Please let me know if there are questions or concerns regarding this plan of care. Physician Signature: Date:
--- NOTE | 2022-07-28 15:37 | HP.OT.NRP ---
ISIDRO CRAWFORD was seen in my office for initial evaluation on 03/15/22. The following Plan of Care was established for this patient: Anticipated Interventions: Education re assistive Equipment, Education re Diagnosis, Education re Life-long lymphedema Management, Education re Skin Care and Precautions, Education re Self Massage Techniques, Education re Correct Donning Tech,Care&Wearing Sched Comp Garments, Home Program This patient was last seen in our office 03/15/22. Pertinent comments regarding their Occupational therapy will appear below: Due to time lapse in services pt d/c. At this point I will be discontinuing this patient from occupational therapy. I would be happy to see this patient again in the future if found appropriate by the physician. Thank you! Sandra Casillas, OTR/L, CHT
== END 2022-03-15 19:00 | disposition home or self-care (01) ==
LOC: OT 09:54
PROVIDERS: PCP Family Medicine; Referring Provider Internal Medicine Medical Oncology; Visit Provider Internal Medicine Medical Oncology
DX: C50.811 Malignant neoplasm of overlapping sites of right female breast (principal); Z17.1 Estrogen receptor negative status [ER-]; I89.0 Lymphedema, not elsewhere classified
CPT/HCPCS: 97166

== ENCOUNTER → 2022-04-07 | Outpatient (CLI) | payer MEDICARE, OTHER, SELFPAY ==
--- NOTE | 2022-04-07 15:06 | VDUE_ITS ---
Reason For Study: Swelling Right Proximal Right jugular vein is spontaneous, widely patent, phasic, with no intraluminal echogenicity noted. Right subclavian vein is spontaneous, widely patent, phasic, with no intraluminal echogenicity noted. Right Lower Arm Right radial vein is compressible. Right ulnar vein is compressible. Right Arm Right axillary vein is spontaneous, patent, phasic, competent, compressible and demonstrates augmentation. Right brachial vein is compressible. Right cephalic vein is compressible. Right basilic vein is compressible. VL/Venous Duplex US, Unilateral Interpretation Summary No evidence for acute deep venous thrombosis[right] upper extremity with patent and compressible cephalic and basilic veins. Ordering Physician: Jayson Davenport Referring Physician: Tigist Pelaez Performed By: Lauren Izquierdo, RDCS, RVT ???
== END | disposition home or self-care (01) ==
LOC: CVS 15:04
PROVIDERS: PCP Family Medicine; Referring Provider Student in an Organized Health Care Education/Training Program; Visit Provider Student in an Organized Health Care Education/Training Program
DX: R22.31 Localized swelling, mass and lump, right upper limb (principal)
CPT/HCPCS: 93971

== ENCOUNTER → 2022-05-28 | Outpatient (CLI) | payer MEDICARE, OTHER, SELFPAY ==
--- NOTE | 2022-05-28 13:03 | CT_ITS ---
STUDY: LOW DOSE CT LUNG CANCER SCREENING REASON FOR EXAM: Female, 76 years old. and gt;40 pack years, quit 12/2020 RADIATION DOSAGE (If Supplied By Facility): CTDIvol = ( 4.02 ) mGy, DLP = ( 132.40 ) mGycm TECHNIQUE: No contrast was administered. Low dose technique was utilized (average mAS-38 and kVp 120). 1.25 mm axial source images with a slice interval of 1.25-mm were reconstructed in lung windows. 2.5 mm axial source images with a slice interval of 2.5-mm were reconstructed in lung windows. 5.0 mm axial source images with a slice interval of 5.0-mm were reconstructed in soft tissue windows. COMPARISON: Comparison is made with prior study dated 05/25/2021. NODULES: No suspicious nodules are seen. Emphysema: Mild degree of emphysematous changes. Stable mild increased markings in the anterior aspect of the right upper lobe as well as in the right middle lobe and lingular segment of the left upper lobe. Mild increased linear markings also seen in the anterior aspect of the left lower lobe suggestive of scarring. Endobronchial lesion: None Aorta: Atherosclerotic plaque formation of the aortic arch. CORONARY ARTERIES: Coronary artery calcification is seen. Heart: Remarkable Pulmonary artery: Unremarkable Mediastinal nodes: Small mediastinal lymph nodes. Other chest and abdominal findings: CT/Low Dose CT Lung Screening IMPRESSION: Lung-RADS category 2 - Continue annual screening with LDCT in 12 months. IMPORTANT NOTES FOR USE: ACR Lung-RADS Version 1.1 Assessment Categories Release Date: 2018 Category: Coded 0-4 bases on nodule(s) with highest degree of suspicion. Negative screen is defined as categories 1 and 2; a positive screen is defined as categories 3 and 4. Category 3 and 4A nodules that are unchanged on interval CT should be coded as category 2, and individuals returned to screening in 12 months. Category 4X: Category 3 or 4 nodules with additional imaging findings that increase the suspicion of lung cancer, such as spiculation, GGN that doubles in size in 1 year, enlarged lymph notes, etc. Category Modifiers: S (significant finding unrelated to lung cancer) Electronically Signed: Juanjo Nieves MD at 14:49 EST ,
== END | disposition home or self-care (01) ==
LOC: CT 12:57
PROVIDERS: PCP Family Medicine; Referring Provider Nurse Practitioner Acute Care; Visit Provider Nurse Practitioner Acute Care
DX: Z87.891 Personal history of nicotine dependence (principal)
CPT/HCPCS: 71271

== ENCOUNTER → 2022-08-05 | Outpatient (CLI) | payer MEDICARE, OTHER, SELFPAY ==
--- NOTE | 2022-08-05 14:07 | BI_ITS ---
MAMMOGRAPHY - BILATERAL SCREENING REASON FOR EXAM: Female, 76 years old. Routine annual screening examination. PERTINENT HISTORY: Personal history of breast cancer. Prior right lumpectomy with chemotherapy and radiation therapy. Sister with breast cancer. TECHNIQUE: Digital bilateral breast thea (3D mammographic acquisition) in the CC and MLO projections. 2-D mediolateral oblique (MLO) and craniocaudad (CC) views of both breasts were obtained. CAD: Full Field Digital Mammography with Computer Added Detection was performed. COMPARISON: Comparison is made with prior study dated August 03, 2021 and July 31, 2020. FINDINGS: Breast Composition: The breasts are heterogeneously dense, which may obscure small masses. There are no dominant masses or suspicious calcifications. The patient is status post lumpectomy in the upper lateral aspect of the right breast. The previously seen well-defined nodular density in the central lateral aspect of the left breast is not seen at this time. No other significant abnormalities are identified. BI/SCRN MAMM (CAD)W/THEA BILAT IMPRESSION: Stable bilateral screening mammogram. Yearly follow-up mammogram recommended. (A) ASSESSMENT CATEGORY: BIRADS Category 2: Benign. A letter regarding these results will be sent to the patient by the facility within 30 days. Approximately 10% of breast cancers are not detected by mammography. A normal mammogram should not delay biopsy of a clinically suspicious abnormality. [id number] Electronically Signed: Juanjo Nieves MD at 15:08 EDT ,
== END | disposition home or self-care (01) ==
PROVIDERS: PCP Family Medicine; Referring Provider Internal Medicine Medical Oncology; Visit Provider Internal Medicine Medical Oncology
DX: Z12.31 Encounter for screening mammogram for malignant neoplasm of breast (principal)
CPT/HCPCS: 77063; 77067

== ENCOUNTER 2022-09-27 08:25 | Day surgery (SDC) | payer MEDICARE, OTHER, SELFPAY ==
[2022-09-27] VITALS (7 sets, daily range): BP systolic 94–136; BP diastolic 51–75; PULSE 63–74; RESP 16–18; TEMP 36.1–36.9; O2SAT 95–100; BMI 40.3
--- NOTE | 2022-09-27 | GASB_PTH ---
PATIENT: ISIDRO CRAWFORD LOC: EN U#:[id number] AGE/SX: 76/F ROOM: RE09/27/[address]: Dr. Chioma Vega MD : 1945 BED: DIS: 09/27/2022 SPEC #: [id number] RECD: 09/27/22 12:57 STATUS: BERNARD ROMIE #: [id number] YOSELIN: 09/27/22 00:[address]: Chioma Vega DEPT: SURGICAL PATHOLOGY RECD BY: Donovan Gaston ENTERED: 09/27/22 12:58 SP TYPE: Gastric Bx OTHR DR: Dr. Tigist Pelaez, DO Tissues: A - Duodenum, NOS B - Gastric mucous membrane C - Gastric mucous membrane Procedures: Special Stain Group II Surgery Specimen Level IV Alcian Blue/PAS (control) HEADER OPERATION: Colonoscopy, EGD (MAC), biopsy PRE-OP DIAGNOSIS: Anemia TISSUE SUBMITTED: A - First portion of duodenum mass biopsy/polypectomy, B ? Gastric antrum biopsy, H. pylori and path, C - Gastroesophageal junction biopsy MICROSCOPIC DIAGNOSIS A. First portion of duodenum, polypectomy: Submucosal lipoma. B. Gastric antrum, biopsy: Mild chronic gastritis. See comment. C. Gastroesophageal junction, biopsy: Gastroesophageal junction mucosa with chronic inflammation. 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 No evidence of dysplasia. See comment. AM:shaheed 09/28/2022 COMMENT B. The results of immunohistochemistry for Helicobacter pylori will be reported separately ([id number]). C. Immunohistochemistry ([id number]) for P53 and Ki-67 will be performed and results will be reported separately. Alcian blue/PAS stain with matched control supports the above diagnosis. MICROSCOPIC DESCRIPTION Slides are reviewed. GROSS DESCRIPTION A - Received in fixative is one container labeled with the patient's name and designated polyp first portion of duodenum. The specimen consists of three fragments ranging in size from 0.2 to 1.0 cm. The largest fragment is bisected and totally submitted along with the smaller fragments in one cassette. B - Received in fixative is one container labeled with the patient's name and designated gastric antrum. The specimen consists of one irregular fragment of light pagan soft tissue that measures 0.5 x 0.5 x 0.1 cm. The specimen is totally submitted in one cassette. C - Received in fixative is one container labeled with the patient's name and designated GE junction. The specimen consists of multiple irregular fragments of light pagan soft tissue that in aggregate measure 0.7 x 0.2 x 0.1 cm. The specimen is totally submitted in one cassette. / AM:shaheed 09/27/2022 TC:3 CPT: 26058 x3, 99847
--- NOTE | 2022-09-27 09:41 | HP.PCM_ITS ---
HPI - General General Date of Admission: 09/27/22 HPI Narrative ISIDRO CRAWFORD, is a 76 F who presents for an EGD and colonoscopy due to anemia. Patient states her bowel movements are still irregular have constipation and then normal bowel movements in the back constipation. Patient denies any abdominal pain. Patient still states that her reflux is controlled with her omeprazole. office visit 08/27/22 HPI HPI: 76-year-old female presents due to anemia for EGD and colonoscopy.? Patient last colonoscopy was in 2017 there was some polypoid mucosa biopsied but it was benign.? Patient never had an EGD.? Patient's been on omeprazole 40 mg p.o. daily for 5 to 10 years per patient.? Patient states her GERD symptoms are controlled on medications.? Patient states she has bowel movements daily for about 3 days and then she will not go for 3 days and then it continue the cycle.? Patient denies any blood in her stools.? Patient denies any chronic abdominal pain/nausea/vomiting.? Patient's sister did have colon cancer at age 70 however this may have been metastatic disease from breast cancer as she also had liver mets as well?patient is not sure.? Patient did get IV iron infusion last Tuesday and is also getting another 1 next Tuesday. [facility] Medical History (Updated 09/24/22 @ 10:39 by Estephanie Vazquez) Acute respiratory failure with hypoxia and hypercarbia Anemia Benign essential hypertension BiPAP (biphasic positive airway pressure) dependence Cancer Candidiasis of mouth Chronic obstructive lung disease COPD with asthma DVT (deep venous thrombosis) Easy bruising Gastric reflux GERD (gastroesophageal reflux disease) History of diverticulitis History of DVT of lower extremity History of echocardiogram History of pulmonary embolism History of pulmonary embolism History of steroid therapy History of stress test Hoarseness Hyperlipidemia Lung nodule On home oxygen therapy DION (obstructive sleep apnea) Post-menopausal Pulmonary hypertension Restless legs Right arm fracture Shortness of breath on exertion Smoker Smoking greater than 40 pack years Stroke behind eye Tobacco user Wears dentures Wears glasses Home Medications omeprazole 40 mg capsule,delayed release 40 mg PO DAILY 06/27/14 [History Last Taken 12/10/20] trazodone 100 mg tablet 200 mg PO QHS 06/27/14 [History Last Taken 12/09/20] gabapentin 600 mg tablet 600 mg PO QHS 07/13/16 [History Last Taken 12/09/20] albuterol sulfate 90 mcg/actuation aerosol inhaler 2 puff inhalation Q4H PRN Sob &/Or Wheezing 07/05/19 [History Last Taken Unknown] gabapentin 300 mg capsule 300 mg PO DAILY 02/20/20 [History Last Taken 12/10/20] fluticasone propionate 50 mcg/actuation nasal spray,suspension 2 spray intranasal DAILY ALLERGIES 12/10/20 [History Last Taken 12/10/20] citalopram 10 mg tablet 10 mg PO DAILY 05/13/21 [History Last Taken Unknown] lift chair #1 ea 05/13/21 [Rx Last Taken Unknown] fluticasone 500 mcg-salmeterol 50 mcg/dose blistr powdr for inhalation (Jarredxela Inhub) 1 inh inhalation DAILY #3 device 08/24/22 [Rx Last Taken Unknown] ipratropium 0.5 mg-albuterol 3 mg (2.5 mg base)/3 mL nebulization soln 3 ml inhalation Q4H PRN shortness of breath or wheezing #180 mL 08/24/22 [Rx Last Taken Unknown] tiotropium bromide 18 mcg capsule with inhalation device (Spiriva with HandiHaler) 1 cap inhalation DAILY 09/24/22 [History Last Taken Unknown] Allergy/AdvReac Type Severity Reaction Status Date / Time Fish Containing Products AdvReac Mild Abd Verified 09/27/22 09:49 cramps/diarrhea Family History Sister Skin cancer Diabetes Breast cancer Lung cancer Mother Diabetes CVA (cerebral vascular accident) Father Heart disease CVA (cerebral vascular accident) Brother Diabetes Sister Breast cancer Surgical History History of bilateral knee replacement History of breast biopsy Hx of colonoscopy Status post right breast lumpectomy Social History Smoking Status: Current every day smoker tobacco type: cigarettes second hand exposure: Yes alcohol intake: current alcohol intake frequency: holidays/special occasions only substance use type: does not use caffeine: Yes what type of physical activity do you participate in: none frequency: does not exercise Past Medical/Surgical History Planned Operation Planned Operative Procedure/s: EGD/CSCOPE S.O.S: No Previous Hospitalizations/Surgeries HX Hospitalizations: No HX of Surgeries: TUBAL LIGATION RIGHT KNEE REPLACEMENT LEFT KNEE REPLACEMENT COLONOSCOPY vascular port left chest 07/2019 Any Problems With Anesthesia: No You/Your Family Experience Fever (Hyperthermia) With Anes: No Cholinesterase deficiency: No Cardiovascular Hx Chest Pain within Last 2 months: No Hx of Irregular Heartbeat and/or Afib: No Hx Heart Attack: No Hx Congestive Heart Failure: No Hx Rheumatic Fever: No Hx Hypertension: Yes (NO MEDS FOR MANY YRS) Hx Internal Defibrillator: No Hx Pacemaker: No Hx Cardiac Catheterization: No Hx Cardiac Surgery/Stents/Etc.: No Hx Stress Test: Yes (2011 AND 2019) Hx Pain in Legs when Walking/Leg Cramps: No (.) Respiratory Chronic Cough: No HX of Shortness of Breath: Yes (sob with 2 flights of stairs) Hoarseness: No Hx Chronic Obstructive Pulmonary Disease (COPD): Yes Hx Asthma: No Hx Emphysema: No (.) Hx Sleep Apnea: Yes CPAP: No BIPAP: Yes Hx Respiratory Tract Infection/Cold (presently): No Result (for STOP score): Positive Hx Smoking: Yes (1ppd 52 yrs currently 2 cig. a day) Smoking Status: Current every day smoker Gastrointestinal Hx Gastroesophageal Reflux: Yes Controlled With Meds: Yes Hx Gastrointestinal Disorders: Yes (DIVERTICULITIS) Hx Gastrointestinal Bleed: Yes Hx Ulcer: No Hx Hiatal Hernia: Yes Difficulty Chewing/Swallowing: No Special diet followed at home: No Hx Unplanned Weight Loss of 20#: No HX Unplanned Weight Gain of 20#: No Neurological Hx Seizures: No HX Syncope/Blackout Spells/Unconsciousness: No Hx Transient Ischemic Attacks (TIA): No Hx Multiple Sclerosis: No Hx Parkinson's Disease: No Hx Head/Neck Injury: No Hx Headaches: No Hx Back Injury/Pain: No Recent Onset of Speech Difficulty: No Restless Legs: Yes Does patient have nerve stimulator: No Blood Disorder Hx Leukemia: No Bleeding Tendencies: No Hx Deep Vein Thrombosis: Yes (1994 DVT AFTER KNEE SCOPE/2001 DVT LEG) Hx High Cholesterol: No Blood Transmitted Disease: No Hx Hepatitis: No Hx Cirrhosis: No Hx Anemia: No Hx Blood Disorders: No Reproduction : No Is Patient Lactating: No Hx Hysterectomy: No Hx Tubal Ligation: Yes Are You Post Menopause: Yes Genitourinary Hx Renal Disease: No Hx Dialysis: No Musculoskeletal Hx Arthritis: Yes (stated arthritis in both ankles/feet) Hx Rheumatoid Arthritis: No Hx Gout: No Recent Onset of an Orthopedic Problem: No Endocrine Hx Diabetes: No Thyroid Disease: No Hx Steroid Therapy: No Psycho/Social Hx Substance Use: No Hx Alcohol Use: No Hx Anxiety: Yes (situational) Hx Depression: Yes (on med) Mental Illness: No Hx Dementia: No Miscellaneous Hx Cancer: Yes (breast/has had chemo/last 09/27/19) Recent Exposure to Contagious Disease: No Hx of C-Diff: No Any Loose Teeth: No (FULL SET OF DENTURES) Allergies Fish Containing Products Adverse Reaction (Mild, Verified 09/27/22 09:49) Abd cramps/diarrhea nausea Maternal: Family History Sister Skin cancer Diabetes Breast cancer Lung cancer Mother Diabetes CVA (cerebral vascular accident) Father Heart disease CVA (cerebral vascular accident) Brother Diabetes Sister Breast cancer No pertinent history Discharge Is Pt Admitted From a Retirement, or a Senior Care: No After D/C, Where Do you Plan to Go: Return Home From the [facility] History Number of Risk Factors: 7 Physical Exam Const alert, oriented x3 and no apparent distress HEENT normocephalic and head/scalp atraumatic Resp normal respiratory effort Cardio regular rate GI soft to palpation and non-tender; Negative for non-distended Palpation: Negative for guarding Extremity no clubbing, cyanosis or edema Neuro CN's II-XII intact bilaterally Psych mental status grossly normal Assessment & Plan Assessment/Plan (1) Anemia: QUALIFIERS: Anemia type: iron deficiency Iron deficiency anemia type: unspecified iron deficiency Qualified Code(s): D50.9 - Iron deficiency anemia, unspecified Surgery Risks - Colonoscopy I discussed with the patient the risks of the procedure: Yes Risks Include but are not Limited To: Risks include but are not limited to: Bleeding, perforation requiring further surgery, inability to complete colonoscopy requiring barium enema.
[2022-09-27] MEDS: Lactated Ringers 1,000 ML 15 ML IV (09:49)
--- NOTE | 2022-09-27 10:15 | IMM_PTH ---
PATIENT: ISIDRO CRAWFORD LOC: EN U#:[id number] AGE/SX: 76/F ROOM: RE09/27/[address]: Dr. Chioma Vega MD : 1945 BED: DIS: 09/27/2022 SPEC #: [id number] RECD: 09/27/22 13:33 STATUS: BERNARD REQ #: [id number] YOSELIN: 09/27/22 10:[address]: Chioma Vega DEPT: IMMUNOHISTOCHEMISTRY RECD BY: Mylene Tyson ENTERED: 09/27/22 13:33 SP TYPE: IMMUNO OTHR DR: Dr. Tigist Pelaez DO Tissues: B - Stomach, NOS C - Gastric mucous membrane Procedures: H Pylori (initial) P53 (initial) KI-67 (add) PHYSICIAN & INSTITUTION [place] [id number] SPECIMEN INFORMATION: Tissue Source: B - Gastric antrum, C - Gastroesophageal junction Clinical Info: Anemia Specimen Number: [id number] B & C CPT code: 80441 x2, 42447 METHODOLOGY: Deparaffinized sections of prefer/formalin-fixed tissue or PAP/DQ stained slides are incubated with monoclonal/polyclonal antibodies/oligonucleotide probes. Localization is made via biotin free immunoperoxidase method. Appropriate controls are performed and reacted as expected. Results on target cell population are indicated in the following table: RESULTS: ANTIBODY / CLONE RESULT Block B H Pylori (polyclonal) negative Block C P53 (DO-7) negative, wild type pattern Ki-67 (30-9) positive, low These tests were developed and their performance characteristics determined by [facility]. They may not have been cleared or approved by the U.S. Food and Drug Administration. The FDA has determined that such clearance or approval is not necessary. The above immunohistochemical/dualISH markers are ordered and reviewed by the Pathologist. INTERPRETATION: B. Gastric antrum, biopsy: Negative for Helicobacter pylori organisms. C. Gastroesophageal junction, biopsy: No evidence of dysplasia. AM:shaheed 09/29/2022
[2022-09-27 10:20] LABS: Hematocrit 38.3 % (37-47); Hemoglobin 12.1 g/dL (12.0-15.0)
--- NOTE | 2022-09-27 11:18 | OP.EGD_ITS ---
Patient Name: Sammi Olivas Procedure Date: 09/27/2022 11:08 AM Date of : 1945 Age: 76 Procedure: Upper GI endoscopy Indications: Iron deficiency anemia Providers: Chioma Vega MD Medicines: Monitored Anesthesia Care Patient Profile: This is a 76 year old female. Complications: No immediate complications. Procedure: Pre-Anesthesia Assessment: - Prior to the procedure, a History and Physical was performed, and patient medications and allergies were reviewed. The patient's tolerance of previous anesthesia was also reviewed. The risks and benefits of the procedure and the sedation options and risks were discussed with the patient. All questions were answered, and informed consent was obtained. Prior Anticoagulants: The patient has taken no previous anticoagulant or antiplatelet agents. ASA Grade Assessment: Per anesthesia. After reviewing the risks and benefits, the patient was deemed in satisfactory condition to undergo the procedure. After obtaining informed consent, the endoscope was passed under direct vision. Throughout the procedure, the patient's blood pressure, pulse, and oxygen saturations were monitored continuously. The pediatric colonoscope was introduced through the mouth, and advanced to the second part of duodenum. The upper GI endoscopy was accomplished without difficulty. The patient tolerated the procedure well. Scope In: 10:27:42 AM Scope Out: 10:43:55 AM Total Procedure Duration Time 0 hours 16 minutes 13 seconds Findings: The Z-line was irregular and was found 35 cm from the incisors. Biopsies were taken with a cold forceps for histology. The stomach was normal. Severe inflammation characterized by erythema and friability was found in the gastric antrum. Biopsies were taken with a cold forceps for histology. Biopsies were taken with a cold forceps for Helicobacter pylori cultures. A single 10 mm pedunculated polyp with no bleeding was found in the first portion of the duodenum. The polyp was removed with a hot snare. Resection and retrieval were complete. A small hiatal hernia was present. Impression: - Z-line irregular, 35 cm from the incisors. Biopsied. - Normal stomach. - Gastritis. Biopsied. - A single duodenal polyp. Resected and retrieved. - Small hiatal hernia. Recommendation: - Await pathology results. - Discharge patient to home. - Use Protonix (pantoprazole) 40 mg PO daily. - Use sucralfate tablets 1 gram PO QID for 1 month. - Continue present medications. Procedure Code(s): --- Professional --- 58945, Esophagogastroduodenoscopy, flexible, transoral; with removal of tumor(s), polyp(s), or other lesion(s) by snare technique 94089, 59, Esophagogastroduodenoscopy, flexible, transoral; with biopsy, single or multiple Diagnosis Code(s): --- Professional --- K22.8, Other specified diseases of esophagus K29.70, Gastritis, unspecified, without bleeding K31.7, Polyp of stomach and duodenum K44.9, Diaphragmatic hernia without obstruction or gangrene D50.9, Iron deficiency anemia, unspecified CPT copyright 2017 [employer]. All rights reserved. The codes documented in this report are preliminary and upon consumer affairs manager review may be revised to meet current compliance requirements. MD Chioma Verdin MD 09/27/2022 11:18:38 AM This report has been signed electronically. Number of Addenda: 0 Note Initiated On: 09/27/2022 11:08 AM
--- NOTE | 2022-09-27 11:19 | OP.CCLET_ITS ---
09/27/2022 Tigist Pelaez [address] [place] [address] Re : Upper GI endoscopy procedure for Sammi Olivas Dear Dr. Pelaez This procedure was performed on Tuesday, September 27, 2022. My impressions and recommendations are as follows: Impressions : - Z-line irregular, 35 cm from the incisors. Biopsied. - Normal stomach. - Gastritis. Biopsied. - A single duodenal polyp. Resected and retrieved. - Small hiatal hernia. Recommendations : - Await pathology results. - Discharge patient to home. - Use Protonix (pantoprazole) 40 mg PO daily. - Use sucralfate tablets 1 gram PO QID for 1 month. - Continue present medications. My findings are described in the full procedure note, which is enclosed. If I can be of further assistance, please feel free to contact me at Doctor phone number(s): , Work: . Sincerely, MD Chioma Verdin MD 09/27/2022 11:18:38 AM This report has been signed electronically.
--- NOTE | 2022-09-27 11:25 | OP.COLON_ITS ---
Patient Name: Sammi Olivas Procedure Date: 09/27/2022 10:22 AM Date of : 1945 Age: 76 Procedure: Colonoscopy Indications: Iron deficiency anemia Providers: Chioma Vega MD Medicines: Monitored Anesthesia Care Patient Profile: This is a 76 year old female. Last Colonoscopy: 2016. Complications: No immediate complications. Procedure: Pre-Anesthesia Assessment: - Prior to the procedure, a History and Physical was performed, and patient medications and allergies were reviewed. The patient's tolerance of previous anesthesia was also reviewed. The risks and benefits of the procedure and the sedation options and risks were discussed with the patient. All questions were answered, and informed consent was obtained. Prior Anticoagulants: The patient has taken aspirin, last dose was 5 days prior to procedure. ASA Grade Assessment: Per anesthesia. After reviewing the risks and benefits, the patient was deemed in satisfactory condition to undergo the procedure. After I obtained informed consent, the scope was passed under direct vision. Throughout the procedure, the patient's blood pressure, pulse, and oxygen saturations were monitored continuously. The pediatric colonoscope was introduced through the anus and advanced to the cecum, identified by the appendiceal orifice, ileocecal valve and palpation. The colonoscopy was performed without difficulty. The patient tolerated the procedure well. The quality of the bowel preparation was good. Scope In: 10:47:41 AM Scope Withdrawal Time 0 hours 5 minutes 52 seconds Scope Out: 11:03:37 AM Total Procedure Duration Time 0 hours 15 minutes 56 seconds Findings: Hemorrhoids were found on perianal exam. Non-bleeding internal hemorrhoids were found. The hemorrhoids were Grade I (internal hemorrhoids that do not prolapse). Multiple small-mouthed diverticula were found in the sigmoid colon and descending colon. The exam was otherwise without abnormality. Impression: - Hemorrhoids found on perianal exam. - Non-bleeding internal hemorrhoids. - Diverticulosis in the sigmoid colon and in the descending colon. - The examination was otherwise normal. - No specimens collected. Recommendation: - Discharge patient to home. - Resume previous diet. - Continue present medications. - Repeat colonoscopy not needed due to age. Procedure Code(s): --- Professional --- 27885, Colonoscopy, flexible; diagnostic, including collection of specimen(s) by brushing or washing, when performed (separate procedure) Diagnosis Code(s): --- Professional --- K64.0, First degree hemorrhoids D50.9, Iron deficiency anemia, unspecified K57.30, Diverticulosis of large intestine without perforation or abscess without bleeding CPT copyright 2017 [employer]. All rights reserved. The codes documented in this report are preliminary and upon plant guide review may be revised to meet current compliance requirements. MD Chioma Verdin MD 09/27/2022 11:25:12 AM This report has been signed electronically. Number of Addenda: 0 Note Initiated On: 09/27/2022 10:22 AM
--- NOTE | 2022-09-27 11:26 | OP.CCLET_ITS ---
09/27/2022 Tigist Pelaez [address] [place] [address] Re : Colonoscopy procedure for Sammi Olivas Dear Dr. Pelaez This procedure was performed on Tuesday, September 27, 2022. My impressions and recommendations are as follows: Impressions : - Hemorrhoids found on perianal exam. - Non-bleeding internal hemorrhoids. - Diverticulosis in the sigmoid colon and in the descending colon. - The examination was otherwise normal. - No specimens collected. Recommendations : - Discharge patient to home. - Resume previous diet. - Continue present medications. - Repeat colonoscopy not needed due to age. My findings are described in the full procedure note, which is enclosed. If I can be of further assistance, please feel free to contact me at Doctor phone number(s): , Work: . Sincerely, MD Chioma Verdin MD 09/27/2022 11:25:12 AM This report has been signed electronically.
== END 2022-09-27 12:17 | disposition home or self-care (01) ==
LOC: EN 08:31 → AC 09:15
PROVIDERS: PCP Family Medicine; Referring Provider Family Medicine; Visit Provider Surgery
PROC: 0DJD8ZZ Inspection of Lower Intestinal Tract, Via Natural or Artificial Opening Endoscopic (ICD-10-PCS; CPT 45378; principal; 2022-09-27 10:10)
DX: D17.5 Benign lipomatous neoplasm of intra-abdominal organs (principal); J44.9 Chronic obstructive pulmonary disease, unspecified; K21.00 Gastro-esophageal reflux disease with esophagitis, without bleeding; K22.70 Barrett's esophagus without dysplasia; K29.50 Unspecified chronic gastritis without bleeding; D50.9 Iron deficiency anemia, unspecified; K44.9 Diaphragmatic hernia without obstruction or gangrene; K57.30 Diverticulosis of large intestine without perforation or abscess without bleeding; K64.0 First degree hemorrhoids; F17.210 Nicotine dependence, cigarettes, uncomplicated; G47.33 Obstructive sleep apnea (adult) (pediatric); Z86.718 Personal history of other venous thrombosis and embolism; Z86.711 Personal history of pulmonary embolism; Z99.81 Dependence on supplemental oxygen; Z86.73 Personal history of transient ischemic attack (TIA), and cerebral infarction without residual deficits; Z79.899 Other long term (current) drug therapy
CPT/HCPCS: 45378; 43251; 43239; 85014; 85018; 88305; 88313; 88341; 88342; J7120; J2405

== ENCOUNTER → 2023-08-08 | Outpatient (CLI) | payer MEDICARE, OTHER, SELFPAY ==
--- NOTE | 2023-08-08 09:43 | BI_ITS ---
MAMMOGRAPHY - BILATERAL SCREENING REASON FOR EXAM: Female, 77 years old. Routine annual screening examination. PERTINENT HISTORY: Personal history of breast cancer. Prior right lumpectomy with radiation and chemotherapy. Sisters with breast cancer. TECHNIQUE: Digital bilateral breast thea (3D mammographic acquisition) in the CC and MLO projections. 2-D mediolateral oblique (MLO) and craniocaudad (CC) views of both breasts were obtained. CAD: Full Field Digital Mammography with Computer Added Detection was performed. COMPARISON: Comparison is made with prior study dated August 05, 2022 and August 06, 2021. FINDINGS: Breast Composition: The breasts are heterogeneously dense, which may obscure small masses. There is a 9.3 mm x 11.7 mm well-defined nodule in the slightly upper central portion of the left breast. Correlation with ultrasound is recommended. The patient is status post lumpectomy in the upper lateral aspect of the right breast. A tissue clip marker is seen in the deep upper lateral aspect of the breast. Stable overlying skin thickening. No other significant abnormalities are identified. BI/SCRN MAMM (CAD)W/THEA BILAT IMPRESSION: 9.3 mm x 11.7 mm well-defined nodule in the slightly upper central portion of the left breast. Correlation with ultrasound is recommended. Status post right lumpectomy. ASSESSMENT CATEGORY: BIRADS Category 0: Incomplete. Need additional imaging evaluation. A letter regarding these results will be sent to the patient by the facility within 30 days. Approximately 10% of breast cancers are not detected by mammography. A normal mammogram should not delay biopsy of a clinically suspicious abnormality. [id number] Electronically Signed: Juanjo Nieves MD at 11:01 EDT ,
== END | disposition home or self-care (01) ==
LOC: OPBI 09:43
PROVIDERS: PCP Family Medicine; Referring Provider Student in an Organized Health Care Education/Training Program; Visit Provider Student in an Organized Health Care Education/Training Program
DX: Z12.31 Encounter for screening mammogram for malignant neoplasm of breast (principal)
CPT/HCPCS: 77063; 77067

== ENCOUNTER → 2023-08-10 | Outpatient (CLI) | payer MEDICARE, OTHER, SELFPAY ==
--- NOTE | 2023-08-10 10:51 | US_ITS ---
STUDY: ULTRASOUND BREAST - LEFT REASON FOR EXAM: Female, 77 years old. Abnormal screening mammogram. TECHNIQUE: Axial and longitudinal images of the LEFT breast were performed with a high resolution ultrasound transducer. # OF IMAGES: 43 COMPARISON: Comparison is made with prior mammogram dated August 08, 2023 and prior sonogram of the left breast dated August 06, 2021. FINDINGS: LEFT Breast: The upper outer quadrant of the left breast was examined with ultrasound. There is a 9 mm x 8 mm x 4 mm complex cyst at the 3 to 4:00 position of the breast at 2 cm from the nipple. Aspiration recommended. US/Breast Limited Unilateral IMPRESSION: The mammographic abnormality corresponds to a 9 mm x 8 mm x 4 mm complex cyst at the 3 to 4:00 position of the breast at 2 cm from nipple. Needle aspiration recommended. ASSESSMENT CATEGORY: BIRADS Category 4: Suspicious - Biopsy Should Be Considered. A letter regarding these results will be sent to the patient by the facility within 30 days. Electronically Signed: Juanjo Nieves MD at 14:35 EDT ,
== END | disposition home or self-care (01) ==
LOC: OPUS 10:50
PROVIDERS: PCP Family Medicine; Referring Provider Student in an Organized Health Care Education/Training Program; Visit Provider Student in an Organized Health Care Education/Training Program
DX: R92.8 Other abnormal and inconclusive findings on diagnostic imaging of breast (principal)
CPT/HCPCS: 76642

== ENCOUNTER → 2023-10-25 | Outpatient (CLI) | payer MEDICARE, OTHER, SELFPAY ==
--- NOTE | 2023-10-25 10:40 | MRI_ITS ---
STUDY: BILATERAL BREAST MR WITHOUT AND WITH CONTRAST REASON FOR EXAM: Female, 78 years old. New left breast nodule. History of breast cancer in sister. TECHNIQUE: Multi-sequence multi-echo imaging of both breasts was performed with a dedicated breast coil. T1-weighted and T2-weighted images were performed before the administration of contrast. T1-weighted images were also performed after the intravenous administration of 20 cc of Clariscan contrast. COMPARISON: left breast ultrasound dated August 10, 2023 and bilateral screening mammogram dated August 08, 2023 FINDINGS: RIGHT BREAST: Scattered fibroglandular densities with minimal background enhancement. Right breast is smaller than the left breast with postsurgical changes. No abnormal enhancing masses or areas of non-mass enhancement in the right breast. LEFT BREAST: Scattered fibroglandular densities with moderate central background enhancement. At the 12:00 position of the left breast 6 cm from the nipple there is an ovoid homogeneously enhancing mass measuring 12 mm x 6 mm x 7 mm. On the post-contrast images, the wall of this mass enhances. However, there is no internal enhancement. Given the ultrasonographic appearance and the lack of central enhancement on the breast MRI study with contrast, it is recommended that consideration be given to a six-month follow-up left breast ultrasound with particular attention to the T3-4:00 position of the breast in the area where the lesion is seen on the ultrasound study of August 10, 2023. No abnormal enhancing masses or areas of non-mass enhancement in the left breast. No enlarged or abnormal lymph nodes. No abnormality in the visualized regions of the chest or liver. MRI/Breast Bilateral W/O and W IMPRESSION: Asymmetric background enhancement, left greater than right. Right breast smaller than the left with post surgical changes. Ovoid mass which is predominantly cystic on the MR study with only rim enhancement on the postcontrast images. Since the lesion can be well seen on ultrasound, it is recommended that the patient return in 6 months to have a repeat left breast ultrasound to establish the stability of this finding. CATEGORY: BIRADS Category 3: Probably Benign - Short-Interval Follow-up Suggested. A letter regarding these results will be sent to the patient by the facility within 30 days. Electronically Signed: Ady King MD at 15:01 EDT ,
[2023-10-25] MEDS: 0.9% Saline Lock 10 ML Syringe IV (12:46)
== END | disposition home or self-care (01) ==
LOC: MRI 10:29
PROVIDERS: PCP Family Medicine; Referring Provider Internal Medicine Medical Oncology; Visit Provider Internal Medicine Medical Oncology
DX: R92.8 Other abnormal and inconclusive findings on diagnostic imaging of breast (principal); Z85.3 Personal history of malignant neoplasm of breast
CPT/HCPCS: 77049; A9575; A4216; C8908

== ENCOUNTER → 2023-10-29 | Outpatient (CLI) | payer MEDICARE, OTHER, SELFPAY ==
--- NOTE | 2023-10-29 08:01 | CT_ITS ---
EXAM: CT CHEST, LUNG CANCER SCREENING WITHOUT INTRAVENOUS CONTRAST CLINICAL INDICATION: smoker TECHNIQUE: Helically acquired images were obtained of the chest without intravenous contrast using low dose (LDCT) lung cancer screening protocol. This CT exam was performed using one or more of the following dose reduction techniques: automated exposure control, adjustment of the mA and/or kV according to patient size, and/or use of iterative reconstruction technique. COMPARISON: 05/28/2022 FINDINGS: LUNGS AND PLEURAL SPACES: Mild interstitial markings seen in the right upper lobe anteriorly which may represent scar. There is no focal consolidation. There is a small 2 mm pleural-based nodule in the right upper lobe laterally seen on series 2 image 133. This is stable from the reference exam. No pneumothorax. HEART: Unremarkable. Heart size is normal. No pericardial effusion. No significant coronary artery calcifications. MEDIASTINUM: Unremarkable. No mediastinal or hilar adenopathy. Esophagus is unremarkable. No hiatal hernia. THYROID: Unremarkable. No thyroid lesions. BONES/JOINTS: Unremarkable. No suspicious lytic or blastic abnormality. VASCULATURE: Unremarkable. Thoracic aorta is non-dilated. LYMPH NODES: Unremarkable. No enlarged lymph nodes. CT/Low Dose CT Lung Screening IMPRESSION: Minimal interstitial scarring in the right upper lobe which is stable. There is a small pleural-based nodule in the right upper lobe. There has been no change from the reference exam. Lung-RADS score: 2 - Benign Appearance or Behavior. Recommend continued annual screening with a low-dose CT (LDCT) in 12 months. Electronically Signed: Pato Ji MD at 0:01 EDT ,
== END | disposition home or self-care (01) ==
LOC: CT 07:57
PROVIDERS: PCP Family Medicine; Referring Provider Nurse Practitioner Acute Care; Visit Provider Nurse Practitioner Acute Care
DX: Z12.2 Encounter for screening for malignant neoplasm of respiratory organs (principal); F17.210 Nicotine dependence, cigarettes, uncomplicated
CPT/HCPCS: 71271

== ENCOUNTER → 2024-02-14 | Outpatient (CLI) | payer MEDICARE, OTHER, SELFPAY ==
--- NOTE | 2024-02-14 09:24 | US_ITS ---
STUDY: ULTRASOUND BREAST - LEFT REASON FOR EXAM: Female, 78 years old. 6 month follow-up examination. TECHNIQUE: Axial and longitudinal images of the LEFT breast were performed with a high resolution ultrasound transducer. # OF IMAGES: 6 COMPARISON: Comparison is made with prior sonogram of the left breast dated August 10, 2023. FINDINGS: LEFT Breast: There is a 4 mm x 4 mm x 2 mm hypoechoic well-defined nodule at the 3:00 position of the breast at 2 cm from the nipple. This has decreased in size as compared to prior study. US/Breast Limited Unilateral IMPRESSION: Interval decrease in size of the previously seen hypodense nodule at the 3:00 position of the breast at 2 cm from the nipple ASSESSMENT CATEGORY: BIRADS Category 2: Benign. A letter regarding these results will be sent to the patient by the facility within 30 days. Electronically Signed: Juanjo Nieves MD at 14:07 EST ,
== END | disposition home or self-care (01) ==
LOC: OPUS 09:24
PROVIDERS: PCP Family Medicine; Referring Provider Student in an Organized Health Care Education/Training Program; Visit Provider Student in an Organized Health Care Education/Training Program
DX: N60.02 Solitary cyst of left breast (principal); C50.811 Malignant neoplasm of overlapping sites of right female breast; Z17.1 Estrogen receptor negative status [ER-]
CPT/HCPCS: 76642

== ENCOUNTER → 2024-02-27 | Outpatient (CLI) | payer MEDICARE, OTHER, SELFPAY ==
--- NOTE | 2024-02-27 10:50 | RAD_ITS ---
STUDY: X-RAY CHEST REASON FOR EXAM: Female, 78 years old. Fever and cough TECHNIQUE: PA and lateral views of the chest. COMPARISON: 12/10/2020 FINDINGS: Stable appearance of a left subclavian port Chronic interstitial changes in both lung astorga without a superimposed acute pulmonary process. There is no demonstrated pleural abnormality. Normal size heart. Normal mediastinum and angie. Normal visualized pulmonary arteries. There is atherosclerotic calcification of the aortic arch with tortuosity. There are diffuse degenerative changes of the visualized thoracic spine. Normal visualized ribs, clavicles, and shoulders. There is no demonstrated abnormality of the visualized soft tissue structures of the upper abdomen. RAD/Chest PA and Lateral IMPRESSION: Chronic interstitial changes in both lung astorga without a superimposed acute pulmonary process Electronically Signed: Ramiro Buckner MD at 11:40 EST ,
== END | disposition home or self-care (01) ==
PROVIDERS: PCP Family Medicine; Referring Provider Nurse Practitioner Family; Visit Provider Nurse Practitioner Family
DX: R05.9 Cough, unspecified (principal); J44.9 Chronic obstructive pulmonary disease, unspecified
CPT/HCPCS: 71046

== ENCOUNTER → 2024-03-26 | Outpatient (CLI) | payer MEDICARE, OTHER, SELFPAY | END | disposition home or self-care (01) | LOC: LABSPEC 13:19 | PROVIDERS: PCP Family Medicine; Referring Provider Nurse Practitioner Acute Care; Visit Provider Nurse Practitioner Acute Care | DX: J44.9 Chronic obstructive pulmonary disease, unspecified (principal) | CPT/HCPCS: 87070; 87205 ==

== ENCOUNTER → 2024-04-02 | Outpatient (CLI) | payer MEDICARE, OTHER, SELFPAY | END | disposition home or self-care (01) | LOC: SL 20:16 | PROVIDERS: PCP Family Medicine; Referring Provider Nurse Practitioner Acute Care; Visit Provider Nurse Practitioner Acute Care | DX: G47.33 Obstructive sleep apnea (adult) (pediatric) (principal) | CPT/HCPCS: 95811 ==

== ENCOUNTER → 2024-07-17 | Outpatient (CLI) | payer MEDICARE, OTHER, SELFPAY ==
[2024-07-17 12:07] LABS: Ferritin 88 ng/mL (22-378)
== END | disposition home or self-care (01) ==
LOC: PAVLAB 11:26
PROVIDERS: PCP Family Medicine; Referring Provider Nurse Practitioner Family; Visit Provider Nurse Practitioner Family
DX: E61.1 Iron deficiency (principal)
CPT/HCPCS: 36415; 82728

== ENCOUNTER 2024-09-05 08:12 | Day surgery (SDC) | payer MEDICARE, OTHER, SELFPAY ==
[2024-09-05] VITALS (7 sets, daily range): BP systolic 106–134; BP diastolic 57–67; PULSE 64–67; RESP 16–18; TEMP 36.3–36.6; O2SAT 93–100; BMI 38.5
[2024-09-05] MEDS: Lactated Ringers 1,000 ML 15 ML IV (09:00)
--- NOTE | 2024-09-05 09:19 | HP.PCM_ITS ---
History and Physical Date of Admission: 09/05/24 Date of Service: 08/13/24 MR#: [id number] Acct: [id number] Name: ISIDRO CRAWFORD Rep #: [id number] : 1945 Provider: Dr. Chioma Vega MD Age/Sex: 78/F Location: [facility] Status: Signed Intake Vital Signs 07/18/2507:08 08/13/2512:30 Height 5 ft 3 in 5 ft 3 in Weight: 212 lb 217 lb BMI 37.5 38.4 BP 141/74 H 145/75 H Blood Pressure Location Lt brachial Lt brachial Position Sitting Sitting Respiration 20 H 17 Pulse 69 74 Pulse Source Monitor Monitor Temp 97.3 F L 97.2 F L Temp Source Temporal Pulse Oximetry (%) 95 97 Oxygen Delivery Method nasal canula room air Oxygen Flow Rate (L/min) 2 Intake Visit Reasons: RECALL EGD Chief Complaint: recall EGD Is patient in pain?: No Allergies Fish Containing Products Adverse Reaction (Mild, Verified 08/13/24 13:31) Abd cramps/diarrhea Medications ?Medication ?Instructions ?Recorded ?Confirmed ?Type trazodone 100 mg tablet 200 mg PO QHS 06/27/14 08/13/24 History gabapentin 600 mg tablet 600 mg PO QHS 07/13/16 08/13/24 History albuterol sulfate 90 mcg/actuation 2 puff inhalation Q4H PRN Sob &/Or 07/0408/13/24 History aerosol inhaler Wheezing gabapentin 300 mg capsule 300 mg PO DAILY 02/20/20 08/13/24 Histor y fluticasone propionate 50 2 spray intranasal DAILY ALLERGIES 12/1008/13/24 History mcg/actuation nasal spray,suspension citalopram 10 mg tablet 10 mg PO DAILY 05/13/21 08/13/24 History lift chair #1 ea 05/13/21 08/13/24 Rx tiotropium bromide 18 mcg capsule 1 cap inhalation DAILY #30 03/26/24 05/09/02 Rx with inhalation device (Spiriva inhalations with HandiHaler) fluticasone 500 mcg-salmeterol 50 1 inh inhalation BID #3 device 07/17/24 08/13/24 Rx mcg/dose blistr powdr for inhalation (Wixela Inhub) guaifenesin 1,200 mg tablet, 1,200 mg PO BID #60 tabs 07/17/24 Rx extended release 12 hr (Mucinex) ipratropium 0.5 mg-albuterol 3 mg 3 ml inhalation Q4H PRN shortness 08/13/24 Rx (2.5 mg base)/3 mL nebulization of breat h or wheezing #180 mL soln omeprazole 40 mg capsule,delayed 40 mg PO QDAY 08/13/24 08/13/24 History release Have you fallen in the past year?: Yes PFSH Medical History Wears glasses Wears dentures Cancer Post-menopausal History of steroid therapy Anemia Easy bruising Restless legs History of diverticulitis Gastric reflux Smoker BiPAP (biphasic positive airway pressure) dependence On home oxygen therapy Shortness of breath on exertion Hoarseness History of echocardiogram History of stress test Right arm fracture DVT (deep venous thrombosis) Stroke behind eye Smoking greater than 40 pack years COPD with asthma Candidiasis of mouth History of pulmonary embolism Pulmonary hypertension DION (obstructive sleep apnea) Lung nodule Acute respiratory failure with hypoxia and hypercarbia Tobacco user History of pulmonary embolism Hyperlipidemia GERD (gastroesophageal reflux disease) History of DVT of lower extremity Chronic obstructive lung disease Benign essential hypertension Surgical History Status post right breast lumpectomy History of breast biopsy Hx of colonoscopy History of bilateral knee replacement Family History Sister Skin cancer Diabetes Breast cancer Lung cancerMother Diabetes CVA (cerebral vascular accident)Father Heart disease CVA (cerebral vascular accident)Brother DiabetesSister Breast cancer Social History Smoking Status: Current every day smoker tobacco type: cigarettes second hand exposure: Yes alcohol intake: current alcohol intake frequency: holidays/special occasions only substance use type: does not use caffeine: Yes what type of physical activity do you participate in: none frequency: does not exercise HPI HPI HPI: 78-year-old female presents for follow-up for 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 Patient currently on omeprazole 40 mg p.o. daily. Patient states she only occasionally has symptoms depending on what she eats otherwise symptoms are well-controlled. Patient did have a colonoscopy in 2022 which was negative. ROS General General: Yes breast cancer; No weight change, appetite, fatigue, colon cancer or weakness HEENT HEENT: Yes eye surgery; No difficulty swallowing, eye injury, swollen glands or hoarseness Endo Endocrine: No thyroid disease, diabetes mellitus, thyroid cancer, Hair loss, heat intolerance or cold intolerance Skin Skin: No rash or changing moles Breast Breast: No left breast lump, right breast lump, nipple discharge, breast pain, abnormal mammogram, abnormal US or breast enlargement Musc Musculoskeletal: No back problems, arthritis, rheumatoid arthritis, gout or joint pain Cardio Cardiovascular: No murmur, pacemaker, heart disease, atrial fibrillation, high blood pressure, heart attack, heart stent, palpitations, shortness of breath with exertion or chest pain Psych Psychiatric: No depression, anxiety or hearing voices Resp Respiratory: No shortness of breath, Yes sleep apnea, Yes cough, Yes COPD, No asthma, No emphysema and No wheezing Gastro Gastrointestinal: No abdominal pain, No nausea or vomiting, No diarrhea, No constipation, Yes blood in stool, Yes acid reflux, No hemorrhoids, No ulcers, No gallbladder problem and Yes black,tarry stools Lucho Hematologic: No blood thinners, No blood disorders, No bleeding, No anemia and Yes blood clots Neuro Neurologic: No system reviewed and no additional complaints, except as documented, No as per HPI, No abnormal gait, No abnormal hearing, No abnormal movements, No abnormal speech, No behavioral changes, No burning sensations, No confusion, No convulsions, No disequilibrium, No dizziness, No localized weakness, No frequent falls, No headache(s), No lack of coordination, No loss of vision, No memory loss, No numbness, No other visual disturbances, No radicular pain, No restless legs, No sensory deficit, No syncope, No tingling, No tremor(s), No weakness and No other Exam Const General: cooperative, healthy appearing, comfortable and no acute distress [facility] Head: normocephalic and atraumatic Neck Neck: supple Resp Effort & Inspection: normal respiratory effort Cardio Rate: regular rate GI Inspection: non-distended Palpation: soft and nontender Skin General: no rashes or lesions noted Neuro General: CN's II-XI intact bilaterally Psych Mental Status: mental status grossly normal Attitude: cooperative Assessment and Plan Assessment and Plan (1) Pizano esophagus: Status: Acute Qualifiers: Pizano's esophagus type: without dysplasia Qualified Code(s): 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 I have offered the patient esophagogastroduodenoscopy for evaluation. I have explained the risks/benefits of the procedure and described the procedure. I have discussed the risks with the patient, including but not limited to: infection, bleeding, perforation of the GI tract requiring emergen cy surgery, inability to complete the procedure, injury to any internal organs, complications of anesthesia, etc. - the patient understands and agrees to proceed. I have answered all the patient's questions to the patient's satisfaction and the patient has no further questions. Chioma Vega M.D. Pager: [phone] [facility] [address] [place] [address], [facility], [address] [place] [address] Office: 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
--- NOTE | 2024-09-05 09:20 | PCM.PRE.AN2 ---
ASA Classification* ASA Classification ASA Classification: 3 Assessment & Plan Anesthesia* Anesthesia Assessment Anesthesia Assessment: Discussed sedation and/or anesthesia options, risks, benefits, and alternatives with patient/parents/legal guardian/POA. Questions invited. The patient/parents/legal guardian/POA seems to understand and agrees to proceed with anesthesia plan. Reviewed the physical assessment, medical history, allergy history and patient home medications list prior to surgery/procedure/anesthetic and documented any changes. Performed airway and anesthesia risk assessments. Anesthesia Type Anesthesia Type: MAC History Source History Obtained from:: Patient and Chart Anesthesia Focused Assessment* Temperature: 97.8 F Pulse Rate: 64 Blood Pressure: 134/67 Respiratory Rate: 18 Pulse Ox: 100 Oxygen Delivery Method: Room Air Airway Assessment Mouth opens: >3 cm Mallampati Score: III Teeth Condition: Dentures (Patient has upper and lower dentures. They will come out.) Neck Range of motion (ROM): Limited ROM (Slight decrease in extension) Focused Labs Anesthesia Preop lab: CBC WBC 7.6 K/mm3 (4.4-11.0) 10/10/23 11:10 10/10/23 RBC 4.19 M/mm3 (4.2-5.4) L 10/10/23 11:10 10/10/23 Hgb 13.5 g/dL (12.0-15.0) 10/10/23 11:10 10/10/23 Hct 40.7 % (37-47) 10/10/23 11:10 10/10/23 Plt Count 269 K/mm3 (150-450) 10/10/23 11:10 10/10/23 CHEMISTRY Potassium 3.8 mmol/L (3.5-5.1) 10/10/23 11:10 10/10/23 Sodium 140 mmol/L (136-145) 10/10/23 11:10 10/10/23 Magnesium 2.4 mg/dL (1.6-2.6) 12/11/20 05:02 12/11/20 Phosphorus 3.4 mg/dL (2.5-4.9) 09/27/19 09:25 09/27/19 BUN 17 mg/dL (7-18) 10/10/23 11:10 10/10/23 Creatinine 0.74 mg/dL (0.55-1.02) 10/10/23 11:10 10/10/23 Glucose 116 mg/dL (74-106) H 10/10/23 11:10 10/10/23 POC Glucose 167 mg/dL (70-110) H 12/16/20 11:28 12/16/20 COAG PT 13.2 SECONDS (11.7-14.9) 01/09/20 11:00 01/09/20 Pre-Assessment Diagnosis/Proposed Procedure Planned Operative Procedure(s): EGD Anesthesia History 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 When Was Last Pacemaker Check QUESTION #4 FULL TEXT: You/Your Family Experience fever (hyperthermia) with Anesthesia Last Oral Intake Last Oral intake: Last Oral Intake NPO since 22:00 09/05/24 08:44 Meds taken in AM with sips of water? Meds patient instructed to take am of surgery PONV PONV - clean room operator: PONV - clean room operator Female Yes 08/31/24 16:05 HX of Motion Sickness No 08/31/24 16:05 HX of N/V After Surgery No 08/31/24 16:05 Non-Smoker No 08/31/24 16:05 Duration of Surgery greater No 08/31/24 16:05 than 60 minutes Number of Risk Factors 1 08/31/24 16:05 PONV Score Low Risk 08/31/24 16:05 Height & Weight Height & Weight: Anesthesia: Height & Weight Height 5 ft 3 in 09/05/24 08:44 Weight: 98.792 kg 09/05/24 08:44 Body Mass Index (BMI) 38.5 09/05/24 08:44 Respiratory Assessment Respiratory Assessment - clean room operator: Respiratory Tract Infection Hx - clean room operator Hx Respiratory Tract Infection No 08/31/24 16:05 STOP Sleep Apnea STOP Sleep Apnea - clean room operator: STOP Sleep Apnea - clean room operator Hx Hypertension No 08/31/24 16:05 Hx Sleep Apnea Yes 08/31/24 16:05 CPAP No 08/31/24 16:05 BIPAP Yes 08/31/24 16:05 Do you snore loudly (louder than talking or can be heard Do you often feel tired/ fatigued/ sleepy during daytime? Has anyone observed you stop breathing during sleep? STOP Results Positive 08/31/24 16:05 QUESTION #5 FULL TEXT : Do you snore loudly (louder than talking or can be heard through closed doors)? Tobacco Use History Tobacco Use History - clean room operator: Tobacco Use History - clean room operator Tobacco Use Cigarettes 07/31/20 10:53 Smoking Status Current every day smoker 08/31/24 16:05 Hx Tobacco Use Yes 08/31/24 16:05 Years Smoking Packs Smoked per Day 0.5 08/31/24 16:05 Smoking Cessation Date was within the last 15 years Hx Smoking Cessation Date Hx Smoking Cessation Yes 08/31/24 16:05 Counseling Any additional information?: Yes Smoking Status: Current every day smoker (Patient did not smoke today.) Hematologic Medial History Hematologic Hx - clean room operator: Hematologic Medical Hx - documentation liaison Hx of Blood Transfusion No 08/31/24 16:05 Hx of Transfusion in last 3 No 08/31/24 16:05 Months Date of Last Transfusion (if within last 3 months) Ever experience any problems No 08/31/24 16:05 with transfusion(s)? Specify any problems Hx of Preganancy in last 3 N/A 08/31/24 16:05 Months Nurse Filling Out Transfusion NBUCHER 08/31/24 16:05 & Questions: Date: 08/31/24 08/31/24 16:05 Time: 16:05 08/31/24 16:05 Patient unable to answer at this time (ie. confused, unrespo /Reproduction History /Reproductive History - clean room operator: /Reproductive Hx- clean room operator Hx Now No 08/31/24 16:05 Gestational Age (in weeks): EDC: Hx Hx Para Hx Section SAB No 08/31/24 16:05 Active Medications Active Medications: Current Medications Generic Name Dose Route Start Last Admin Trade Name Freq PRN Reason Stop Dose Admin Lactated Ringer's 1,000 mls @ 15 mls/hr 09/05/24 08:30 09/05/24 09:00 IV 15 mls/hr .Q48H TANIA Administration PFSH Medical History Walker as ambulation aid Ambulates with cane Low iron Sleep apnea Asthma Chronic cough Wears glasses Wears dentures Cancer Post-menopausal Anemia Easy bruising Restless legs History of diverticulitis Gastric reflux Smoker BiPAP (biphasic positive airway pressure) dependence On home oxygen therapy Shortness of breath on exertion Hoarseness History of echocardiogram History of stress test Right arm fracture DVT (deep venous thrombosis) Stroke behind eye Smoking greater than 40 pack years COPD with asthma Candidiasis of mouth History of pulmonary embolism Pulmonary hypertension DION (obstructive sleep apnea) Lung nodule Acute respiratory failure with hypoxia and hypercarbia Tobacco user History of pulmonary embolism Hyperlipidemia GERD (gastroesophageal reflux disease) History of DVT of lower extremity Chronic obstructive lung disease Benign essential hypertension Home Medications ?Medication ?Instructions ?Recorded ?Last Taken ?Type trazodone 100 mg tablet 200 mg PO QHS 06/27/14 09/04/24 History gabapentin 600 mg tablet 600 mg PO QHS 07/13/16 09/04/24 History albuterol sulfate 90 mcg/actuation 2 puff inhalation Q4H PRN Sob &/Or 07/05/19 09/05/24 06:30 History aerosol inhaler Wheezing gabapentin 300 mg capsule 300 mg PO DAILY 02/20/20 09/04/24 History fluticasone propionate 50 2 spray intranasal DAILY ALLERGIES 12/10/20 09/04/24 History mcg/actuation nasal spray,suspension citalopram 10 mg tablet 10 mg PO DAILY 05/13/21 09/04/24 History lift chair #1 ea 05/13/21 Unknown Rx tiotropium bromide 18 mcg capsule 1 cap inhalation DAILY #30 03/26/24 09/05/24 06:30 Rx with inhalation device (Spiriva inhalations with HandiHaler) fluticasone 500 mcg-salmeterol 50 1 inh inhalation BID #3 device 07/17/24 09/05/24 06:30 Rx mcg/dose blistr powdr for inhalation (Wixela Inhub) guaifenesin 1,200 mg tablet, 1,200 mg PO BID #60 tabs 07/17/24 09/04/24 Rx extended release 12 hr (Mucinex) ipratropium 0.5 mg-albuterol 3 mg 3 ml inhalation Q4H PRN shortness 07/17/24 Unknown Rx (2.5 mg base)/3 mL nebulization of breath or wheezing #180 mL soln omeprazole 40 mg capsule,delayed 40 mg PO QDAY 08/13/24 09/05/24 06:30 History release alendronate 35 mg tablet 35 mg PO QWEEK 08/31/24 09/04/24 History furosemide 40 mg tablet 40 mg PO DAILY 08/31/24 09/04/24 History Allergy/AdvReac Type Severity Reaction Status Date / Time Fish Containing Products AdvReac Mild Abd Verified 09/05/24 08:39 cramps/diarrhea Family History Sister Skin cancer Diabetes Breast cancer Lung cancer Mother Diabetes CVA (cerebral vascular accident) Father Heart disease CVA (cerebral vascular accident) Brother Diabetes Sister Breast cancer Surgical History History of esophagogastroduodenoscopy (EGD) Status post right breast lumpectomy History of breast biopsy Hx of colonoscopy History of bilateral knee replacement Social History Smoking Status: Current every day smoker tobacco type: cigarettes second hand exposure: Yes alcohol intake: current alcohol intake frequency: holidays/special occasions only substance use type: does not use caffeine: Yes what type of physical activity do you participate in: none frequency: does not exercise Review of Systems (Anesthesia) ROS Narrative System reviewed and no additional complaints, except as documented. Physical Exam Resp clear to auscultation bilaterally
--- NOTE | 2024-09-05 09:30 | EGD_PTH ---
PATIENT: ISIDRO CRAWFORD LOC: EN U#:[id number] AGE/SX: 78/F ROOM: RE09/05/[address]: Dr. Chioma Vega MD : 1945 BED: DIS: 09/05/2024 SPEC #: [id number] RECD: 09/05/24 11:12 STATUS: BERNARD RELucius #: [id number] YOSELIN: 09/05/24 09:[address]: Chioma Vega DEPT: SURGICAL PATHOLOGY RECD BY: Nakul Mccartney ENTERED: 09/05/24 11:33 SP TYPE: EGD BIOPSY ALEJANDRO DR: Dr. Tigist Pelaez DO Tissues: A - Gastric mucous membrane B - Esophagus, NOS C - Esophagus, NOS Procedures: Surgery Specimen Level IV IHC Stain ADDITIONAL HEADER OPERATION: EGD and biopsy PRE-OP DIAGNOSIS: Pizano's esophagus TISSUE SUBMITTED: A- Antral biopsy, B- Lower distal esophagus biopsy, C- Mid esophagus *possible Hope yeast* MICROSCOPIC DIAGNOSIS A. Stomach, antrum, biopsy: Antral mucosa with features of reactive gastropathy. IHC negative for H.pylori organisms. B. Esophagus, lower distal, biopsy: Pizano mucosa with acute inflammation. Indefinite for dysplasia. IHC negative for H.pylori organisms. C. Esophagus, mid, biopsy: Squamous mucosa with reactive changes. Fungal organisms morphologically compatible with Hope sp. MICROSCOPIC DESCRIPTION Slides are reviewed. All matched controls reacted appropriately. These tests were developed and their performance characteristics determined by [facility]. They may not have been cleared or approved by the U.S. Food and Drug Administration. The FDA has determined that such clearance or approval is not necessary. The above immunohistochemical/dualISH markers are ordered and reviewed by the Pathologist. GROSS DESCRIPTION A. Received in formalin in a container labeled with the patient's name, date of , and antral biopsy-H. pylori and path is a 0.5 x 0.4 x 0.2 cm fragment of pagan-pink mucosal tissue. Submitted in toto in A1. B. Received in formalin in a container labeled with the patient's name, date of , and lower distal esophagus history of Pizano's are 2 white-pink fragments of mucosal tissue measuring 0.2 x 0.2 x 0.2 cm and 0.5 x 0.2 x 0.2 cm. Submitted in toto in B1. C. Received in formalin in a container labeled with the patient's name, date of , and mid esophagus biopsy? Hope yeast are multiple small pagan-pink fragments of mucosal tissue measuring 0.5 x 0.5 x 0.2 cm in aggregate. Submitted in toto in C1. SMB 09-05-2024 CPT:34520k2,[id number]
--- NOTE | 2024-09-05 11:02 | PCM.POST.ANE ---
Anesthesia: Postop Eval I Current Vital Signs Temperature: 97.4 F Pulse Rate: 67 Blood Pressure: 106/61 Respiratory Rate: 16 Pulse Ox: 96 Oxygen Delivery Method: Room Air Assessment Airway patent: Yes Spontaneous unlabored respirations: Yes Mental status: Awake and Calm nausea: No Vomiting: No Anesthesia Complication: No Fluid Hydration Crystalloid volume administer (ml): 300 Total IV fluid infused: 300 Progress Note Anesthesia document: Postop Eval 1 completed: Yes
--- NOTE | 2024-09-05 11:06 | OP.EGD_ITS ---
Patient Name: Sammi Olivas Procedure Date: 09/05/2024 10:32 AM Date of : 1945 Age: 78 Procedure: Upper GI endoscopy Indications: Surveillance for malignancy due to personal history of Pizano's esophagus Providers: Chioma Vega MD Referring MD: Tigist Pelaez Medicines: Monitored Anesthesia Care Patient Profile: This is a 78 year old female. Complications: No immediate complications. Procedure: Pre-Anesthesia Assessment: - Prior to the procedure, a History and Physical was performed, and patient medications and allergies were reviewed. The patient's tolerance of previous anesthesia was also reviewed. The risks and benefits of the procedure and the sedation options and risks were discussed with the patient. All questions were answered, and informed consent was obtained. Prior Anticoagulants: The patient has taken no anticoagulant or antiplatelet agents. ASA Grade Assessment: Per anesthesia. After reviewing the risks and benefits, the patient was deemed in satisfactory condition to undergo the procedure. After obtaining informed consent, the endoscope was passed under direct vision. Throughout the procedure, the patient's blood pressure, pulse, and oxygen saturations were monitored continuously. The Endoscope was introduced through the mouth, and advanced to the second part of duodenum. The upper GI endoscopy was accomplished without difficulty. The patient tolerated the procedure well. Scope In: 10:43:11 AM Scope Out: 10:50:15 AM Total Procedure Duration Time 0 hours 7 minutes 4 seconds Findings: The Z-line was irregular and was found 36 cm from the incisors. Biopsies were taken with a cold forceps for histology. A 4 cm hiatal hernia was present. Localized moderately erythematous mucosa without bleeding was found in the prepyloric region of the stomach. Biopsies were taken with a cold forceps for histology. Biopsies were taken with a cold forceps for Helicobacter pylori cultures. The second portion of the duodenum was normal. One non-bleeding superficial duodenal ulcer with pigmented material was found in the duodenal bulb. The lesion was 3 mm in largest dimension. , white plaques were found in the middle third of the esophagus and in the lower third of the esophagus. Biopsies were taken with a cold forceps for histology. Pizano's esophagus was present in the distal esophagus. The maximum longitudinal extent of these mucosal changes was 4 cm in length. Mucosa was biopsied with a cold forceps for histology. A total of 2 specimen bottles were sent to pathology. Impression: - Z-line irregular, 36 cm from the incisors. Biopsied. - 4 cm hiatal hernia. - Erythematous mucosa in the prepyloric region of the stomach. Biopsied. - Normal second portion of the duodenum. - Non-bleeding duodenal ulcer with pigmented material. - Esophageal plaques were found, consistent with candidiasis. Biopsied. - Pizano's esophagus. Biopsied. Recommendation: - Await pathology results. - Discharge patient to home. - Resume previous diet. - Continue present medications. - Use sucralfate tablets 1 gram PO QID for 1 month. - Use Prilosec (omeprazole) 40 mg PO BID. Procedure Code(s): --- Professional --- 48644, PT, Esophagogastroduodenoscopy, flexible, transoral; with biopsy, single or multiple Diagnosis Code(s): --- Professional --- K22.89, Other specified disease of esophagus K44.9, Diaphragmatic hernia without obstruction or gangrene K31.89, Other diseases of stomach and duodenum K22.70, Pizano's esophagus without dysplasia CPT copyright 2021 [employer] [place] [employer]. All rights reserved. The codes documented in this report are preliminary and upon production laborer review may be revised to meet current compliance requirements. MD Chioma Verdin MD 09/05/2024 11:06:12 AM This report has been signed electronically. Number of Addenda: 0 Note Initiated On: 09/05/2024 10:32 AM
--- NOTE | 2024-09-05 11:07 | OP.CCLET_ITS ---
09/05/2024 Tigist Pelaez [address] [facility] [address] Re : Upper GI endoscopy procedure for Sammi Olivas Dear Dr. Pelaez This procedure was performed on Thursday, September 05, 2024. My impressions and recommendations are as follows: Impressions : - Z-line irregular, 36 cm from the incisors. Biopsied. - 4 cm hiatal hernia. - Erythematous mucosa in the prepyloric region of the stomach. Biopsied. - Normal second portion of the duodenum. - Non-bleeding duodenal ulcer with pigmented material. - Esophageal plaques were found, consistent with candidiasis. Biopsied. - Pizano's esophagus. Biopsied. Recommendations : - Await pathology results. - Discharge patient to home. - Resume previous diet. - Continue present medications. - Use sucralfate tablets 1 gram PO QID for 1 month. - Use Prilosec (omeprazole) 40 mg PO BID. My findings are described in the full procedure note, which is enclosed. If I can be of further assistance, please feel free to contact me at Doctor phone number(s): , Work: . Sincerely, MD Chioma Verdin MD 09/05/2024 11:06:12 AM This report has been signed electronically.
--- NOTE | 2024-09-05 13:28 | PCM.POSTANE2 ---
Anesthesia Postop Eval I Sum Postop Eval Completion status Anesthesia document: Postop Eval 1 completed: Yes Anesthesia Postop Eval I Summary Anesthesia Postop Eval I Summary: Anesthesia Postop Eval I: Assessment Summary Airway patent Yes 09/05/24 11:03 [email or web address] Spontaneous unlabored Yes 09/05/24 11:03 [email or web address] respirations Mental status Awake,Calm 09/05/24 11:03 [email or web address] nausea No 09/05/24 11:03 [email or web address] Vomiting No 09/05/24 11:03 [email or web address] Anesthesia Postop Eval I: Fluid Summary Crystalloid volume administer 300 09/05/24 11:03 [email or web address] (ml) Colloids volume administered ( ml) Blood Product volume administered (ml) Total IV fluid infused 300 09/05/24 11:03 [email or web address] Anesthesia Postop Eval I: Summary Notes Anesthesia Complication No 09/05/24 11:03 [email or web address] Anesthesia Complication Comment: Post-operative progress note Anesthesia: Postop Eval II Evaluation Mental status: Awake Pain Level: 0 nausea: No Vomiting: No
== END 2024-09-05 11:49 | disposition home or self-care (01) ==
LOC: EN 08:12 → AC 08:13
PROVIDERS: PCP Family Medicine; Referring Provider Family Medicine; Visit Provider Surgery
PROC: 0DJ08ZZ Inspection of Upper Intestinal Tract, Via Natural or Artificial Opening Endoscopic (ICD-10-PCS; CPT 43235; principal; 2024-09-05 09:25)
DX: K22.70 Barrett's esophagus without dysplasia (principal); B37.81 Candidal esophagitis; J44.9 Chronic obstructive pulmonary disease, unspecified; K21.00 Gastro-esophageal reflux disease with esophagitis, without bleeding; K44.9 Diaphragmatic hernia without obstruction or gangrene; K26.9 Duodenal ulcer, unspecified as acute or chronic, without hemorrhage or perforation; I10 Essential (primary) hypertension; E78.5 Hyperlipidemia, unspecified; F17.210 Nicotine dependence, cigarettes, uncomplicated; Z79.899 Other long term (current) drug therapy
CPT/HCPCS: 43239; 88305; 88341; J2405

== ENCOUNTER → 2024-10-29 | Outpatient (CLI) | payer MEDICARE, OTHER, SELFPAY ==
--- NOTE | 2024-10-29 13:00 | BI_ITS ---
EXAM: SCRN MAMM (CAD)W/THEA BILAT DATE: 10/29/2024 CLINICAL HISTORY: F, Age 79 y/o , ANNUAL SCREENING, H/O BREAST CANCER TECHNIQUE: SCRN MAMM (CAD)W/THEA BILAT COMPARISON: Prior exam(s) dated 08/08/2023 and 08/05/2022. FINDINGS: TISSUE DENSITY: There are scattered areas of fibroglandular density. Bilateral Breast Mammographic Findings: No suspicious masses, suspicious clustered microcalcifications, architectural distortion or secondary sign of malignancy is identified in either breast. Stable nodular masslike densities are seen in both breasts. Benign-appearing round calcifications are seen in both breasts. Stable lobulated nodular masslike densities are seen in both breasts. A radiopaque clip is seen in the right breast. The biopsy was benign. Post biopsy site is stable. BI/SCRN MAMM (CAD)W/THEA BILAT IMPRESSION: Benign screening mammogram. OVERALL FINAL ASSESSMENT BI-RADS 2: BENIGN RECOMMENDATION: Routine annual follow-up in 1 Year A letter with findings and recommendations will be mailed to the patient. Reading Location: [id number]
--- NOTE | 2024-10-29 13:09 | CT_ITS ---
PROCEDURE: LOW DOSE CT LUNG SCREENING 10/29/2024 REASON FOR EXAM: CURRENT SMOKER TECHNIQUE: LOW DOSE CT LUNG SCREENING Coronal and Sagittal reconstruction series were provided. One or more dose reduction techniques were used (e.g., Automated exposure control, adjustment of the mA and/or kV according to patient size, use of iterative reconstruction technique). REFERENCE LINK: [place] Lung-RADS RADIATION DOSE SUMMARY: CTDlvol: 3 mGy DLP: 100 mGycm COMPARISON: 10/29/23 FINDINGS: There is bronchial wall thickening and some lower lobe bronchial secretions. There is right upper lobe peripheral lung scarring, likely postradiation change. No consolidation effusion or pneumothorax. On the right, series 2, image 153, stable 6 mm pleural-based noncalcified lower lobe nodular density. Image 122, stable 3 mm noncalcified right middle lobe nodular density. Image 99, stable 6 mm noncalcified lower lobe pleural-based nodular density. On the left, series 2, image 139, 6 mm noncalcified pleural-based lower lobe nodular density, stable. Image 119, 4 mm noncalcified lower lobe pleural-based nodular density, stable. Left-sided port. Normal heart size. Small pericardial effusion. Small hiatal hernia. Thoracic spine degeneration. Status post right-sided lumpectomy and axillary lymph node dissection. No acute chest wall findings. No acute upper abdominal findings. CT/Low Dose CT Lung Screening IMPRESSION: Stable bilateral noncalcified lung nodules and nodular densities. Lung-RADS Category: 2 Other Significant Findings: Reading Location: [place] [address]
== END | disposition home or self-care (01) ==
LOC: CT 12:40
PROVIDERS: PCP Family Medicine; Referring Provider Student in an Organized Health Care Education/Training Program; Visit Provider Student in an Organized Health Care Education/Training Program
DX: Z12.31 Encounter for screening mammogram for malignant neoplasm of breast (principal); F17.210 Nicotine dependence, cigarettes, uncomplicated
CPT/HCPCS: 71271; 77063; 77067

== ENCOUNTER → 2025-02-21 | Outpatient (CLI) | payer MEDICARE, OTHER, SELFPAY ==
--- NOTE | 2025-02-21 08:55 | BD_ITS ---
PROCEDURE: DEXA BONE DENSITY STUDY 02/21/2025 REASON FOR EXAM: F, age 79 y/o . TECHNIQUE: Procedure Code: BDDBD Modality: DX Procedure: DEXA BONE DENSITY STUDY COMPARISON: 24 February 2017. FINDINGS: BMD and T-SCORES Lumbar spine: 1.110 g/cm2, T-score 0.6 Levels: L1 through L4 Change from prior: 6.7%. Left femoral neck: 0.517 g/cm2, T-score -3 Femoral neck comparison data not recommended for monitoring change. Prior T-score -2.5 Left total hip: 0.740 g/cm2, T-score -1.7 Change from prior: 16.1%. Right femoral neck: 0.578 g/cm2, T-score -2.4 Femoral neck comparison data not recommended for monitoring change. Prior T-score -2.3 Right total hip: 0.707 g/cm2, T-score -1.9 Change from prior: 6.7%. The World Health Organization has defined the following categories based on bone density: Normal bone density: T-score equal to or greater than -1.0 Osteopenia: T-score between -1.0 and -2.5 Osteoporosis: T-score equal to or less than -2.5 FRAX (or Comparable) Fracture Risk Assessment: 10 Year Probability of Fracture: Major Osteoporotic Fracture: 40% Hip Fracture: 22% (Note: FRAX is not to be reported in setting of normal range bone density, osteoporosis on DEXA, known history of osteoporosis, prior osteoporotic hip or vertebral fracture, or for any patient undergoing pharmacological treatment for bone loss.) The National Osteoporosis Foundation (NOF) recommends pharmacological treatment for patients with a FRAX 10-year risk of 3% or higher for a hip fracture, or 20% or higher for a major osteoporotic fracture, to prevent osteoporosis and reduce fracture risk. BD/Dexa Bone Density Study IMPRESSION: Osteoporosis. Reading Location: [id number]
[2025-02-21 09:55] LABS: Hematocrit 38.9 % (37-47); Hemoglobin 12.3 g/dL (12.0-15.0); Immature Granulocytes Count 0.030 X10^3/uL (0.0-0.0); Mean Corp Hgb Conc 31.6 g/dL (32-36); Mean Corpuscular Volume 100.0 fL (81-99); Mean Platelet Vol. 10.5 fl (6.2-12.0); NRBC Flagged by Analyzer 0 % (0-5); Platelet Count 288 K/mm3 (150-450); RBC Distribution Width CV 13.2 % (11.6-14.6); RBC Distribution Width SD 49.0 fl (35.1-43.9); Red Blood Count 3.89 M/mm3 (4.2-5.4); White Blood Count 7.1 K/mm3 (4.4-11.0)
[2025-02-21 10:34] LABS: AST(SGOT) 18 U/L (<=31); Alanine Aminotransfer ALT/SGPT 10 U/L (<=34); Albumin, Serum 4.0 g/dL (3.4-4.8); Alkaline Phosphatase 60 U/L (35-104); Anion Gap 8 (5-15); BUN 13 mg/dL (4-19); BUN/Creat Ratio 16.3 RATIO (10-20); Calcium,Total 8.9 mg/dL (7.6-11.0); Carbon Dioxide 29.6 mmol/L (21.0-32.0); Chloride 106 mmol/L (98-108); Cholesterol 233 mg/dL (<=200); Globulin 2.7 g/dL (2.2-4.2); Glucose 112 mg/dL (70-99); Low Density Lipoprotein Calc. 155 mg/dL; Potassium 4.2 mmol/L (3.3-5.1); Triglycerides 84 mg/dL; Very Low Density Lipoprotein 17 mg/dL (5-40); Vitamin D,25 Hydroxy 25.8 ng/mL (30-100); cholesterol:hdl ratio screen 3.70
== END | disposition home or self-care (01) ==
PROVIDERS: PCP Family Medicine; Referring Provider Family Medicine; Visit Provider Family Medicine
DX: E78.5 Hyperlipidemia, unspecified (principal); I10 Essential (primary) hypertension; Z51.81 Encounter for therapeutic drug level monitoring; E55.9 Vitamin D deficiency, unspecified; M81.0 Age-related osteoporosis without current pathological fracture
CPT/HCPCS: 36415; 77080; 80053; 80061; 82306; 85025

== ENCOUNTER 2025-03-06 08:46 | Day surgery (SDC) | payer MEDICARE, OTHER, SELFPAY ==
[2025-03-06] VITALS (7 sets, daily range): BP systolic 102–126; BP diastolic 46–58; PULSE 58–73; RESP 16–18; TEMP 36.1–36.8; O2SAT 95–98; BMI 39.9
[2025-03-06] MEDS: Lactated Ringers 1,000 ML 15 ML IV (09:20)
--- NOTE | 2025-03-06 10:00 | EGD_PTH ---
PATIENT: ISIDRO CRAWFORD LOC: EN U#:[id number] AGE/SX: 79/F ROOM: RE03/06/[address]: Dr. Chioma Vega MD : 1945 BED: DIS: 03/06/2025 SPEC #: [id number] RECD: 03/06/25 14:01 STATUS: BERNARD RELucius #: [id number] YOSELIN: 03/06/25 10:[address]: Chioma Vega DEPT: SURGICAL PATHOLOGY RECD BY: Nakul Mccartney ENTERED: 03/06/25 14:51 SP TYPE: EGD BIOPSY ALEJANDRO DR: Dr. Tigist Pelaez, DO Tissues: A - Gastric mucous membrane B - Esophagus, NOS Procedures: Immunohistochemical Stains Surgery Specimen Level IV HEADER OPERATION: EGD with biopsy PRE-OP DIAGNOSIS: Pizano esophagus TISSUE SUBMITTED: A- Antrum biopsy, B- GE junction biopsy MICROSCOPIC DIAGNOSIS A. Stomach, antrum, biopsy: - Antral mucosa with features of reactive gastropathy. - IHC negative for H. pylori organisms. B. Esophagus, junction, biopsy: - Pizano mucosa negative for dysplasia. MICROSCOPIC DESCRIPTION Slides are reviewed. All matched controls reacted appropriately. These tests were developed and their performance characteristics determined by [facility]. They may not have been cleared or approved by the U.S. Food and Drug Administration. The FDA has determined that such clearance or approval is not necessary. The above immunohistochemical markers are viewed by the Pathologist. GROSS DESCRIPTION A. Received in fixative is one container labeled with the patient's name and designated Antrum biopsy. The specimen consists of one irregular fragment of pagan tissue that measures 0.4 cm. The specimen is totally submitted in one cassette. B. Received in fixative is one container labeled with the patient's name and designated GE junction biopsy. The specimen consists of three irregular fragments of pagan tissue that measure 0.3 to 0.4 cm. The specimen is totally submitted in one cassette. AR 03/06/2025 CPT:72586j5,[id number]
--- NOTE | 2025-03-06 10:07 | H&P.OPEN ---
HPI - General General Date of Service: 03/06/25 HPI Narrative ISIDRO CRAWFORD, is a 79 F who presents for an 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 Patient denies any changes since office visit. Office visit 01/23/2025 [facility] HPI: 78-year-old female presents for follow-up for 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 Patient currently on omeprazole 40 mg p.o. twice daily. Patient denies having any symptoms on the twice daily dosing. Patient was last EGD was August 2024 she did have Hope in her esophagus as well as Pizano's esophagus with indefinite for dysplasia, negative for H. pylori-Plan for repeat EGD 6 months. [facility] Medical History (Updated 03/05/25 @ 08:43 by Chrissy Ponce) Walker as ambulation aid Ambulates with cane Low iron Sleep apnea Asthma Chronic cough Wears glasses Wears dentures Cancer Post-menopausal Anemia Easy bruising Restless legs History of diverticulitis Gastric reflux Smoker BiPAP (biphasic positive airway pressure) dependence On home oxygen therapy Shortness of breath on exertion Hoarseness History of echocardiogram History of stress test Right arm fracture DVT (deep venous thrombosis) Stroke behind eye Smoking greater than 40 pack years COPD with asthma Candidiasis of mouth History of pulmonary embolism Pulmonary hypertension DION (obstructive sleep apnea) Lung nodule Acute respiratory failure with hypoxia and hypercarbia Tobacco user History of pulmonary embolism Hyperlipidemia GERD (gastroesophageal reflux disease) History of DVT of lower extremity Chronic obstructive lung disease Benign essential hypertension Home Medications ?Medication ?Instructions ?Recorded ?Last Taken ?Type trazodone 100 mg tablet 200 mg PO QHS 06/27/14 09/04/24 History gabapentin 600 mg tablet 600 mg PO QHS 07/13/16 09/04/24 History albuterol sulfate 90 mcg/actuation 2 puff inhalation Q4H PRN Sob &/Or 07/05/19 09/05/24 06:30 History aerosol inhaler Wheezing gabapentin 300 mg capsule 300 mg PO DAILY 02/20/20 09/04/24 History fluticasone propionate 50 2 spray intranasal DAILY ALLERGIES 12/10/20 09/04/24 History mcg/actuation nasal spray,suspension citalopram 10 mg tablet 10 mg PO DAILY 05/13/21 09/04/24 History lift chair #1 ea 05/13/21 Unknown Rx tiotropium bromide 18 mcg capsule 1 cap inhalation DAILY #30 03/26/24 03/06/25 Rx with inhalation device (Spiriva inhalations with HandiHaler) fluticasone 500 mcg-salmeterol 50 1 inh inhalation BID #3 device 07/17/24 03/06/25 Rx mcg/dose blistr powdr for inhalation (Wixela Inhub) ipratropium 0.5 mg-albuterol 3 mg 3 ml inhalation Q4H PRN shortness 07/17/24 03/06/25 Rx (2.5 mg base)/3 mL nebulization of breath or wheezing #180 mL soln alendronate 35 mg tablet 35 mg PO QWEEK 08/31/24 09/04/24 History furosemide 40 mg tablet 40 mg PO DAILY 08/31/24 09/04/24 History omeprazole 40 mg capsule,delayed 40 mg PO BID #60 caps 09/05/24 Unknown Rx release Allergy/AdvReac Type Severity Reaction Status Date / Time Fish Containing Products AdvReac Mild Abd Verified 03/06/25 09:07 cramps/diarrhea Family History Sister Skin cancer Diabetes Breast cancer Lung cancer Mother Diabetes CVA (cerebral vascular accident) Father Heart disease CVA (cerebral vascular accident) Brother Diabetes Sister Breast cancer Surgical History (Updated 03/05/25 @ 08:43 by Chrissy Ponce) History of esophagogastroduodenoscopy (EGD) History of esophagogastroduodenoscopy (EGD) Status post right breast lumpectomy History of breast biopsy Hx of colonoscopy History of bilateral knee replacement Social History Smoking Status: Current every day smoker (Patient did not smoke today.) tobacco type: cigarettes second hand exposure: Yes alcohol intake: current alcohol intake frequency: holidays/special occasions only substance use type: does not use caffeine: Yes what type of physical activity do you participate in: none frequency: does not exercise Past Medical/Surgical History Planned Operation Planned Operative Procedure(s): EGD S.O.S: No Previous Hospitalizations/Surgeries HX Hospitalizations: No HX of Surgeries: TUBAL LIGATION RIGHT KNEE REPLACEMENT LEFT KNEE REPLACEMENT COLONOSCOPY vascular port left chest 07/2019 Any Problems With Anesthesia: No You/Your Family Experience Fever (Hyperthermia) With Anes: No Cholinesterase deficiency: No Cardiovascular Hx Chest Pain within Last 2 months: No Hx of Irregular Heartbeat and/or Afib: No Hx Heart Attack: No Hx Congestive Heart Failure: No Hx Rheumatic Fever: No Hx Hypertension: No Hx Internal Defibrillator: No Hx Pacemaker: No Hx Cardiac Catheterization: No Hx Cardiac Surgery/Stents/Etc.: No Hx Stress Test: Yes (2011 AND ECHO 2019) Hx Pain in Legs when Walking/Leg Cramps: No (.) Respiratory Chronic Cough: No HX of Shortness of Breath: Yes (sob with 2 flights of stairs) Hoarseness: No Hx Chronic Obstructive Pulmonary Disease (COPD): Yes Hx Asthma: No Hx Emphysema: No (.) Hx Sleep Apnea: Yes CPAP: No BIPAP: Yes Hx Respiratory Tract Infection/Cold (presently): No Result (for STOP score): Positive Hx Smoking: Yes (1ppd 52 yrs currently 2 cig. a day) Smoking Status: Current every day smoker (Patient did not smoke today.) Gastrointestinal Controlled With Meds: Yes Hx Gastrointestinal Disorders: Yes (DIVERTICULITIS) Hx Gastrointestinal Bleed: Yes Hx Ulcer: No Hx Hiatal Hernia: Yes Difficulty Chewing/Swallowing: No Special diet followed at home: No Hx Unplanned Weight Loss of 20#: No HX Unplanned Weight Gain of 20#: No Neurological Hx Seizures: No HX Syncope/Blackout Spells/Unconsciousness: No Hx Transient Ischemic Attacks (TIA): No Hx Multiple Sclerosis: No Hx Parkinson's Disease: No Hx Head/Neck Injury: No Hx Headaches: No Hx Back Injury/Pain: No Recent Onset of Speech Difficulty: No Restless Legs: Yes Does patient have nerve stimulator: No Blood Disorder Hx Leukemia: No Bleeding Tendencies: No Hx Deep Vein Thrombosis: Yes (1994 DVT AFTER KNEE SCOPE/2001 DVT LEG) Hx High Cholesterol: No Blood Transmitted Disease: No Hx Hepatitis: No Hx Cirrhosis: No Hx Anemia: No Hx Blood Disorders: No Reproduction : No Is Patient Lactating: No Hx Hysterectomy: No Hx Tubal Ligation: Yes Are You Post Menopause: Yes Genitourinary Hx Renal Disease: No Hx Dialysis: No Musculoskeletal Hx Arthritis: Yes (stated arthritis in both ankles/feet) Hx Rheumatoid Arthritis: No Hx Gout: No Recent Onset of an Orthopedic Problem: No Endocrine Hx Diabetes: No Thyroid Disease: No Hx Steroid Therapy: No Psycho/Social Hx Substance Use: No Hx Alcohol Use: No Hx Anxiety: Yes (situational) Hx Depression: Yes (on med) Mental Illness: No Hx Dementia: No Miscellaneous Hx Cancer: Yes (breast/has had chemo/last 09/27/19) Recent Exposure to Contagious Disease: No Hx of C-Diff: No Any Loose Teeth: No (FULL SET OF DENTURES) Allergies Fish Containing Products Adverse Reaction (Mild, Verified 03/06/25 09:07) Abd cramps/diarrhea nausea Maternal: Family History Sister Skin cancer Diabetes Breast cancer Lung cancer Mother Diabetes CVA (cerebral vascular accident) Father Heart disease CVA (cerebral vascular accident) Brother Diabetes Sister Breast cancer No pertinent history Discharge Is Pt Admitted From a Longterm, or a Usp: No After D/C, Where Do you Plan to Go: Return Home From the PAT History Number of Risk Factors: 7 Vital Signs Vital Signs Vital Signs: 03/06/25 09:08 03/06/25 09:08 03/06/25 09:08 Temperature 97 F L Temperature Source Temporal Pulse Rate 58 L Respiratory Rate 16 Respiratory Pattern Normal Blood Pressure 126/58 H Blood Pressure Mean 80 Blood Pressure Source Monitor Blood Pressure Position Left Lateral Blood Pressure Location Left Arm Baseline BP 126/58 Pulse Ox 96 Oxygen Delivery Method Room Air Weight Weight: 218 lb 4.122 oz Body Mass Index (BMI) 39.9 Physical Exam Const alert, oriented x3 and no apparent distress HEENT normocephalic and head/scalp atraumatic Resp normal respiratory effort Cardio regular rate GI soft to palpation and non-tender; Negative for non-distended Palpation: Negative for guarding Extremity no clubbing, cyanosis or edema Skin no rashes or lesions noted Neuro CN's II-XII intact bilaterally Psych mental status grossly normal Assessment & Plan Assessment/Plan (1) Pizano esophagus: QUALIFIERS: Pizano's esophagus type: without dysplasia Qualified Code(s): K22.70 - Pizano's esophagus without dysplasia Surgery Risks - Colonoscopy I discussed with the patient the risks of the procedure: Yes Risks Include but are not Limited To: Risks include but are not limited to: Bleeding, perforation requiring further surgery, inability to complete colonoscopy requiring barium enema.
--- NOTE | 2025-03-06 10:10 | PCM.PRE.AN2 ---
ASA Classification* ASA Classification ASA Classification: 3 (BMI 40, COPD w/ Asthma, DION on BiPAP, Pulm HTN 2/2 severe COPD, Chronic smoker. Hx DVT/PE) Assessment & Plan Anesthesia* Anesthesia Assessment Anesthesia Assessment: Discussed sedation and/or anesthesia options, risks, benefits, and alternatives with patient/parents/legal guardian/POA. Questions invited. The patient/parents/legal guardian/POA seems to understand and agrees to proceed with anesthesia plan. Reviewed the physical assessment, medical history, allergy history and patient home medications list prior to surgery/procedure/anesthetic and documented any changes. Performed airway and anesthesia risk assessments. Patient states she did nebulizer breathing tx at home prior to coming today; on my exam clear to auscultation b/l Anesthesia Type Anesthesia Type: MAC History Source History Obtained from:: Patient and Chart Anesthesia Focused Assessment* Temperature: 97 F Pulse Rate: 58 Blood Pressure: 126/58 Respiratory Rate: 16 Pulse Ox: 96 Oxygen Delivery Method: Room Air Airway Assessment Mouth opens: >3 cm Mallampati Score: II Neck Range of motion (ROM): Full ROM Labs Anesthesia Preop lab: CBC WBC, (4.4-11.0) 7.1 K/mm3 02/21/25, 09:49 RBC, (4.2-5.4) 3.89 M/mm3 L 02/21/25, 09:49 Hgb, (12.0-15.0) 12.3 g/dL 02/21/25, 09:49 Hct, (37-47) 38.9 % 02/21/25, 09:49 Plt Count, (150-450) 288 K/mm3 02/21/25, 09:49 CHEMISTRY Potassium, (3.3-5.1) 4.2 mmol/L 02/21/25, 09:49 Sodium, (133-145) 143 mmol/L 02/21/25, 09:49 Magnesium, (1.6-2.6) 2.4 mg/dL 12/11/20, 05:02 Phosphorus, (2.5-4.9) 3.4 mg/dL 09/27/19, 09:25 BUN, (4-19) 13 mg/dL 02/21/25, 09:49 Creatinine, (0.70-1.20) 0.78 mg/dL 02/21/25, 09:49 Glucose, (70-99) 112 mg/dL H 02/21/25, 09:49 POC Glucose, (70-110) 167 mg/dL H 12/16/20, 11:28 COAG PT, (11.7-14.9) 13.2 SECONDS 01/09/20, 11:00 Pre-Assessment Diagnosis/Proposed Procedure Planned Operative Procedure(s): EGD Anesthesia History 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 When Was Last Pacemaker Check QUESTION #4 FULL TEXT: You/Your Family Experience fever (hyperthermia) with Anesthesia Last Oral Intake Last Oral intake: Last Oral Intake NPO since 20:00 03/06/25 09:08 Meds taken in AM with sips of water? 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 Has anyone observed you stop breathing during sleep? STOP Results Positive 03/06/25 10:08 QUESTION #5 FULL TEXT : Do you snore loudly (louder than talking or can be heard through closed doors)? 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 Specify any problems Hx of Preganancy in last 3 No 03/05/25 08:44 Months Nurse Filling Out Transfusion VCHRISTIN 03/05/25 08:44 & Questions: Date: 03/05/25 03/05/25 08:44 Time: 08:45 03/05/25 08:44 Patient unable to answer at this time (ie. confused, unrespo /Reproduction History /Reproductive History - cooking show host: /Reproductive Hx- cooking show host Hx Now No 03/06/25 10:08 Gestational Age (in weeks): EDC: Hx Hx Para Hx Section SAB No 03/05/25 08:44 Does the father of the baby or his family experience fever w Father of the baby Malignant Hypertension history comment Active Medications Active Medications: Current Medications Generic Name Dose Route Start Last Admin Trade Name Freq PRN Reason Stop Dose Admin Lactated Ringer's 1,000 mls @ 15 mls/hr 03/06/25 09:00 03/06/25 09:20 IV 15 mls/hr .Q48H TANIA Administration FOR[facility]LY [facility] Medical History (Updated 03/05/25 @ 08:43 by Chrissy Ponce) Walker as ambulation aid Ambulates with cane Low iron Sleep apnea Asthma Chronic cough Wears glasses Wears dentures Cancer Post-menopausal Anemia Easy bruising Restless legs History of diverticulitis Gastric reflux Smoker BiPAP (biphasic positive airway pressure) dependence On home oxygen therapy Shortness of breath on exertion Hoarseness History of echocardiogram History of stress test Right arm fracture DVT (deep venous thrombosis) Stroke behind eye Smoking greater than 40 pack years COPD with asthma Candidiasis of mouth History of pulmonary embolism Pulmonary hypertension DION (obstructive sleep apnea) Lung nodule Acute respiratory failure with hypoxia and hypercarbia Tobacco user History of pulmonary embolism Hyperlipidemia GERD (gastroesophageal reflux disease) History of DVT of lower extremity Chronic obstructive lung disease Benign essential hypertension Home Medications ?Medication ?Instructions ?Recorded ?Last Taken ?Type trazodone 100 mg tablet 200 mg PO QHS 06/27/14 09/04/24 History gabapentin 600 mg tablet 600 mg PO QHS 07/13/16 09/04/24 History albuterol sulfate 90 mcg/actuation 2 puff inhalation Q4H PRN Sob &/Or 07/05/19 09/05/24 06:30 History aerosol inhaler Wheezing gabapentin 300 mg capsule 300 mg PO DAILY 02/20/20 09/04/24 History fluticasone propionate 50 2 spray intranasal DAILY ALLERGIES 12/10/20 09/04/24 History mcg/actuation nasal spray,suspension citalopram 10 mg tablet 10 mg PO DAILY 05/13/21 09/04/24 History lift chair #1 ea 05/13/21 Unknown Rx tiotropium bromide 18 mcg capsule 1 cap inhalation DAILY #30 03/26/24 03/06/25 Rx with inhalation device (Spiriva inhalations with HandiHaler) fluticasone 500 mcg-salmeterol 50 1 inh inhalation BID #3 device 07/17/24 03/06/25 Rx mcg/dose blistr powdr for inhalation (Wixela Inhub) ipratropium 0.5 mg-albuterol 3 mg 3 ml inhalation Q4H PRN shortness 07/17/24 03/06/25 Rx (2.5 mg base)/3 mL nebulization of breath or wheezing #180 mL soln alendronate 35 mg tablet 35 mg PO QWEEK 08/31/24 09/04/24 History furosemide 40 mg tablet 40 mg PO DAILY 08/31/24 09/04/24 History omeprazole 40 mg capsule,delayed 40 mg PO BID #60 caps 09/05/24 Unknown Rx release Allergy/AdvReac Type Severity Reaction Status Date / Time Fish Containing Products AdvReac Mild Abd Verified 03/06/25 09:07 cramps/diarrhea Family History Sister Skin cancer Diabetes Breast cancer Lung cancer Mother Diabetes CVA (cerebral vascular accident) Father Heart disease CVA (cerebral vascular accident) Brother Diabetes Sister Breast cancer Surgical History (Updated 03/05/25 @ 08:43 by Chrissy Ponce) History of esophagogastroduodenoscopy (EGD) History of esophagogastroduodenoscopy (EGD) Status post right breast lumpectomy History of breast biopsy Hx of colonoscopy History of bilateral knee replacement Social History Smoking Status: Current every day smoker (Patient did not smoke today.) tobacco type: cigarettes second hand exposure: Yes alcohol intake: current alcohol intake frequency: holidays/special occasions only substance use type: does not use caffeine: Yes what type of physical activity do you participate in: none frequency: does not exercise Review of Systems (Anesthesia) ROS Narrative System reviewed and no additional complaints, except as documented. Physical Exam Const alert, oriented x3 and average body habitus Resp normal respiratory effort, normal air movement and clear to auscultation bilaterally Cardio regular rate, regular rhythm and no murmurs; Negative for diaphoretic
[2025-03-06] MEDS: Lidocaine 1% (5 ml sdv) 5 ML Vial 10 ML IV (10:48)
--- NOTE | 2025-03-06 11:08 | PCM.POST.ANE ---
Anesthesia: Postop Eval I Current Vital Signs Temperature: 98.2 F Pulse Rate: 73 Blood Pressure: 102/46 Respiratory Rate: 16 Pulse Ox: 98 Oxygen Delivery Method: Room Air Assessment Airway patent: Yes Spontaneous unlabored respirations: Yes Mental status: Awake and Calm nausea: No Vomiting: No Anesthesia Complication: No Fluid Hydration Crystalloid volume administer (ml): 200 Total IV fluid infused: 200 Progress Note Anesthesia document: Postop Eval 1 completed: Yes
--- NOTE | 2025-03-06 11:22 | OP.EGD_ITS ---
Patient Name: Sammi Olivas Procedure Date: 03/06/2025 10:40 AM Date of : 1945 Age: 79 Procedure: Upper GI endoscopy Indications: Pizano's esophagus indefinite for dysplasia Providers: Chioma Vega MD Referring MD: Tigist Pelaez Medicines: Monitored Anesthesia Care Patient Profile: This is a 79 year old female. Complications: No immediate complications. Procedure: Pre-Anesthesia Assessment: - Prior to the procedure, a History and Physical was performed, and patient medications and allergies were reviewed. The patient's tolerance of previous anesthesia was also reviewed. The risks and benefits of the procedure and the sedation options and risks were discussed with the patient. All questions were answered, and informed consent was obtained. Prior Anticoagulants: The patient has taken no anticoagulant or antiplatelet agents. ASA Grade Assessment: Per anesthesia. After reviewing the risks and benefits, the patient was deemed in satisfactory condition to undergo the procedure. After obtaining informed consent, the endoscope was passed under direct vision. Throughout the procedure, the patient's blood pressure, pulse, and oxygen saturations were monitored continuously. The gastroscope was introduced through the mouth, and advanced to the second part of duodenum. The upper GI endoscopy was accomplished without difficulty. The patient tolerated the procedure well. Scope In: 10:51:17 AM Scope Out: 10:58:39 AM Total Procedure Duration Time 0 hours 7 minutes 22 seconds Findings: There were esophageal mucosal changes secondary to established long-segment Pizano's disease present at the lower esophageal sphincter. The maximum longitudinal extent of these mucosal changes was 5 cm in length. Mucosa was biopsied with a cold forceps for histology. The examined duodenum was normal. Striped moderately erythematous mucosa without bleeding was found in the gastric antrum. Biopsies were taken with a cold forceps for histology. Biopsies were taken with a cold forceps for Helicobacter pylori testing. A small hiatal hernia was present. A few less than 5 mm sessile polyps with no bleeding and no stigmata of recent bleeding were found in the gastric fundus. Impression: - Esophageal mucosal changes secondary to established long-segment Pizano's disease. Biopsied. - Normal examined duodenum. - Erythematous mucosa in the antrum. Biopsied. - Small hiatal hernia. - A few gastric polyps. Recommendation: - Await pathology results. - Discharge patient to home. - Resume previous diet. - Use sucralfate tablets 1 gram PO QID. - Check gastrin at appointment to be scheduled-fasting 12 hrs. - Use Aciphex (rabeprazole) 40 mg PO daily. - Continue present medications. Procedure Code(s): --- Professional --- 78007, PT, Esophagogastroduodenoscopy, flexible, transoral; with biopsy, single or multiple Diagnosis Code(s): --- Professional --- K22.70, Pizano's esophagus without dysplasia K44.9, Diaphragmatic hernia without obstruction or gangrene K31.89, Other diseases of stomach and duodenum K31.7, Polyp of stomach and duodenum CPT copyright 2021 [employer] [place] [employer]. All rights reserved. The codes documented in this report are preliminary and upon hims coder review may be revised to meet current compliance requirements. MD Chioma Verdin MD 03/06/2025 11:22:19 AM This report has been signed electronically. Number of Addenda: 0 Note Initiated On: 03/06/2025 10:40 AM
--- NOTE | 2025-03-06 11:23 | OP.PROVAT_ITS ---
03/06/2025 Tigist Pelaez [address] [place] [address] Re : Upper GI endoscopy procedure for Sammi Olivas Dear Dr. Pelaez This procedure was performed on Thursday, March 06, 2025. My impressions and recommendations are as follows: Impressions : - Esophageal mucosal changes secondary to established long-segment Pizano's disease. Biopsied. - Normal examined duodenum. - Erythematous mucosa in the antrum. Biopsied. - Small hiatal hernia. - A few gastric polyps. Recommendations : - Await pathology results. - Discharge patient to home. - Resume previous diet. - Use sucralfate tablets 1 gram PO QID. - Check gastrin at appointment to be scheduled-fasting 12 hrs. - Use Aciphex (rabeprazole) 40 mg PO daily. - Continue present medications. My findings are described in the full procedure note, which is enclosed. If I can be of further assistance, please feel free to contact me at Doctor phone number(s): , Work: . Sincerely, MD Chioma Verdin MD 03/06/2025 11:22:19 AM This report has been signed electronically.
--- NOTE | 2025-03-06 11:33 | POSTOPAN2_ITS ---
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
--- NOTE | 2025-03-06 11:33 | PCM.POSTANE2 ---
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
--- NOTE | 2025-03-06 11:49 | SUR.PHASEII ---
gastrin level drawn in phase 2, fasting. patient tolerated well. 2 attempts.
[2025-03-09 16:08] LABS: Gastrin, Serum 216 pg/mL (0-115)
== END 2025-03-06 12:07 | disposition home or self-care (01) ==
LOC: EN 08:48 → AC 08:49
PROVIDERS: PCP Family Medicine; Referring Provider Family Medicine; Visit Provider Surgery
PROC: 0DJ08ZZ Inspection of Upper Intestinal Tract, Via Natural or Artificial Opening Endoscopic (ICD-10-PCS; CPT 43235; principal; 2025-03-06 09:55)
DX: K22.70 Barrett's esophagus without dysplasia (principal); J44.9 Chronic obstructive pulmonary disease, unspecified; K44.9 Diaphragmatic hernia without obstruction or gangrene; Z86.718 Personal history of other venous thrombosis and embolism; F17.210 Nicotine dependence, cigarettes, uncomplicated; I10 Essential (primary) hypertension; E78.5 Hyperlipidemia, unspecified; Z79.899 Other long term (current) drug therapy; Z86.711 Personal history of pulmonary embolism; K31.7 Polyp of stomach and duodenum; K21.9 Gastro-esophageal reflux disease without esophagitis; Z79.51 Long term (current) use of inhaled steroids
CPT/HCPCS: 43239; 82941; 88305; 88342; A4216; J2405